=== PATIENT | male | born 1930 | race Caucasian/White ===

== ENCOUNTER 2016-06-18 17:29 | Inpatient (IN) | payer OTHER ==
[~2016-06-18] VITALS: Ht 167.6 cm; Wt 67.5 kg
[~2016-06-18 17:29] MED LIST: ASPEC81 PO; CLC100 PO; FOLI1TAB7 PO; GLC5 PO; METO50TA17 PO; NUTR-7 PO; OSEL75CA12 PO; VNTHFA/IN INH; ZRX5 PO
[2016-06-18 19:04] LABS: BASO % 0.2 %; BASO ABS # 0.01 K/uL (0-0.2); COMPLETE YES; EOS % 0.2 %; HEMATOCRIT 31.6 % (42-52); IG% 0.2 %; LYMPH % 15.4 %; LYMPH ABS # 0.66 K/uL (1.2-3.4); MEAN CORPUSCULAR HEMOGLOBIN 32.3 pg (25-34); MEAN CORPUSCULAR HGB CONC 32.3 g/dl (32-36); MEAN PLATELET VOLUME 10.9 fL (7.4-10.4); PLATELET COUNT 335 K/uL (130-400); RED BLOOD COUNT 3.16 M/uL (4.7-6.1); WHITE BLOOD COUNT 4.28 K/uL (4.8-10.8)
[2016-06-18 19:09] LABS: INR 1.1 (0.9-1.1); PARTIAL THROMBOPLASTIN RATIO 1.5; PROTHROMBIN TIME (PATIENT) 12.1 SECONDS (9.0-12.0)
--- NOTE | 2016-06-18 19:15 | DIAGNOSTIC IMAGING REPORT ---
CHEST ONE VIEW PORTABLE CLINICAL HISTORY: Sepsis COMPARISON STUDY: June 17, 2016 FINDINGS: The heart remains enlarged. There is a small left pleural effusion. There is interstitial thickening, likely secondary to pulmonary vascular congestion.[ There is no lobar consolidation IMPRESSION: 1. Cardiomegaly and persistent interstitial thickening/edema 2. Small left pleural effusion 3. No evidence of lobar consolidation Electronically signed by: Greg White M.D. 06/18/2016 7:13 PM
[2016-06-18 19:22] LABS: BUN/CREATININE RATIO 15.8 (10-20); CALCIUM 7.5 mg/dl (8.5-10.1); CREATININE 1.7 mg/dl (0.60-1.40); POTASSIUM 3.5 mmol/L (3.5-5.1)
[2016-06-18 19:25] LABS: ALB/GLOB RATIO 0.7 (0.9-2)
[2016-06-18] MEDS ORDERED: DEXTROSE 50% 50 ML SYR IV PRN (19:45)
[2016-06-18] MEDS ORDERED: GLUCAGON FOR INJ 1 MG VIAL SQ PRN (19:45)
[2016-06-18] MEDS ORDERED: ACETAMINOPHEN 325 MG TAB PO PRN (19:45)
[2016-06-18] MEDS ORDERED: GLUCOSE 10 TABS/TUBE PO PRN (19:45)
[2016-06-18] MEDS ORDERED: ONDANSETRON INJ 2 MG/ML 2 ML VIAL IV PRN (19:45)
[2016-06-18] MEDS ORDERED: ZOLPIDEM TARTRATE 5 MG TAB PO PRN (19:45)
[2016-06-18] MEDS ORDERED: GLUCOSE 40% GEL 15 GM TUBE PO PRN (19:45)
[2016-06-18] MEDS ORDERED: VANCOMYCIN CONSULT ACTIVE PRN (20:30)
[2016-06-18] MEDS ORDERED: VANCOMYCIN INJ 1,500 MG in SODIUM CHLORIDE 0.9% 500ML 500 ML IV SCH (20:30)
[2016-06-18] MEDS ORDERED: PIPERACILL/TAZOBAC IV 3.375 GM in DEXTROSE 5% 100ML 100 ML IV SCH (20:30)
[2016-06-18] MEDS ORDERED: PIPERACILL/TAZOBAC CONSULT ACTIVE PRN (20:30)
--- NOTE | 2016-06-18 20:43 | DIAGNOSTIC IMAGING REPORT ---
CT HEAD WITHOUT CONTRAST (CT) CLINICAL HISTORY: Acute change in mental status COMPARISON STUDY: 05/28/2016 TECHNIQUE: Axial CT of the brain is performed from the vertex to the skull base. IV contrast was not administered for this examination. CT DOSE: 712.55 mGy.cm FINDINGS: No intra or extra-axial mass lesions are visualized. There is no CT evidence of acute cortical infarction. There is no evidence of midline shift. There is no acute hemorrhage. No calvarial fractures are visualized. There are patchy white matter hypodensities likely on a small vessel basis. There is no evidence of pathologic ventricular dilatation. There is no evidence of acute sinusitis. There is mucosal thickening within the maxillary ethmoid and sphenoid sinuses. There are postsurgical changes of a prior aneurysm endovascular coil placement. IMPRESSION: No acute intracranial findings Electronically signed by: Greg White M.D. 06/18/2016 8:41 PM
[2016-06-18] MEDS ORDERED: LEVALBUTEROL/IPRATROPIUM NEB INH SCH (21:00)
[2016-06-18 21:15] VITALS: BP 135/65; PULSE 70; TEMP 37.1; O2SAT 95
[2016-06-18 21:30] VITALS: BP 135/65; PULSE 70; TEMP 37.1; O2SAT 95; BMI 24.0
[2016-06-18] MEDS: INSULIN ASPART 100 UNITS/ML 3 ML PEN SC SCH (22:00)
[2016-06-18] MEDS: SODIUM CHLORIDE 0.9% 1000ML 1,000 ML IV SCH (22:04)
[2016-06-18] MEDS: TAMSULOSIN HCL 0.4 MG CAP PO SCH (22:17)
[2016-06-18] MEDS: SIMVASTATIN 80 MG TAB PO SCH (22:18)
[2016-06-18] MEDS: OSELTAMIVIR PHOSPHATE 75 MG CAP PO SCH (22:18)
--- NOTE | 2016-06-18 23:21 | History and Physical ---
History & Physical Date & Time of Service: Jun 18, 2016 at 23:08 Chief Complaint: Influenza A, Staphylococcus Aureus Bacteremia Primary Care Physician: Bryno Delvalle M.D. History of Present Illness Source: patient The patient is an 85-year-old male who presents to the emergency department after being called back and by ED staff for blood cultures that were positive for gram-positive cocci and urine culture positive for staph aureus. Patient was seen in the emergency department the previous evening, was diagnosed with influenza A, started on Tamiflu, and was returned to his living quarters at [facility]. The patient at this time is resting comfortably, and continues with his main complaint of generalized weakness and fatigue. He was most recently admitted to the hospital from May 28 through June 11 for acute on chronic renal failure, which that time also as manifested by the main complaint of generalized weakness and fatigue. Past Medical/Surgical History Medical Problems: (1) Diabetes Status: Chronic (2) Heart disease Status: Chronic (3) Kidney disease Status: Chronic Surgical Problems: (1) S/P aneurysm repair Status: Resolved Family History Diabetes mellitus Social History Smoking Status: Former Smoker Smokeless Tobacco Use: No Alcohol Use: none Drug Use: none Marital Status: Housing status: lives with family Occupational Status: retired Immunizations History of Influenza Vaccine: Yes Influenza Vaccine Date: Mar 23, 2010 History of Tetanus Vaccine?: Unknown History of Pneumococcal: Yes Pneumococcal Date: Apr 23, 2008 History of Hepatitis B Vaccine: Unknown Multi-Drug Resistant Organisms History of MDRO: No Allergies Coded Allergies: Isoniazid (Verified Allergy, Intermediate, hepatitis, 06/18/16) Streptokinase (Verified Allergy, Mild, 06/18/16) THOMPSON Inhibitors (Verified Allergy, Unknown, 06/18/16) Home Medications Scheduled Albuterol Hfa (Ventolin Hfa), 1 PUFF INH Q4 Amlodipine (Norvasc), 10 MG PO DAILY Aspirin (Aspirin EC Low Dose), 81 MG PO QAM Clopidogrel (Plavix), 75 MG PO DAILY Docusate Sodium (Colace *), 100 MG PO BID Febuxostat (Uloric), 40 MG PO DAILY Folic Acid (Folvite), 0.4 MG PO DAILY Glipizide (Glucotrol *), 5 MG PO BID Isosorbide Mononitrate Ext Rel (Imdur Ext Rel), 60 MG PO QAM Metolazone (Metolazone), 5 MG PO QAM Metoprolol Tartrate (Metoprolol Tartrate), 50 MG PO TID Nutritional Supplements (Boost), 1 CAN PO DAILY Simvastatin (Zocor), 80 MG PO QPM Tamsulosin Hcl (Flomax), 0.4 MG PO HS Review of Systems The patient denies chest pain, palpitations, shortness of breath, lower extremity swelling, vision change, hearing change, sore throat, fevers, chills, sweats, weight change, nausea, vomiting, abdominal pain, pelvic pain, blood in urine or stool, dysuria, urinary frequency or urgency, headache, rash, abnormal bruising or bleeding, imbalance, focal weakness, numbness or tingling in arms or legs, back or neck pain, night sweats, or allergy symptoms. The review of systems is otherwise negative other than for that already noted above, and at least 10 systems have been reviewed. Physical Exam Vital Signs Date Time Temp Pulse Resp B/P Pulse Ox O2 Delivery O2 Flow Rate FiO2 06/18/16 21:30 37.1 70 20 135/65 95 Room Air 06/18/16 21:15 37.1 70 20 135/65 95 Room Air 06/18/16 20:31 77 16 176/75 94 06/18/16 19:15 76 18 184/70 94 Room Air 06/18/16 17:54 61 06/18/16 17:33 36.4 62 20 130/67 93 Room Air The patient is an elderly male appearing stated age, is awake, alert and oriented 3, normocephalic and atraumatic, lying in bed and in no acute distress. HEENT--PERRL, mucous membranes moist, and oropharynx normal. Neck--supple, no JVD or bruits, thyroid normal, trachea midline, no adenopathy. Heart--normal S1 and S2, no extra beats, no murmurs, rubs or gallops. Lungs--decreased breath sounds at right base, no respiratory distress, no accessory muscle use. Abdomen--normal bowel sounds and soft, nontender and nondistended, no hernias or masses, no organomegaly. Extremities--no cyanosis, clubbing or edema. There are good distal pulses b/l. Dermatologic--normal skin turgor, normal color, warm and dry, no abnormal lymph nodes, no rash. Neurologic--cranial nerves II through XII grossly intact. Psychiatric--normal affect. Diagnostics Laboratory Results Results Past 24 Hours Test 06/18/16 18:42 06/18/16 18:48 06/18/16 21:51 Range/Units White Blood Count 4.28 4.8-10.8 K/uL Red Blood Count 3.16 4.7-6.1 M/uL Hemoglobin 10.2 14.0-18.0 g/dL Hematocrit 31.6 42-52 % Mean Corpuscular Volume 100.0 80-100 fL Mean Corpuscular Hemoglobin 32.3 25-34 pg Mean Corpuscular Hemoglobin Concent 32.3 32-36 g/dl Platelet Count 335 130-400 K/uL Mean Platelet Volume 10.9 7.4-10.4 fL Neutrophils (%) (Auto) 63.0 % Lymphocytes (%) (Auto) 15.4 % Monocytes (%) (Auto) 21.0 % Eosinophils (%) (Auto) 0.2 % Basophils (%) (Auto) 0.2 % Neutrophils # (Auto) 2.69 1.4-6.5 K/uL Lymphocytes # (Auto) 0.66 1.2-3.4 K/uL Monocytes # (Auto) 0.90 0.11-0.59 K/uL Eosinophils # (Auto) 0.01 0-0.5 K/uL Basophils # (Auto) 0.01 0-0.2 K/uL RDW Standard Deviation 64.5 36.4-46.3 fL RDW Coefficient of Variation 17.7 11.5-14.5 % Immature Granulocyte % (Auto) 0.2 % Immature Granulocyte # (Auto) 0.01 0.00-0.02 K/uL Prothrombin Time 12.1 9.0-12.0 SECONDS Prothromb Time International Ratio 1.1 0.9-1.1 Activated Partial Thromboplast Time 38.6 21.0-31.0 SECONDS Partial Thromboplastin Ratio 1.5 Sodium Level 141 136-145 mmol/L Potassium Level 3.5 3.5-5.1 mmol/L Chloride Level 105 98-107 mmol/L Carbon Dioxide Level 27 21-32 mmol/L Anion Gap 9.0 3-11 mmol/L Blood Urea Nitrogen 27 7-18 mg/dl Creatinine 1.70 0.60-1.40 mg/dl Est Creatinine Clear Calc Drug Dose 27.1 ml/min Estimated GFR () 41.4 Estimated GFR (Non- 35.7 BUN/Creatinine Ratio 15.8 10-20 Random Glucose 111 70-99 mg/dl Calcium Level 7.5 8.5-10.1 mg/dl Total Bilirubin 0.6 0.2-1 mg/dl Aspartate Amino Transf (AST/SGOT) 20 15-37 U/L Alanine Aminotransferase (ALT/SGPT) 21 12-78 U/L Alkaline Phosphatase 63 45-117 U/L Total Protein 5.9 6.4-8.2 gm/dl Albumin 2.5 3.4-5.0 gm/dl Globulin 3.4 2.5-4.0 gm/dl Albumin/Globulin Ratio 0.7 0.9-2 Bedside Lactic Acid Venous 0.86 0.90-1.70 mmol/L Bedside Glucose 111 70-99 mg/dl Microbiology Results 06/18/16 Blood Culture, Received Pending 06/18/16 Blood Culture, Received Pending Diagnostic Radiology Patient Name: HERMILA DIOR Unit Number: [id number] Dictated: 06/18/162039 Transcribed: 06/18/162039 ARG Printed Date/Time: [~ rep prt dt]/[~ rep prt tm] [~ rep ct labl] - [~ rep ct ivnm] [facility] [place] [address] Dictated: 06/18/162039 Transcribed: 06/18/162039 ARG Printed Date/Time: [~ rep prt dt]/[~ rep prt tm] [~ rep ct labl] - [~ rep ct ivnm] [~ rep ct add3]] CT HEAD WITHOUT CONTRAST (CT) CLINICAL HISTORY: Acute change in mental status COMPARISON STUDY: 05/28/2016 TECHNIQUE: Axial CT of the brain is performed from the vertex to the skull base. IV contrast was not administered for this examination. CT DOSE: 712.55 mGy.cm FINDINGS: No intra or extra-axial mass lesions are visualized. There is no CT evidence of acute cortical infarction. There is no evidence of midline shift. There is no acute hemorrhage. No calvarial fractures are visualized. There are patchy white matter hypodensities likely on a small vessel basis. There is no evidence of pathologic ventricular dilatation. There is no evidence of acute sinusitis. There is mucosal thickening within the maxillary ethmoid and sphenoid sinuses. There are postsurgical changes of a prior aneurysm endovascular coil placement. IMPRESSION: No acute intracranial findings Electronically signed by: Greg White M.D. 06/18/2016 8:41 PM The status of this report is Signed. Draft = Not yet reviewed or approved by Radiologist. Signed = Reviewed and approved by Radiologist. <AttendingPhy></AttendingPhy> <FamilyPhy>Bryon Delvalle M.D.</FamilyPhy> < PrimaryPhy>Bryon Delvalle M.D.</PrimaryPhy> <UnitNumber>[id number]</UnitNumber > <VisitNumber>[id number]</VisitNumber> <PatientName>HERMILA DIOR</ PatientName> <DateOfBirth>1930</DateOfBirth> <Location>[facility]</Location> < ServiceDate>06/18/16</ServiceDate> <MNE>ESINDI</MNE> <OrderingPhy>Chandrakant Hensley MD</OrderingPhy> <OrderingPhyMNE>f rep ord dr logan</OrderingPhyMNE> < DictatingPhyMNE>f rep dict dr logan</DictatingPhyMNE> <CCListMNE>f rep ct [place]</ CCListMNE> <AdmittingPhyMNE>f pt admit dr logan</AdmittingPhyMNE> <AttendingPhyMNE >f pt attend dr logan</AttendingPhyMNE> <ConsultingPhyMNE>f pt consult dr logan</ConsultingPhyMNE> <FamilyPhyMNE>f pt fam dr logan</FamilyPhyMNE> <OtherPhyMNE>f pt other dr logan</OtherPhyMNE> < PrimaryPhyMNE>f pt prim care dr logan</PrimaryPhyMNE> <ReferringPhyMNE>f pt referring dr logan</ReferringPhyMNE> Patient Name: HERMILA DIOR Unit Number: [id number] Dictated: 06/18/161910 Transcribed: 06/18/161910 ARG Printed Date/Time: [~ rep prt dt]/[~ rep prt tm] [~ rep ct labl] - [~ rep ct ivnm] [facility] [place] [place] [address] Dictated: 06/18/161910 Transcribed: 06/18/161910 ARG Printed Date/Time: [~ rep prt dt]/[~ rep prt tm] [~ rep ct labl] - [~ rep ct ivnm] CLINICAL HISTORY: Sepsis COMPARISON STUDY: June 17, 2016 FINDINGS: The heart remains enlarged. There is a small left pleural effusion. There is interstitial thickening, likely secondary to pulmonary vascular congestion.[ There is no lobar consolidation IMPRESSION: 1. Cardiomegaly and persistent interstitial thickening/edema 2. Small left pleural effusion 3. No evidence of lobar consolidation Electronically signed by: Greg White M.D. 06/18/2016 7:13 PM The status of this report is Signed. Draft = Not yet reviewed or approved by Radiologist. Signed = Reviewed and approved by Radiologist. <AttendingPhy></AttendingPhy> <FamilyPhy>Bryon Delvalle M.D.</FamilyPhy> < PrimaryPhy>Bryon Delvalle M.D.</PrimaryPhy> <UnitNumber>[id number]</UnitNumber > <VisitNumber>[id number]</VisitNumber> <PatientName>HERMILA DIOR</ PatientName> <DateOfBirth>1930</DateOfBirth> <Location>[facility]</Location> < ServiceDate>06/18/16</ServiceDate> <MNE>ESINDI</MNE> <OrderingPhy>Chandrakant Hensley MD</OrderingPhy> <OrderingPhyMNE>f rep ord dr logan</OrderingPhyMNE> < DictatingPhyMNE>f rep dict dr logan</DictatingPhyMNE> <CCListMNE>f rep ct mne</ CCListMNE> <AdmittingPhyMNE>f pt admit dr logan</AdmittingPhyMNE> <AttendingPhyMNE >f pt attend dr logan</AttendingPhyMNE> <ConsultingPhyMNE>f pt consult dr logan</ConsultingPhyMNE> <FamilyPhyMNE>f pt fam dr logan</FamilyPhyMNE> <OtherPhyMNE>f pt other dr logan</OtherPhyMNE> < PrimaryPhyMNE>f pt prim care dr logan</PrimaryPhyMNE> <ReferringPhyMNE>f pt referring dr logan</ReferringPhyMNE> other (chest x-ray to my interpretation shows mild right lower lobe infiltrate) EKG EKG shows normal sinus rhythm at 72, with PACs, no acute ST-T changes. Impression Assessment and Plan Influenza A, with gram-positive cocci bacteremia, staph aureus UTI, and right lower lobe pneumonia--the patient will be admitted to the medical floor. We'll continue Tamiflu 75 mg by mouth twice a day with renal dosing, add vancomycin IV per renal dosing, Zosyn 3.375 mg IV every 12 hours, Xopenex with Atrovent nebulizer to use every 6 hours while awake and every 2 hours when necessary, guaifenesin 200 mg by mouth 4 times a day, and nasal cannula 2 L O2 titrated to keep pulse ox greater than or equal to 91%. Coronary artery disease/hypertension/CHF history--continue amlodipine 10 mg by mouth daily enteric-coated aspirin 81 mg by mouth every morning clopidogrel 75 mg by mouth daily isosorbide mononitrate extended release 60 mg by mouth every morning and metoprolol tartrate 50 mg by mouth 3 times a day. Will hold metolazone 5 mg by mouth every morning. Diabetes mellitus--hold glipizide 5 mg by mouth twice a day. Place on Accu- Cheks before meals and at bedtime with NovoLog coverage. Hypercholesterolemia continue simvastatin 80 mg by mouth every afternoon. BPH--continue tamsulosin 0.4 mg by mouth at bedtime. Gout--continue Uloric 40 mg by mouth daily. Level of Care Telemetry Advanced Directives Existing Advance Directive: Yes Existing Living Will: Yes Existing Power of Cut Off Saw Set Up Operator: Yes Resuscitation Status FULL RESUSCITATION VTE Prophylaxis VTE Risk Assessment Done? Y/N: Yes Risk Level: Moderate Given or contraindicated: SCD's Social Service Consult Lives in Personal Care
--- NOTE | 2016-06-18 23:35 | Pharmacy Progress Note ---
Pharmacy Antibiotic Consult Date of Service: Jun 18, 2016. Pharmacy Dosing Scope Pharmacy is consulted to initiate IV Vancomycin/Zosyn dosing therapy, order appropriate labs and adjust drug dose/frequency. Subjective The patient is a 85 year old male admitted on Jun 18, 2016 at 19:33. Objective Height (Feet): 5 Height (Inches): 6.00 Weight (Kilograms): 67.500 Lab Results (24hrs): Laboratory Tests Test 06/18/16 18:42 BUN/Creatinine Ratio 15.8 Blood Urea Nitrogen 27 mg/dl Creatinine 1.70 mg/dl White Blood Count 4.28 K/uL Red Blood Count 3.16 M/uL Hemoglobin 10.2 g/dL Hematocrit 31.6 % Mean Corpuscular Volume 100.0 fL Mean Corpuscular Hemoglobin 32.3 pg Mean Corpuscular Hemoglobin Concent 32.3 g/dl Platelet Count 335 K/uL Mean Platelet Volume 10.9 fL Neutrophils (%) (Auto) 63.0 % Lymphocytes (%) (Auto) 15.4 % Monocytes (%) (Auto) 21.0 % Eosinophils (%) (Auto) 0.2 % Basophils (%) (Auto) 0.2 % Neutrophils # (Auto) 2.69 K/uL Lymphocytes # (Auto) 0.66 K/uL Monocytes # (Auto) 0.90 K/uL Eosinophils # (Auto) 0.01 K/uL Basophils # (Auto) 0.01 K/uL Micro Results: Item Value Date Time Blood Culture Received 06/18/161841 Blood Pending Blood Culture Received 06/18/161841 Blood Pending Item Value Date Time Blood Culture Received 06/18/161841 Blood Pending RUN DATE: 06/18/16 [facility] LAB PAGE 1 RUN TIME: 1507 Specimen Inquiry PATIENT: HERMILA DIOR LOC: [facility] U # : [id number] AGE/SX: 85/M ROOM: REG : 06/17/[address]: Theron Gomez DO : 1930 BED: DIS : STATUS: DEP ER TLOC: SPEC #: [id number] ABBY: 06/17/16 STATUS: RES REQ #: [id number] RECD: 06/17/[address]: Theron Gomez DO SOURCE: BLOOD ENTR: 06/17/1615[address] [facility] DR: Bryon Delvalle M.D. [facility] B[facility]OD [facility] Procedure Result Verified Site BLD CULT Preliminary 06/18/16-1507 Organism 1 GRAM POSITIVE COCCI SENS SENSITIVITIES DEPENDENT ON FURTHER IDENTIFICATION Phoned Positive Blood Culture Gram Stain Report to ANNIE NAVARRO on 06/18/16 At 1507 By GET. Results were verbalized back to GET. Item Value Date Time Urine Culture - Preliminary Resulted 06/17/16 1628 Urine,Catheterized Staph Species RUN DATE: 06/18/16 [facility] LAB PAGE 1 RUN TIME: 1302 Specimen Inquiry PATIENT: HERMILA DIOR LOC: [facility] U # : [id number] AGE/SX: 85/M ROOM: REG : 06/17/[address]: Theron Gomez DO : 1930 BED: DIS : STATUS: DEP ER TLOC: SPEC #: [id number] ABBY: 06/17/16 STATUS: RES REQ #: [id number] RECD: 06/17/[address]: Theron Gomez DO SOURCE: URINE CATH ENTR: 06/17/[address]: Bryon Delvalle M.D. [facility]: CULTURE UR CATH COMMENTS: Has Specimen Been Obtained/Collected? Y Procedure Result Verified Site URINE CULTURE Preliminary 06/18/16-1302 Organism 1 STAPH SPECIES COLONY COUNT >100,000 CFU/ml SENS SENSITIVITY TO FOLLOW Recent Pertinent Medications Item Value Date Time Vancomycin HCl 530 ml @ 125 mls/hr 06/18/162029 1500 mg/Sodium TODAY@2030/IV 06/18/16 2204 Chloride Vancomycin HCl 270 ml @ 125 mls/hr 06/19/16 1800 1000 mg/Sodium Q24H/IV Chloride Item Value Date Time Piperacillin Sod/ 115 ml @ 230 mls/hr 06/18/16 2030 Tazobactam Sod TODAY@2030/IV 06/18/16 2204 3.375 gm/Dextrose Piperacillin Sod/ 115 ml @ 28.75 mls/hr 06/19/16 0600 Tazobactam Sod Q8H/IV 3.375 gm/Dextrose Assessment & Plan Vancomycin * 85 yo male admitted with Influenza A/Staph Aureus bacteremia/UTI/RLL pneumonia * Loading dose: Vancomycin 1500mg IV x 1 dose * Maintenance dose: Vancomycin 1gm IV q24h * P'kinetic estimates: k ~ 0.0269hr-1, t1/2 ~ 25.8h, Vd ~ 0.7L/kg * Goal trough level: 15-20mcg/mL * Trough level ordered for: 06/21/16 1800 Pharmacy will continue to follow and will adjust dose/frequency as necessary. Thank you
--- NOTE | 2016-06-18 23:51 | EMERGENCY ROOM VISIT NOTE ---
History Report prepared by Estiven: Juan Antonio Villeda Under the Supervision of: Dr. Chandrakant Hensley M.D. First contact with patient: 18:07 Chief Complaint: ABNORMAL LABS Stated Complaint: ABNORMAL LAB History of Present Illness The patient is a 85 year old male who presents to the Emergency Room after presenting to the ED yesterday and being diagnosed with Influenza A. One of the patient's blood culture labs was abnormal and had gram positive cocci in it. Per patient's daughter, the half-way said the patient was confused since he started having these symptoms. Today he was not eating and seemed more confused earlier today but seemed to improve later. The patient's daughter notes that the patient has been fatigued and weak. Per patient and patient's daughter, he has a productive cough and occasionally is short of breath. The HPI is limited due to change in mental status. Source of History: patient, family, half-way notes History Limited By: AMS (change in mental status) Onset: past 24 hours Position: other (global) Quality: other (flulike symptoms) Timing: other (persistent) Associated Symptoms: + SOB (occasionally), + cough (productive), + fatigue, + weakness Note: Associated symptoms: more confused than normal Review of Systems See HPI for pertinent positives & negatives. A total of 10 systems reviewed and were otherwise negative. Past Medical & Surgical Medical Problems: (1) Anemia (2) chf exac, Kimberly on ckd, tsh high (3) Diabetes (4) Heart disease (5) Hypertension (6) Influenza A (7) Kidney disease (8) Staphylococcus aureus bacteremia Surgical Problems: (1) S/P aneurysm repair Family History Diabetes mellitus Social History Smoking Status: Former Smoker Alcohol Use: none Marital Status: Housing Status: lives with significant other Occupation Status: retired Current/Historical Medications Scheduled Albuterol Hfa (Ventolin Hfa), 1 PUFF INH Q4 Amlodipine (Norvasc), 10 MG PO DAILY Aspirin (Aspirin EC Low Dose), 81 MG PO QAM Clopidogrel (Plavix), 75 MG PO DAILY Docusate Sodium (Colace *), 100 MG PO BID Febuxostat (Uloric), 40 MG PO DAILY Folic Acid (Folvite), 0.4 MG PO DAILY Glipizide (Glucotrol *), 5 MG PO BID Isosorbide Mononitrate Ext Rel (Imdur Ext Rel), 60 MG PO QAM Metolazone (Metolazone), 5 MG PO QAM Metoprolol Tartrate (Metoprolol Tartrate), 50 MG PO TID Nutritional Supplements (Boost), 1 CAN PO DAILY Simvastatin (Zocor), 80 MG PO QPM Tamsulosin Hcl (Flomax), 0.4 MG PO HS Allergies Coded Allergies: Isoniazid (Verified Allergy, Intermediate, hepatitis, 06/18/16) Streptokinase (Verified Allergy, Mild, 06/18/16) THOMPSON Inhibitors (Verified Allergy, Unknown, 06/18/16) Physical Exam Vital Signs Date Time Temp Pulse Resp B/P Pulse Ox O2 Delivery O2 Flow Rate FiO2 06/18/16 19:15 76 18 184/70 94 Room Air 06/18/16 17:54 61 06/18/16 17:33 36.4 62 20 130/67 93 Room Air Physical Exam Constitutional: Vital signs reviewed. Eyes: Pupils are equal round reactive to light. Conjunctiva are noninjected. ENT: Pharynx is clear without erythema or exudate. Mucous membranes are dry. Neck supple without meningeal signs. Respiratory: Clear to auscultation bilaterally. Breath sounds are equal bilaterally. Cardiovascular: Regular rate and rhythm. No rubs or gallops. GI: Soft, nondistended and nontender. Bowel sounds are present. Musculoskeletal: No peripheral edema. No lower extremity tenderness. Integumentary: No cyanosis. Neurological: The patient is drowsy but easily arousable and answers questions. Psychiatric: Unable to assess. Medical Decision & Procedures ER Provider Diagnostic Interpretation: Other radiology results as stated below per my review and the radiologist's interpretation: CHEST ONE VIEW PORTABLE CLINICAL HISTORY: Sepsis COMPARISON STUDY: June 17, 2016 FINDINGS: The heart remains enlarged. There is a small left pleural effusion. There is interstitial thickening, likely secondary to pulmonary vascular congestion.[ There is no lobar consolidation IMPRESSION: 1. Cardiomegaly and persistent interstitial thickening/edema 2. Small left pleural effusion 3. No evidence of lobar consolidation Electronically signed by: Greg White M.D. 06/18/2016 7:[address] HEAD WITHOUT CONTRAST (CT) CLINICAL HISTORY: Acute change in mental status COMPARISON STUDY: 05/28/2016 TECHNIQUE: Axial CT of the brain is performed from the vertex to the skull base. IV contrast was not administered for this examination. CT DOSE: 712.55 mGy.cm FINDINGS: No intra or extra-axial mass lesions are visualized. There is no CT evidence of acute cortical infarction. There is no evidence of midline shift. There is no acute hemorrhage. No calvarial fractures are visualized. There are patchy white matter hypodensities likely on a small vessel basis. There is no evidence of pathologic ventricular dilatation. There is no evidence of acute sinusitis. There is mucosal thickening within the maxillary ethmoid and sphenoid sinuses. There are postsurgical changes of a prior aneurysm endovascular coil placement. IMPRESSION: No acute intracranial findings Electronically signed by: Greg White M.D. 06/18/2016 8:41 PM Laboratory Results 06/18/16 18:42 Red Blood Count 3.16, Mean Corpuscular Volume 100.0, Mean Corpuscular Hemoglobin 32.3, Mean Corpuscular Hemoglobin Concent 32.3, Mean Platelet Volume 10.9, Neutrophils (%) (Auto) 63.0, Lymphocytes (%) (Auto) 15.4, Monocytes (%) ( Auto) 21.0, Eosinophils (%) (Auto) 0.2, Basophils (%) (Auto) 0.2, Neutrophils # (Auto) 2.69, Lymphocytes # (Auto) 0.66, Monocytes # (Auto) 0.90, Eosinophils # ( Auto) 0.01, Basophils # (Auto) 0.01 06/18/16 18:42 Test 06/18/16 18:42 06/18/16 18:48 White Blood Count 4.28 K/uL (4.8-10.8) Red Blood Count 3.16 M/uL (4.7-6.1) Hemoglobin 10.2 g/dL (14.0-18.0) Hematocrit 31.6 % (42-52) Mean Corpuscular Volume 100.0 fL (80-100) Mean Corpuscular Hemoglobin 32.3 pg (25-34) Mean Corpuscular Hemoglobin Concent 32.3 g/dl (32-36) Platelet Count 335 K/uL (130-400) Mean Platelet Volume 10.9 fL (7.4-10.4) Neutrophils (%) (Auto) 63.0 % Lymphocytes (%) (Auto) 15.4 % Monocytes (%) (Auto) 21.0 % Eosinophils (%) (Auto) 0.2 % Basophils (%) (Auto) 0.2 % Neutrophils # (Auto) 2.69 K/uL (1.4-6.5) Lymphocytes # (Auto) 0.66 K/uL (1.2-3.4) Monocytes # (Auto) 0.90 K/uL (0.11-0.59) Eosinophils # (Auto) 0.01 K/uL (0-0.5) Basophils # (Auto) 0.01 K/uL (0-0.2) RDW Standard Deviation 64.5 fL (36.4-46.3) RDW Coefficient of Variation 17.7 % (11.5-14.5) Immature Granulocyte % (Auto) 0.2 % Immature Granulocyte # (Auto) 0.01 K/uL (0.00-0.02) Prothrombin Time 12.1 SECONDS (9.0-12.0) Prothromb Time International Ratio 1.1 (0.9-1.1) Activated Partial Thromboplast Time 38.6 SECONDS (21.0-31.0) Partial Thromboplastin Ratio 1.5 Anion Gap 9.0 mmol/L (3-11) Est Creatinine Clear Calc Drug Dose 27.1 ml/min Estimated GFR () 41.4 Estimated GFR (Non- 35.7 BUN/Creatinine Ratio 15.8 (10-20) Calcium Level 7.5 mg/dl (8.5-10.1) Total Bilirubin 0.6 mg/dl (0.2-1) Aspartate Amino Transf (AST/SGOT) 20 U/L (15-37) Alanine Aminotransferase (ALT/SGPT) 21 U/L (12-78) Alkaline Phosphatase 63 U/L (45-117) Total Protein 5.9 gm/dl (6.4-8.2) Albumin 2.5 gm/dl (3.4-5.0) Globulin 3.4 gm/dl (2.5-4.0) Albumin/Globulin Ratio 0.7 (0.9-2) Bedside Lactic Acid Venous 0.86 mmol/L (0.90-1.70) Laboratory results as reviewed by me. ED Course 1807: The patient was evaluated in room C4. A complete history and physical exam was performed. 1821: At this time, I discussed the patient's case with Dr. Summers - [facility] and he agreed to accept the patient for further evaluation. Medical Decision This is an 85-year-old male who presents with flulike symptoms with a positive blood culture. Differential diagnosis includes bacteremia, sepsis, UTI, pneumonia, skin contaminant. I did perform a limited focused review of portions of the patient's old chart on the electronic medical record. The patient presented to the ED yesterday for flu-like symptoms and was diagnosed with Influenza A. He was put on Tamiflu at that time. This morning, one of the blood cultures grew gram positive cocci and the patient was experiencing increased confusion per the half-way. Dr. Morales - [facility] requested that the patient come back for evaluation. I did evaluate the patient as noted above. The patient was diagnosed with influenza yesterday. One of his blood cultures came back positive today. The patient has not been doing well according to the half-way. He was sent back here for evaluation. I was concerned about bacteremia given his positive blood culture. He also had a positive urine culture. IV access was established. The patient was placed on a continuous color television console monitor. I did order and personally review the patient's chest x-ray as described above. I did order and review the patient's blood work as noted in the electronic medical record. I did order a CT of the head. I did review the images myself as well as the radiology report as described above. There is no evidence of acute intracranial process. The patient will be hospitalized for IV antibiotics. I did discuss case with the hospitalist and medical case worker. Consults Time Called: 1814 Consulting Physician: [facility] - [facility] [place] Returned Call: 1820 At this time, I discussed the patient's case with Dr. Summers and he agreed to accept the patient for further evaluation. Impression Primary Impression: Bacteremia Additional Impression: Influenza A Scribe Attestation The scribe's documentation has been prepared under my direct and personally reviewed by me in its entirety. I confirm that the note above accurately reflects all work, treatment, procedures, and medical decision making performed by me. Departure Information Dispostion Being Evaluated By Hospitalist Referrals Bryon Delvalle M.D. (PCP)
[2016-06-18 23:53] VITALS: BP 156/56; PULSE 72; TEMP 36.8; O2SAT 92
[2016-06-19] VITALS (7 sets, daily range): BP systolic 117–166; BP diastolic 59–67; PULSE 62–78; TEMP 36.1–36.6; O2SAT 90–93
[2016-06-19] MEDS: IPRATROPIUM BROMIDE NEB SOLN 0.02% 2.5 ML VIAL INH SCH ×4 (01:45→19:13)
[2016-06-19] MEDS: LEVALBUTEROL 1.25MG/0.5ML NEB INH SCH ×4 (01:45→19:13)
[2016-06-19 04:38] LABS: URINE APPEARANCE CLEAR (CLEAR); URINE BILIRUBIN NEG (NEG); URINE COLOR YELLOW; URINE NITRITE POS (NEG); URINE PH 5.5 (4.5-7.5); URINE SPECIFIC GRAVITY 1.015 (1.000-1.030); UROBILINOGEN NEG (NEG); ZZUR CULT IF INDIC CLEAN CATCH NO
[2016-06-19 04:45] LABS: MANUAL MICROSCOPIC REQUIRED? NO; REVIEW REQ? NO
[2016-06-19] MEDS: PIPERACILL/TAZOBAC IV 3.375 GM in DEXTROSE 5% 100ML 100 ML IV SCH ×3 (05:55→20:49)
[2016-06-19 07:24] LABS: BASO % 0.2 %; BASO ABS # 0.01 K/uL (0-0.2); COMPLETE YES; EOS % 0.2 %; HEMATOCRIT 31.5 % (42-52); IG% 0.2 %; LYMPH % 8.8 %; LYMPH ABS # 0.44 K/uL (1.2-3.4); MEAN CELL VOLUME 98.4 fL (80-100); MEAN CORPUSCULAR HEMOGLOBIN 33.1 pg (25-34); MEAN CORPUSCULAR HGB CONC 33.7 g/dl (32-36); MEAN PLATELET VOLUME 10.7 fL (7.4-10.4); MONO % 18.4 %; NEUT % 72.2 %; PLATELET COUNT 338 K/uL (130-400); WHITE BLOOD COUNT 5.01 K/uL (4.8-10.8)
[2016-06-19 07:54] LABS: BUN/CREATININE RATIO 15.6 (10-20); CALCIUM 7.3 mg/dl (8.5-10.1); CREATININE 1.6 mg/dl (0.60-1.40); MAGNESIUM 1.4 mg/dl (1.8-2.4); POTASSIUM 3.3 mmol/L (3.5-5.1)
[2016-06-19] MEDS ORDERED: INFLUENZA VIRUS QUAD VACCINE 0.5 ML SYR IM. ONE (08:00)
[2016-06-19] MEDS ORDERED: INFLUENZA ADMINISTRATION CHARGE ONE (08:00)
[2016-06-19] MEDS ORDERED: PNEUMOCOCCAL ADMINISTRATION CHARGE ONE (08:00)
[2016-06-19] MEDS ORDERED: PNEUMOCOCCAL POLYSACCHARIDES 25 MCG/0.5 ML VIAL/SYR IM. ONE (08:00)
[2016-06-19] MEDS ORDERED: BOOST VANILLA PO SCH ×2 (08:00)
[2016-06-19] MEDS: ISOSORBIDE MONONITRATE 60 MG TABCR PO SCH (08:08)
[2016-06-19] MEDS: AMLODIPINE BESYLATE 5 MG TAB PO SCH (08:08)
[2016-06-19] MEDS: ASPIRIN 81 MG ECTAB PO SCH (08:09)
[2016-06-19] MEDS: DOCUSATE SODIUM 100 MG CAP PO SCH ×2 (08:09→20:50)
[2016-06-19] MEDS: METOPROLOL TARTRATE 50 MG TAB PO SCH ×3 (08:10→20:50)
[2016-06-19] MEDS: GUAIFENESIN SUGAR FREE 200 MG/10 ML UDC PO SCH ×4 (08:10→20:50)
[2016-06-19] MEDS: CLOPIDOGREL BISULFATE 75 MG TAB PO SCH (08:10)
[2016-06-19] MEDS: FEBUXOSTAT 40 MG TAB PO SCH (08:11)
[2016-06-19] MEDS: OSELTAMIVIR PHOSPHATE 75 MG CAP PO SCH ×2 (08:11→20:51)
[2016-06-19] MEDS ORDERED: POTASSIUM CHLORIDE 20 MEQ TABCR PO STA (08:41)
[2016-06-19] MEDS: INSULIN ASPART 100 UNITS/ML 3 ML PEN SC SCH ×4 (09:21→21:33)
--- NOTE | 2016-06-19 10:53 | NEPHROLOGY PROGRESS NOTE ---
DATE: 06/19/2016 PRIMARY CARE/NEPHROLOGY PROGRESS NOTE SUBJECTIVE: Mr. Luis is an 85-year-old gentleman that I have followed for many years for his problems of chronic renal insufficiency associated with a history of hypertension, hypercholesterolemia, smoking and non-insulin dependent diabetes mellitus. Manifestations of his vascular disease include a history of coronary artery disease with episodes of congestive heart failure/volume overload as well as left renal artery stenosis, for which he has undergone an angioplasty and stent placement. His serum creatinine is generally in the range of about 1.7-2.0 mg/dL. His diabetes has been well controlled. He had a recent prolonged hospitalization for problems of generalized weakness and dyspnea with exertion. He had changes at the time of admission consistent with congestive heart failure. He was vigorously diuresed and in fact, became volume depleted. He was subsequently given a slow IV fluid with significant improvement in his overall sense of wellbeing, his blood pressure and the level of his renal function. At the time of his discharge, however, he remains somewhat weak. His serum creatinine was less than 2 mg/dL. He was afebrile and his hemoglobin appeared to be on the rise after he had received Procrit. He was discharged to a personal long term, [facility]. However, while there, he did not necessarily do well. He was not eating well. He complained of some generalized weakness and occasional shortness of breath. He was referred to the Emergency Room on June 17. While there, he appeared to be reasonably well. His general physical exam was not appreciably different than it had been at the time of his previous admission. His blood pressure was normal to somewhat elevated, particularly his systolic blood pressure. His white count was normal at 6270 with 74.8% neutrophils. His clinical chemistries showed essentially normal electrolytes with his BUN was 26 and his creatinine 1.7. His troponin was 0.060. His ProBNP was elevated at 20,214. His albumin had improved from his previous admission to 2.9. His urinalysis showed a specific gravity of 1.017. He had 3+ protein and 2+ blood. His sediment showed 1-5 white cells and 0-4 red cells per high power field. He did have a number of epithelial cells and a few bacteria were noted. Of note is the fact that a Pichardo catheter was in place. Blood and urine cultures were done at the time of that visit. Additionally, he had swab done for influenza. He was positive for influenza A and started on Tamiflu. He was discharged back to [facility]. At [facility], it was apparent that the staff was uncomfortable taking care of someone who needed significant nursing supervision. We started the [employer] to have Mr. Luis transferred to a group home for his continued convalescence since his Emergency Room studies appeared reasonably good. However, during his stay in the Emergency Room, he did have 2 blood cultures and urine culture done. The urine culture was positive for gram positive coccus, which proved to be a staphylococcal species. A Pichardo catheter had been in place at the time of the culture. Additionally, he had 1 of 2 blood cultures positive for gram positive cocci. He was recalled to the Emergency Room and admitted and started on vancomycin. Mr. Luis tells me that he did not feel that bit yesterday, but feels a bit worse this morning. He has had a low-grade fever in the hospital with a maximum temperature of 37.1 degrees. He is afebrile this morning. OBJECTIVE: VITAL SIGNS: On limited physical exam at the current time, he was afebrile (36.4). His blood pressure 166/59, his pulse 67 and regular, respiratory rate 20, and his pulse ox 92% to 95% on room air. SKIN: Turgor is normal. He has scars from prior surgical procedures. He has no rash. NECK: Supple. He has bilateral carotid endarterectomy scars. He has soft bilateral carotid murmurs. There is no significant jugular venous distention. CHEST: Shows diminished breath sounds throughout. When he coughs, he does have some audible rhonchi, but no wheezes. CARDIAC: Shows a regular rhythm. There was no murmur or gallop. EXTREMITIES: Show 1+ to 2+ lower extremity edema. Peripheral pulses are diminished. LABORATORY DATA: His current white blood cell count is 5010 with an essentially normal differential. His prothrombin time is 12.1 with an INR of 1.1. His PTT is 38.6 with a PTTR of 1.5. His sodium is 142 mmol/L, potassium 3.3 mmol/L, chloride is 106 mmol/L, and CO2 content 24 mmol/L. His BUN 25 and his creatinine 1.6. Blood sugars vary from 111 to 164. His serum calcium is 7.3, his magnesium 1.4, his total protein 5.9, and his albumin 2.5. His chest x-ray shows cardiomegaly with some interstitial thickening. There is no evidence of consolidation. Blood cultures have been repeated and the results are pending. He has been started on vancomycin and has also received piperacillin/tazobactam. He continues on Tamiflu as well as his other regular medications. ASSESSMENT: Mr. Luis is a chronically-ill gentleman with generalized atherosclerotic cardiovascular disease, chronic renal insufficiency, history of congestive heart failure, hypertension and hypercholesterolemia. He also has chronic obstructive pulmonary disease. He had a recent prolonged hospitalization for generalized weakness and evidence of congestive heart failure. When discharged, he seemed to be doing reasonably well. However, it appeared that the staff at the [facility] was a little bit insecure in caring for a gentleman with so many health problems. He has now been found to have a positive urine culture for staph species as well as positive blood culture for gram positive cocci. However, the blood cultures were only 1 of 2. His white count is normal and his urinalysis shows no significant pyuria. Therefore, I would question whether or not he truly has an infection involving a gram positive organism. A blood culture and urine cultures are likely both contaminants. However, it is not inappropriate to given the fact that he is so chronically ill to treat him until repeat blood cultures are helpful. If vancomycin is to be used, I would recommend that it only be given in a circumstance where we are certain that his trough level is appropriate. Vancomycin nephrotoxicity certainly could be a major issue. I would not rely on estimated creatinine clearances to make a decision about the dosing of vancomycin. I would set the [employer] for arranging a group home care after this hospitalization. A formal consultation with me is not necessary. I will be away for the next 2 days. If support from nephrology is needed, Dr. Conor Guardado is available.
--- NOTE | 2016-06-19 12:20 | Progress Note ---
Subjective Subjective Date of Service: Jun 19, 2016. Pt evaluation today including: conversation w/ patient, conversation w/ family , physical exam, chart review, review of studies, review of inpatient medication list Problem List Medical Problems: (1) Acute on chronic renal failure Status: Acute (2) Bacteremia Status: Acute (3) CHF (congestive heart failure) Status: Acute (4) Confusion Status: Acute (5) Cough Status: Acute (6) Generalized weakness Status: Acute (7) Influenza Status: Acute Review of Systems Constitutional: No fever ENT: No hearing loss Respiratory: No cough Cardiac: No chest pain Abdomen: No pain Musculoskeletal: No joint pain Heme: No abnormal bleeding/bruising Endo: No fatigue Physical Exam Vital Signs Vital Signs Past 24 Hours: Date Time Temp Pulse Resp B/P Pulse Ox O2 Delivery O2 Flow Rate FiO2 06/19/16 08:00 Room Air 06/19/16 07:53 36.4 67 20 166/59 92 Room Air 06/19/16 07:00 67 16 92 Nasal Cannula 2.0 06/19/16 01:45 76 16 93 Nasal Cannula 2.0 06/19/16 00:00 Room Air 06/18/16 23:53 36.8 72 20 156/56 92 Room Air 06/18/16 21:30 37.1 70 20 135/65 95 Room Air 06/18/16 21:15 37.1 70 20 135/65 95 Room Air 06/18/16 20:31 77 16 176/75 94 06/18/16 19:15 76 18 184/70 94 Room Air 06/18/16 17:54 61 06/18/16 17:33 36.4 62 20 130/67 93 Room Air Physical Exam: General Appearance: WD/WN, no apparent distress Eyes: bilateral eyes normal inspection ENT: hearing grossly normal, pharynx normal Neck: supple, no JVD Respiratory/Chest: chest non-tender, normal breath sounds, no respiratory distress Cardiovascular: regular rate, rhythm, no gallop, no JVD Abdomen: soft, no organomegaly Extremities: non-tender, normal inspection, no pedal edema Neurologic/Psychiatric: alert, normal mood/affect Skin: normal color, warm/dry Medications Medications: Current Inpatient Medications Medications (Trade) Dose Ordered Sig/Joselito Route Start Time Stop Time Status Last Admin Dose Admin Acetaminophen (Tylenol Tab) 650 mg Q4H PRN PO 06/18/16 19:45 07/18/16 19:44 Zolpidem Tartrate (Ambien Tab) 5 mg HSZ PRN PO 06/18/16 19:45 07/18/16 19:44 Amlodipine Besylate (Norvasc Tab) 10 mg DAILY PO 06/19/16 08:00 07/19/16 08:59 06/19/16 08:08 10 MG Aspirin (Ecotrin Tab) 81 mg QAM PO 06/19/16 08:00 07/19/16 08:59 06/19/16 08:09 81 MG Clopidogrel Bisulfate (plAVix TAB) 75 mg DAILY PO 06/19/16 08:00 07/19/16 08:59 06/19/16 08:10 75 MG Docusate Sodium (coLACE CAP) 100 mg BID PO 06/19/16 08:00 07/19/16 07:59 06/19/16 08:09 100 MG Folic Acid (Folvite Tab) 0.4 mg DAILY PO 06/19/16 08:00 07/19/16 08:59 06/19/16 08:09 0.4 MG Isosorbide Mononitrate (Imdur Ext Rel Tab) 60 mg QAM PO 06/19/16 08:00 07/19/16 08:59 06/19/16 08:08 60 MG Metoprolol Tartrate (Lopressor Tab) 50 mg TID PO 06/19/16 08:00 07/19/16 07:59 06/19/16 08:10 50 MG Enteral Nutritional Formula (Boost) 1 can DAILY PO 06/19/16 08:00 07/19/16 08:59 Simvastatin (Zocor Tab) 80 mg QPM PO 06/18/16 22:00 07/18/16 21:59 06/18/16 22:18 80 MG Tamsulosin HCl (Flomax Cap) 0.4 mg HS PO 06/18/16 22:00 07/18/16 21:59 06/18/16 22:17 0.4 MG Febuxostat (Uloric) 40 mg DAILY PO 06/19/16 08:00 07/19/16 07:59 06/19/16 08:11 40 MG Oseltamivir Phosphate (Tamiflu Cap) 75 mg BID PO 06/18/16 22:00 06/23/16 21:59 06/19/16 08:11 75 MG Guaifenesin (Robitussin Sugar Free Syrup) 200 mg QID PO 06/19/16 08:00 07/19/16 07:59 06/19/16 08:10 200 MG Ondansetron HCl (Zofran Inj) 4 mg Q6H PRN IV 06/18/16 19:45 07/18/16 19:44 Insulin Aspart (novoLOG ASPART) SLIDING SCALE If C... ACHS SC 06/18/16 21:00 07/18/16 20:59 06/19/16 09:21 7 UNITS Glucose (Glucose 40% Gel) UD PRN PO 06/18/16 19:45 07/18/16 19:44 Glucose (Glucose Chew Tab) 1 tabs UD PRN PO 06/18/16 19:45 07/18/16 19:44 Dextrose (Dextrose 50% 50ML Syringe) 50 ml UD PRN IV 06/18/16 19:45 07/18/16 19:44 Glucagon 1 mg 1 mg UD PRN SQ 06/18/16 19:45 07/18/16 19:44 Piperacillin Sod/ Tazobactam Sod 3.375 gm/Dextrose 115 ml @ 28.75 mls/ hr Q8H IV 06/19/16 06:00 06/29/16 05:59 06/19/16 05:55 28.75 MLS/HR Sodium Chloride (Nss 1000ml) 1,000 ml @ 60 mls/hr [id number] IV 06/18/16 21:30 07/18/16 21:29 06/18/16 22:04 60 MLS/HR Vancomycin HCl (Consult) 1 ea UD PRN N/A 06/18/16 20:30 07/18/16 20:29 Piperacillin Sod/ Tazobactam Sod (Consult) 1 ea UD PRN N/A 06/18/16 20:30 07/18/16 20:29 Ipratropium [place] (Atrovent 0.02% 0.5MG/2.5ML Neb) 0.5 mg Q6R INH 06/19/16 03:00 07/19/16 02:59 06/19/16 07:00 0.5 MG Levalbuterol 1.25 mg 1.25 mg Q6R INH 06/19/16 03:00 07/19/16 02:59 06/19/16 07:00 1.25 MG Vancomycin HCl/ Sodium Chloride (Vancomycin Inj/ Nss 250ml) 270 ml @ 125 mls/hr Q24H IV 06/19/16 18:00 06/29/16 17:59 Future Hold Laboratory Data Labs: Last 24 Hours Test 06/18/16 18:42 06/18/16 18:48 06/18/16 21:51 06/19/16 04:20 White Blood Count 4.28 K/uL Red Blood Count 3.16 M/uL Hemoglobin 10.2 g/dL Hematocrit 31.6 % Mean Corpuscular Volume 100.0 fL Mean Corpuscular Hemoglobin 32.3 pg Mean Corpuscular Hemoglobin Concent 32.3 g/dl Platelet Count 335 K/uL Mean Platelet Volume 10.9 fL Neutrophils (%) (Auto) 63.0 % Lymphocytes (%) (Auto) 15.4 % Monocytes (%) (Auto) 21.0 % Eosinophils (%) (Auto) 0.2 % Basophils (%) (Auto) 0.2 % Neutrophils # (Auto) 2.69 K/uL Lymphocytes # (Auto) 0.66 K/uL Monocytes # (Auto) 0.90 K/uL Eosinophils # (Auto) 0.01 K/uL Basophils # (Auto) 0.01 K/uL RDW Standard Deviation 64.5 fL RDW Coefficient of Variation 17.7 % Immature Granulocyte % (Auto) 0.2 % Immature Granulocyte # (Auto) 0.01 K/uL Prothrombin Time 12.1 SECONDS Prothromb Time International Ratio 1.1 Activated Partial Thromboplast Time 38.6 SECONDS Partial Thromboplastin Ratio 1.5 Sodium Level 141 mmol/L Potassium Level 3.5 mmol/L Chloride Level 105 mmol/L Carbon Dioxide Level 27 mmol/L Anion Gap 9.0 mmol/L Blood Urea Nitrogen 27 mg/dl Creatinine 1.70 mg/dl Est Creatinine Clear Calc Drug Dose 27.1 ml/min Estimated GFR () 41.4 Estimated GFR (Non- 35.7 BUN/Creatinine Ratio 15.8 Random Glucose 111 mg/dl Calcium Level 7.5 mg/dl Total Bilirubin 0.6 mg/dl Aspartate Amino Transf (AST/SGOT) 20 U/L Alanine Aminotransferase (ALT/SGPT) 21 U/L Alkaline Phosphatase 63 U/L Total Protein 5.9 gm/dl Albumin 2.5 gm/dl Globulin 3.4 gm/dl Albumin/Globulin Ratio 0.7 Bedside Lactic Acid Venous 0.86 mmol/L Bedside Glucose 111 mg/dl Urine Color YELLOW Urine Appearance CLEAR Urine pH 5.5 Urine Specific [place] 1.015 Urine Protein 2+ Urine Glucose (UA) NEG Urine Ketones NEG Urine Occult Blood 1+ Urine Nitrite POS Urine Bilirubin NEG Urine Urobilinogen NEG Urine Leukocyte Esterase TRACE Urine WBC (Auto) 5-10 /hpf Urine RBC (Auto) 0-4 /hpf Urine Hyaline Casts (Auto) 1-5 /lpf Urine Epithelial Cells (Auto) 10-20 /lpf Urine Bacteria (Auto) NEG Test 06/19/16 07:15 06/19/16 07:44 06/19/16 11:13 White Blood Count 5.01 K/uL Red Blood Count 3.20 M/uL Hemoglobin 10.6 g/dL Hematocrit 31.5 % Mean Corpuscular Volume 98.4 fL Mean Corpuscular Hemoglobin 33.1 pg Mean Corpuscular Hemoglobin Concent 33.7 g/dl Platelet Count 338 K/uL Mean Platelet Volume 10.7 fL Neutrophils (%) (Auto) 72.2 % Lymphocytes (%) (Auto) 8.8 % Monocytes (%) (Auto) 18.4 % Eosinophils (%) (Auto) 0.2 % Basophils (%) (Auto) 0.2 % Neutrophils # (Auto) 3.62 K/uL Lymphocytes # (Auto) 0.44 K/uL Monocytes # (Auto) 0.92 K/uL Eosinophils # (Auto) 0.01 K/uL Basophils # (Auto) 0.01 K/uL RDW Standard Deviation 62.4 fL RDW Coefficient of Variation 17.2 % Immature Granulocyte % (Auto) 0.2 % Immature Granulocyte # (Auto) 0.01 K/uL Sodium Level 142 mmol/L Potassium Level 3.3 mmol/L Chloride Level 106 mmol/L Carbon Dioxide Level 24 mmol/L Anion Gap 12.0 mmol/L Blood Urea Nitrogen 25 mg/dl Creatinine 1.60 mg/dl Est Creatinine Clear Calc Drug Dose 29.9 ml/min Estimated GFR () 44.6 Estimated GFR (Non- 38.4 BUN/Creatinine Ratio 15.6 Random Glucose 159 mg/dl Calcium Level 7.3 mg/dl Magnesium Level 1.4 mg/dl Bedside Glucose 164 mg/dl 120 mg/dl Assessment and Plan A 85 yo male comes with: Influenza A, with gram-positive cocci bacteremia 1/2 blood cultures, likely a contaminant, staph aureus UTI, and right lower lobe pneumonia--the patient will be admitted to the medical floor. We'll continue Tamiflu 75 mg by mouth twice a day with renal dosing, vancomycin IV per renal dosing, Zosyn 3.375 mg IV every 12 hours, check vanco through Xopenex with Atrovent nebulizer to use every 6 hours while awake and every 2 hours when necessary, guaifenesin 200 mg by mouth 4 times a day, nasal cannula 2 L O2 titrated to keep pulse ox greater than or equal to 91%. Coronary artery disease/hypertension/CHF history--continue amlodipine 10 mg by mouth daily enteric-coated aspirin 81 mg by mouth every morning clopidogrel 75 mg by mouth daily isosorbide mononitrate extended release 60 mg by mouth every morning and metoprolol tartrate 50 mg by mouth 3 times a day. hold metolazone 5 mg by mouth every morning. Diabetes mellitus type 2--hold glipizide 5 mg by mouth twice a day. Place on Accu-Cheks before meals and at bedtime with NovoLog coverage. check a1c Hypercholesterolemia continue simvastatin 80 mg by mouth every afternoon. BPH--continue tamsulosin 0.4 mg by mouth at bedtime. Gout--continue Uloric 40 mg by mouth daily. FULL Code
[2016-06-19] MEDS: MAGNESIUM SULFATE 1GM / D5W 1 GM in PREMIXED IN D5W 100 ML IV SCH ×2 (13:40→14:47)
[2016-06-19] MEDS: SODIUM CHLORIDE 0.9% 1000ML 1,000 ML IV SCH (13:41)
[2016-06-19 14:14] LABS: ESTIMATED AVERAGE GLUCOSE 134 mg/dl; HA1C FLAG Normal (Normal)
[2016-06-19] MEDS ORDERED: VANCOMYCIN INJ 1,000 MG in SODIUM CHLORIDE 0.9% 250ML 250 ML IV SCH (18:00)
[2016-06-19] MEDS: SIMVASTATIN 80 MG TAB PO SCH (20:51)
[2016-06-19] MEDS: TAMSULOSIN HCL 0.4 MG CAP PO SCH (20:51)
[2016-06-20] MEDS: LEVALBUTEROL 1.25MG/0.5ML NEB INH SCH ×4 (01:23→19:19)
[2016-06-20] MEDS: IPRATROPIUM BROMIDE NEB SOLN 0.02% 2.5 ML VIAL INH SCH ×4 (01:23→19:18)
[2016-06-20] MEDS: PIPERACILL/TAZOBAC IV 3.375 GM in DEXTROSE 5% 100ML 100 ML IV SCH ×2 (05:36→13:13)
[2016-06-20 06:53] VITALS: PULSE 72; O2SAT 92
[2016-06-20 06:55] VITALS: BP 153/57; PULSE 86; TEMP 36.6; O2SAT 94
[2016-06-20] MEDS: BOOST GLUCOSE CONTROL PO SCH (07:39)
[2016-06-20] MEDS: SODIUM CHLORIDE 0.9% 1000ML 1,000 ML IV SCH ×2 (07:39→23:30)
[2016-06-20] MEDS: DOCUSATE SODIUM 100 MG CAP PO SCH ×2 (07:39→20:12)
[2016-06-20] MEDS: ISOSORBIDE MONONITRATE 60 MG TABCR PO SCH (07:40)
[2016-06-20] MEDS: CLOPIDOGREL BISULFATE 75 MG TAB PO SCH (07:40)
[2016-06-20] MEDS: ASPIRIN 81 MG ECTAB PO SCH (07:40)
[2016-06-20] MEDS: AMLODIPINE BESYLATE 5 MG TAB PO SCH (07:40)
[2016-06-20] MEDS: METOPROLOL TARTRATE 50 MG TAB PO SCH ×3 (07:41→20:13)
[2016-06-20] MEDS: FEBUXOSTAT 40 MG TAB PO SCH (07:41)
[2016-06-20] MEDS: OSELTAMIVIR PHOSPHATE 75 MG CAP PO SCH ×2 (07:42→20:13)
[2016-06-20] MEDS: GUAIFENESIN SUGAR FREE 200 MG/10 ML UDC PO SCH ×4 (07:42→20:14)
[2016-06-20 08:15] LABS: BASO % 0.2 %; BASO ABS # 0.01 K/uL (0-0.2); COMPLETE YES; IG% 0.3 %; LYMPH % 7.8 %; MEAN CELL VOLUME 97.6 fL (80-100); MEAN CORPUSCULAR HEMOGLOBIN 32.4 pg (25-34); MEAN CORPUSCULAR HGB CONC 33.2 g/dl (32-36); MEAN PLATELET VOLUME 10.5 fL (7.4-10.4); MONO % 14.9 %; NEUT % 76.8 %; PLATELET COUNT 408 K/uL (130-400); RED BLOOD COUNT 2.87 M/uL (4.7-6.1); WHITE BLOOD COUNT 6.45 K/uL (4.8-10.8)
[2016-06-20 08:37] LABS: BUN/CREATININE RATIO 15.2 (10-20); CALCIUM 6.8 mg/dl (8.5-10.1); CREATININE 1.8 mg/dl (0.60-1.40); MAGNESIUM 2.1 mg/dl (1.8-2.4); POTASSIUM 3.1 mmol/L (3.5-5.1)
[2016-06-20] MEDS: INSULIN ASPART 100 UNITS/ML 3 ML PEN SC SCH ×4 (09:16→20:12)
[2016-06-20] MEDS ORDERED: VANCOMYCIN INJ 1,000 MG in SODIUM CHLORIDE 0.9% 250ML 250 ML IV SCH (10:00)
--- NOTE | 2016-06-20 10:46 | DIAGNOSTIC IMAGING REPORT ---
CHEST ONE VIEW PORTABLE CLINICAL HISTORY: Pneumonia COMPARISON STUDY: 06/18/2016 FINDINGS: The heart remains enlarged. There is slight improvement in the interstitial edema pattern. There is a small left pleural effusion.[ There is no lobar consolidation. IMPRESSION: Improving interstitial edema pattern. Electronically signed by: Greg White M.D. 06/20/2016 10:44 AM
[2016-06-20] MEDS ORDERED: POTASSIUM CHLR 10 MEQ / WTR 40 MEQ in PREMIXED WATER 100 ML IV SCH (13:00)
[2016-06-20] MEDS: POTASSIUM CHLR 10 MEQ / WTR 10 MEQ in PREMIXED WATER 100 ML IV SCH ×4 (13:12→16:46)
--- NOTE | 2016-06-20 14:41 | Progress Note ---
Subjective Subjective Date of Service: Jun 20, 2016. Pt evaluation today including: conversation w/ patient, conversation w/ family (son and daughter), physical exam, chart review, review of studies, review of inpatient medication list Notes: confused is worse, was found on the floor last night, no trauma, ros is limited due to confusion Problem List Medical Problems: (1) Acute on chronic renal failure Status: Acute (2) Bacteremia Status: Acute (3) CHF (congestive heart failure) Status: Acute (4) Confusion Status: Acute (5) Cough Status: Acute (6) Generalized weakness Status: Acute (7) Influenza Status: Acute Review of Systems ENT: No hearing loss Respiratory: No cough Cardiac: No chest pain Abdomen: No pain Physical Exam Vital Signs Vital Signs Past 24 Hours: Date Time Temp Pulse Resp B/P Pulse Ox O2 Delivery O2 Flow Rate FiO2 06/20/16 08:00 Room Air 06/20/16 06:55 36.6 86 20 153/57 94 Room Air 06/20/16 06:53 72 16 92 Room Air 06/20/16 01:40 Room Air 06/19/16 23:27 36.6 78 20 149/63 93 Room Air 06/19/16 22:05 Room Air 06/19/16 19:13 68 16 90 Room Air 06/19/16 15:29 36.1 75 18 117/67 92 Room Air 06/19/16 15:15 Room Air Physical Exam: General Appearance: WD/WN, no apparent distress Eyes: bilateral eyes normal inspection ENT: hearing grossly normal, pharynx normal Neck: supple, no JVD Respiratory/Chest: chest non-tender, normal breath sounds Cardiovascular: no edema, no gallop Abdomen: non tender, soft Extremities: normal range of motion, non-tender Neurologic/Psychiatric: no motor/sensory deficits Skin: no rash Medications Medications: Current Inpatient Medications Medications (Trade) Dose Ordered Sig/Joselito Route Start Time Stop Time Status Last Admin Dose Admin Acetaminophen (Tylenol Tab) 650 mg Q4H PRN PO 06/18/16 19:45 07/18/16 19:44 Zolpidem Tartrate (Ambien Tab) 5 mg HSZ PRN PO 06/18/16 19:45 07/18/16 19:44 06/20/16 00:40 5 MG Amlodipine Besylate (Norvasc Tab) 10 mg DAILY PO 06/19/16 08:00 07/19/16 08:59 06/20/16 07:40 10 MG Aspirin (Ecotrin Tab) 81 mg QAM PO 06/19/16 08:00 07/19/16 08:59 06/20/16 07:40 81 MG Clopidogrel Bisulfate (plAVix TAB) 75 mg DAILY PO 06/19/16 08:00 07/19/16 08:59 06/20/16 07:40 75 MG Docusate Sodium (coLACE CAP) 100 mg BID PO 06/19/16 08:00 07/19/16 07:59 06/20/16 07:39 100 MG Folic Acid (Folvite Tab) 0.4 mg DAILY PO 06/19/16 08:00 07/19/16 08:59 06/20/16 07:39 0.4 MG Isosorbide Mononitrate (Imdur Ext Rel Tab) 60 mg QAM PO 06/19/16 08:00 07/19/16 08:59 06/20/16 07:40 60 MG Metoprolol Tartrate (Lopressor Tab) 50 mg TID PO 06/19/16 08:00 07/19/16 07:59 06/20/16 13:18 50 MG Simvastatin (Zocor Tab) 80 mg QPM PO 06/18/16 22:00 07/18/16 21:59 06/19/16 20:51 80 MG Tamsulosin HCl (Flomax Cap) 0.4 mg HS PO 06/18/16 22:00 07/18/16 21:59 06/19/16 20:51 0.4 MG Febuxostat (Uloric) 40 mg DAILY PO 06/19/16 08:00 07/19/16 07:59 06/20/16 07:41 40 MG Oseltamivir Phosphate (Tamiflu Cap) 75 mg BID PO 06/18/16 22:00 06/23/16 21:59 06/20/16 07:42 75 MG Guaifenesin (Robitussin Sugar Free Syrup) 200 mg QID PO 06/19/16 08:00 07/19/16 07:59 06/20/16 12:13 200 MG Ondansetron HCl (Zofran Inj) 4 mg Q6H PRN IV 06/18/16 19:45 07/18/16 19:44 Insulin Aspart (novoLOG ASPART) SLIDING SCALE If C... ACHS SC 06/18/16 21:00 07/18/16 20:59 06/20/16 09:16 2 UNITS Glucose (Glucose 40% Gel) UD PRN PO 06/18/16 19:45 07/18/16 19:44 Glucose (Glucose Chew Tab) 1 tabs UD PRN PO 06/18/16 19:45 07/18/16 19:44 Dextrose (Dextrose 50% 50ML Syringe) 50 ml UD PRN IV 06/18/16 19:45 07/18/16 19:44 Glucagon 1 mg 1 mg UD PRN SQ 06/18/16 19:45 07/18/16 19:44 Piperacillin Sod/ Tazobactam Sod 3.375 gm/Dextrose 115 ml @ 28.75 mls/ hr Q8H IV 06/19/16 06:00 06/29/16 05:59 06/20/16 13:13 28.75 MLS/HR Sodium Chloride (Nss 1000ml) 1,000 ml @ 60 mls/hr [id number] IV 06/18/16 21:30 07/18/16 21:29 06/20/16 07:39 60 MLS/HR Vancomycin HCl (Consult) 1 ea UD PRN N/A 06/18/16 20:30 07/18/16 20:29 Piperacillin Sod/ Tazobactam Sod (Consult) 1 ea UD PRN N/A 06/18/16 20:30 07/18/16 20:29 Ipratropium [place] (Atrovent 0.02% 0.5MG/2.5ML Neb) 0.5 mg Q6R INH 06/19/16 03:00 07/19/16 02:59 06/20/16 06:52 0.5 MG Levalbuterol (Xopenex 1.25MG/ 0.5ML Neb) 1.25 mg Q6R INH 06/19/16 03:00 07/19/16 02:59 06/20/16 06:52 1.25 MG Enteral Nutritional Formula 1 can 1 can DAILY PO 06/20/16 08:00 07/20/16 07:59 06/20/16 07:39 1 CAN Vancomycin HCl 1000 mg/Sodium Chloride 270 ml @ 125 mls/hr Q24H IV 06/20/16 10:00 06/29/16 23:59 06/20/16 09:44 125 MLS/HR Potassium Chloride/Prmx (Kcl 10 Meq / Wtr/Premixed Water) 100 ml @ 100 mls/hr TODAY@1300,1400,1500,1600 IV 06/20/16 13:00 06/20/16 16:59 06/20/16 14:20 100 MLS/HR Laboratory Data Labs: Last 24 Hours Test 06/19/16 16:41 06/19/16 20:11 06/20/16 07:04 06/20/16 07:51 Bedside Glucose 92 mg/dl 187 mg/dl 181 mg/dl White Blood Count 6.45 K/uL Red Blood Count 2.87 M/uL Hemoglobin 9.3 g/dL Hematocrit 28.0 % Mean Corpuscular Volume 97.6 fL Mean Corpuscular Hemoglobin 32.4 pg Mean Corpuscular Hemoglobin Concent 33.2 g/dl Platelet Count 408 K/uL Mean Platelet Volume 10.5 fL Neutrophils (%) (Auto) 76.8 % Lymphocytes (%) (Auto) 7.8 % Monocytes (%) (Auto) 14.9 % Eosinophils (%) (Auto) 0.0 % Basophils (%) (Auto) 0.2 % Neutrophils # (Auto) 4.96 K/uL Lymphocytes # (Auto) 0.50 K/uL Monocytes # (Auto) 0.96 K/uL Eosinophils # (Auto) 0.00 K/uL Basophils # (Auto) 0.01 K/uL RDW Standard Deviation 60.4 fL RDW Coefficient of Variation 17.0 % Immature Granulocyte % (Auto) 0.3 % Immature Granulocyte # (Auto) 0.02 K/uL Sodium Level 143 mmol/L Potassium Level 3.1 mmol/L Chloride Level 107 mmol/L Carbon Dioxide Level 22 mmol/L Anion Gap 14.0 mmol/L Blood Urea Nitrogen 27 mg/dl Creatinine 1.80 mg/dl Est Creatinine Clear Calc Drug Dose 26.6 ml/min Estimated GFR () 38.6 Estimated GFR (Non- 33.3 BUN/Creatinine Ratio 15.2 Random Glucose 163 mg/dl Calcium Level 6.8 mg/dl Magnesium Level 2.1 mg/dl Test 06/20/16 11:12 Bedside Glucose 140 mg/dl Assessment and Plan A 85 yo male comes with: Influenza A, with gram-positive cocci bacteremia 1/2 blood cultures, likely a contaminant, staph aureus UTI, cont medical floor. continue Tamiflu 75 mg by mouth twice a day with renal dosing, Xopenex with Atrovent nebulizer to use every 6 hours while awake and every 2 hours when necessary, guaifenesin 200 mg by mouth 4 times a day, nasal cannula 2 L O2 titrated to keep pulse ox greater than or equal to 91%. right lower lobe pneumonia stop IV vancomycin per renal dosing, Zosyn 3.375 mg IV every 12 hours, start IV rocephin for few days CKD stage 3, creatinine slightly worse at 1.8 today, will continue monitor kidney function while on iv vancomycin delirium sec to renal dysfunction and infection in the setting of metabolic changes, treat underlying disease Coronary artery disease/hypertension/CHF history--continue amlodipine 10 mg by mouth daily enteric-coated aspirin 81 mg by mouth every morning clopidogrel 75 mg by mouth daily isosorbide mononitrate extended release 60 mg by mouth every morning and metoprolol tartrate 50 mg by mouth 3 times a day. hold metolazone 5 mg by mouth every morning. Diabetes mellitus type 2--hold glipizide 5 mg by mouth twice a day. Place on Accu-Cheks before meals and at bedtime with NovoLog coverage. a1c 6.3 Hypercholesterolemia continue simvastatin 80 mg by mouth every afternoon. BPH--continue tamsulosin 0.4 mg by mouth at bedtime. Gout--continue Uloric 40 mg by mouth daily. FULL Code discussed with family plan of care
[2016-06-20 15:01] VITALS: PULSE 68; O2SAT 91
[2016-06-20 15:12] VITALS: BP 155/52; PULSE 66; TEMP 36.8; O2SAT 95
[2016-06-20] MEDS: CEFTRIAXONE SOD INJ 1000 MG in DEXTROSE 5% 50ML IV SCH (15:32)
[2016-06-20 19:19] VITALS: PULSE 68; O2SAT 92
[2016-06-20] MEDS: SIMVASTATIN 80 MG TAB PO SCH (20:13)
[2016-06-20] MEDS: TAMSULOSIN HCL 0.4 MG CAP PO SCH (20:13)
[2016-06-20 22:56] VITALS: BP 160/70; PULSE 70; TEMP 36.8; O2SAT 92
[2016-06-21] VITALS (8 sets, daily range): BP systolic 142–167; BP diastolic 50–72; PULSE 67–80; TEMP 36.3–37.1; O2SAT 90–96
[2016-06-21] MEDS: IPRATROPIUM BROMIDE NEB SOLN 0.02% 2.5 ML VIAL INH SCH ×4 (01:21→19:20)
[2016-06-21] MEDS: LEVALBUTEROL 1.25MG/0.5ML NEB INH SCH ×4 (01:21→19:20)
[2016-06-21 07:42] LABS: BASO % 0.2 %; BASO ABS # 0.02 K/uL (0-0.2); COMPLETE YES; HEMATOCRIT 30.5 % (42-52); IG% 0.5 %; LYMPH % 6.2 %; LYMPH ABS # 0.55 K/uL (1.2-3.4); MEAN CELL VOLUME 98.4 fL (80-100); MEAN CORPUSCULAR HEMOGLOBIN 32.6 pg (25-34); MEAN CORPUSCULAR HGB CONC 33.1 g/dl (32-36); MEAN PLATELET VOLUME 10.8 fL (7.4-10.4); MONO % 10.9 %; NEUT % 82.2 %; PLATELET COUNT 540 K/uL (130-400); WHITE BLOOD COUNT 8.82 K/uL (4.8-10.8)
[2016-06-21 08:16] LABS: BUN/CREATININE RATIO 14.2 (10-20); CALCIUM 7.6 mg/dl (8.5-10.1); CREATININE 1.9 mg/dl (0.60-1.40); MAGNESIUM 2.1 mg/dl (1.8-2.4); POTASSIUM 3.5 mmol/L (3.5-5.1)
[2016-06-21] MEDS: ISOSORBIDE MONONITRATE 60 MG TABCR PO SCH (08:18)
[2016-06-21] MEDS: METOPROLOL TARTRATE 50 MG TAB PO SCH ×3 (08:18→19:49)
[2016-06-21] MEDS: CLOPIDOGREL BISULFATE 75 MG TAB PO SCH (08:19)
[2016-06-21] MEDS: FEBUXOSTAT 40 MG TAB PO SCH (08:19)
[2016-06-21] MEDS: AMLODIPINE BESYLATE 5 MG TAB PO SCH (08:19)
[2016-06-21] MEDS: DOCUSATE SODIUM 100 MG CAP PO SCH ×2 (08:19→19:46)
[2016-06-21] MEDS: ASPIRIN 81 MG ECTAB PO SCH (08:19)
[2016-06-21] MEDS: GUAIFENESIN SUGAR FREE 200 MG/10 ML UDC PO SCH ×4 (08:20→19:46)
[2016-06-21] MEDS: OSELTAMIVIR PHOSPHATE 75 MG CAP PO SCH ×2 (08:20→19:46)
[2016-06-21] MEDS: BOOST GLUCOSE CONTROL PO SCH (08:20)
[2016-06-21] MEDS: INSULIN ASPART 100 UNITS/ML 3 ML PEN SC SCH ×4 (09:02→22:00)
--- NOTE | 2016-06-21 09:24 | DIAGNOSTIC IMAGING REPORT ---
SINGLE VIEW CHEST CLINICAL HISTORY: CHF. FINDINGS: An AP, portable, upright chest radiograph is compared to study dated 06/20/2016. The examination is degraded by portable technique, apical lordotic positioning, and patient rotation. The heart is enlarged and there is atherosclerotic calcification of the thoracic aorta. There is evidence of congestive failure and interstitial edema. There are small layering pleural effusions and bibasilar consolidation. No pneumothorax is seen. The skeletal structures are osteopenic. The bony thorax is grossly intact. Vascular calcifications are noted in the left axilla. IMPRESSION: 1. Cardiomegaly with evidence of congestive failure and mild interstitial edema. This is unchanged to slightly worsened from yesterday. 2. There are small pleural effusions and bibasilar consolidation. Electronically signed by: Juan Manuel Begum M.D. 06/21/2016 9:22 AM
[2016-06-21] MEDS ORDERED: VANCOMYCIN TROUGH SCH ×2 (09:30→17:30)
[2016-06-21] MEDS ORDERED: FUROSEMIDE INJ 60 MG in SYRINGE 0 ML IV ONE (09:30)
[2016-06-21] MEDS: POTASSIUM CHLR 10 MEQ / WTR 10 MEQ in PREMIXED WATER 100 ML IV SCH ×4 (09:36→16:12)
[2016-06-21 09:41] LABS: ALLEN TEST POS (POS); ARTERIAL BLOOD GAS BASE EXCESS -5.8 mEq/L (-9-1.8); ARTERIAL BLOOD GAS HCO3 19 mmol/L (19-24); ARTERIAL BLOOD GAS PO2 62 mm/Hg (80-95); ARTERIAL BLOOD GAS pH 7.36 (7.35-7.45); O2 ADMINISTRATION ROOM AIR
--- NOTE | 2016-06-21 11:52 | Progress Note ---
Subjective Subjective Date of Service: Jun 21, 2016. Pt evaluation today including: conversation w/ patient, conversation w/ family , physical exam, chart review, lab review, review of studies, review of inpatient medication list Notes: RN reported that patient is having trouble breathing this am Problem List Medical Problems: (1) Acute on chronic renal failure Status: Acute (2) Bacteremia Status: Acute (3) CHF (congestive heart failure) Status: Acute (4) Confusion Status: Acute (5) Cough Status: Acute (6) Generalized weakness Status: Acute (7) Influenza Status: Acute Review of Systems Constitutional: No fever ENT: No hearing loss Respiratory: + dyspnea on exertion, + shortness of breath, No cough Cardiac: No chest pain Abdomen: No pain Male : No dysuria Physical Exam Vital Signs Vital Signs Past 24 Hours: Date Time Temp Pulse Resp B/P Pulse Ox O2 Delivery O2 Flow Rate FiO2 06/21/16 11:04 36.3 68 24 167/62 92 Room Air 2.0 06/21/16 08:00 Room Air 06/21/16 07:28 36.5 70 20 162/50 90 Room Air 06/21/16 07:11 80 16 90 Room Air 06/21/16 01:00 Room Air 06/20/16 22:56 36.8 70 18 160/70 92 Room Air 06/20/16 21:00 Room Air 06/20/16 19:19 68 16 92 Room Air 06/20/16 15:50 Room Air 06/20/16 15:12 36.8 66 18 155/52 95 Room Air 06/20/16 15:01 68 16 91 Room Air Physical Exam: General Appearance: WD/WN, no apparent distress Eyes: bilateral eyes normal inspection ENT: hearing grossly normal, pharynx normal Neck: supple, no JVD Respiratory/Chest: chest non-tender, + accessory muscle use, + rales Cardiovascular: regular rate, rhythm, no gallop Abdomen: non tender, no organomegaly Extremities: normal range of motion, normal inspection Neurologic/Psychiatric: alert, normal mood/affect Skin: normal color, warm/dry Medications Medications: Current Inpatient Medications Medications (Trade) Dose Ordered Sig/Joselito Route Start Time Stop Time Status Last Admin Dose Admin Acetaminophen (Tylenol Tab) 650 mg Q4H PRN PO 06/18/16 19:45 07/18/16 19:44 Zolpidem Tartrate (Ambien Tab) 5 mg HSZ PRN PO 06/18/16 19:45 07/18/16 19:44 06/20/16 00:40 5 MG Amlodipine Besylate (Norvasc Tab) 10 mg DAILY PO 06/19/16 08:00 07/19/16 08:59 06/21/16 08:19 10 MG Aspirin (Ecotrin Tab) 81 mg QAM PO 06/19/16 08:00 07/19/16 08:59 06/21/16 08:19 81 MG Clopidogrel Bisulfate (plAVix TAB) 75 mg DAILY PO 06/19/16 08:00 07/19/16 08:59 06/21/16 08:19 75 MG Docusate Sodium (coLACE CAP) 100 mg BID PO 06/19/16 08:00 07/19/16 07:59 06/21/16 08:19 100 MG Folic Acid (Folvite Tab) 0.4 mg DAILY PO 06/19/16 08:00 07/19/16 08:59 06/21/16 08:19 0.4 MG Isosorbide Mononitrate (Imdur Ext Rel Tab) 60 mg QAM PO 06/19/16 08:00 07/19/16 08:59 06/21/16 08:18 60 MG Metoprolol Tartrate (Lopressor Tab) 50 mg TID PO 06/19/16 08:00 07/19/16 07:59 06/21/16 08:18 50 MG Simvastatin (Zocor Tab) 80 mg QPM PO 06/18/16 22:00 07/18/16 21:59 06/20/16 20:13 80 MG Tamsulosin HCl (Flomax Cap) 0.4 mg HS PO 06/18/16 22:00 07/18/16 21:59 06/20/16 20:13 0.4 MG Febuxostat (Uloric) 40 mg DAILY PO 06/19/16 08:00 07/19/16 07:59 06/21/16 08:19 40 MG Oseltamivir Phosphate (Tamiflu Cap) 75 mg BID PO 06/18/16 22:00 06/23/16 21:59 06/21/16 08:20 75 MG Guaifenesin (Robitussin Sugar Free Syrup) 200 mg QID PO 06/19/16 08:00 07/19/16 07:59 06/21/16 08:20 200 MG Ondansetron HCl (Zofran Inj) 4 mg Q6H PRN IV 06/18/16 19:45 07/18/16 19:44 Insulin Aspart (novoLOG ASPART) SLIDING SCALE If C... ACHS SC 06/18/16 21:00 07/18/16 20:59 06/21/16 09:02 1 UNITS Glucose (Glucose 40% Gel) UD PRN PO 06/18/16 19:45 07/18/16 19:44 Glucose (Glucose Chew Tab) 1 tabs UD PRN PO 06/18/16 19:45 07/18/16 19:44 Dextrose (Dextrose 50% 50ML Syringe) 50 ml UD PRN IV 06/18/16 19:45 07/18/16 19:44 Glucagon (Glucagon Inj) 1 mg UD PRN SQ 06/18/16 19:45 07/18/16 19:44 Ipratropium [place] (Atrovent 0.02% 0.5MG/2.5ML Neb) 0.5 mg Q6R INH 06/19/16 03:00 07/19/16 02:59 06/21/16 07:10 0.5 MG Levalbuterol (Xopenex 1.25MG/ 0.5ML Neb) 1.25 mg Q6R INH 06/19/16 03:00 07/19/16 02:59 06/21/16 07:10 1.25 MG Enteral Nutritional Formula 1 can 1 can DAILY PO 06/20/16 08:00 07/20/16 07:59 06/21/16 08:20 1 CAN Ceftriaxone Sodium 1 gm/ Dextrose 50 ml @ 100 mls/hr Q24H IV 06/20/16 16:00 06/30/16 15:59 06/20/16 15:32 100 MLS/HR Potassium Chloride/Prmx (Kcl 10 Meq / Wtr/Premixed Water) 100 ml @ 100 mls/hr Q1H IV 06/21/16 09:30 06/21/16 13:29 06/21/16 11:29 100 MLS/HR Laboratory Data Labs: Last 24 Hours Test 06/20/16 16:32 06/20/16 20:11 06/21/16 07:22 06/21/16 08:12 Bedside Glucose 166 mg/dl 112 mg/dl 175 mg/dl White Blood Count 8.82 K/uL Red Blood Count 3.10 M/uL Hemoglobin 10.1 g/dL Hematocrit 30.5 % Mean Corpuscular Volume 98.4 fL Mean Corpuscular Hemoglobin 32.6 pg Mean Corpuscular Hemoglobin Concent 33.1 g/dl Platelet Count 540 K/uL Mean Platelet Volume 10.8 fL Neutrophils (%) (Auto) 82.2 % Lymphocytes (%) (Auto) 6.2 % Monocytes (%) (Auto) 10.9 % Eosinophils (%) (Auto) 0.0 % Basophils (%) (Auto) 0.2 % Neutrophils # (Auto) 7.25 K/uL Lymphocytes # (Auto) 0.55 K/uL Monocytes # (Auto) 0.96 K/uL Eosinophils # (Auto) 0.00 K/uL Basophils # (Auto) 0.02 K/uL RDW Standard Deviation 60.1 fL RDW Coefficient of Variation 17.0 % Immature Granulocyte % (Auto) 0.5 % Immature Granulocyte # (Auto) 0.04 K/uL Sodium Level 144 mmol/L Potassium Level 3.5 mmol/L Chloride Level 109 mmol/L Carbon Dioxide Level 21 mmol/L Anion Gap 14.0 mmol/L Blood Urea Nitrogen 27 mg/dl Creatinine 1.90 mg/dl Est Creatinine Clear Calc Drug Dose 25.2 ml/min Estimated GFR () 36.2 Estimated GFR (Non- 31.2 BUN/Creatinine Ratio 14.2 Random Glucose 168 mg/dl Calcium Level 7.6 mg/dl Magnesium Level 2.1 mg/dl Test 06/21/16 09:19 Arterial Blood pH 7.36 Arterial Blood Partial Pressure CO2 34 mmHg Arterial Blood Partial Pressure O2 62 mm/Hg Arterial Blood HCO3 19 mmol/L Arterial Blood Oxygen Saturation 89.0 % Arterial Blood Base Excess -5.8 mEq/L Arterial Blood Gas Delivery ROOM AIR Marc Test POS Assessment and Plan A 85 yo male comes with: Influenza A, with gram-positive cocci bacteremia 1/2 blood cultures, likely a contaminant, staph aureus UTI, cont medical floor. continue Tamiflu 75 mg by mouth twice a day with renal dosing, SOB, volume overload, given IV lasix, given a dose metolazone po, will watch creatinine continue Xopenex with Atrovent nebulizer to use every 6 hours while awake and every 2 hours when necessary, guaifenesin 200 mg by mouth 4 times a day, nasal cannula 2 L O2 titrated to keep pulse ox greater than or equal to 91%. right lower lobe pneumonia stop IV vancomycin per renal dosing, Zosyn 3.375 mg IV every 12 hours, cont IV rocephin for few days CKD stage 3, creatinine slightly worse at 1.9 today, will continue monitor kidney function while on lasix and metolazone, will follow nephrology recs delirium sec to renal dysfunction and infection in the setting of metabolic changes, treat underlying disease Coronary artery disease/hypertension/CHF history--continue amlodipine 10 mg by mouth daily enteric-coated aspirin 81 mg by mouth every morning clopidogrel 75 mg by mouth daily isosorbide mononitrate extended release 60 mg by mouth every morning and metoprolol tartrate 50 mg by mouth 3 times a day. hold metolazone 5 mg by mouth every morning due to renal dysfunction and while watching for response to lasix. Diabetes mellitus type 2--hold glipizide 5 mg by mouth twice a day. Place on Accu-Cheks before meals and at bedtime with NovoLog coverage. a1c 6.3 Hypercholesterolemia continue simvastatin 80 mg by mouth every afternoon. BPH--continue tamsulosin 0.4 mg by mouth at bedtime. Gout--continue Uloric 40 mg by mouth daily. FULL Code discussed with family plan of care
[2016-06-21] MEDS ORDERED: METOLAZONE 5 MG TAB PO ONE (12:00)
[2016-06-21] MEDS ORDERED: METHYLPREDNISOLONE IV 60 MG in SYRINGE 0 ML IV ONE (12:15)
[2016-06-21] MEDS: CEFTRIAXONE SOD INJ 1000 MG in DEXTROSE 5% 50ML IV SCH (16:47)
[2016-06-21 18:50] LABS: BUN/CREATININE RATIO 13.7 (10-20); CALCIUM 7.4 mg/dl (8.5-10.1); CREATININE 2.1 mg/dl (0.60-1.40); POTASSIUM 3.9 mmol/L (3.5-5.1)
[2016-06-21] MEDS: SIMVASTATIN 80 MG TAB PO SCH (19:46)
[2016-06-21] MEDS: TAMSULOSIN HCL 0.4 MG CAP PO SCH (22:23)
[2016-06-22] MEDS: IPRATROPIUM BROMIDE NEB SOLN 0.02% 2.5 ML VIAL INH SCH ×4 (01:49→19:17)
[2016-06-22] MEDS: LEVALBUTEROL 1.25MG/0.5ML NEB INH SCH ×4 (01:49→19:18)
[2016-06-22 07:06] VITALS: BP 142/53; PULSE 65; TEMP 36.8; O2SAT 97
[2016-06-22 07:32] VITALS: PULSE 70; O2SAT 95
[2016-06-22] MEDS: BOOST GLUCOSE CONTROL PO SCH (08:00)
[2016-06-22] MEDS: GUAIFENESIN SUGAR FREE 200 MG/10 ML UDC PO SCH ×4 (08:07→20:06)
[2016-06-22 08:08] LABS: COMPLETE YES; HEMATOCRIT 29.2 % (42-52); IG% 0.3 %; LYMPH % 7.4 %; LYMPH ABS # 0.95 K/uL (1.2-3.4); MEAN CELL VOLUME 97.7 fL (80-100); MEAN CORPUSCULAR HEMOGLOBIN 32.8 pg (25-34); MEAN CORPUSCULAR HGB CONC 33.6 g/dl (32-36); MEAN PLATELET VOLUME 10.8 fL (7.4-10.4); MONO % 5.2 %; NEUT % 87.1 %; PLATELET COUNT 555 K/uL (130-400); RED BLOOD COUNT 2.99 M/uL (4.7-6.1); WHITE BLOOD COUNT 12.85 K/uL (4.8-10.8)
[2016-06-22] MEDS: FEBUXOSTAT 40 MG TAB PO SCH (08:08)
[2016-06-22] MEDS: METOLAZONE 5 MG TAB PO SCH (08:11)
[2016-06-22] MEDS: CLOPIDOGREL BISULFATE 75 MG TAB PO SCH (08:12)
[2016-06-22] MEDS: OSELTAMIVIR PHOSPHATE 75 MG CAP PO SCH ×2 (08:12→20:08)
[2016-06-22] MEDS: ISOSORBIDE MONONITRATE 60 MG TABCR PO SCH (08:13)
[2016-06-22] MEDS: ASPIRIN 81 MG ECTAB PO SCH (08:13)
[2016-06-22] MEDS: DOCUSATE SODIUM 100 MG CAP PO SCH ×2 (08:13→20:08)
[2016-06-22] MEDS: METOPROLOL TARTRATE 50 MG TAB PO SCH ×3 (08:13→20:06)
[2016-06-22] MEDS: AMLODIPINE BESYLATE 5 MG TAB PO SCH (08:13)
--- NOTE | 2016-06-22 08:28 | DIAGNOSTIC IMAGING REPORT ---
CHEST ONE VIEW PORTABLE HISTORY: Congestive heart failure. Short of breath. COMPARISON: Chest 06/21/2016. FINDINGS: The heart remains enlarged. Small bilateral pleural effusions and diffuse interstitial and vascular thickening persists. 14 mm left upper lobe nodule. Hazy appearance the right lung base likely represents a component of the pulmonary edema. IMPRESSION: 1. No significant change in the mild interstitial pulmonary edema and small bilateral pleural effusions. 2. A 1.4 cm left upper lobe pulmonary nodule. Chest CT follow up is recommended once the patient's pulmonary edema has resolved. Electronically signed by: Hussein Woods M.D. 06/22/2016 8:26 AM
[2016-06-22 08:37] LABS: BUN/CREATININE RATIO 16.7 (10-20); CALCIUM 7.5 mg/dl (8.5-10.1); CREATININE 2.2 mg/dl (0.60-1.40); POTASSIUM 3.6 mmol/L (3.5-5.1)
[2016-06-22] MEDS: INSULIN ASPART 100 UNITS/ML 3 ML PEN SC SCH ×4 (09:11→22:00)
[2016-06-22] MEDS ORDERED: FUROSEMIDE 40 MG/4 ML VIAL IV STA ×2 (12:23→14:32)
[2016-06-22] MEDS ORDERED: FUROSEMIDE INJ 40 MG in SYRINGE 0 ML IV ONE ×2 (12:45→14:45)
[2016-06-22] MEDS ORDERED: METHYLPREDNISOLONE IV 60 MG in SYRINGE 0 ML IV ONE (12:45)
[2016-06-22] MEDS: POTASSIUM CHLR 10 MEQ / WTR 10 MEQ in PREMIXED WATER 100 ML IV SCH ×2 (12:50→13:50)
--- NOTE | 2016-06-22 13:38 | Progress Note ---
Subjective Subjective Date of Service: Jun 22, 2016. Pt evaluation today including: conversation w/ patient, physical exam, chart review, review of studies, review of inpatient medication list Problem List Medical Problems: (1) Acute on chronic renal failure Status: Acute (2) Bacteremia Status: Acute (3) CHF (congestive heart failure) Status: Acute (4) Confusion Status: Acute (5) Cough Status: Acute (6) Generalized weakness Status: Acute (7) Influenza Status: Acute Review of Systems Constitutional: No fever, No weight loss ENT: No hearing loss, No sore throat Respiratory: + dyspnea on exertion, + shortness of breath Cardiac: No chest pain Abdomen: No pain Male : No dysuria Neurologic: No memory loss Psychiatric: No depression symptoms Heme: No abnormal bleeding/bruising Endo: No fatigue Physical Exam Vital Signs Vital Signs Past 24 Hours: Date Time Temp Pulse Resp B/P Pulse Ox O2 Delivery O2 Flow Rate FiO2 06/22/16 07:32 70 16 95 Nasal Cannula 2.0 06/22/16 07:25 Nasal Cannula 2.0 06/22/16 07:06 36.8 65 19 142/53 97 Nasal Cannula 2.0 06/22/16 00:00 Nasal Cannula 2.0 06/21/16 23:14 36.9 80 18 151/72 92 06/21/16 20:00 Nasal Cannula 2.0 06/21/16 19:48 68 142/52 06/21/16 19:20 68 16 95 Nasal Cannula 2.0 06/21/16 16:00 Nasal Cannula 2.0 93 06/21/16 15:54 37.1 68 18 147/70 96 Nasal Cannula 2.0 06/21/16 14:15 67 16 94 Nasal Cannula 2.0 Physical Exam: General Appearance: WD/WN, no apparent distress Eyes: bilateral eyes normal inspection ENT: hearing grossly normal, pharynx normal Neck: supple, no JVD Respiratory/Chest: chest non-tender, + crackles, + wheezing Cardiovascular: regular rate, rhythm, no gallop Abdomen: normal bowel sounds, soft Extremities: non-tender, no pedal edema Neurologic/Psychiatric: normal mood/affect, oriented x 3 Skin: normal color, no rash Medications Medications: Current Inpatient Medications Medications (Trade) Dose Ordered Sig/Joselito Route Start Time Stop Time Status Last Admin Dose Admin Acetaminophen (Tylenol Tab) 650 mg Q4H PRN PO 06/18/16 19:45 07/18/16 19:44 Zolpidem Tartrate (Ambien Tab) 5 mg HSZ PRN PO 06/18/16 19:45 07/18/16 19:44 06/20/16 00:40 5 MG Amlodipine Besylate (Norvasc Tab) 10 mg DAILY PO 06/19/16 08:00 07/19/16 08:59 06/22/16 08:13 10 MG Aspirin (Ecotrin Tab) 81 mg QAM PO 06/19/16 08:00 07/19/16 08:59 06/22/16 08:13 81 MG Clopidogrel Bisulfate (plAVix TAB) 75 mg DAILY PO 06/19/16 08:00 07/19/16 08:59 06/22/16 08:12 75 MG Docusate Sodium (coLACE CAP) 100 mg BID PO 06/19/16 08:00 07/19/16 07:59 06/22/16 08:13 100 MG Folic Acid (Folvite Tab) 0.4 mg DAILY PO 06/19/16 08:00 07/19/16 08:59 06/22/16 08:11 0.4 MG Isosorbide Mononitrate (Imdur Ext Rel Tab) 60 mg QAM PO 06/19/16 08:00 07/19/16 08:59 06/22/16 08:13 60 MG Metoprolol Tartrate (Lopressor Tab) 50 mg TID PO 06/19/16 08:00 07/19/16 07:59 06/22/16 08:13 50 MG Simvastatin (Zocor Tab) 80 mg QPM PO 06/18/16 22:00 07/18/16 21:59 06/21/16 19:46 80 MG Tamsulosin HCl (Flomax Cap) 0.4 mg HS PO 06/18/16 22:00 07/18/16 21:59 06/21/16 22:23 0.4 MG Febuxostat (Uloric) 40 mg DAILY PO 06/19/16 08:00 07/19/16 07:59 06/22/16 08:08 40 MG Oseltamivir Phosphate (Tamiflu Cap) 75 mg BID PO 06/18/16 22:00 06/23/16 21:59 06/22/16 08:12 75 MG Guaifenesin (Robitussin Sugar Free Syrup) 200 mg QID PO 06/19/16 08:00 07/19/16 07:59 06/22/16 11:39 200 MG Ondansetron HCl (Zofran Inj) 4 mg Q6H PRN IV 06/18/16 19:45 07/18/16 19:44 Insulin Aspart (novoLOG ASPART) SLIDING SCALE If C... ACHS SC 06/18/16 21:00 07/18/16 20:59 06/22/16 13:18 3 UNITS Glucose (Glucose 40% Gel) UD PRN PO 06/18/16 19:45 07/18/16 19:44 Glucose (Glucose Chew Tab) 1 tabs UD PRN PO 06/18/16 19:45 07/18/16 19:44 Dextrose (Dextrose 50% 50ML Syringe) 50 ml UD PRN IV 06/18/16 19:45 07/18/16 19:44 Glucagon (Glucagon Inj) 1 mg UD PRN SQ 06/18/16 19:45 07/18/16 19:44 Ipratropium [place] (Atrovent 0.02% 0.5MG/2.5ML Neb) 0.5 mg Q6R INH 06/19/16 03:00 07/19/16 02:59 06/22/16 07:32 0.5 MG Levalbuterol (Xopenex 1.25MG/ 0.5ML Neb) 1.25 mg Q6R INH 06/19/16 03:00 07/19/16 02:59 06/22/16 07:32 1.25 MG Enteral Nutritional Formula 1 can 1 can DAILY PO 06/20/16 08:00 07/20/16 07:59 06/21/16 08:20 1 CAN Ceftriaxone Sodium/Dextrose (Rocephin Inj/ Dextrose Add-[place] 50ML) 50 ml @ 100 mls/hr Q24H IV 06/20/16 16:00 06/30/16 15:59 06/21/16 16:47 100 MLS/HR Metolazone 5 mg 5 mg QAM PO 06/22/16 08:00 07/22/16 07:59 Future Hold 06/22/16 08:11 5 MG Potassium Chloride/Prmx (Kcl 10 Meq / Wtr/Premixed Water) 100 ml @ 50 mls/hr Q1H IV 06/22/16 12:45 06/22/16 14:44 06/22/16 12:50 50 MLS/HR Laboratory Data Labs: Last 24 Hours Test 06/21/16 16:38 06/21/16 18:20 06/21/16 20:10 06/22/16 07:23 Bedside Glucose 157 mg/dl 250 mg/dl 219 mg/dl Sodium Level 143 mmol/L Potassium Level 3.9 mmol/L Chloride Level 109 mmol/L Carbon Dioxide Level 20 mmol/L Anion Gap 14.0 mmol/L Blood Urea Nitrogen 29 mg/dl Creatinine 2.10 mg/dl Est Creatinine Clear Calc Drug Dose 22.8 ml/min Estimated GFR () 32.1 Estimated GFR (Non- 27.7 BUN/Creatinine Ratio 13.7 Random Glucose 175 mg/dl Calcium Level 7.4 mg/dl Test 06/22/16 07:55 06/22/16 11:16 White Blood Count 12.85 K/uL Red Blood Count 2.99 M/uL Hemoglobin 9.8 g/dL Hematocrit 29.2 % Mean Corpuscular Volume 97.7 fL Mean Corpuscular Hemoglobin 32.8 pg Mean Corpuscular Hemoglobin Concent 33.6 g/dl Platelet Count 555 K/uL Mean Platelet Volume 10.8 fL Neutrophils (%) (Auto) 87.1 % Lymphocytes (%) (Auto) 7.4 % Monocytes (%) (Auto) 5.2 % Eosinophils (%) (Auto) 0.0 % Basophils (%) (Auto) 0.0 % Neutrophils # (Auto) 11.19 K/uL Lymphocytes # (Auto) 0.95 K/uL Monocytes # (Auto) 0.67 K/uL Eosinophils # (Auto) 0.00 K/uL Basophils # (Auto) 0.00 K/uL RDW Standard Deviation 60.4 fL RDW Coefficient of Variation 17.2 % Immature Granulocyte % (Auto) 0.3 % Immature Granulocyte # (Auto) 0.04 K/uL Sodium Level 144 mmol/L Potassium Level 3.6 mmol/L Chloride Level 110 mmol/L Carbon Dioxide Level 21 mmol/L Anion Gap 13.0 mmol/L Blood Urea Nitrogen 37 mg/dl Creatinine 2.20 mg/dl Est Creatinine Clear Calc Drug Dose 21.8 ml/min Estimated GFR () 30.3 Estimated GFR (Non- 26.2 BUN/Creatinine Ratio 16.7 Random Glucose 205 mg/dl Calcium Level 7.5 mg/dl Bedside Glucose 187 mg/dl Assessment and Plan A 85 yo male comes with: Influenza A, with gram-positive cocci bacteremia 1/2 blood cultures, likely a contaminant, staph aureus UTI, cont medical floor. continue Tamiflu 75 mg by mouth twice a day with renal dosing, SOB, volume overload, given IV lasix again, will watch creatinine, CXR did not improve much continue Xopenex with Atrovent nebulizer to use every 6 hours while awake and every 2 hours when necessary, guaifenesin 200 mg by mouth 4 times a day, nasal cannula 2 L O2 titrated to keep pulse ox greater than or equal to 91%. IV steroids one dose given right lower lobe pneumonia, cont IV rocephin daily CKD stage 3, creatinine slightly worse at 2.2 today, will continue monitor kidney function while on lasix, will follow nephrology recs delirium sec to renal dysfunction and infection in the setting of metabolic changes, treat underlying disease Coronary artery disease/hypertension/CHF history--continue amlodipine 10 mg by mouth daily enteric-coated aspirin 81 mg by mouth every morning clopidogrel 75 mg by mouth daily isosorbide mononitrate extended release 60 mg by mouth every morning and metoprolol tartrate 50 mg by mouth 3 times a day. hold metolazone 5 mg by mouth every morning due to renal dysfunction and while watching for response to lasix. Diabetes mellitus type 2--hold glipizide 5 mg by mouth twice a day. continue Accu-Cheks before meals and at bedtime with NovoLog coverage. a1c 6.3 Hypercholesterolemia continue simvastatin 80 mg by mouth every afternoon. BPH--continue tamsulosin 0.4 mg by mouth at bedtime. Gout--continue Uloric 40 mg by mouth daily. FULL Code discussed with family plan of care
[2016-06-22 13:45] VITALS: BP 126/62; PULSE 88
[2016-06-22 14:14] VITALS: PULSE 60; O2SAT 96
[2016-06-22] MEDS ORDERED: ALBUMIN 25% 50 ML with FUROSEMIDE INJ 40 MG IV ONE ×2 (15:00)
[2016-06-22] MEDS ORDERED: METOLAZONE 5 MG TAB PO ONE (15:00)
[2016-06-22 15:36] VITALS: BP 156/68; PULSE 64; TEMP 36.6; O2SAT 95
[2016-06-22] MEDS: CEFTRIAXONE SOD INJ 1000 MG in DEXTROSE 5% 50ML IV SCH (17:47)
[2016-06-22 19:18] VITALS: PULSE 65; O2SAT 94
[2016-06-22] MEDS: SIMVASTATIN 80 MG TAB PO SCH (20:06)
[2016-06-22] MEDS: TAMSULOSIN HCL 0.4 MG CAP PO SCH (21:53)
[2016-06-23] VITALS (10 sets, daily range): BP systolic 127–163; BP diastolic 56–73; PULSE 59–97; TEMP 36.7–36.9; O2SAT 90–99; Ht 167.6 cm; Wt 67.5 kg
[2016-06-23] MEDS: IPRATROPIUM BROMIDE NEB SOLN 0.02% 2.5 ML VIAL INH SCH ×4 (01:37→19:30)
[2016-06-23] MEDS: LEVALBUTEROL 1.25MG/0.5ML NEB INH SCH ×4 (01:37→19:30)
[2016-06-23] MEDS: BOOST GLUCOSE CONTROL PO SCH (08:00)
[2016-06-23 08:14] LABS: BASO % 0.1 %; BASO ABS # 0.01 K/uL (0-0.2); COMPLETE YES; HEMATOCRIT 28.8 % (42-52); IG% 0.7 %; LYMPH % 9.9 %; LYMPH ABS # 1.25 K/uL (1.2-3.4); MEAN CORPUSCULAR HGB CONC 33.7 g/dl (32-36); MONO % 5.2 %; NEUT % 84.1 %; PLATELET COUNT 541 K/uL (130-400); RED BLOOD COUNT 2.94 M/uL (4.7-6.1); WHITE BLOOD COUNT 12.61 K/uL (4.8-10.8)
[2016-06-23 08:44] LABS: BUN/CREATININE RATIO 19.1 (10-20); CALCIUM 7.8 mg/dl (8.5-10.1); CREATININE 2.3 mg/dl (0.60-1.40); POTASSIUM 3.1 mmol/L (3.5-5.1)
[2016-06-23] MEDS: ISOSORBIDE MONONITRATE 60 MG TABCR PO SCH (09:18)
[2016-06-23] MEDS: FEBUXOSTAT 40 MG TAB PO SCH (09:19)
[2016-06-23] MEDS: CLOPIDOGREL BISULFATE 75 MG TAB PO SCH (09:21)
[2016-06-23] MEDS: DOCUSATE SODIUM 100 MG CAP PO SCH ×2 (09:21→20:57)
[2016-06-23] MEDS: ASPIRIN 81 MG ECTAB PO SCH (09:21)
[2016-06-23] MEDS: AMLODIPINE BESYLATE 5 MG TAB PO SCH (09:21)
[2016-06-23] MEDS: GUAIFENESIN SUGAR FREE 200 MG/10 ML UDC PO SCH ×4 (09:22→20:57)
[2016-06-23] MEDS: METOPROLOL TARTRATE 50 MG TAB PO SCH ×3 (09:23→20:57)
[2016-06-23] MEDS: INSULIN ASPART 100 UNITS/ML 3 ML PEN SC SCH ×4 (09:34→20:54)
[2016-06-23] MEDS ORDERED: OSELTAMIVIR PHOSPHATE SUSP 30 MG/5 ML UDP PO SCH (10:00)
--- NOTE | 2016-06-23 10:51 | PROGRESS NOTE ---
DATE: 06/23/2016 INTERNAL MEDICINE AND NEPHROLOGY NOTE DATE: 06/23/2016. SUBJECTIVE: Stopped by to visit with Mr. Luis. He says that he is fairly comfortable but has not been out of bed today. He denies having any chest pain or shortness of breath. He has no symptoms of uremia or volume overload. His appetite has not been particularly good. OBJECTIVE: VITAL SIGNS: On a limited physical examination, he was afebrile. His blood pressure 151/65, his pulse 80 and slightly irregular, respiratory rate 18, his pulse ox 90-94% on room air. His skin shows normal skin turgor. His mouth shows his oral mucous membranes to be dry. NECK: Supple. He has no jugular venous distention lying at about 20 degrees. He has soft carotid murmurs bilaterally and scars from prior carotid endarterectomies. CHEST: Shows some scattered inspiratory wheezes and a few rhonchi. I hear no rales. CARDIAC EXAMINATION: Shows an irregular rhythm with a controlled rate. ABDOMEN: Nontender. EXTREMITIES: Show no edema. His chest x-ray done yesterday remains consistent with mild interstitial pulmonary edema and small bilateral pleural effusions. An approximate 1.4 cm left upper lobe questionable pulmonary nodule is noted. CURRENT PERTINENT LABORATORY WORK: Shows a sodium of 145 mmol/L, potassium of 3.1 mmol/L, chloride of 108 mmol/L, and CO2 content of 25 mmol/L. His BUN is up to 44, his creatinine is up to 2.3. His intake exceeds his output since admission by about 1.1 liters. ASSESSMENT: At the current time, Mr. Luis appears to be a bit dry or at least intravascularly volume depleted despite the changes on his chest x-ray. His blood pressure is lower than usual. Perhaps the reason for this disparity is his low serum albumin of about 2.5 g/dL. His BUN and creatinine are rising with his diuresis. This is similar to what happened during his last hospitalization. Given his abnormal chest x-ray, however, which is not inconsistent with mild interstitial pulmonary edema at least in focal areas perhaps a continuation of his diuretics today is in order. To further understand his serum potassium, arterial blood gases would be helpful. RECOMMENDATIONS: 1. Arterial blood gases to continue with his intravenous diuretics. 2. If his BUN and creatinine continue to rise with a BUN being disproportionate starting tomorrow I would discontinue diuretic therapy. I would expect that he might develop a small amount of edema but would tolerate that as long as he is oxygenating well. Certainly his long history of smoking and associated COPD can account for some degree of his hypoxemia.
[2016-06-23] MEDS ORDERED: POTASSIUM CHLORIDE 20 MEQ TABCR PO ONE (11:32)
--- NOTE | 2016-06-23 14:50 | DIAGNOSTIC IMAGING REPORT ---
CHEST ONE VIEW PORTABLE CLINICAL HISTORY: [facility] dyspnea COMPARISON STUDY: 06/22/2016 FINDINGS: Persistent findings of mild congestive failure. Left lower lobe atelectatic change. Small left effusion. IMPRESSION: Unchanging components of congestive heart failure. Development of and/or slight progression of left lower lobe atelectatic change combined with a small left effusion Electronically signed by: Justin Wood M.D. 06/23/2016 2:48 PM
--- NOTE | 2016-06-23 16:38 | Progress Note ---
Subjective Subjective Date of Service: Jun 23, 2016. Pt evaluation today including: conversation w/ patient, conversation w/ family (daughter), physical exam, chart review, review of studies, review of inpatient medication list Problem List Medical Problems: (1) Acute on chronic renal failure Status: Acute (2) Bacteremia Status: Acute (3) CHF (congestive heart failure) Status: Acute (4) Confusion Status: Acute (5) Cough Status: Acute (6) Generalized weakness Status: Acute (7) Influenza Status: Acute Review of Systems Constitutional: No fever, No weight loss Respiratory: No cough Abdomen: No pain Male : No dysuria Neurologic: No memory loss Psychiatric: No depression symptoms Endo: No fatigue Physical Exam Vital Signs Vital Signs Past 24 Hours: Date Time Temp Pulse Resp B/P Pulse Ox O2 Delivery O2 Flow Rate FiO2 06/23/16 15:56 36.9 78 19 127/56 93 Room Air 06/23/16 14:13 64 18 93 Room Air 06/23/16 08:47 36.7 80 18 151/65 90 Room Air 06/23/16 08:00 94 Room Air 06/23/16 07:04 67 18 94 Room Air 06/23/16 01:37 59 18 93 Room Air 06/23/16 00:10 Room Air 06/23/16 00:00 36.8 63 20 163/61 99 2.0 06/22/16 19:18 65 16 94 Nasal Cannula 2.0 Physical Exam: General Appearance: WD/WN, no apparent distress Eyes: bilateral eyes normal inspection ENT: hearing grossly normal, pharynx normal Neck: supple, no JVD Respiratory/Chest: chest non-tender, + rales (improved) Cardiovascular: regular rate, rhythm, no gallop Abdomen: normal bowel sounds, soft Medications Medications: Current Inpatient Medications Medications (Trade) Dose Ordered Sig/Joselito Route Start Time Stop Time Status Last Admin Dose Admin Acetaminophen (Tylenol Tab) 650 mg Q4H PRN PO 06/18/16 19:45 07/18/16 19:44 Zolpidem Tartrate (Ambien Tab) 5 mg HSZ PRN PO 06/18/16 19:45 07/18/16 19:44 06/20/16 00:40 5 MG Amlodipine Besylate (Norvasc Tab) 10 mg DAILY PO 06/19/16 08:00 07/19/16 08:59 06/23/16 09:21 10 MG Aspirin (Ecotrin Tab) 81 mg QAM PO 06/19/16 08:00 07/19/16 08:59 06/23/16 09:21 81 MG Clopidogrel Bisulfate (plAVix TAB) 75 mg DAILY PO 06/19/16 08:00 07/19/16 08:59 06/23/16 09:21 75 MG Docusate Sodium (coLACE CAP) 100 mg BID PO 06/19/16 08:00 07/19/16 07:59 06/23/16 09:21 100 MG Folic Acid (Folvite Tab) 0.4 mg DAILY PO 06/19/16 08:00 07/19/16 08:59 06/23/16 09:18 0.4 MG Isosorbide Mononitrate (Imdur Ext Rel Tab) 60 mg QAM PO 06/19/16 08:00 07/19/16 08:59 06/23/16 09:18 60 MG Metoprolol Tartrate (Lopressor Tab) 50 mg TID PO 06/19/16 08:00 07/19/16 07:59 06/23/16 13:38 50 MG Simvastatin (Zocor Tab) 80 mg QPM PO 06/18/16 22:00 07/18/16 21:59 06/22/16 20:06 80 MG Tamsulosin HCl (Flomax Cap) 0.4 mg HS PO 06/18/16 22:00 07/18/16 21:59 06/22/16 21:53 0.4 MG Febuxostat (Uloric) 40 mg DAILY PO 06/19/16 08:00 07/19/16 07:59 06/23/16 09:19 40 MG Guaifenesin (Robitussin Sugar Free Syrup) 200 mg QID PO 06/19/16 08:00 07/19/16 07:59 06/23/16 09:22 200 MG Ondansetron HCl (Zofran Inj) 4 mg Q6H PRN IV 06/18/16 19:45 07/18/16 19:44 Insulin Aspart (novoLOG ASPART) SLIDING SCALE If C... ACHS SC 06/18/16 21:00 07/18/16 20:59 06/23/16 13:36 4 UNITS Glucose (Glucose 40% Gel) UD PRN PO 06/18/16 19:45 07/18/16 19:44 Glucose (Glucose Chew Tab) 1 tabs UD PRN PO 06/18/16 19:45 07/18/16 19:44 Dextrose (Dextrose 50% 50ML Syringe) 50 ml UD PRN IV 06/18/16 19:45 07/18/16 19:44 Glucagon (Glucagon Inj) 1 mg UD PRN SQ 06/18/16 19:45 07/18/16 19:44 Ipratropium [place] (Atrovent 0.02% 0.5MG/2.5ML Neb) 0.5 mg Q6R INH 06/19/16 03:00 07/19/16 02:59 06/23/16 14:12 0.5 MG Levalbuterol (Xopenex 1.25MG/ 0.5ML Neb) 1.25 mg Q6R INH 06/19/16 03:00 07/19/16 02:59 06/23/16 14:11 1.25 MG Enteral Nutritional Formula 1 can 1 can DAILY PO 06/20/16 08:00 07/20/16 07:59 06/21/16 08:20 1 CAN Ceftriaxone Sodium/Dextrose (Rocephin Inj/ Dextrose Add-[place] 50ML) 50 ml @ 100 mls/hr Q24H IV 06/20/16 16:00 06/30/16 15:59 06/22/16 17:47 100 MLS/HR Metolazone (Zaroxolyn Tab) 5 mg QAM PO 06/22/16 08:00 07/22/16 07:59 Future Hold 06/22/16 08:11 5 MG Laboratory Data Labs: Last 24 Hours Test 06/22/16 16:43 06/22/16 20:53 06/22/16 21:54 06/23/16 07:50 Bedside Glucose 160 mg/dl 391 mg/dl 340 mg/dl White Blood Count 12.61 K/uL Red Blood Count 2.94 M/uL Hemoglobin 9.7 g/dL Hematocrit 28.8 % Mean Corpuscular Volume 98.0 fL Mean Corpuscular Hemoglobin 33.0 pg Mean Corpuscular Hemoglobin Concent 33.7 g/dl Platelet Count 541 K/uL Mean Platelet Volume 11.0 fL Neutrophils (%) (Auto) 84.1 % Lymphocytes (%) (Auto) 9.9 % Monocytes (%) (Auto) 5.2 % Eosinophils (%) (Auto) 0.0 % Basophils (%) (Auto) 0.1 % Neutrophils # (Auto) 10.61 K/uL Lymphocytes # (Auto) 1.25 K/uL Monocytes # (Auto) 0.65 K/uL Eosinophils # (Auto) 0.00 K/uL Basophils # (Auto) 0.01 K/uL RDW Standard Deviation 61.0 fL RDW Coefficient of Variation 17.1 % Immature Granulocyte % (Auto) 0.7 % Immature Granulocyte # (Auto) 0.09 K/uL Sodium Level 145 mmol/L Potassium Level 3.1 mmol/L Chloride Level 108 mmol/L Carbon Dioxide Level 25 mmol/L Anion Gap 12.0 mmol/L Blood Urea Nitrogen 44 mg/dl Creatinine 2.30 mg/dl Est Creatinine Clear Calc Drug Dose 20.8 ml/min Estimated GFR () 28.7 Estimated GFR (Non- 24.8 BUN/Creatinine Ratio 19.1 Random Glucose 217 mg/dl Calcium Level 7.8 mg/dl Albumin 2.5 gm/dl Test 06/23/16 08:14 06/23/16 11:56 Bedside Glucose 233 mg/dl 164 mg/dl Assessment and Plan A 85 yo male comes with: Influenza A, with gram-positive cocci bacteremia 1/2 blood cultures, likely a contaminant, staph aureus UTI, cont medical floor. continue Tamiflu 75 mg by mouth twice a day with renal dosing, SOB, volume overload in the setting of hypoalbuminemia, will hold IV lasix today due to patient becoming dry and creatinine rising, CXR did not improve much continue Xopenex with Atrovent nebulizer to use every 6 hours while awake and every 2 hours when necessary, guaifenesin 200 mg by mouth 4 times a day, nasal cannula 2 L O2 titrated to keep pulse ox greater than or equal to 91%. right lower lobe pneumonia, cont IV rocephin daily CKD stage 3, creatinine slightly worse at 2.3 today, will continue monitor kidney function, check BMP tonight, will follow nephrology recs.check ABG Hypokalemia, check BMP tonight delirium sec to renal dysfunction and infection in the setting of metabolic changes, treat underlying disease Coronary artery disease/hypertension/CHF history--continue amlodipine 10 mg by mouth daily enteric-coated aspirin 81 mg by mouth every morning clopidogrel 75 mg by mouth daily isosorbide mononitrate extended release 60 mg by mouth every morning and metoprolol tartrate 50 mg by mouth 3 times a day. hold metolazone 5 mg by mouth every morning due to renal dysfunction and while watching for response to lasix. Diabetes mellitus type 2--hold glipizide 5 mg by mouth twice a day. continue Accu-Cheks before meals and at bedtime with NovoLog coverage. a1c 6.3 Hypercholesterolemia continue simvastatin 80 mg by mouth every afternoon. BPH--continue tamsulosin 0.4 mg by mouth at bedtime. Gout--continue Uloric 40 mg by mouth daily. FULL Code discussed with family plan of care
[2016-06-23] MEDS: CEFTRIAXONE SOD INJ 1000 MG in DEXTROSE 5% 50ML IV SCH (17:24)
[2016-06-23 18:52] LABS: ARTERIAL BLD GAS O2 SATURATION 92.9 % (90-95); ARTERIAL BLOOD GAS BASE EXCESS 0.7 mEq/L (-9-1.8); ARTERIAL BLOOD GAS HCO3 23 mmol/L (19-24); ARTERIAL BLOOD GAS PO2 69 mm/Hg (80-95); O2 ADMINISTRATION ROOM AIR
[2016-06-23 18:53] LABS: ALLEN TEST POS (POS)
[2016-06-23 18:54] LABS: ARTERIAL BLOOD GAS pH 7.52 (7.35-7.45)
[2016-06-23 19:16] LABS: BUN/CREATININE RATIO 18.7 (10-20); CALCIUM 7.6 mg/dl (8.5-10.1); CREATININE 2.3 mg/dl (0.60-1.40); POTASSIUM 3.6 mmol/L (3.5-5.1)
[2016-06-23] MEDS: TAMSULOSIN HCL 0.4 MG CAP PO SCH (20:57)
[2016-06-23] MEDS: SIMVASTATIN 80 MG TAB PO SCH (23:29)
[2016-06-24 01:56] VITALS: PULSE 70; O2SAT 94
[2016-06-24] MEDS: LEVALBUTEROL 1.25MG/0.5ML NEB INH SCH ×3 (01:56→19:18)
[2016-06-24] MEDS: IPRATROPIUM BROMIDE NEB SOLN 0.02% 2.5 ML VIAL INH SCH ×3 (01:56→19:18)
[2016-06-24 08:00] VITALS: BP 177/60; PULSE 76; TEMP 37.1; O2SAT 97
[2016-06-24] MEDS: BOOST GLUCOSE CONTROL PO SCH (08:00)
[2016-06-24 08:42] LABS: BASO % 0.1 %; BASO ABS # 0.01 K/uL (0-0.2); COMPLETE YES; EOS % 0.1 %; HEMATOCRIT 30.5 % (42-52); IG% 1.2 %; LYMPH % 10.1 %; LYMPH ABS # 0.85 K/uL (1.2-3.4); MEAN CELL VOLUME 98.7 fL (80-100); MEAN CORPUSCULAR HGB CONC 33.4 g/dl (32-36); MEAN PLATELET VOLUME 10.8 fL (7.4-10.4); MONO % 16.7 %; NEUT % 71.8 %; PLATELET COUNT 524 K/uL (130-400); RED BLOOD COUNT 3.09 M/uL (4.7-6.1); WHITE BLOOD COUNT 8.38 K/uL (4.8-10.8)
[2016-06-24 09:11] LABS: BUN/CREATININE RATIO 19.5 (10-20); CALCIUM 7.9 mg/dl (8.5-10.1); POTASSIUM 3.4 mmol/L (3.5-5.1)
[2016-06-24] MEDS: ISOSORBIDE MONONITRATE 60 MG TABCR PO SCH (09:22)
[2016-06-24] MEDS: DOCUSATE SODIUM 100 MG CAP PO SCH ×2 (09:23→21:09)
[2016-06-24] MEDS: CLOPIDOGREL BISULFATE 75 MG TAB PO SCH (09:23)
[2016-06-24] MEDS: METOPROLOL TARTRATE 50 MG TAB PO SCH ×3 (09:23→21:08)
[2016-06-24] MEDS: AMLODIPINE BESYLATE 5 MG TAB PO SCH (09:23)
[2016-06-24] MEDS: FEBUXOSTAT 40 MG TAB PO SCH (09:24)
[2016-06-24] MEDS: ASPIRIN 81 MG ECTAB PO SCH (09:24)
[2016-06-24] MEDS: GUAIFENESIN SUGAR FREE 200 MG/10 ML UDC PO SCH ×4 (09:25→21:07)
[2016-06-24] MEDS: INSULIN ASPART 100 UNITS/ML 3 ML PEN SC SCH ×4 (09:35→21:14)
--- NOTE | 2016-06-24 10:04 | NEPHROLOGY PROGRESS NOTE ---
DATE: 06/24/2016 SUBJECTIVE: Mr. Luis says that he is feeling a bit better today. He says that he does not feel short of breath. He says that he has a bit of a loose cough, but it has been nonproductive. He denies having any chest pain. He has no symptoms of uremia or volume overload. He is not eating well. OBJECTIVE: GENERAL: On exam at the current time, he appears as a chronically ill elderly gentleman of about his stated age of 85. VITAL SIGNS: His temperature is 37.1 degrees. His blood pressure 177/60 in the right arm seated with a pulse of 76 and regular, respiratory rate 20, and pulse ox of 93-97% on room air. SKIN: Shows normal skin turgor. He has scars from prior surgical procedures. LYMPHATICS: Show no palpable adenopathy. HEAD, EYES, EARS, NOSE, AND THROAT: All unremarkable. His oral mucous membranes are slightly dry. NECK: Supple. I note no jugular venous distention with him at 60 degrees. He has soft bilateral carotid murmurs. There is no thyromegaly. CHEST: Clear to auscultation. I hear no wheezes, rales or rhonchi. CARDIAC: Shows a regular rhythm. S1 and S2 are normal, and he has a systolic ejection murmur at the left sternal border and base. ABDOMEN: Nontender. He has no peripheral edema. Yesterday his output exceeded his intake by about 1070 mL. During his entire stay here he remains in positive fluid balance by about 660 mL. Clinical chemistries from today show an improvement in his BUN down to 39, as well as an improvement in his creatinine down to 2.0. His sodium is 146 mmol/L, potassium 3.4 mmol/L, chloride is 109 mmol/L, and CO2 content 26 mmol/L. His serum calcium is 7.9, his blood sugars vary from 152-278. ASSESSMENT: Seems to be doing better from the standpoint of his volume status. He still is in a mild fluid balance, his creatinine is up slightly from admission. RECOMMENDATIONS: Would continue Lasix for another day and once again make a decision on the continuation of Lasix based on the changes in his BUN and creatinine. Once his creatinine begins to rise, I would cut back on the use of Lasix and simply rely on metolazone as his maintenance diuretic for help in the management of his blood pressure and fluid status.
[2016-06-24 14:17] VITALS: PULSE 60; O2SAT 94
[2016-06-24 15:35] VITALS: BP 130/51; PULSE 68; TEMP 36.8; O2SAT 96
[2016-06-24] MEDS: CEFTRIAXONE SOD INJ 1000 MG in DEXTROSE 5% 50ML IV SCH (17:04)
[2016-06-24] MEDS ORDERED: POTASSIUM CHLORIDE 20 MEQ TABCR PO ONE (18:13)
[2016-06-24] MEDS ORDERED: METOLAZONE 5 MG TAB PO ONE (18:15)
--- NOTE | 2016-06-24 18:25 | Progress Note ---
Subjective Subjective Date of Service: Jun 24, 2016. Pt evaluation today including: conversation w/ patient, physical exam, chart review, review of studies, review of inpatient medication list Problem List Medical Problems: (1) Acute on chronic renal failure Status: Acute (2) Bacteremia Status: Acute (3) CHF (congestive heart failure) Status: Acute (4) Confusion Status: Acute (5) Cough Status: Acute (6) Generalized weakness Status: Acute (7) Influenza Status: Acute Review of Systems Constitutional: No fever Respiratory: No cough Abdomen: No pain Psychiatric: No depression symptoms Physical Exam Vital Signs Vital Signs Past 24 Hours: Date Time Temp Pulse Resp B/P Pulse Ox O2 Delivery O2 Flow Rate FiO2 06/24/16 15:35 36.8 68 19 130/51 96 Room Air 06/24/16 14:17 60 16 94 Room Air 06/24/16 08:00 37.1 76 20 177/60 97 Room Air 06/24/16 08:00 97 Room Air 06/24/16 01:56 70 16 94 Room Air 06/24/16 00:01 Room Air 06/23/16 23:45 36.9 77 18 155/73 97 Room Air 06/23/16 21:00 97 131/64 06/23/16 19:30 68 20 93 Room Air Physical Exam: General Appearance: WD/WN, no apparent distress Eyes: bilateral eyes normal inspection ENT: hearing grossly normal Neck: supple Respiratory/Chest: chest non-tender, + crackles (left side) Cardiovascular: regular rate, rhythm, no gallop Abdomen: normal bowel sounds, soft Extremities: normal range of motion, normal inspection Neurologic/Psychiatric: alert, normal mood/affect Skin: normal color, warm/dry Medications Medications: Current Inpatient Medications Medications (Trade) Dose Ordered Sig/Joselito Route Start Time Stop Time Status Last Admin Dose Admin Acetaminophen (Tylenol Tab) 650 mg Q4H PRN PO 06/18/16 19:45 07/18/16 19:44 Zolpidem Tartrate (Ambien Tab) 5 mg HSZ PRN PO 06/18/16 19:45 07/18/16 19:44 06/20/16 00:40 5 MG Amlodipine Besylate (Norvasc Tab) 10 mg DAILY PO 06/19/16 08:00 07/19/16 08:59 06/24/16 09:23 10 MG Aspirin (Ecotrin Tab) 81 mg QAM PO 06/19/16 08:00 07/19/16 08:59 06/24/16 09:24 81 MG Clopidogrel Bisulfate (plAVix TAB) 75 mg DAILY PO 06/19/16 08:00 07/19/16 08:59 06/24/16 09:23 75 MG Docusate Sodium (coLACE CAP) 100 mg BID PO 06/19/16 08:00 07/19/16 07:59 06/24/16 09:23 100 MG Folic Acid (Folvite Tab) 0.4 mg DAILY PO 06/19/16 08:00 07/19/16 08:59 06/24/16 09:24 0.4 MG Isosorbide Mononitrate (Imdur Ext Rel Tab) 60 mg QAM PO 06/19/16 08:00 07/19/16 08:59 06/24/16 09:22 60 MG Metoprolol Tartrate (Lopressor Tab) 50 mg TID PO 06/19/16 08:00 07/19/16 07:59 06/24/16 09:23 50 MG Simvastatin (Zocor Tab) 80 mg QPM PO 06/18/16 22:00 07/18/16 21:59 06/23/16 23:29 80 MG Tamsulosin HCl (Flomax Cap) 0.4 mg HS PO 06/18/16 22:00 07/18/16 21:59 06/23/16 20:57 0.4 MG Febuxostat (Uloric) 40 mg DAILY PO 06/19/16 08:00 07/19/16 07:59 06/24/16 09:24 40 MG Guaifenesin (Robitussin Sugar Free Syrup) 200 mg QID PO 06/19/16 08:00 07/19/16 07:59 06/24/16 09:25 200 MG Ondansetron HCl (Zofran Inj) 4 mg Q6H PRN IV 06/18/16 19:45 07/18/16 19:44 Insulin Aspart (novoLOG ASPART) SLIDING SCALE If C... ACHS SC 06/18/16 21:00 07/18/16 20:59 06/24/16 09:35 2 UNITS Glucose (Glucose 40% Gel) UD PRN PO 06/18/16 19:45 07/18/16 19:44 Glucose (Glucose Chew Tab) 1 tabs UD PRN PO 06/18/16 19:45 07/18/16 19:44 Dextrose (Dextrose 50% 50ML Syringe) 50 ml UD PRN IV 06/18/16 19:45 07/18/16 19:44 Glucagon (Glucagon Inj) 1 mg UD PRN SQ 06/18/16 19:45 07/18/16 19:44 Ipratropium [place] (Atrovent 0.02% 0.5MG/2.5ML Neb) 0.5 mg Q6R INH 06/19/16 03:00 07/19/16 02:59 06/24/16 14:17 0.5 MG Levalbuterol (Xopenex 1.25MG/ 0.5ML Neb) 1.25 mg Q6R INH 06/19/16 03:00 07/19/16 02:59 06/24/16 14:17 1.25 MG Enteral Nutritional Formula 1 can 1 can DAILY PO 06/20/16 08:00 07/20/16 07:59 06/21/16 08:20 1 CAN Ceftriaxone Sodium/Dextrose (Rocephin Inj/ Dextrose Add-[place] 50ML) 50 ml @ 100 mls/hr Q24H IV 06/20/16 16:00 06/30/16 15:59 06/23/16 17:24 100 MLS/HR Metolazone (Zaroxolyn Tab) 5 mg QAM PO 06/22/16 08:00 07/22/16 07:59 Future Hold 06/22/16 08:11 5 MG Laboratory Data Labs: Last 24 Hours Test 06/23/16 18:35 06/23/16 20:31 06/24/16 08:10 06/24/16 08:22 Arterial Blood pH 7.52 Arterial Blood Partial Pressure CO2 29 mmHg Arterial Blood Partial Pressure O2 69 mm/Hg Arterial Blood HCO3 23 mmol/L Arterial Blood Oxygen Saturation 92.9 % Arterial Blood Base Excess 0.7 mEq/L Arterial Blood Gas Delivery ROOM AIR Marc Test POS Sodium Level 146 mmol/L 146 mmol/L Potassium Level 3.6 mmol/L 3.4 mmol/L Chloride Level 108 mmol/L 109 mmol/L Carbon Dioxide Level 26 mmol/L 26 mmol/L Anion Gap 12.0 mmol/L 11.0 mmol/L Blood Urea Nitrogen 43 mg/dl 39 mg/dl Creatinine 2.30 mg/dl 2.00 mg/dl Est Creatinine Clear Calc Drug Dose 20.8 ml/min 23.9 ml/min Estimated GFR () 28.7 34.0 Estimated GFR (Non- 24.8 29.3 BUN/Creatinine Ratio 18.7 19.5 Random Glucose 268 mg/dl 156 mg/dl Calcium Level 7.6 mg/dl 7.9 mg/dl Bedside Glucose 278 mg/dl 152 mg/dl White Blood Count 8.38 K/uL Red Blood Count 3.09 M/uL Hemoglobin 10.2 g/dL Hematocrit 30.5 % Mean Corpuscular Volume 98.7 fL Mean Corpuscular Hemoglobin 33.0 pg Mean Corpuscular Hemoglobin Concent 33.4 g/dl Platelet Count 524 K/uL Mean Platelet Volume 10.8 fL Neutrophils (%) (Auto) 71.8 % Lymphocytes (%) (Auto) 10.1 % Monocytes (%) (Auto) 16.7 % Eosinophils (%) (Auto) 0.1 % Basophils (%) (Auto) 0.1 % Neutrophils # (Auto) 6.01 K/uL Lymphocytes # (Auto) 0.85 K/uL Monocytes # (Auto) 1.40 K/uL Eosinophils # (Auto) 0.01 K/uL Basophils # (Auto) 0.01 K/uL RDW Standard Deviation 61.3 fL RDW Coefficient of Variation 17.3 % Immature Granulocyte % (Auto) 1.2 % Immature Granulocyte # (Auto) 0.10 K/uL Test 06/24/16 11:34 06/24/16 16:30 Bedside Glucose 155 mg/dl 212 mg/dl Assessment and Plan A 85 yo male comes with: Influenza A, with gram-positive cocci bacteremia 1/2 blood cultures, likely a contaminant, staph aureus UTI, cont medical floor. continue Tamiflu 75 mg by mouth twice a day with renal dosing, cont IV ceftiaxone SOB, volume overload in the setting of hypoalbuminemia, IV lasix today, watch creatinine, CXR did not improve much, start po lasix 40 mg daily in am continue Xopenex with Atrovent nebulizer to use every 6 hours while awake and every 2 hours when necessary, guaifenesin 200 mg by mouth 4 times a day, nasal cannula 2 L O2 titrated to keep pulse ox greater than or equal to 91%. right lower lobe pneumonia, cont IV rocephin daily CKD stage 3, creatinine at 2.0 today, will continue monitor kidney function, check BMP tonight, will follow nephrology recs. ABG: resp acidosis due to tachypnea Hypokalemia, check BMP tonight delirium sec to renal dysfunction and infection in the setting of metabolic changes, treat underlying disease Coronary artery disease/hypertension/CHF history--continue amlodipine 10 mg by mouth daily enteric-coated aspirin 81 mg by mouth every morning clopidogrel 75 mg by mouth daily isosorbide mononitrate extended release 60 mg by mouth every morning and metoprolol tartrate 50 mg by mouth 3 times a day. hold metolazone 5 mg by mouth every morning due to renal dysfunction and while watching for response to lasix. Diabetes mellitus type 2--hold glipizide 5 mg by mouth twice a day. continue Accu-Cheks before meals and at bedtime with NovoLog coverage. a1c 6.3 Hypercholesterolemia continue simvastatin 80 mg by mouth every afternoon. BPH--continue tamsulosin 0.4 mg by mouth at bedtime. Gout--continue Uloric 40 mg by mouth daily. FULL Code discussed with family plan of care
[2016-06-24] MEDS ORDERED: ALBUMIN 25% 50 ML with FUROSEMIDE INJ 40 MG IV ONE ×2 (18:40)
[2016-06-24 19:18] VITALS: PULSE 83; O2SAT 96
[2016-06-24] MEDS: TAMSULOSIN HCL 0.4 MG CAP PO SCH (21:08)
[2016-06-24] MEDS: SIMVASTATIN 80 MG TAB PO SCH (21:09)
[2016-06-25] VITALS (8 sets, daily range): BP systolic 112–178; BP diastolic 50–68; PULSE 66–75; TEMP 36.4–36.7; O2SAT 92–97
[2016-06-25] MEDS: IPRATROPIUM BROMIDE NEB SOLN 0.02% 2.5 ML VIAL INH SCH ×4 (01:28→20:11)
[2016-06-25] MEDS: LEVALBUTEROL 1.25MG/0.5ML NEB INH SCH ×4 (01:28→20:11)
[2016-06-25] MEDS ORDERED: FUROSEMIDE 40 MG TAB PO SCH (08:00)
[2016-06-25] MEDS: BOOST GLUCOSE CONTROL PO SCH (08:00)
[2016-06-25] MEDS: CLOPIDOGREL BISULFATE 75 MG TAB PO SCH (08:47)
[2016-06-25] MEDS: AMLODIPINE BESYLATE 5 MG TAB PO SCH (08:47)
[2016-06-25] MEDS: ASPIRIN 81 MG ECTAB PO SCH (08:47)
[2016-06-25] MEDS: FEBUXOSTAT 40 MG TAB PO SCH (08:48)
[2016-06-25] MEDS: DOCUSATE SODIUM 100 MG CAP PO SCH ×2 (08:48→20:24)
[2016-06-25] MEDS: ISOSORBIDE MONONITRATE 60 MG TABCR PO SCH (08:48)
[2016-06-25] MEDS: METOPROLOL TARTRATE 50 MG TAB PO SCH ×3 (08:49→20:23)
[2016-06-25 08:57] LABS: BASO % 0.2 %; BASO ABS # 0.02 K/uL (0-0.2); COMPLETE YES; EOS % 0.4 %; HEMATOCRIT 36.8 % (42-52); IG% 1.3 %; LYMPH ABS # 0.86 K/uL (1.2-3.4); MEAN CELL VOLUME 99.2 fL (80-100); MEAN CORPUSCULAR HEMOGLOBIN 32.6 pg (25-34); MEAN CORPUSCULAR HGB CONC 32.9 g/dl (32-36); MEAN PLATELET VOLUME 11.1 fL (7.4-10.4); MONO % 13.8 %; NEUT % 76.3 %; PLATELET COUNT 600 K/uL (130-400); RED BLOOD COUNT 3.71 M/uL (4.7-6.1); WHITE BLOOD COUNT 10.69 K/uL (4.8-10.8)
[2016-06-25] MEDS: INSULIN ASPART 100 UNITS/ML 3 ML PEN SC SCH ×4 (09:01→20:58)
[2016-06-25] MEDS: GUAIFENESIN SUGAR FREE 200 MG/10 ML UDC PO SCH ×4 (09:02→20:23)
[2016-06-25 09:40] LABS: BUN/CREATININE RATIO 17.1 (10-20); CALCIUM 8.5 mg/dl (8.5-10.1); CREATININE 2.1 mg/dl (0.60-1.40)
--- NOTE | 2016-06-25 10:24 | NEPHROLOGY PROGRESS NOTE ---
DATE: 06/25/2016 PRIMARY [facility]ARE INTERNAL MEDICINE/NEPHROLOGY PROGRESS NOTE SUBJECTIVE: Mr. Luis says that he is feeling relatively well. He denies having chest pain. He denies having any shortness of breath at rest. He has a minimal cough, which is nonproductive. He says that his appetite is fair and does point out that he has eaten. He says that he has been up walking to the bathroom with assistance. OBJECTIVE: GENERAL: On physical exam when seen by me, Mr. Luis was lying comfortably in a semi-Hernandez position. VITAL SIGNS: He is afebrile (36.7), his blood pressure 178/68, his pulse is 66 and regular, respiratory rate 18, and his pulse ox is 92%-96% on room air. SKIN: Shows normal skin turgor. He has scars from prior surgical procedures. There is no rash or infiltrative skin disease. LYMPHATICS: Show no palpable lymphadenopathy. His mouth shows oral mucous membranes to be moist. NECK: Supple. There is no jugular venous distention with him lying at about 10 degrees. He has soft bilateral carotid murmurs. He has no thyromegaly. CHEST: Shows a few scattered rhonchi, but no rales. CARDIAC: Shows a regular rhythm. S1 and S2 are normal. He has a soft systolic murmur at the left sternal border and base. ABDOMEN: Nontender. EXTREMITIES: Show no peripheral edema. NEUROLOGIC: Shows him to be slightly confused, but he has no lateralizing changes. His output cumulatively during the hospital ____ his intake by about 1.5 liters. Clinical chemistries done today shows a sodium of 144 mmol/L, potassium 4.0 mmol/L, chlorides 105 mmol/L, and CO2 content 29 mmol/L. BUN is 36 and creatinine 2.10. Blood sugars vary from 155 to 269. His serum calcium is 8.5. His CBC shows a hemoglobin of 12.1 with a hematocrit of 36.8. His white count is 10,690 with 76.3% neutrophils, 8.0% lymphocytes, 13% monocytes, 0.4% eosinophils and 0.2% basophils. His platelet count is 600,000. ASSESSMENT: Mr. Luis appears to be reasonably stable and probably euvolemic at this point. His serum creatinine appears to be up minimally. His BUN is stable. He may have benefited at this point as much as we can expect from diuretic therapy. I would be concerned that continuation of Lasix therapy at this point may lead to an increase in a prerenal component of his azotemia. RECOMMENDATIONS: At this point would go off of treatment with Lasix and treat him only with metolazone 5-10 mg daily as his single diuretic. No other immediate intervention recommended by me other than continuation of his routine medications. Hopefully plans for placement are underway, but I do think he will need to be in a penit[facility]iary facility to be able to receive appropriate physical therapy for ambulation, transfers, etc.
[2016-06-25] MEDS: CEFTRIAXONE SOD INJ 1000 MG in DEXTROSE 5% 50ML IV SCH (15:53)
[2016-06-25] MEDS: SIMVASTATIN 80 MG TAB PO SCH (20:22)
[2016-06-25] MEDS ORDERED: POTASSIUM CHLORIDE 20 MEQ TABCR PO SCH (20:30)
[2016-06-25] MEDS ORDERED: POTASSIUM CHLORIDE 20 MEQ TABCR PO ONE (20:30)
--- NOTE | 2016-06-25 20:34 | Progress Note ---
Subjective Subjective Date of Service: Jun 25, 2016. Pt evaluation today including: conversation w/ patient, physical exam, chart review, review of studies, review of inpatient medication list Problem List Medical Problems: (1) Acute on chronic renal failure Status: Acute (2) Bacteremia Status: Acute (3) CHF (congestive heart failure) Status: Acute (4) Confusion Status: Acute (5) Cough Status: Acute (6) Generalized weakness Status: Acute (7) Influenza Status: Acute Review of Systems Constitutional: No fever ENT: No hearing loss Respiratory: No cough Cardiac: No chest pain Abdomen: No pain Male : No dysuria Neurologic: No memory loss Endo: No fatigue Physical Exam Vital Signs Vital Signs Past 24 Hours: Date Time Temp Pulse Resp B/P Pulse Ox O2 Delivery O2 Flow Rate FiO2 06/25/16 20:11 71 16 95 Room Air 06/25/16 15:58 36.7 75 16 112/53 97 Room Air 06/25/16 14:20 67 16 92 Room Air 06/25/16 08:00 97 Room Air 06/25/16 07:34 36.7 66 18 178/68 92 Room Air 06/25/16 07:31 67 16 93 Room Air 06/25/16 00:43 36.4 71 18 155/64 96 Room Air 06/25/16 00:00 Room Air Physical Exam: General Appearance: WD/WN, no apparent distress Eyes: bilateral eyes normal inspection ENT: hearing grossly normal, pharynx normal Neck: supple, no JVD Respiratory/Chest: chest non-tender, no accessory muscle use, + rales Cardiovascular: regular rate, rhythm, no gallop Abdomen: normal bowel sounds, soft Extremities: normal range of motion, normal inspection Neurologic/Psychiatric: alert Skin: normal color Medications Medications: Current Inpatient Medications Medications (Trade) Dose Ordered Sig/Joselito Route Start Time Stop Time Status Last Admin Dose Admin Acetaminophen (Tylenol Tab) 650 mg Q4H PRN PO 06/18/16 19:45 07/18/16 19:44 Zolpidem Tartrate (Ambien Tab) 5 mg HSZ PRN PO 06/18/16 19:45 07/18/16 19:44 06/20/16 00:40 5 MG Amlodipine Besylate (Norvasc Tab) 10 mg DAILY PO 06/19/16 08:00 07/19/16 08:59 06/25/16 08:47 10 MG Aspirin (Ecotrin Tab) 81 mg QAM PO 06/19/16 08:00 07/19/16 08:59 06/25/16 08:47 81 MG Clopidogrel Bisulfate (plAVix TAB) 75 mg DAILY PO 06/19/16 08:00 07/19/16 08:59 06/25/16 08:47 75 MG Docusate Sodium (coLACE CAP) 100 mg BID PO 06/19/16 08:00 07/19/16 07:59 06/25/16 08:48 100 MG Folic Acid (Folvite Tab) 0.4 mg DAILY PO 06/19/16 08:00 07/19/16 08:59 06/25/16 08:49 0.4 MG Isosorbide Mononitrate (Imdur Ext Rel Tab) 60 mg QAM PO 06/19/16 08:00 07/19/16 08:59 06/25/16 08:48 60 MG Metoprolol Tartrate (Lopressor Tab) 50 mg TID PO 06/19/16 08:00 07/19/16 07:59 06/25/16 14:57 50 MG Simvastatin (Zocor Tab) 80 mg QPM PO 06/18/16 22:00 07/18/16 21:59 06/24/16 21:09 80 MG Tamsulosin HCl (Flomax Cap) 0.4 mg HS PO 06/18/16 22:00 07/18/16 21:59 06/24/16 21:08 0.4 MG Febuxostat (Uloric) 40 mg DAILY PO 06/19/16 08:00 07/19/16 07:59 06/25/16 08:48 40 MG Guaifenesin (Robitussin Sugar Free Syrup) 200 mg QID PO 06/19/16 08:00 07/19/16 07:59 06/25/16 18:31 200 MG Ondansetron HCl (Zofran Inj) 4 mg Q6H PRN IV 06/18/16 19:45 07/18/16 19:44 Insulin Aspart (novoLOG ASPART) SLIDING SCALE If C... ACHS SC 06/18/16 21:00 07/18/16 20:59 06/25/16 18:35 5 UNITS Glucose (Glucose 40% Gel) UD PRN PO 06/18/16 19:45 07/18/16 19:44 Glucose (Glucose Chew Tab) 1 tabs UD PRN PO 06/18/16 19:45 07/18/16 19:44 Dextrose (Dextrose 50% 50ML Syringe) 50 ml UD PRN IV 06/18/16 19:45 07/18/16 19:44 Glucagon (Glucagon Inj) 1 mg UD PRN SQ 06/18/16 19:45 07/18/16 19:44 Ipratropium [place] (Atrovent 0.02% 0.5MG/2.5ML Neb) 0.5 mg Q6R INH 06/19/16 03:00 07/19/16 02:59 06/25/16 20:11 0.5 MG Levalbuterol (Xopenex 1.25MG/ 0.5ML [facility]) 1.25 mg Q6R INH 06/19/16 03:00 07/19/16 02:59 06/25/16 20:11 1.25 MG Enteral Nutritional Formula 1 can 1 can DAILY PO 06/20/16 08:00 07/20/16 07:59 06/21/16 08:20 1 CAN Ceftriaxone Sodium/Dextrose (Rocephin Inj/ Dextrose Add-[place] 50ML) 50 ml @ 100 mls/hr Q24H IV 06/20/16 16:00 06/30/16 15:59 06/25/16 15:53 100 MLS/HR Metolazone (Zaroxolyn Tab) 5 mg QAM PO 06/22/16 08:00 07/22/16 07:59 Future Hold 06/22/16 08:11 5 MG Furosemide (Lasix tab) 40 mg QAM PO 06/25/16 08:00 07/25/16 07:59 06/25/16 08:48 40 MG Laboratory Data Labs: Last 24 Hours Test 06/25/16 07:55 06/25/16 08:35 06/25/16 11:23 06/25/16 16:31 Bedside Glucose 156 mg/dl 163 mg/dl 174 mg/dl White Blood Count 10.69 K/uL Red Blood Count 3.71 M/uL Hemoglobin 12.1 g/dL Hematocrit 36.8 % Mean Corpuscular Volume 99.2 fL Mean Corpuscular Hemoglobin 32.6 pg Mean Corpuscular Hemoglobin Concent 32.9 g/dl Platelet Count 600 K/uL Mean Platelet Volume 11.1 fL Neutrophils (%) (Auto) 76.3 % Lymphocytes (%) (Auto) 8.0 % Monocytes (%) (Auto) 13.8 % Eosinophils (%) (Auto) 0.4 % Basophils (%) (Auto) 0.2 % Neutrophils # (Auto) 8.16 K/uL Lymphocytes # (Auto) 0.86 K/uL Monocytes # (Auto) 1.47 K/uL Eosinophils # (Auto) 0.04 K/uL Basophils # (Auto) 0.02 K/uL RDW Standard Deviation 61.3 fL RDW Coefficient of Variation 17.0 % Immature Granulocyte % (Auto) 1.3 % Immature Granulocyte # (Auto) 0.14 K/uL Sodium Level 144 mmol/L Potassium Level 4.0 mmol/L Chloride Level 105 mmol/L Carbon Dioxide Level 29 mmol/L Anion Gap 10.0 mmol/L Blood Urea Nitrogen 36 mg/dl Creatinine 2.10 mg/dl Est Creatinine Clear Calc Drug Dose 22.8 ml/min Estimated GFR () 32.1 Estimated GFR (Non- 27.7 BUN/Creatinine Ratio 17.1 Random Glucose 175 mg/dl Calcium Level 8.5 mg/dl Assessment and Plan A 85 yo male comes with: Influenza A, with gram-positive cocci bacteremia 1/2 blood cultures, likely a contaminant, staph aureus UTI, cont medical floor. continue Tamiflu 75 mg by mouth twice a day with renal dosing, cont IV ceftiaxone SOB, volume overload in the setting of hypoalbuminemia, start metolazone 5 mg daily as per nephrology recs continue Xopenex with Atrovent nebulizer to use every 6 hours while awake and every 2 hours when necessary, guaifenesin 200 mg by mouth 4 times a day, nasal cannula 2 L O2 titrated to keep pulse ox greater than or equal to 91%. right lower lobe pneumonia, cont IV rocephin daily CKD stage 3, creatinine at 2.0 today, at baseline, will continue monitor kidney function, check BMP tonight, will follow nephrology recs. ABG: resp acidosis due to tachypnea Hypokalemia, check BMP in am delirium sec to renal dysfunction and infection in the setting of metabolic changes, treat underlying disease Coronary artery disease/hypertension/CHF history--continue amlodipine 10 mg by mouth daily enteric-coated aspirin 81 mg by mouth every morning clopidogrel 75 mg by mouth daily isosorbide mononitrate extended release 60 mg by mouth every morning and metoprolol tartrate 50 mg by mouth 3 times a day. restart metolazone 5 mg by mouth every morning and monitor renal dysfunction Diabetes mellitus type 2--hold glipizide 5 mg by mouth twice a day. continue Accu-Cheks before meals and at bedtime with NovoLog coverage. a1c 6.3 Hypercholesterolemia continue simvastatin 80 mg by mouth every afternoon. BPH--continue tamsulosin 0.4 mg by mouth at bedtime. Gout--continue Uloric 40 mg by mouth daily. FULL Code discussed with family plan of care dispo: will need SNF placement
[2016-06-25] MEDS: TAMSULOSIN HCL 0.4 MG CAP PO SCH (20:52)
[2016-06-26 00:29] VITALS: BP 126/64; PULSE 62; TEMP 36.7; O2SAT 90
[2016-06-26] MEDS: IPRATROPIUM BROMIDE NEB SOLN 0.02% 2.5 ML VIAL INH SCH ×2 (01:21→07:44)
[2016-06-26] MEDS: LEVALBUTEROL 1.25MG/0.5ML NEB INH SCH ×2 (01:22→07:44)
[2016-06-26 07:44] VITALS: PULSE 71; O2SAT 95
[2016-06-26 08:12] VITALS: BP 151/60; PULSE 63; TEMP 36.9; O2SAT 95
[2016-06-26 08:22] LABS: BASO % 0.1 %; BASO ABS # 0.01 K/uL (0-0.2); COMPLETE YES; EOS % 0.8 %; HEMATOCRIT 32.5 % (42-52); IG% 1.4 %; LYMPH % 8.1 %; LYMPH ABS # 0.86 K/uL (1.2-3.4); MEAN CELL VOLUME 99.1 fL (80-100); MEAN CORPUSCULAR HEMOGLOBIN 32.9 pg (25-34); MEAN CORPUSCULAR HGB CONC 33.2 g/dl (32-36); MEAN PLATELET VOLUME 10.9 fL (7.4-10.4); MONO % 13.8 %; NEUT % 75.8 %; PLATELET COUNT 459 K/uL (130-400); RED BLOOD COUNT 3.28 M/uL (4.7-6.1); WHITE BLOOD COUNT 10.68 K/uL (4.8-10.8)
[2016-06-26 08:42] LABS: BUN/CREATININE RATIO 21.5 (10-20); CALCIUM 7.6 mg/dl (8.5-10.1); CREATININE 2.1 mg/dl (0.60-1.40); POTASSIUM 4.1 mmol/L (3.5-5.1)
[2016-06-26] MEDS: INSULIN ASPART 100 UNITS/ML 3 ML PEN SC SCH ×2 (09:20→12:32)
[2016-06-26] MEDS: BOOST GLUCOSE CONTROL PO SCH (09:20)
[2016-06-26] MEDS: METOLAZONE 5 MG TAB PO SCH (09:21)
[2016-06-26] MEDS: ISOSORBIDE MONONITRATE 60 MG TABCR PO SCH (09:21)
[2016-06-26] MEDS: GUAIFENESIN SUGAR FREE 200 MG/10 ML UDC PO SCH ×2 (09:22→12:29)
[2016-06-26] MEDS: DOCUSATE SODIUM 100 MG CAP PO SCH (09:22)
[2016-06-26] MEDS: METOPROLOL TARTRATE 50 MG TAB PO SCH ×2 (09:22→13:41)
[2016-06-26] MEDS: FEBUXOSTAT 40 MG TAB PO SCH (09:22)
[2016-06-26] MEDS: AMLODIPINE BESYLATE 5 MG TAB PO SCH (09:23)
[2016-06-26] MEDS: ASPIRIN 81 MG ECTAB PO SCH (09:23)
[2016-06-26] MEDS: CLOPIDOGREL BISULFATE 75 MG TAB PO SCH (09:23)
--- NOTE | 2016-06-26 10:18 | PROGRESS NOTE ---
DATE: 06/26/2016 SUBJECTIVE: Mr. Luis says that he is feeling relatively well. He says that he is eating. He says that his appetite is "okay." He denies having any nausea or vomiting. Currently, he denies having any shortness of breath or cough. He denies chest pain. Apparently, plans are underway for his transfer back to the [facility], a personal shelter. Apparently, this is the wish of the patient and his and family. In the past, there were concerns as to whether or not they were able to provide adequate care. OBJECTIVE: GENERAL: On physical exam at the time seeing, the patient appears as a somewhat lethargic gentleman. He appears to be his stated age of 85 and he appears to be chronically ill. VITAL SIGNS: He is afebrile (36.9), his blood pressure 151/60, his pulse 93 and regular, respiratory rate 18, and his pulse ox 90%-95% on room air. SKIN: Shows normal skin turgor. MOUTH: Shows oral mucous membranes to be moist. NECK: Shows no jugular venous distention. He has soft bilateral carotid murmurs. There is no thyromegaly. CHEST: Currently clear to auscultation. I hear no wheezes, rales or rhonchi. CARDIAC: Shows a regular rhythm. There is a very soft systolic murmur at the upper left sternal border. ABDOMEN: Nontender. There is no obvious organomegaly or mass. EXTREMITIES: Show no peripheral edema. Peripheral pulses are diminished. He has bilateral femoral bruits. NEUROLOGIC: Shows him to be somewhat lethargic, but easily aroused and oriented. PERTINENT LABORATORY WORK: Shows a white count of 10,680 with 75.8% neutrophils, 8.1%, lymphocytes, 13.8% monocytes, 0.8% eosinophils and 0.1% basophils. His hemoglobin is 10.8, his hematocrit 32.5, and platelet count is 459,000. His clinical chemistries show a sodium of 143 mmol/L, potassium 4.1 mmol/L, chlorides 105 mmol/L, and CO2 content 28 mmol/L. His BUN has jumped somewhat to 45 and his creatinine to 2.10. Blood sugars vary from 148 to 194. His serum calcium is 7.6. His last serum albumin was stable at 2.5. ASSESSMENT: Seems stable. PLAN: No recommended changes. Would continue the use only metolazone as his diuretic at the current time. Other medications as he currently has. I will see him as long as he remains in the hospital. If he is here over the weekend and an acute situation develops, Dr. Chi is conveyor weigher operator from nephrology.
[2016-06-26] MEDS ORDERED: CEPH-571 PO (13:28)
--- NOTE | 2016-06-26 13:32 | Discharge Instructions ---
Discharge Instructions Admission Reason for Admission: Influenza A, Staphylococcus Aureus Bacteremia Discharge Discharge Diagnosis / Problem: Flu, Staph bacteremia Discharge Goals Goal(s): Decrease discomfort, Improve function, Increase independence Activity Recommendations Activity Level: Up Ad Anusha Therapies: Physical Therapy, Occupational Therapy . Additional Information Patient informed of condition: Yes Advance Directives: No DNR: No Level of Care: Other ([facility]) Communicable Disease: Yes Prognosis: Improving Instructions / Follow-Up Instructions / Follow-Up Dr. Delvalle next week Call 911 and go to the Emergency Room if: * You have tightness or pain in your chest that does not go away with rest or Nitroglycerin * You are very short of breath even with rest Call your doctor if any of the following symptoms or problems start or get worse: * Shortness of breath or difficulty breathing * Wake up at night short of breath * Chest pain * Cough * Swelling of your hands, fee, or legs * More fatigued or tired with your normal activity * Palpitations - sudden fast heart beats WEIGHT * Weigh yourself every morning after using the bathroom. * Use the same scale. * Wear the same amount of clothing. * Write your weight down on your chart. * Call your doctor if you gain more than 2-3 pounds in 1-2 days. MEDICATIONS * Use this discharge instruction sheet for instructions. * Take your medications at the time your doctor ordered. * Do not skip a dose of your medicines. * If you miss a dose of medicine, take as soon as possible, but DO NOT DOUBLE A DOSE. * Read your medicine information when you get home. * Know all of the side effects of your medicine. * Call your doctor's office if you have any side effects. * Be sure all of your doctors know what medicine and herbs you take (including cold, flu, and herbal medicine). * Pain Medicine: If you do not get relief from your pain, please call your doctor for help. Take the following with you to your follow-up doctor appointments: * Weight Chart * Medication List * List of questions Do not drink excessive alcohol, beer or wine. Current Hospital Diet Patient's current hospital diet: Diabetes Type 2 Diet Discharge Diet Recommended Diet: Renal Diet Pending Studies Studies pending at discharge: no Laboratory Results Hemoglobin A1c Test 06/19/16 07:15 Range/Units Estimated Average Glucose 134 mg/dl Hemoglobin A1c 6.3 H 4.5-5.6 % Lipid Panel Test 05/29/16 06:05 Range/Units Triglycerides Level 41 0-150 mg/dl Cholesterol Level 71 0-200 mg/dl HDL Cholesterol 50 mg/dl Cholesterol/HDL Ratio 1.4 LDL Cholesterol, Calculated 13 mg/dl Medical Emergencies . Who to Call and When: Medical Emergencies: If at any time you feel your situation is an emergency, please call 911 immediately. . Non-Emergent Contact Non-Emergency issues call your: Automobile Service Station Manager . . "Provider Documentation" section prepared by Earnestine Hung. Core Measure Problem Core Measures: None
--- NOTE | 2016-06-26 13:39 | Discharge Summary ---
Discharge Summary Admission Date: Jun 18, 2016 at 19:33 Discharge Date: Jun 26, 2016 Discharge Disposition: Personal care Principal Diagnosis: Flu, sepsis Immunizations: Have You Had Influenza Vaccine: Yes Influenza Vaccine Date: Mar 23, 2010 History of Tetanus Vaccine?: Unknown History of Pneumococcal: Yes Pneumococcal Date: Apr 23, 2008 History of Hepatitis B Vaccine: Unknown Medication Reconciliation New Medications: Cephalexin (Keflex) 500 Mg Cap 1 CAP PO TID for 3 Days, #21 CAP Continued Medications: Albuterol Hfa (Ventolin Hfa) 200 Puffs/89280 Mcg Aers 1 PUFF INH Q4, #1 INHALER Amlodipine (Norvasc) 10 Mg Tab 10 MG PO DAILY, 0 Refills Aspirin (Aspirin EC Low Dose) 81 Mg Ectab 81 MG PO QAM for 30 Days Clopidogrel (Plavix) 75 Mg Tab 75 MG PO DAILY, TAB Docusate Sodium (Colace *) 100 Mg Cap 100 MG PO BID, 0 Refills Febuxostat (Uloric) 40 Mg Tab 40 MG PO DAILY for 90 Days, #90 TAB 3 Refills Folic Acid (Folvite) 1 Mg Tab 0.4 MG PO DAILY, TAB Glipizide (Glucotrol *) 5 Mg Tab 5 MG PO BID, 0 Refills Isosorbide Mononitrate Ext Rel (Imdur Ext Rel) 60 Mg Ertab 60 MG PO QAM, TAB Metolazone (Metolazone) 5 Mg Tab 5 MG PO QAM for 30 Days, #30 TAB Metoprolol Tartrate (Metoprolol Tartrate) 50 Mg Tab 50 MG PO TID for 30 Days, #90 TAB Nutritional Supplements (Boost) 1 Liq Liq 1 CAN PO DAILY for 30 Days Simvastatin (Zocor) 80 Mg Tab 80 MG PO QPM, TAB Tamsulosin Hcl (Flomax) 0.4 Mg Cap 0.4 MG PO HS, CAP Discharge Exam Pt states he is tired, but otherwise no new concerns. States he ate without issue. Pt denies fever, SOB, chest pain, abd pain, n/v/c/d, LE pain or swelling. ROS as noted above, otherwise neg. Pt wishes to return to [facility] and family is also requesting this. Physical Exam: General Appearance: WD/WN, no apparent distress Respiratory/Chest: normal breath sounds, no respiratory distress Cardiovascular: regular rate, rhythm, no edema Abdomen / GI: non tender, soft Extremities: no calf tenderness, no pedal edema Neurologic/Psychiatric: alert, oriented x 3 Skin: normal color, warm/dry Hospital Course A 85 yo male comes with: Influenza A, with gram-positive cocci bacteremia 1/2 blood cultures, likely a contaminant, staph aureus UTI, Finished course of Tamiflu 75 mg during admission Was on IV ceftiaxone during admission, will change to keflex to complete a course of 10 days SOB, volume overload in the setting of hypoalbuminemia, start metolazone 5 mg daily as per nephrology recs continue Xopenex with Atrovent nebulizer to use every 6 hours while awake and every 2 hours when necessary, guaifenesin 200 mg by mouth 4 times a day, right lower lobe pneumonia, abx as above CKD stage 3, creatinine at 2.0 today, at baseline Hypokalemia: stable s/p replacement delirium sec to renal dysfunction and infection in the setting of metabolic changes, treat underlying disease Coronary artery disease/hypertension/CHF history--continue amlodipine 10 mg by mouth daily enteric-coated aspirin 81 mg by mouth every morning clopidogrel 75 mg by mouth daily isosorbide mononitrate extended release 60 mg by mouth every morning and metoprolol tartrate 50 mg by mouth 3 times a day. metolazone 5 mg as single agent for CHF per pt's food services coordinator Diabetes mellitus type 2--glipizide 5 mg by mouth twice a day A1c 6.3 Hypercholesterolemia continue simvastatin 80 mg by mouth every afternoon. BPH--continue tamsulosin 0.4 mg by mouth at bedtime. Gout--continue Uloric 40 mg by mouth daily. FULL Code Based on PT/OT reports, pt would likely benefit from SNF placement, however pt and family wish to return to [facility] on d/c. [facility] states that they are willing to accept him at this time. It is the general opinion of providers in this pt's care that he would be better served at a higher level of care, however pt and family feel otherwise. Pt is a high risk for readmission from a [facility] setting. Total Time Spent: Greater than 30 minutes This includes examination of the patient, discharge planning, medication reconciliation, and communication with other providers. Discharge Instructions Please refer to the electronic Patient Visit Report (Discharge Instructions) for additional information. Follow-Up Dr. Delvalle next week
[2016-06-26 13:50] VITALS: BP 151/60; PULSE 63; TEMP 36.9; O2SAT 95
[2016-06-30] MEDS ORDERED: FEBU40TA PO (14:12)
[2016-06-30] MEDS ORDERED: CLOP1TAB15 PO (14:12)
[2016-06-30] MEDS ORDERED: SIMV80TA2 PO (14:14)
[2016-06-30] MEDS ORDERED: TAMS0.4C38 PO (14:14)
[2016-06-30] MEDS ORDERED: ISOS60TA25 PO (14:15)
[2016-06-30] MEDS ORDERED: AMLO-114 PO (20:40)
== END 2016-06-26 16:12 | disposition home health service (06) | DRG 871 ==
LOC: ENRESERVTM → ENRESERVDT → C.EDB 17:31 → C.MS4W 19:33
PROVIDERS: ADMIT Hospitalist; ATTEND Family Medicine
DX: A41.9 Sepsis, unspecified organism (principal); J18.9 Pneumonia, unspecified organism; E87.2 Acidosis; N39.0 Urinary tract infection, site not specified; R41.0 Disorientation, unspecified; Z83.3 Family history of diabetes mellitus; Z87.891 Personal history of nicotine dependence; I25.10 Atherosclerotic heart disease of native coronary artery without angina pectoris; Z88.8 Allergy status to other drugs, medicaments and biological substances; Z79.82 Long term (current) use of aspirin; Z79.899 Other long term (current) drug therapy; Z79.02 Long term (current) use of antithrombotics/antiplatelets; J11.1 Influenza due to unidentified influenza virus with other respiratory manifestations; E11.22 Type 2 diabetes mellitus with diabetic chronic kidney disease; I50.9 Heart failure, unspecified; E78.00 Pure hypercholesterolemia, unspecified; M10.9 Gout, unspecified; N40.0 Benign prostatic hyperplasia without lower urinary tract symptoms; I12.9 Hypertensive chronic kidney disease with stage 1 through stage 4 chronic kidney disease, or unspecified chronic kidney disease; J44.9 Chronic obstructive pulmonary disease, unspecified; N18.3 Chronic kidney disease, stage 3 (moderate); E87.6 Hypokalemia; E86.1 Hypovolemia; Z98.890 Other specified postprocedural states

== ENCOUNTER 2016-06-30 20:54 | Emergency (ER) | payer OTHER ==
[~2016-06-30] VITALS: Ht 165.1 cm; Wt 57.8 kg
[~2016-06-30 20:54] MED LIST changes: +AMLO-114 PO; +CEPH-571 PO; +CLOP1TAB15 PO; +FEBU40TA PO; +ISOS60TA25 PO; -OSEL75CA12 PO; +SIMV80TA2 PO; +TAMS0.4C38 PO
[2016-06-30 21:07] VITALS: TEMP 36.7; Ht 165.1 cm; Wt 57.8 kg
[2016-06-30] MEDS ORDERED: SODIUM CHLORIDE 0.9% 500ML 500 ML IV STA (21:41)
[2016-06-30] MEDS ORDERED: CEPH500T PO (22:11)
[2016-06-30] MEDS ORDERED: VNTHFA/IN INH (22:11)
[2016-06-30] MEDS ORDERED: GLIP5TAB3 PO (22:11)
[2016-06-30] MEDS ORDERED: METO5TAB5 PO (22:11)
[2016-06-30] MEDS ORDERED: METO50TA16 PO (22:11)
[2016-06-30] MEDS ORDERED: FLV400 PO (22:11)
[2016-06-30] MEDS ORDERED: DOCU-94 PO (22:11)
[2016-06-30] MEDS ORDERED: NUTR-7 PO (22:11)
[2016-06-30] MEDS ORDERED: ASPI81TA28 PO (22:11)
[2016-06-30 22:51] LABS: HEMATOCRIT 33.1 % (42-52); MEAN CELL VOLUME 101.8 fL (80-100); MEAN CORPUSCULAR HEMOGLOBIN 32.9 pg (25-34); MEAN CORPUSCULAR HGB CONC 32.3 g/dl (32-36); MEAN PLATELET VOLUME 11.9 fL (7.4-10.4); PLATELET COUNT 304 K/uL (130-400); RED BLOOD COUNT 3.25 M/uL (4.7-6.1); WHITE BLOOD COUNT 10.23 K/uL (4.8-10.8)
[2016-06-30 23:08] LABS: BUN/CREATININE RATIO 22.4 (10-20); CALCIUM 7.8 mg/dl (8.5-10.1); POTASSIUM 4.2 mmol/L (3.5-5.1)
--- NOTE | 2016-06-30 23:12 | EMERGENCY ROOM VISIT NOTE ---
History Report prepared by Estiven: Ivory Watt Under the Supervision of: Dr. Conor Gaston D.O. First contact with patient: 21:26 Chief Complaint: HYPERGLYCEMIA Stated Complaint: HIGH BLOOD SUGAR Nursing Triage Summary: Pt from [facility]. Son reports pateint was just admitted here for 1 week with flu like symptoms and his sugar was in the 200s while here. Pt was on SQ insulin and Glipizide while inpatient. Pt was discharged to [facility] and the staff reports BSG of 500 for 2 days. Pt is only taking Glipizide at [facility]. BSG 320 at this time. History of Present Illness The patient is a 85 year old male who presents to the Emergency Room with complaints of intermittent hyperglycemia that was noticed two days ago. He is in minimal discomfort. The patient's son brought him into the ED from [facility]. When the intermediate staff called the patient's son, the patient's blood sugar was 550. Upon arrival to the ED, his blood sugar was 320. Per nursing staff, the patient was in the hospital last week for flu-like symptoms and UTIs. The patient's blood sugar was in the 200s while he was here but he was receiving Glipizide and insulin. He was started on a seven day course of Keflex and discharged 4 days ago. The patient has a catheter in place. The patient's son states that the patient's blood sugars have been elevated the last couple days. He states that the patient is only on Glipizide at the intermediate and he has not taken that yet tonight. Source of History: patient, family (son), nursing staff Onset: two days ago Position: other (generalized) Symptom Intensity: minimal Quality: other (hyperglycemia) Timing: intermittent Review of Systems See HPI for pertinent positives & negatives. A total of 10 systems reviewed and were otherwise negative. Past Medical & Surgical Medical Problems: (1) Anemia (2) chf exac, Kimberly on ckd, tsh high (3) Diabetes (4) Heart disease (5) Hypertension (6) Influenza A (7) Kidney disease (8) Staphylococcus aureus bacteremia Surgical Problems: (1) S/P aneurysm repair Family History Diabetes mellitus Social History Smoking Status: Former Smoker Alcohol Use: none Drug Use: none Marital Status: Housing Status: lives with significant other Occupation Status: retired Current/Historical Medications Scheduled Albuterol Hfa (Ventolin Hfa), 1 PUFF INH Q4 Amlodipine (Norvasc), 10 MG PO DAILY Aspirin (Aspirin Ec), 81 MG PO DAILY Cephalexin (Cephalexin), 1 TAB PO TID Clopidogrel (Plavix), 75 MG PO DAILY Docusate Sodium (Colace), 1 CAP PO BID Febuxostat (Uloric), 40 MG PO DAILY Folic Acid (Folic Acid), 400 MCG PO DAILY Glipizide (Glucotrol), 5 MG PO BID Isosorbide Mononitrate Ext Rel (Imdur Ext Rel), 60 MG PO QAM Metolazone (Zaroxolyn), 5 MG PO DAILY Metoprolol Tartrate (Lopressor) (Lopressor), 50 MG PO TID Nutritional Supplements (Boost), 1 CAN PO DAILY Nutritional Supplements (Boost), 1 CAN PO DAILY Simvastatin (Zocor), 80 MG PO QPM Tamsulosin Hcl (Flomax), 0.4 MG PO HS Allergies Coded Allergies: Isoniazid (Verified Allergy, Intermediate, hepatitis, 06/18/16) Streptokinase (Verified Allergy, Mild, 06/18/16) THOMPSON Inhibitors (Verified Allergy, Unknown, 06/18/16) Physical Exam Vital Signs Date Time Temp Pulse Resp B/P Pulse Ox O2 Delivery O2 Flow Rate FiO2 06/30/16 22:29 59 18 148/55 99 Room Air 06/30/16 21:07 36.7 104 20 102/46 95 Room Air Physical Exam CONSTITUTIONAL/VITAL SIGNS: Reviewed / noted above. GENERAL: Non-toxic in appearance. INTEGUMENTARY: Warm, dry, and [place]. HEAD: Normocephalic. EYES: without scleral icterus or trauma. ENT/OROPHARYNX: clear and moist. LYMPHADENOPATHY/NECK: Is supple without lymphadenopathy or meningismus. RESPIRATORY: Lungs clear and equal. CARDIOVASCULAR: Regular rate and rhythm. GI/ABDOMEN: Soft and nontender. No organomegaly or pulsatile mass. No rebound or guarding. Normal bowel sounds. EXTREMITIES: Warm and well perfused. BACK: No CVA tenderness. NEUROLOGICAL: Intact without focal deficits. PSYCHIATRIC: normal affect. MUSCULOSKELETAL: Normally developed with good muscle tone. Medical Decision & Procedures Laboratory Results 06/30/16 22:00 06/30/16 22:00 Test 06/30/16 21:24 06/30/16 22:00 Bedside Glucose 320 mg/dl (70-99) Red Blood Count 3.25 M/uL (4.7-6.1) Mean Corpuscular Volume 101.8 fL (80-100) Mean Corpuscular Hemoglobin 32.9 pg (25-34) Mean Corpuscular Hemoglobin Concent 32.3 g/dl (32-36) RDW Standard Deviation 60.8 fL (36.4-46.3) RDW Coefficient of Variation 16.3 % (11.5-14.5) Mean Platelet Volume 11.9 fL (7.4-10.4) Anion Gap 10.0 mmol/L (3-11) Est Creatinine Clear Calc Drug Dose 21.7 ml/min Estimated GFR () 34.0 Estimated GFR (Non- 29.3 BUN/Creatinine Ratio 22.4 (10-20) Calcium Level 7.8 mg/dl (8.5-10.1) Laboratory results as stated above per my review. Medications Administered Medications (Trade) Dose Ordered Sig/Joselito Route Start Time Stop Time Status Last Admin Dose Admin Glipizide 5 mg 5 mg NOW ONCE PO 06/30/16 21:45 06/30/16 21:46 DC 06/30/16 22:27 5 MG Sodium Chloride (Nss 500ml) 500 ml @ 999 mls/hr Q31M STAT IV 06/30/16 21:41 06/30/16 22:11 DC 06/30/16 22:16 999 MLS/HR ED Course 2133: Previous medical records were reviewed. The patient was evaluated in room B6. A complete history and physical examination was performed. 2141: Ordered Sodium Chloride 500 ml @ 999 mls/hr IV 2145: Ordered Glipizide 5 mg PO 2313: On reevaluation, the patient is doing well. I discussed the results and findings with the patient and his son. They verbalized agreement of the treatment plan. The patient was discharged home. Medical Decision Differential includes acute coronary syndrome, myocardial infarction, CVA, TIA, anemia, infection, pneumonia, UTI, pyelonephritis, poor nutrition, dehydration, electrolyte disturbance,hypoglycemia. This is an 85-year-old male who presents to the ED with a chief complaint of elevated blood sugars. The patient was sent from a local personal intermediate. They reported that his blood sugar was around 500 at the home before they sent the patient. His initial blood sugar here was 320. He is on glipizide twice a day. He was recently in the hospital less than 2 weeks ago. His HbA1c at that time was 6.3. He did receive some insulin coverage during his hospitalization as he was ill being treated for the fluid a UTI. The patient has no complaints. His physical exam was unremarkable. CBC was was unremarkable. Chemistry panel did not show any significant abnormalities. Baseline kidney function. He was treated with IV fluids. He was given his evening dose of glipizide. He is felt to be stable for discharge and outpatient follow-up. Impression Primary Impression: Hyperglycemia Scribe Attestation The scribe's documentation has been prepared under my direction and personally reviewed by me in its entirety. I confirm that the note above accurately reflects all work, treatment, procedures, and medical decision making performed by me. Departure Information Dispostion Home / Self-Care Referrals Bryon Delvalle M.D. (PCP) Forms HOME CARE DOCUMENTATION FORM, IMPORTANT VISIT INFORMATION, WORK / SCHOOL INSTRUCTIONS Patient Instructions A Signature Page, My [facility] Additional Instructions Talk to your doctor about your blood sugars. Drink plenty of water if your blood sugars are running a little high. Return for any concerns or worsening.
[2016-06-30 23:18] LABS: BETA-HYDROXYBUTYRATE 0.91 mg/dL (0.2-2.81)
[2016-06-30 23:20] VITALS: BP 122/53; PULSE 64; O2SAT 97
== END 2016-06-30 23:20 | disposition home or self-care (01) ==
LOC: C.EDB 20:56
DX: E11.65 Type 2 diabetes mellitus with hyperglycemia (principal); I12.9 Hypertensive chronic kidney disease with stage 1 through stage 4 chronic kidney disease, or unspecified chronic kidney disease; N18.9 Chronic kidney disease, unspecified; I50.9 Heart failure, unspecified; Z86.19 Personal history of other infectious and parasitic diseases; Z87.891 Personal history of nicotine dependence; Z79.82 Long term (current) use of aspirin; Z79.899 Other long term (current) drug therapy; Z98.890 Other specified postprocedural states; Z88.8 Allergy status to other drugs, medicaments and biological substances; Z83.3 Family history of diabetes mellitus

== ENCOUNTER → 2016-07-03 | Outpatient (CLI) | payer OTHER ==
[~2016-07-03] MED LIST changes: -ASPEC81 PO; +ASPI81TA28 PO; -CEPH-571 PO; +CEPH500T PO; -CLC100 PO; +DOCU-94 PO; +FLV400 PO; -FOLI1TAB7 PO; -GLC5 PO; +GLIP5TAB3 PO; +METO50TA16 PO; -METO50TA17 PO; +METO5TAB5 PO; -ZRX5 PO
[2016-07-03 16:23] LABS: URINE APPEARANCE CLEAR (CLEAR); URINE BILIRUBIN NEG (NEG); URINE COLOR YELLOW; URINE EPITHELIAL CELL AUTO >30 /lpf (0-5); URINE NITRITE NEG (NEG); URINE SPECIFIC GRAVITY 1.018 (1.000-1.030); UROBILINOGEN NEG (NEG)
[2016-07-03 16:30] LABS: MANUAL MICROSCOPIC REQUIRED? NO; REVIEW REQ? YES
[2016-07-03 16:48] LABS: URINE PATH CASTS 0-3 GRANULAR CASTS /lpf (0)
== END | disposition home or self-care (01) ==
LOC: C.LABSPEC 14:17
PROVIDERS: ATTEND Internal Medicine
DX: Z00.00 Encounter for general adult medical examination without abnormal findings (principal)

== ENCOUNTER → 2016-07-10 | Outpatient (CLI) | payer OTHER ==
[2016-07-10 12:23] LABS: HEMATOCRIT 29.7 % (42-52)
[2016-07-10 12:32] LABS: ESTIMATED AVERAGE GLUCOSE 154 mg/dl; HA1C FLAG Normal (Normal)
[2016-07-10 12:43] LABS: BLOOD UREA NITROGEN 30 mg/dl (7-18); BUN/CREATININE RATIO 17.4 (10-20); CALCIUM 8.2 mg/dl (8.5-10.1); CARBON DIOXIDE 26 mmol/L (21-32); CHLORIDE 107 mmol/L (98-107); GLUCOSE 167 mg/dl (70-99); POTASSIUM 4.8 mmol/L (3.5-5.1); SODIUM 140 mmol/L (136-145)
[2016-07-10 12:44] LABS: PHOSPHORUS 2.9 mg/dl (2.5-4.9)
--- NOTE | 2016-07-16 13:54 | CODING QUERY MEDICAL NECESSITY ---
SUPPORTING DIAGNOSIS NEEDED Young PA, A supporting diagnosis is required for the test/procedure performed on this patient in order for us to be reimbursed by the patient's insurance. Please provide a supporting diagnosis for the following test/procedure listed below next to the test name along with your signature. *If there is no additional diagnosis for this patient that would support the following test/procedure please document that below next to the test/procedure. Test(s)/Procedure(s) that require a supporting diagnosis: * [id number] GLYCATED HEMOGLOBIN DIAGNOSIS: DATE OF SERVICE: 07/10/16 Provider Signature: Date: Thank you Primitivo Dent [facility] Information Management Once completed, please kindly fax back to [phone] For questions please call [phone]
== END | disposition home or self-care (01) ==
LOC: C.LABWYN 11:22
PROVIDERS: ATTEND Internal Medicine
DX: D64.9 Anemia, unspecified (principal); N18.9 Chronic kidney disease, unspecified; E11.22 Type 2 diabetes mellitus with diabetic chronic kidney disease

== ENCOUNTER → 2016-08-11 | Outpatient (CLI) | payer OTHER ==
[~2016-08-11] MED LIST changes: +APR10 PO; +CRDCD180 PO; +DLCSR120 PO; +DLN100 PO; +GLIP-199 PO; +MRLP17 PO; +NVLGIPEN SC; +SENN1TAB80 PO
--- NOTE | 2016-10-01 05:51 | CODING QUERY NO DIAGNOSIS ---
Valid Physician Order Needed A valid physician order must be submitted in order to properly bill for the service(s) provided, including date of service(s), valid diagnosis, and physician signature. If these tests are done on a recurring basis the original physican order must be submitted in order to code and bill for the service(s) provided. Please fax us the original, signed physician order so that we may expedite billing to [phone] DOS 08/11/16 * HEMOGLOBIN & HEMATOCRIT ORDERED BY DR. ELLIS Thank you Nelda [facility] Information Management
== END | disposition home or self-care (01) ==
LOC: C.LABWYN 08:44
PROVIDERS: ATTEND Internal Medicine
DX: N18.9 Chronic kidney disease, unspecified (principal); D63.8 Anemia in other chronic diseases classified elsewhere

== ENCOUNTER → 2016-08-21 | Outpatient (CLI) | payer OTHER ==
[~2016-08-21] MED LIST changes: -APR10 PO; -CRDCD180 PO; -DLCSR120 PO; -DLN100 PO; -GLIP-199 PO; -MRLP17 PO; -NVLGIPEN SC; -SENN1TAB80 PO
[2016-08-21 14:48] LABS: HEMATOCRIT 39.4 % (42-52)
[2016-08-21 15:54] LABS: BLOOD UREA NITROGEN 52 mg/dl (7-18); BUN/CREATININE RATIO 27.4 (10-20); CALCIUM 8.1 mg/dl (8.5-10.1); CARBON DIOXIDE 28 mmol/L (21-32); CHLORIDE 106 mmol/L (98-107); GLUCOSE 279 mg/dl (70-99); POTASSIUM 4.5 mmol/L (3.5-5.1); SODIUM 141 mmol/L (136-145)
== END | disposition home or self-care (01) ==
LOC: C.LAB1850 14:22
PROVIDERS: ATTEND Internal Medicine
DX: N18.9 Chronic kidney disease, unspecified (principal); D63.8 Anemia in other chronic diseases classified elsewhere

== ENCOUNTER → 2016-08-25 | Outpatient (CLI) | payer OTHER ==
[2016-08-25 12:27] LABS: HEMATOCRIT 37.6 % (42-52)
== END | disposition home or self-care (01) ==
LOC: C.LABWYN 09:56
PROVIDERS: ATTEND Internal Medicine
DX: R53.1 Weakness (principal)

== ENCOUNTER → 2016-09-24 | Outpatient (CLI) | payer OTHER ==
[~2016-09-24] MED LIST changes: +APR10 PO; +CRDCD180 PO; +DLCSR120 PO; +DLN100 PO; +GLIP-199 PO; +MRLP17 PO; +NVLGIPEN SC; +SENN1TAB80 PO
[2016-09-24 12:41] LABS: HEMATOCRIT 35.6 % (42-52)
== END | disposition home or self-care (01) ==
LOC: C.LABWYN 11:40
PROVIDERS: ATTEND Internal Medicine
DX: N18.9 Chronic kidney disease, unspecified (principal); D63.8 Anemia in other chronic diseases classified elsewhere

== ENCOUNTER → 2016-10-01 | Outpatient (CLI) | payer OTHER ==
[2016-10-01 12:15] LABS: HEMATOCRIT 32.3 % (42-52)
== END ==
LOC: C.LABWYN 12:22
PROVIDERS: ATTEND Internal Medicine
DX: D63.8 Anemia in other chronic diseases classified elsewhere (principal); N18.9 Chronic kidney disease, unspecified

== ENCOUNTER → 2016-10-15 | Outpatient (CLI) | payer OTHER ==
[2016-10-15 12:04] LABS: HEMATOCRIT 35.3 % (42-52)
== END | disposition home or self-care (01) ==
LOC: C.LABWYN 07:31
PROVIDERS: ATTEND Internal Medicine
DX: N18.9 Chronic kidney disease, unspecified (principal); D63.8 Anemia in other chronic diseases classified elsewhere

== ENCOUNTER → 2016-10-30 | Outpatient (CLI) | payer OTHER ==
[2016-10-30 12:50] LABS: HEMATOCRIT 35.2 % (42-52)
== END | disposition home or self-care (01) ==
LOC: C.LABWYN 14:49
PROVIDERS: ATTEND Internal Medicine
DX: D63.8 Anemia in other chronic diseases classified elsewhere (principal); N18.9 Chronic kidney disease, unspecified

== ENCOUNTER → 2016-11-12 | Outpatient (CLI) | payer OTHER ==
[2016-11-12 12:07] LABS: HEMATOCRIT 33.8 % (42-52)
== END | disposition home or self-care (01) ==
LOC: C.LABWYN 15:49
PROVIDERS: ATTEND Internal Medicine
DX: D63.8 Anemia in other chronic diseases classified elsewhere (principal); N18.9 Chronic kidney disease, unspecified

== ENCOUNTER → 2016-11-26 | Outpatient (CLI) | payer OTHER ==
[2016-11-26 12:18] LABS: HEMATOCRIT 30.1 % (42-52)
[2016-11-26 13:20] LABS: BLOOD UREA NITROGEN 50 mg/dl (7-18); BUN/CREATININE RATIO 25.1 (10-20); CALCIUM 7.6 mg/dl (8.5-10.1); CARBON DIOXIDE 25 mmol/L (21-32); CHLORIDE 113 mmol/L (98-107); GLUCOSE 76 mg/dl (70-99); POTASSIUM 4.1 mmol/L (3.5-5.1); SODIUM 147 mmol/L (136-145)
== END | disposition home or self-care (01) ==
LOC: C.LABWYN 13:41
PROVIDERS: ATTEND Internal Medicine
DX: I50.32 Chronic diastolic (congestive) heart failure (principal); N18.9 Chronic kidney disease, unspecified; D63.8 Anemia in other chronic diseases classified elsewhere

== ENCOUNTER → 2016-12-15 | Outpatient (CLI) | payer OTHER ==
[2016-12-15 12:54] LABS: HEMATOCRIT 32.7 % (42-52)
== END | disposition home or self-care (01) ==
LOC: C.LABWYN 13:20
PROVIDERS: ATTEND Internal Medicine
DX: D64.9 Anemia, unspecified (principal)

== ENCOUNTER → 2016-12-21 | Outpatient (CLI) | payer OTHER ==
[~2016-12-21] MED LIST changes: -APR10 PO; -CRDCD180 PO; -DLCSR120 PO; -DLN100 PO; -MRLP17 PO; -NVLGIPEN SC; -SENN1TAB80 PO
--- NOTE | 2016-12-21 13:07 | DIAGNOSTIC IMAGING REPORT ---
CHEST 2 VIEWS ROUTINE CLINICAL HISTORY: R05 [id number] dyspnea COMPARISON STUDY: 06/23/2016 FINDINGS: Mild chronic emphysematous change. Chronic pulmonary vascular prominence. Potential minimal parenchymal infiltrate medial right base. Atelectasis left base. IMPRESSION: 1. Small parenchymal infiltrate right base. 2. Mild atelectasis left base. 3. Mild chronic parenchymal fibrosis. Electronically signed by: Justin Wood M.D. 12/21/2016 1:06 PM Dictated Date/Time: 12/21/2016 1:04 PM
== END | disposition home or self-care (01) ==
LOC: C.RAD1850 12:53
PROVIDERS: ATTEND Physician Assistant
DX: R05 Cough (principal)

== ENCOUNTER → 2016-12-31 | Outpatient (CLI) | payer OTHER ==
[~2016-12-31] MED LIST changes: -GLIP-199 PO
[2016-12-31 14:11] LABS: BLOOD UREA NITROGEN 40 mg/dl (7-18); BUN/CREATININE RATIO 21.1 (10-20); CALCIUM 8.4 mg/dl (8.5-10.1); CARBON DIOXIDE 27 mmol/L (21-32); CHLORIDE 105 mmol/L (98-107); GLUCOSE 253 mg/dl (70-99); POTASSIUM 4.7 mmol/L (3.5-5.1); SODIUM 139 mmol/L (136-145)
[2016-12-31 14:27] LABS: ESTIMATED AVERAGE GLUCOSE 171 mg/dl; HA1C FLAG Normal (Normal)
== END | disposition home or self-care (01) ==
LOC: C.LAB1850 13:10
PROVIDERS: ATTEND Physician Assistant
DX: E11.9 Type 2 diabetes mellitus without complications (principal); N18.9 Chronic kidney disease, unspecified

== ENCOUNTER → 2017-01-19 | Outpatient (CLI) | payer OTHER ==
[~2017-01-19] MED LIST changes: +GLIP-199 PO
== END | disposition home or self-care (01) ==
LOC: C.LABWYN 10:21
PROVIDERS: ATTEND Internal Medicine
DX: N18.9 Chronic kidney disease, unspecified (principal); D63.8 Anemia in other chronic diseases classified elsewhere

== ENCOUNTER → 2017-02-02 | Outpatient (CLI) | payer OTHER ==
[2017-02-02 13:07] LABS: HEMATOCRIT 37.4 % (42-52)
== END | disposition home or self-care (01) ==
LOC: C.LABWYN 15:29
PROVIDERS: ATTEND Internal Medicine
DX: N18.3 Chronic kidney disease, stage 3 (moderate) (principal); D63.8 Anemia in other chronic diseases classified elsewhere

== ENCOUNTER → 2017-02-16 | Outpatient (CLI) | payer OTHER ==
[2017-02-16 12:26] LABS: HEMATOCRIT 40.7 % (42-52)
== END | disposition home or self-care (01) ==
LOC: C.LABWYN 15:35
PROVIDERS: ATTEND Internal Medicine
DX: N18.9 Chronic kidney disease, unspecified (principal); D63.8 Anemia in other chronic diseases classified elsewhere

== ENCOUNTER → 2017-02-23 | Outpatient (CLI) | payer OTHER ==
[2017-02-23 13:37] LABS: BLOOD UREA NITROGEN 46 mg/dl (7-18); CALCIUM 8.2 mg/dl (8.5-10.1); CARBON DIOXIDE 26 mmol/L (21-32); CHLORIDE 112 mmol/L (98-107); GLUCOSE 72 mg/dl (70-99); POTASSIUM 4.3 mmol/L (3.5-5.1); SODIUM 144 mmol/L (136-145)
== END | disposition home or self-care (01) ==
LOC: C.LABWYN 06:15
PROVIDERS: ATTEND Internal Medicine
DX: N18.9 Chronic kidney disease, unspecified (principal)

== ENCOUNTER → 2017-03-02 | Outpatient (CLI) | payer OTHER ==
[2017-03-02 12:52] LABS: HEMATOCRIT 36.6 % (42-52)
== END | disposition home or self-care (01) ==
LOC: C.LABWYN 13:09
PROVIDERS: ATTEND Internal Medicine
DX: N18.9 Chronic kidney disease, unspecified (principal); D63.8 Anemia in other chronic diseases classified elsewhere

== ENCOUNTER → 2017-03-16 | Outpatient (CLI) | payer OTHER | END | disposition home or self-care (01) | LOC: C.LABWYN 10:04 | PROVIDERS: ATTEND Physician Assistant | DX: N18.9 Chronic kidney disease, unspecified (principal); D63.1 Anemia in chronic kidney disease ==

== ENCOUNTER → 2017-03-30 | Outpatient (CLI) | payer OTHER ==
[2017-03-30 12:51] LABS: HEMATOCRIT 37.2 % (42-52)
== END | disposition home or self-care (01) ==
LOC: C.LABWYN 13:07
PROVIDERS: ATTEND Internal Medicine
DX: D63.8 Anemia in other chronic diseases classified elsewhere (principal); N18.9 Chronic kidney disease, unspecified

== ENCOUNTER 2017-05-08 05:34 | Inpatient (IN) | payer OTHER ==
[2017-05-08] VITALS (9 sets, daily range): BP systolic 148–238; BP diastolic 68–111; PULSE 79–115; TEMP 36.3–36.6; O2SAT 91–96; Ht 165.1 cm; Wt 58.9 kg
[~2017-05-08] VITALS: Ht 165.1 cm; Wt 58.9 kg
[~2017-05-08 05:34] MED LIST changes: -AMLO-114 PO; -CEPH500T PO; +DLCSR120 PO; -GLIP5TAB3 PO; -METO50TA16 PO; -METO5TAB5 PO
[2017-05-08] MEDS ORDERED: LORAZEPAM 2 MG/ML 1 ML VIAL ONE (05:42)
--- NOTE | 2017-05-08 05:50 | EMERGENCY ROOM VISIT NOTE ---
History Report prepared by Pratimaibe: Aline Brennan Under the Supervision of: Dr. Adenike Richardson D.O. First contact with patient: 05:38 Chief Complaint: ALTERED MENTAL STATUS Stated Complaint: ALTERED MENTAL STATUS History of Present Illness The patient is an 86 year old male who presents to the Emergency Room with complaints of a persistent altered mental status that started prior to arrival. He was brought to the ED via EMS from [facility] where he resides. His states he went to bed around 2100 last night and appeared normal at bedtime. EMS reports he has been nonverbal since they got to him. He appears post-ictal on exam. The patients family arrived during my exam and reports he was seen here in the ED a few weeks ago for AMS and hypertension. 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 ROS is limited secondary to the patients current condition. Past Medical & Surgical Medical Problems: (1) Anemia (2) chf exac, Kimberly on ckd, tsh high (3) Diabetes (4) Heart disease (5) Hypertension (6) Influenza A (7) Kidney disease (8) Staphylococcus aureus bacteremia Surgical Problems: (1) S/P aneurysm repair Family History Diabetes mellitus Social History Smoking Status: Former Smoker Alcohol Use: none Drug Use: none Marital Status: Housing Status: lives with significant other Occupation Status: retired Current/Historical Medications Scheduled Albuterol Hfa (Ventolin Hfa), 1 PUFF INH Q4 Aspirin (Aspirin Ec), 81 MG PO DAILY Clopidogrel (Plavix), 75 MG PO DAILY Diltiazem HCl (Diltiazem HCl ER), 120 MG PO DAILY Docusate Sodium (Colace), 1 CAP PO BID Febuxostat (Uloric), 40 MG PO DAILY Folic Acid (Folic Acid), 400 MCG PO DAILY Glipizide (Glipizide Er), 10 MG PO BID Isosorbide Mononitrate Ext Rel (Imdur Ext Rel), 60 MG PO QAM Nutritional Supplements (Boost), 1 CAN PO DAILY Simvastatin (Zocor), 80 MG PO QPM Tamsulosin Hcl (Flomax), 0.4 MG PO HS Allergies Coded Allergies: Isoniazid (Verified Allergy, Intermediate, hepatitis, 05/08/17) Streptokinase (Verified Allergy, Mild, 05/08/17) THOMPSON Inhibitors (Verified Allergy, Unknown, 05/08/17) Physical Exam Vital Signs Date Time Temp Pulse Resp B/P (MAP) Pulse Ox O2 Delivery O2 Flow Rate FiO2 05/08/17 06:58 Room Air 05/08/17 06:19 36.3 05/08/17 05:58 120 05/08/17 05:42 121 18 103/49 96 Room Air Physical Exam HEENT: Head - normocephalic and atraumatic. Pupils are pinpoint and reactive to light. Extraocular eye muscles are intact and sclera are anicteric. Nose - dry nasal mucosa without evidence of trauma or discharge. Mouth - extremely dry buccal mucosa with no trauma to the teeth or signs of malocclusion. Neck: The neck is supple and there is no pain to palpation over the posterior cervical spine and no obvious step-offs or deformities. There is no JVD or tracheal deviation. Chest: There are no signs of deformities, contusions or abrasions to the chest wall. There is no obvious crepitus or paradoxical chest rise. Heart: Tachycardic heart rate, regular rhythm. There is a normal S1 and S2 with no murmurs, clicks, or gallops appreciated. Lungs: Clear to auscultation bilaterally with no wheezes, rales, or rhonchi. Abdomen: Soft, completely nontender, nondistended, with good bowel sounds. There is no sign of trauma such as contusions, abrasions or penetrations. There are no palpable pulsatile masses or hepatosplenomegaly. There is no guarding, rigidity, or rebound noted. Extremities: No obvious trauma, deformities, contusions, or edema. There are easily palpable peripheral pulses. Neuro: The patient occasionally opens his eyes to verbal or painful stimuli. Skin: Dry, poor turgor. Neuro: The patient will only open his eyes to very loud verbal stimuli or painful stimuli. He will not follow commands. Medical Decision & Procedures ER Provider Diagnostic Interpretation: Radiology results as stated below per my review and the radiologist's interpretation: HEAD CT NONCONTRAST CT DOSE: 691.05 mGy.cm HISTORY: new onset seizure TECHNIQUE: Multiaxial CT images of the head were performed without the use of intravenous contrast. Automated exposure control was utilized for this study. A dose lowering technique was utilized adhering to the principles of ALARA. Comparison: Head CT 04/04/2017. Findings: The paranasal sinuses and mastoid air cells are clear. The calvarium and skull base are intact. There is no mass, hematoma, midline shift, acute infarct. White matter hypodensity is nonspecific but suggestive of microvascular ischemic change. The ventricles and sulci demonstrate mild age-related involutional changes. Postoperative changes of prior aneurysm endovascular coil placement is again noted. Impression: No significant change compared to the prior study. No acute intracranial abnormality. Electronically signed by: Hussein Woods M.D. 05/08/2017 6:32 AM Laboratory Results Test 05/08/17 05:15 05/08/17 06:30 Magnesium Level 2.5 mg/dl (1.8-2.4) Total Bilirubin 0.5 mg/dl (0.2-1) Direct Bilirubin 0.1 mg/dl (0-0.2) Aspartate Amino Transf (AST/SGOT) 14 U/L (15-37) Alanine Aminotransferase (ALT/SGPT) 13 U/L (12-78) Alkaline Phosphatase 159 U/L (45-117) Total Protein 8.0 gm/dl (6.4-8.2) Albumin 3.5 gm/dl (3.4-5.0) Beta-Hydroxybutyric Acid 8.29 mg/dL (0.2-2.81) Procalcitonin 0.06 ng/ml (0-0.5) Urine Color YELLOW Urine Appearance CLOUDY (CLEAR) Urine pH 5.0 (4.5-7.5) Urine Specific [place] 1.031 (1.000-1.030) Urine Protein 2+ (NEG) Urine Glucose (UA) 3+ (NEG) Urine Ketones TRACE (NEG) Urine Occult Blood 2+ (NEG) Urine Nitrite NEG (NEG) Urine Bilirubin NEG (NEG) Urine Urobilinogen NEG (NEG) Urine Leukocyte Esterase NEG (NEG) Urine WBC (Auto) 1-5 /hpf (0-5) Urine RBC (Auto) 0-4 /hpf (0-4) Urine Hyaline Casts (Auto) 1-5 /lpf (0-5) Urine Epithelial Cells (Auto) 10-20 /lpf (0-5) Urine Bacteria (Auto) NEG (NEG) Urine Renal Epithelial Cells /lpf (0-5) Urine Crystals AMORPHOUS SEDIMENT (NONE Urine Pathogenic Casts /lpf (0) Laboratory results per my review. Medications Administered Medications (Trade) Dose Ordered Sig/Joselito Route Start Time Stop Time Status Last Admin Dose Admin Lorazepam (Ativan Inj) 2 mg STK-MED ONCE .ROUTE 05/08/17 05:42 05/08/17 05:43 DC 05/08/17 05:42 1 MG Sodium Chloride 1,000 ml @ 250 mls/hr Q4H STAT IV 05/08/17 06:18 05/08/17 09:34 DC 05/08/17 06:18 250 MLS/HR Metoprolol Tartrate (Lopressor Iv) 2.5 mg 0726 ONCE IV 05/08/17 07:26 05/08/17 07:33 DC 05/08/17 07:51 2.5 MG Procedure Ativan IV, NSS IV. ECG Indication: altered mental status Rate (beats per minute): 118 Rhythm: atrial fibrillation (with RVR) Findings: T-wave inversion (in AVL), other (hyperacute T-waves laterally) ED Course 0535: Past medical records reviewed. The patient was evaluated in room B1. A complete history and physical exam was performed. 0538: During my exam, the patient suffered a tonic clonic seizure. 0542: Ativan 2 mg IV. A twelve-lead EKG was obtained. The patient went for CT scan of the brain as described above. 0618: NSS 1000 ml @ 250 mls/hr IV. 0721: I discussed the patients case with Dr. Roman, [facility] Hospitalist. The patient will be further evaluated. Medical Decision The patient is an 86 year old male who presents to the ED with altered mental status. Differential diagnosis includes acute CVA, seizure, intracranial hemorrhage, hepatic encephalopathy. Lab results show WBC is 20.7. Stable H&H. BUN is 33. Creatinine is 2.3. Glucose is 347. LFT's are normal. BHA is 8.29. Troponin is 0.055. According to EMS, the patient was found with an altered mental status by his . EMS transported the patient here to the emergency department. During my initial exam, the patient suffered a tonic-clonic seizure. He was given 1 mg of IV Ativan IV. The seizure stopped and the patient was postictal. I did discuss the case with the patient's children who were at the bedside. He has no history of seizures. The patient was found to be significantly hyperglycemic and acidotic. I discussed the case with the [facility] hospitalist and they will evaluate for further management. I considered the possibility of sepsis as the patient has significant leukocytosis and elevated lactic acid. The patient's temp was low at 36.3. He did have an elevated troponin. Specific source was not yet known. Medication Reconcilliation Current Medication List: was personally reviewed by me Blood Pressure Screening Patient's blood pressure: Low blood pressure Consults Time Called: 711 Consulting Physician: Dr. Roman, [facility] Hospitalist Returned Call: 07 I discussed the patients case with Dr. Roman [facility] Hospitalist. The patient will be further evaluated. Impression Primary Impression: Seizure Additional Impression: DKA (diabetic ketoacidoses) Critical Care I have personally spent greater than 45 minutes of critical care time in the direct management of this patient. This includes bedside care, interpretation of diagnostic studies, and testing, discussion with consultants, patient, and family members, and other required patient management activities. This 45 minutes is in excess of all separately billable procedures. Scribe Attestation The scribe's documentation has been prepared under my direction and personally reviewed by me in its entirety. I confirm that the note above accurately reflects all work, treatment, procedures, and medical decision making performed by me. Departure Information Dispostion Being Evaluated By Hospitalist Referrals CAMMIE BRENNER (PCP) Patient Instructions My [facility] Health Problem Qualifiers Additional Impression: DKA (diabetic ketoacidoses) Diabetes mellitus type: type 1 Diabetes mellitus complication detail: without coma Qualified Codes: E10.10 - Type 1 diabetes mellitus with ketoacidosis without coma
[2017-05-08 06:04] LABS: HEMATOCRIT 41.5 % (42-52); HEMOGLOBIN 13.6 g/dL (14.0-18.0); MEAN CELL VOLUME 99.5 fL (80-100); MEAN CORPUSCULAR HEMOGLOBIN 32.6 pg (25-34); MEAN CORPUSCULAR HGB CONC 32.8 g/dl (32-36); MEAN PLATELET VOLUME 10.2 fL (7.4-10.4); PLATELET COUNT 368 K/uL (130-400); RED CELL DISTRIBUTION WIDTH CV 15.9 % (11.5-14.5); RED CELL DISTRIBUTION WIDTH SD 56.4 fL (36.4-46.3); WHITE BLOOD COUNT 20.72 K/uL (4.8-10.8)
[2017-05-08] MEDS ORDERED: SODIUM CHLORIDE 0.9% 1000ML 1,000 ML IV STA (06:18)
[2017-05-08 06:24] LABS: BLOOD UREA NITROGEN 33 mg/dl (7-18); GLUCOSE 347 mg/dl (70-99)
[2017-05-08 06:25] LABS: ALBUMIN 3.5 gm/dl (3.4-5.0); ALT/SGPT 13 U/L (12-78); AST/SGOT 14 U/L (15-37); CALCIUM 8.8 mg/dl (8.5-10.1); CARBON DIOXIDE 19 mmol/L (21-32); POTASSIUM 4.3 mmol/L (3.5-5.1); SODIUM 140 mmol/L (136-145)
--- NOTE | 2017-05-08 06:33 | DIAGNOSTIC IMAGING REPORT ---
HEAD CT NONCONTRAST CT DOSE: 691.05 mGy.cm HISTORY: new onset seizure TECHNIQUE: Multiaxial CT images of the head were performed without the use of intravenous contrast. Automated exposure control was utilized for this study. A dose lowering technique was utilized adhering to the principles of ALARA. Comparison: Head CT 04/04/2017. Findings: The paranasal sinuses and mastoid air cells are clear. The calvarium and skull base are intact. There is no mass, hematoma, midline shift, acute infarct. White matter hypodensity is nonspecific but suggestive of microvascular ischemic change. The ventricles and sulci demonstrate mild age-related involutional changes. Postoperative changes of prior aneurysm endovascular coil placement is again noted. Impression: No significant change compared to the prior study. No acute intracranial abnormality. Electronically signed by: Hussein Woods M.D. 05/08/2017 6:32 AM Dictated Date/Time: 05/08/2017 6:30 AM
[2017-05-08 06:42] LABS: BASO % 0.1 %; BASO ABS # 0.02 K/uL (0-0.2); IG# 0.12 K/uL (0.00-0.02); LYMPH % 4.2 %; LYMPH ABS # 0.86 K/uL (1.2-3.4); MONO ABS # 1.25 K/uL (0.11-0.59); NEUT % 89.1 %; NEUT ABS # 18.47 K/uL (1.4-6.5)
[2017-05-08 06:52] LABS: ALKALINE PHOSPHATASE 159 U/L (45-117)
[2017-05-08] MEDS ORDERED: METOPROLOL TARTRATE 1 MG/ML VIAL IV ONE (07:26)
[2017-05-08] MEDS ORDERED: ONDANSETRON INJ 2 MG/ML 2 ML VIAL IV PRN (07:30)
[2017-05-08] MEDS ORDERED: NITROGLYCERIN 0.4 MG SL PER TAB CHARGE SL PRN (07:30)
[2017-05-08] MEDS ORDERED: LORAZEPAM 2 MG/ML 1 ML VIAL IV PRN (07:30)
[2017-05-08] MEDS: ALBUTEROL HFA 8 GM INHALER INH SCH ×5 (08:00→22:25)
--- NOTE | 2017-05-08 08:07 | DIAGNOSTIC IMAGING REPORT ---
CHEST ONE VIEW PORTABLE HISTORY: Sepsis COMPARISON: Chest 04/03/2017. FINDINGS: There is a 1.5 cm peripheral nodule within the left upper lobe. No pneumothorax. No pleural effusions. The heart remains mildly enlarged. Bibasilar interstitial thickening is likely chronic. No evidence for pulmonary edema. No new focal lung consolidations to suggest pneumonia. IMPRESSION: 1. A 1.5 cm nodule within the left upper lobe. Recommend dedicated nonemergent chest CT to exclude a pulmonary lesion. 2. Otherwise, no acute process within the chest. Electronically signed by: Hussein Woods M.D. 05/08/2017 8:05 AM Dictated Date/Time: 05/08/2017 8:01 AM
[2017-05-08 08:15] LABS: PTT PATIENT 27.8 SECONDS (21.0-31.0)
--- NOTE | 2017-05-08 08:23 | History and Physical ---
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 The patient presents from [facility], he lives there with his . Last evening was the last time known well. He was found this morning laying on his side and unable to get out of bed by staff. He was not talking much at that point which was around 0500. Pt's son, Jose and his are present at bedside. They report the patient has never had a history of seizures, but a 45 second tonic clonic seizure was witnessed in the ER by Dr. Richardson, who then ordered IV ativan. Pt did experience loss of bladder function during the episode. Since this time the patient appears to be in a postictal state where he is nonverbal and nonresponsive to verbal stimuli. He is holding his arms up in the air during the exam and moving slightly in bed. Other possibility was that the patient was in afib with RVR while in the ER. During my examination he is in NSR with tachycardia. WBC is elevated at 20 K but family denies any recent illnesses, flu, or sick contacts. They do report a hx of UTI last winter. Pt is receiving procrit injections from his PCP, Dr. Delvalle and last had one on Friday 05/04. Troponin elevated at 0.055, will trend. CT of the head was obtained and negative for acute findings. 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, Anemia of chronic disease T2DM- HbbA1c 7.6% CAD s/p carotidendarterectomy KEERTHI former smoker h/o SAH and cerebral aneurysm coil placement chronic diastolic CHF h/o a.fib w/ episodes of bradycardia BPH Gout Family History Diabetes mellitus Social History Smoking Status: Former Smoker Smokeless Tobacco Use: No Alcohol Use: Former occassional use Drug Use: none Marital Status: Housing status: lives with family, jail Occupational Status: retired Immunizations History of Influenza Vaccine: Yes Influenza Vaccine Date: Mar 23, 2010 History of Tetanus Vaccine?: Unknown History of Pneumococcal: Yes Pneumococcal Date: Apr 23, 2008 History of Hepatitis B Vaccine: Unknown Multi-Drug Resistant Organisms History of MDRO: No Allergies Coded Allergies: Isoniazid (Verified Allergy, Intermediate, hepatitis, 05/08/17) Streptokinase (Verified Allergy, Mild, 05/08/17) THOMPSON Inhibitors (Verified Allergy, Unknown, 05/08/17) Home Medications Scheduled Albuterol Hfa (Ventolin Hfa), 1 PUFF INH Q4 Aspirin (Aspirin Ec), 81 MG PO DAILY Clopidogrel (Plavix), 75 MG PO DAILY Diltiazem HCl (Diltiazem HCl ER), 120 MG PO DAILY Docusate Sodium (Colace), 1 CAP PO BID Febuxostat (Uloric), 40 MG PO DAILY Folic Acid (Folic Acid), 400 MCG PO DAILY Glipizide (Glipizide Er), 10 MG PO BID Isosorbide Mononitrate Ext Rel (Imdur Ext Rel), 60 MG PO QAM Nutritional Supplements (Boost), 1 CAN PO DAILY Simvastatin (Zocor), 80 MG PO QPM Tamsulosin Hcl (Flomax), 0.4 MG PO HS Review of Systems ROS was unobtainable due to mental status. Physical Exam Vital Signs Date Time Temp Pulse Resp B/P (MAP) Pulse Ox O2 Delivery O2 Flow Rate FiO2 05/08/17 08:02 107 18 94 Room Air 05/08/17 07:52 16 95 Room Air 05/08/17 07:51 123 188/94 05/08/17 06:58 Room Air 05/08/17 06:19 36.3 05/08/17 05:58 120 05/08/17 05:42 121 18 103/49 96 Room Air General Appearance: WD/WN, no apparent distress, + pertinent finding (nonverbal , does not respond to verbal stimuli, moving in bed with slow movements) Head: normocephalic, atraumatic Eyes: + pertinent finding (Pupils are pinpoint, 2 mm, reactive to light) ENT: + pertinent finding (MM very dry, upper dentures in place, no signs of tongue injury) Neck: supple, no JVD Respiratory/Chest: chest non-tender, lungs clear, no respiratory distress, no accessory muscle use, + pertinent finding (on room air) Cardiovascular: no murmur, normal peripheral pulses, + tachycardia, + pertinent finding (NSR) Abdomen/GI: normal bowel sounds, non tender, soft Extremities/Musculoskelatal: normal inspection, no pedal edema, + pertinent finding (no signs of ecchymosis or trauma s/p seizure) Neurologic/Psych: + pertinent finding (Nonverbal, does not open eyes, does not follow commands) Skin: normal color, warm/dry Diagnostics Laboratory Results Results Past 24 Hours Test 05/08/17 05:15 05/08/17 06:30 05/08/17 07:33 Range/Units White Blood Count 20.72 4.8-10.8 K/uL Red Blood Count 4.17 4.7-6.1 M/uL Hemoglobin 13.6 14.0-18.0 g/dL Hematocrit 41.5 42-52 % Mean Corpuscular Volume 99.5 80-100 fL Mean Corpuscular Hemoglobin 32.6 25-34 pg Mean Corpuscular Hemoglobin Concent 32.8 32-36 g/dl Platelet Count 368 130-400 K/uL Mean Platelet Volume 10.2 7.4-10.4 fL Neutrophils (%) (Auto) 89.1 % Lymphocytes (%) (Auto) 4.2 % Monocytes (%) (Auto) 6.0 % Eosinophils (%) (Auto) 0.0 % Basophils (%) (Auto) 0.1 % Neutrophils # (Auto) 18.47 1.4-6.5 K/uL Lymphocytes # (Auto) 0.86 1.2-3.4 K/uL Monocytes # (Auto) 1.25 0.11-0.59 K/uL Eosinophils # (Auto) 0.00 0-0.5 K/uL Basophils # (Auto) 0.02 0-0.2 K/uL RDW Standard Deviation 56.4 36.4-46.3 fL RDW Coefficient of Variation 15.9 11.5-14.5 % Immature Granulocyte % (Auto) 0.6 % Immature Granulocyte # (Auto) 0.12 0.00-0.02 K/uL Prothrombin Time 10.8 9.0-12.0 SECONDS Prothromb Time International Ratio 1.0 0.9-1.1 Activated Partial Thromboplast Time 27.8 21.0-31.0 SECONDS Partial Thromboplastin Ratio 1.1 Sodium Level 140 136-145 mmol/L Potassium Level 4.3 3.5-5.1 mmol/L Chloride Level 107 98-107 mmol/L Carbon Dioxide Level 19 21-32 mmol/L Anion Gap 14.0 3-11 mmol/L Blood Urea Nitrogen 33 7-18 mg/dl Creatinine 2.30 0.60-1.40 mg/dl Estimated GFR () 28.5 Estimated GFR (Non- 24.6 BUN/Creatinine Ratio 14.4 10-20 Random Glucose 347 70-99 mg/dl Calcium Level 8.8 8.5-10.1 mg/dl Magnesium Level 2.5 1.8-2.4 mg/dl Total Bilirubin 0.5 0.2-1 mg/dl Direct Bilirubin 0.1 0-0.2 mg/dl Aspartate Amino Transf (AST/SGOT) 14 15-37 U/L Alanine Aminotransferase (ALT/SGPT) 13 12-78 U/L Alkaline Phosphatase 159 45-117 U/L Troponin I 0.055 0-0.045 ng/ml Total Protein 8.0 6.4-8.2 gm/dl Albumin 3.5 3.4-5.0 gm/dl Beta-Hydroxybutyric Acid 8.29 0.2-2.81 mg/dL Urine Color YELLOW Urine Appearance CLOUDY CLEAR Urine pH 5.0 4.5-7.5 Urine Specific [place] 1.031 1.000-1.030 Urine Protein 2+ NEG Urine Glucose (UA) 3+ NEG Urine Ketones TRACE NEG Urine Occult Blood 2+ NEG Urine Nitrite NEG NEG Urine Bilirubin NEG NEG Urine Urobilinogen NEG NEG Urine Leukocyte Esterase NEG NEG Bedside Lactic Acid Venous 4.82 0.90-1.70 mmol/L Microbiology Results 05/08/17 Blood Culture, Received Pending 05/08/17 Blood Culture, Received Pending Diagnostic Radiology HEAD CT NONCONTRAST CT DOSE: 691.05 mGy.cm HISTORY: new onset seizure TECHNIQUE: Multiaxial CT images of the head were performed without the use of intravenous contrast. Automated exposure control was utilized for this study. A dose lowering technique was utilized adhering to the principles of ALARA. Comparison: Head CT 04/04/2017. Findings: The paranasal sinuses and mastoid air cells are clear. The calvarium and skull base are intact. There is no mass, hematoma, midline shift, acute infarct. White matter hypodensity is nonspecific but suggestive of microvascular ischemic change. The ventricles and sulci demonstrate mild age-related involutional changes. Postoperative changes of prior aneurysm endovascular coil placement is again noted. Impression: No significant change compared to the prior study. No acute intracranial abnormality. Electronically signed by: Hussein Woods M.D. 05/08/2017 6:32 AM Dictated Date/Time: 05/08/2017 6:30 AM The status of this report is Signed. CHEST ONE VIEW PORTABLE HISTORY: Sepsis COMPARISON: Chest 04/03/2017. FINDINGS: There is a 1.5 cm peripheral nodule within the left upper lobe. No pneumothorax. No pleural effusions. The heart remains mildly enlarged. Bibasilar interstitial thickening is likely chronic. No evidence for pulmonary edema. No new focal lung consolidations to suggest pneumonia. IMPRESSION: 1. A 1.5 cm nodule within the left upper lobe. Recommend dedicated nonemergent chest CT to exclude a pulmonary lesion. 2. Otherwise, no acute process within the chest. Electronically signed by: Hussein Woods M.D. 05/08/2017 8:05 AM Dictated Date/Time: 05/08/2017 8:01 AM The status of this report is Signed. EKG Sinus tachycardia Premature atrial complexes Anterior infarct (cited on or before 01-JUN-2016) Nonspecific ST abnormality Abnormal ECG When compared with ECG of 04-APR-2017 15:39, Vent. rate has increased BY [address] now depressed in Lateral leads Nonspecific T wave abnormality no longer evident in Inferior leads Vent. 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 Altered Mental Status Seizure activity - Admit to tele - Infectious etiology can be entertained with elevated WBC of 20K, will follow blood cultures, urine cultures - although family reports pt was in normal state of health yesterday without sick contacts, recent illnesses, or flu. - CT reviewed without acute changes as above - Will ask neurology to see the patient - Dr. Fall followed him during last admission in middle of March. At that time an MRI of the brain was done as well as and EEG showing mild to moderate encephalopathy. Per Dr. Couch: Planning to start keppra Will order MRI of the brain with high risk for stroke with possible afib not on anticoagulation Discontinue plavix and initiation of anticoagulation with heparin gtt - Seizure precautions, 1:1 bedside sitter ordered for safety - Will order maintenance fluids since appears to be hypovolemic - NSS at 80ml/hr - PT/OT will need to be ordered once out of postictal state - Continue ativan for seizure prophylaxis Elevated troponins - Initial trop = 0.055, will trend x 2 more sets - Echo ordered - EKG reviewed as above- Possibly from demand ischemia with tachycardia, pt is currently in NSR HTN Tachycardia with questionable Afib with RVR - Other possibility was that the patient was in afib with RVR while in the ER. During my examination he is in NSR with tachycardia. He is not currently on anticoagulation which would make him higher risk for stroke - Pt is on plavix for CAD s/p stenting - will hold per Dr. Couch's recs. - Diltiazem held for NPO status Chronic Diastolic CHF - Continue on metoprolol 2.5 mg IV Q4H prn for tachycardia, given another 2.5 mg IV at bedside. CAD coronary artery stenosis s/p carotid endarterectomy S/p aneurysm repair - Stable at this time - Continue on plavix when awakens and is able to take orally. 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 - Follows with Dr. Delvalle as an outpatient - Pt is receiving procrit injections from his PCP, Dr. Delvalle and last had one on Friday 05/04. - Hgb is stable at 13.8 BPH - continue flomax once able to take food by mouth Gout - Hold uloric DVT ppx: heparin subq q12 CODE STATUS: DNR, code status was discussed with JESSICA Garcia. Disposition: From [facility], lives with , admit to tele i personally examined pt and verified all diop points w Jonathan Ervin PAC no HPI or ROS obtainable from pt updated son after MRI no further seizures vitals noted laying in bed, nad breathing through mouth mucous membranes dry no focal neuro deficits, no r/r/w good effort no accessory muscles seizures - no stroke, suspect relates to prior structural brain disease and dehdyration/electrolyte disturbances. agree w neuro that infection appears unlikley - continue to follow but no clear role for LP or empiric abx at this time dehydration - ?due to poor intake, ?hyperglycemia, ?meds --> no hx obtainable from pt -- IVF, glucose control hyperglycmia - current sugar control definitely disproportionately high to his baseline given A1c ~7.5 recently - so either is part cause (ie hyperglycemic dehydration) or effect of the metabolic stress -- fluids, insulins tachycardia - on detailed review, actually appears sinus tach, EKG gives illusion of afib because pwaves are somewhat tough to see, but the one area of irregularity actaully appears to be sinus tachy w ectopy. clearly appears sinus tachy on monitor - likley secondary to above. therefore will hold on anticoagulation, just DVT proph DVT proph - heparin SQ Level of Care Telemetry Advanced Directives Existing Advance Directive: Yes Existing Living Will: Yes Existing Power of Superintendent Pipelines: Yes Existing Health Care Proxy: Yes Resuscitation Status DO NOT RESUSCITATE VTE Prophylaxis VTE Risk Assessment Done? Y/N: Yes Risk Level: Low Given or contraindicated: Other Anticoagulation, T.E.D. Stockings
[2017-05-08] MEDS: SODIUM CHLORIDE 0.9% 1000ML 1,000 ML IV SCH ×2 (09:41→17:23)
[2017-05-08] MEDS: LEVETIRACETAM IV 500 MG in DEXTROSE 5% 100ML 100 ML IV SCH ×2 (09:45→21:19)
--- NOTE | 2017-05-08 09:51 | Neurology Consultation ---
Neurology Consultation Date of Consultation: May 08, 2017. Attending Physician: Ronal Roman D.O. Primary Care Physician: Joseph Kruger Reason for Consultation: Seizure activity History of Present Illness Source: patient, family, hospital records This is a 86-year-old male who presents with an acute change in mental status. Family reports that he was found this morning unresponsive and nonverbal. They report that he had a similar episode mid March which she was hospitalized for. He appeared to return back to normal on his own. Report that he does occasionally have these arm movements during his episodes in which she seems to reach for things or get really stiff in the arms and a flexion-type posture. Family denies seeing any other events concerning for seizures. According to the ER notes this morning, ER physician witnessed what they described as a tonic- clonic seizure. Patient was given Ativan and family feels like he seems to be coming out of it. He still having some flexion posture of his arms, but seems to have more purposeful movement of his arms since getting to the floor. At previous hospitalization they felt that maybe his encephalopathy was secondary to accelerated hypertension. This morning the patient was again noted to have elevated blood pressure 231/101-188/94. CT of the head report and images reviewed by myself and noted to have scattered small vessel skin disease. X-ray of the chest noted a 1.5 nodule in the left upper lobe Labs were reviewed and noted elevated WBCs, creatinine of 2.3, and mildly elevated troponin of 0.05 EKG this morning noted A. fib March ultrasound of the carotids noted moderate to severe calcified plaque throughout. No critical stenosis. 50% stenosis of the left carotid. Patient does take aspirin and Plavix on a regular basis. At baseline the patient is reportedly able to feed himself, dress himself, do his activities of daily living. Son reports that cognitively he is a little slow but fairly functional. Reportedly the other week he took the bus to go to his own primary care visit. Walks with the assistance of a walker. Family does report that between his March admission and today's admission he did return back to his normal baseline. Past Medical/Surgical History Medical Problems: (1) Acute on chronic renal failure Status: Acute (2) Altered mental status Status: Acute (3) Bacteremia Status: Acute (4) CHF (congestive heart failure) Status: Acute (5) Confusion Status: Acute (6) Cough Status: Acute (7) DKA (diabetic ketoacidoses) Status: Acute (8) Generalized weakness Status: Acute (9) Hyperglycemia Status: Acute (10) Influenza Status: Acute (11) Seizure Status: Acute Diabetes Hypertension with episodes of hypotension Chronic kidney disease Anemia CAD with diastolic CHF Reports of a history of possible A. 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 Remote history of tobacco use. Normally is independent in his activities of daily living. Walks with the assistance of a walker. Patient is but family reports that his son is POA Drug Use: none Marital Status: Housing Status: lives with significant other Occupation Status: retired Allergies Coded Allergies: Isoniazid (Verified Allergy, Intermediate, hepatitis, 05/08/17) Streptokinase (Verified Allergy, Mild, 05/08/17) THOMPSON Inhibitors (Verified Allergy, Unknown, 05/08/17) Current Inpatient Medications Current Inpatient Medications Medications (Trade) Dose Ordered Sig/Joselito Route Start Time Stop Time Status Last Admin Dose Admin Sodium Chloride 1,000 ml @ 250 mls/hr Q4H STAT IV 05/08/17 06:18 05/08/17 10:17 05/08/17 06:18 250 MLS/HR Ondansetron HCl (Zofran Inj) 4 mg Q6H PRN IV 05/08/17 07:30 06/07/17 07:29 Nitroglycerin (Nitrostat Tab) 0.4 mg UD PRN SL 05/08/17 07:30 06/07/17 07:29 Metoprolol Tartrate (Lopressor Iv) 2.5 mg Q4H IV. 05/08/17 12:00 06/07/17 11:59 05/08/17 09:14 2.5 MG Lorazepam (Ativan Inj) 1 mg ONE PRN IV 05/08/17 07:30 06/07/17 07:29 Albuterol (Ventolin Hfa Inhaler) 2 puffs Q4 INH 05/08/17 08:00 06/07/17 07:59 Review of Systems Review of systems was unobtainable due to mental status. Family denies any recent sick symptoms or fevers. Physical Exam Vital Signs (Past 24 Hrs): Date Time Temp Pulse Resp B/P (MAP) Pulse Ox O2 Delivery O2 Flow Rate FiO2 05/08/17 09:14 115 230/79 05/08/17 08:54 36.4 115 18 231/101 (144) 91 230/79 (129) 05/08/17 08:02 107 18 94 Room Air 05/08/17 07:52 16 95 Room Air 05/08/17 07:51 123 188/94 05/08/17 06:58 Room Air 05/08/17 06:19 36.3 05/08/17 05:58 120 05/08/17 05:42 121 18 103/49 96 Room Air Gen.: Patient is lying in bed, fairly unresponsive, make spontaneous movements. HEENT: Normocephalic /atraumatic, no scleral icterus Heart: Regular rate and rhythm Extremities: No gross deformities or rashes noted Neurological examination: Mental status: Patient is fairly unresponsive. He make spontaneous movements but does not follow commands. No speech is produced Cranial nerve: Funduscopic examination was unremarkable. No papilledema. Pupils equally round and reactive to light. Extraocular examination was limited secondary to mental status. No facial asymmetry noted at rest. Facial sensation was difficult to assess due to mental status. The rest of cranial nerves were unable to be adequately assessed due to mental status Strength: Difficult to assess due to mental status. Patient appeared to be spontaneously moving all of his extremities. Upper extremities appear to have increased tone. Sensation: Difficult to assess due to mental status Deep tendon reflexes: +1 in bilateral biceps, brachioradialis and patellar. Toes were upgoing to plantar stimulation bilaterally Coordination: Could not assess due to mental status Gait not tested due to mental status Laboratory Results Past 24 Hours: 05/08/17 05:15 Red Blood Count 4.17, Mean Corpuscular Volume 99.5, Mean Corpuscular Hemoglobin 32.6, Mean Corpuscular Hemoglobin Concent 32.8, Mean Platelet Volume 10.2, Neutrophils (%) (Auto) 89.1, Lymphocytes (%) (Auto) 4.2, Monocytes (%) (Auto) 6.0, Eosinophils (%) (Auto) 0.0, Basophils (%) (Auto) 0.1, Neutrophils # (Auto) 18.47, Lymphocytes # (Auto) 0.86, Monocytes # (Auto) 1.25, Eosinophils # (Auto) 0.00, Basophils # (Auto) 0.02 05/08/17 05:15 Test 05/08/17 05:15 05/08/17 06:30 05/08/17 07:33 White Blood Count 20.72 K/uL (4.8-10.8) Red Blood Count 4.17 M/uL (4.7-6.1) Hemoglobin 13.6 g/dL (14.0-18.0) Hematocrit 41.5 % (42-52) Mean Corpuscular Volume 99.5 fL (80-100) Mean Corpuscular Hemoglobin 32.6 pg (25-34) Mean Corpuscular Hemoglobin Concent 32.8 g/dl (32-36) Platelet Count 368 K/uL (130-400) Mean Platelet Volume 10.2 fL (7.4-10.4) Neutrophils (%) (Auto) 89.1 % Lymphocytes (%) (Auto) 4.2 % Monocytes (%) (Auto) 6.0 % Eosinophils (%) (Auto) 0.0 % Basophils (%) (Auto) 0.1 % Neutrophils # (Auto) 18.47 K/uL (1.4-6.5) Lymphocytes # (Auto) 0.86 K/uL (1.2-3.4) Monocytes # (Auto) 1.25 K/uL (0.11-0.59) Eosinophils # (Auto) 0.00 K/uL (0-0.5) Basophils # (Auto) 0.02 K/uL (0-0.2) RDW Standard Deviation 56.4 fL (36.4-46.3) RDW Coefficient of Variation 15.9 % (11.5-14.5) Immature Granulocyte % (Auto) 0.6 % Immature Granulocyte # (Auto) 0.12 K/uL (0.00-0.02) Prothrombin Time 10.8 SECONDS (9.0-12.0) Prothromb Time International Ratio 1.0 (0.9-1.1) Activated Partial Thromboplast Time 27.8 SECONDS (21.0-31.0) Partial Thromboplastin Ratio 1.1 Anion Gap 14.0 mmol/L (3-11) Estimated GFR () 28.5 Estimated GFR (Non- 24.6 BUN/Creatinine Ratio 14.4 (10-20) Calcium Level 8.8 mg/dl (8.5-10.1) Magnesium Level 2.5 mg/dl (1.8-2.4) Total Bilirubin 0.5 mg/dl (0.2-1) Direct Bilirubin 0.1 mg/dl (0-0.2) Aspartate Amino Transf (AST/SGOT) 14 U/L (15-37) Alanine Aminotransferase (ALT/SGPT) 13 U/L (12-78) Alkaline Phosphatase 159 U/L (45-117) Troponin I 0.055 ng/ml (0-0.045) Total Protein 8.0 gm/dl (6.4-8.2) Albumin 3.5 gm/dl (3.4-5.0) Beta-Hydroxybutyric Acid 8.29 mg/dL (0.2-2.81) Urine Color YELLOW Urine Appearance CLOUDY (CLEAR) Urine pH 5.0 (4.5-7.5) Urine Specific [place] 1.031 (1.000-1.030) Urine Protein 2+ (NEG) Urine Glucose (UA) 3+ (NEG) Urine Ketones TRACE (NEG) Urine Occult Blood 2+ (NEG) Urine Nitrite NEG (NEG) Urine Bilirubin NEG (NEG) Urine Urobilinogen NEG (NEG) Urine Leukocyte Esterase NEG (NEG) Urine WBC (Auto) 1-5 /hpf (0-5) Urine RBC (Auto) 0-4 /hpf (0-4) Urine Hyaline Casts (Auto) 1-5 /lpf (0-5) Urine Epithelial Cells (Auto) 10-20 /lpf (0-5) Urine Bacteria (Auto) NEG (NEG) Urine Renal Epithelial Cells /lpf (0-5) Urine Crystals AMORPHOUS SEDIMENT (NONE Urine Pathogenic Casts /lpf (0) Bedside Lactic Acid Venous 4.82 mmol/L (0.90-1.70) Imaging As noted above in history of present illness Impression This is a 86-year-old male who presents after the second time in a few weeks with repeat acute change in mental status. Witness episode in the emergency room this morning concerning for possible tonic-clonic seizure. In addition patient was found to have hypertensive emergency and A. fib with mildly elevated cardiac enzymes. I am concerned that the patient's tonic-clonic activity could be secondary to other etiologies such as acute stroke versus cardiac event. Certainly having A. fib not on anticoagulation places the patient at high risk for cardioembolic stroke. Other differential to keep in mind for secondary causes of tonic-clonic activity is infectious causes (rigors versus septic emboli versus encephalitis) although I think encephalitis or meningitis is less likely at this time. If there is any concern for fevers or unexplained infection in the future, could reconsider meningitis evaluation with a lumbar puncture. Plan I have ordered Keppra 500 mg IV every 12 hours to cover the patient for seizures. When he is able to take oral medications this can be converted to PO. It is unclear whether the patient will need to be on long-term anti-epileptics at this time and will depend on further workup and if other secondary etiologies are found. Watch out for side effects of increased confusion, lethargy, agitation, or irritability. Recommend MRI of the brain for further evaluation of seizure etiology and concern for possible stroke. Per review of his radiology history appears that the patient had his aneurysm coil in 2007 and has had MRIs in 2015. Recommend discontinuation of Plavix and initiation of anticoagulation in the setting of A. fib for stroke prevention. Further cardiac workup per hospitalist team in terms of mildly elevated troponin. Agree with obtaining an echocardiogram. PT/OT and speech therapies for discharge planning. Blood pressure recommendations while in hospital 175/95-150/80 Avoid hypotension and dehydration Stroke risk factor modifications and recommendations: Blood pressure recommendations for the first month post hospital discharge 150/ 90-130/80, and after that blood pressure recommendations 130/80-110/70 Total cholesterol goal 100- 200 and LDL goal less than 100 Hemoglobin A1c goal less than 7 Encourage exercise at least 3 times a week for 30 minutes. Follow-up in neurology clinic in 1 month for post stroke hospital follow-up. If there is any questions or concerns, feel free to call/page me.
[2017-05-08] MEDS ORDERED: GLUCOSE 10 TABS/TUBE PO PRN (10:00)
[2017-05-08] MEDS ORDERED: GLUCOSE 40% GEL 15 GM TUBE PO PRN (10:00)
[2017-05-08] MEDS ORDERED: DEXTROSE 50% 50 ML SYR IV PRN (10:00)
[2017-05-08] MEDS ORDERED: GLUCAGON FOR INJ 1 MG VIAL SQ PRN (10:00)
[2017-05-08] MEDS ORDERED: HEPARIN SOD 5000 UNIT/0.5 ML CARP SQ SCH (10:30)
[2017-05-08] MEDS ORDERED: INSULIN ASPART 100 UNITS/ML 3 ML PEN SC SCH (11:00)
--- NOTE | 2017-05-08 11:49 | DIAGNOSTIC IMAGING REPORT ---
ADDENDUM Comparison is made to 11/30/2014 brain MRA. There has been no significant change. Electronically signed by: Hussein Woods M.D. 05/08/2017 11:54 AM Dictated Date/Time: 05/08/2017 11:53 AM ORIGINAL REPORT Brain MRA HISTORY: Seizure. R/o stroke TECHNIQUE: 3-D [id number] MRA of the brain was performed without contrast. COMPARISON STUDY: None. FINDINGS: Visualized intracranial internal carotid arteries, distal vertebral arteries, and basilar artery are widely patent. There is no significant stenosis, occlusion, or aneurysm seen within the bilateral ACAs, MCAs, or right ARTS THERAPIST. There is abrupt cut off/occlusion within the proximal left ARTS THERAPIST at the level of the endovascular coil. Therefore, this is likely chronic. Tiny focal outpouching at the supraclinoid segment of the left ICA best seen in image 110 is likely due to the origin of the left posterior communicating artery rather than a tiny aneurysm. 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 This is also likely a result of the endovascular coiling. IMPRESSION: 1. There is abrupt cut off/occlusion within the proximal left ARTS THERAPIST at the level of the endovascular coil. Therefore, this is likely chronic. 2. Tiny focal outpouching at the supraclinoid segment of the left ICA is due to the origin of the left posterior communicating artery. The majority of this artery is severely stenosed/occluded. This is also likely a result of the endovascular coiling. 3. No additional sites of significant stenosis or occlusion within the native of Pro. Electronically signed by: Hussein Woods M.D. 05/08/2017 11:48 AM Dictated Date/Time: 05/08/2017 11:38 AM
--- NOTE | 2017-05-08 11:54 | DIAGNOSTIC IMAGING REPORT ---
Brain MRI WITHOUT CONTRAST HISTORY: Seizure. R/o stroke TECHNIQUE: Multiplanar multisequence MRI of the brain was performed without the use of contrast. COMPARISON STUDY: Head CT 05/08/2017. Brain MRI 11/30/2014. FINDINGS: There is no mass, hematoma, midline shift, or acute infarct. The paranasal sinuses are clear. The mastoid air cells are clear. The ventricles and sulci demonstrate mild age-related involutional changes. Scattered foci of T2 hyperintensity seen within the periventricular and subcortical white matter are nonspecific but suggestive of moderate microvascular ischemic changes. The major vascular flow voids at the skull base are well-maintained. There are few old punctate lacunar infarcts seen within the cerebellar hemispheres and a small infarct within the right frontal lobe. This remains unchanged. Punctate old lacunar infarction within the right thalamus. Endovascular coil adjacent to the proximal left [employer]IV[employer] is again noted. IMPRESSION: No significant change compared to the prior study. No acute intracranial abnormality. A few scattered old small infarcts as described above. Electronically signed by: Hussein Woods M.D. 05/08/2017 11:53 AM Dictated Date/Time: 05/08/2017 11:48 AM
[2017-05-08] MEDS ORDERED: METOPROLOL TARTRATE 1 MG/ML VIAL IV. SCH (12:00)
[2017-05-08] MEDS ORDERED: HEPARIN IV LOW DOSE NO BOLUS STA (14:34)
[2017-05-08 14:35] LABS: BASO ABS # 0.01 K/uL (0-0.2); HEMOGLOBIN 13.6 g/dL (14.0-18.0); IG# 0.06 K/uL (0.00-0.02); LYMPH % 2.6 %; LYMPH ABS # 0.54 K/uL (1.2-3.4); MEAN CELL VOLUME 98.1 fL (80-100); MEAN CORPUSCULAR HEMOGLOBIN 32.5 pg (25-34); MEAN CORPUSCULAR HGB CONC 33.2 g/dl (32-36); MEAN PLATELET VOLUME 10.1 fL (7.4-10.4); MONO % 6.6 %; MONO ABS # 1.39 K/uL (0.11-0.59); NEUT % 90.5 %; NEUT ABS # 18.95 K/uL (1.4-6.5); NUCLEATED RED BLOOD CELL ABS 0.04 K/uL (0-0); PLATELET COUNT 344 K/uL (130-400); RED CELL DISTRIBUTION WIDTH CV 15.8 % (11.5-14.5); RED CELL DISTRIBUTION WIDTH SD 55.2 fL (36.4-46.3); WHITE BLOOD COUNT 20.95 K/uL (4.8-10.8)
[2017-05-08] MEDS ORDERED: SODIUM CHLORIDE 0.9% 500ML 500 ML IV SCH (14:45)
[2017-05-08] MEDS ORDERED: HydrALAZINE HCL 20 MG/ML VIAL IV. PRN (14:45)
[2017-05-08] MEDS ORDERED: HEPARIN 25,000 UNIT/500ML D5W 500 ML IV PRN (15:00)
[2017-05-08 15:22] LABS: INR 1.1 (0.9-1.1); PTT PATIENT 37.1 SECONDS (21.0-31.0)
[2017-05-08] MEDS: METOPROLOL TARTRATE 1 MG/ML VIAL IV. SCH ×2 (15:39→20:08)
[2017-05-08] MEDS ORDERED: NURSING VERBAL MED ORDER ONE ×2 (16:00→18:00)
--- NOTE | 2017-05-08 16:25 | ECHOCARDIOGRAM REPORT ---
*NOTICE TO RECEIVING LIBERTARIAN AGENCY This information is strictly Confidential and protected under [place] law. [place] law prohibits you from making any further disclosure of this information unless further disclosure is expressly permitted by the written consent of the person to whom it pertains or is authorized by law. A general authorization for the release of medical or other information is not sufficient for this purpose. Hospital accepts no responsibility if the information is made available to any other person, INCLUDING THE PATIENT. Interpretation Summary * Name: HERMILA DIOR Study Date: 05/08/2017 01:53 PM BP: 238/111 mmHg * Patient Location: [facility] HR: 101 * : 1930 (M/d/yyyy) Gender: Male Height: 66 in * Age: 86 yrs Ethnicity: CA Weight: 129 lb * Ordering Physician: Ronal Roman * Referring Physician: CAMMIE BRENNER * Performed By: Teri Escobar RDCS * * Reason For Study: Atrial Fibrillation * BSA: 1.7 m2 * -- Conclusions -- * 1. Normal left ventricular size and systolic function. EF 60-65%. No regional wall motion abnormalities. Mild to moderate concentric left ventricular hypertrophy.Type 1 diastolic dysfunction. * 2. The left atrium is mildly dilated. * 3. Aortic valve sclerosis mild, without significant aortic valvular stenosis. * 4. There is moderate mitral annular calcification. * 5. Normal estimated right ventricular systolic pressure; RVSP 33 mmHg. * 6. Compared to prior study on 06/01/2016, pleural effusion is no longer seen. Procedure Details * A complete two-dimensional transthoracic echocardiogram was performed (2D, M-mode, Doppler and color flow Doppler). Left Ventricle * Normal left ventricular size and systolic function. EF 60-65%. No regional wall motion abnormalities. Mild to moderate concentric left ventricular hypertrophy. Right Ventricle * The right ventricle is normal in size and function. * The right ventricular systolic function is normal as assessed by tricuspid annular plane systolic excursion (TAPSE) (normal >1.5 cm). Atria * The left atrium is mildly dilated. * Right atrial size is normal. * There is no evidence of atrial septal defect, but resolution does not allow assessment for a patent foramen ovale. Mitral Valve * There is moderate mitral annular calcification. * There is no mitral valve stenosis. * Significant mitral regurgitation is absent. Tricuspid Valve * The tricuspid valve is not well visualized, but is grossly normal. * There is no tricuspid stenosis. * There is mild tricuspid regurgitation. Aortic Valve * The aortic valve is trileaflet. * Aortic valve sclerosis mild, without significant aortic valvular stenosis. * No hemodynamically significant valvular aortic stenosis. * No aortic regurgitation is present. Pulmonic Valve * The pulmonary valve is inadequately visualized, but the Doppler data is adequate for interpretation. * There is no pulmonic valvular stenosis. * Mild pulmonic valvular regurgitation. Great Vessels * The aortic root is normal size. Pericardium/Pleural * No hemodynamically significant pericardial effusion. Great Vessels * Normal inferior vena cava size and collapsability with sniff indicates a normal right atrial pressure of 3 mmHg MMode 2D Measurements and Calculations IVSd 1.2 cm IVSs 1.5 cm LVIDd 3.8 cm LVIDs 2.7 cm LVPWd 1.4 cm LVPWs 1.8 cm IVS/LVPW 0.86 FS 29.7 % EDV(Teich) 62.5 ml ESV(Teich) 26.5 ml EF(Teich) 57.6 % EDV(cubed) 55.5 ml ESV(cubed) 19.3 ml EF(cubed) 65.3 % % IVS thick 25.1 % % LVPW thick 29.2 % LV mass(C)d 167.2 grams LV mass(C)dI 100.7 grams/m\S\2 LV mass(C)s 155.8 grams LV mass(C)sI 93.9 grams/m\S\2 SV(Teich) 36.0 ml SI(Teich) 21.7 ml/m\S\2 SV(cubed) 36.3 ml SI(cubed) 21.8 ml/m\S\2 Ao root diam 3.1 cm Ao root area 7.3 cm\S\2 ACS 1.6 cm LA dimension 2.5 cm LA/Ao 0.82 LVAd ap4 24.9 cm\S\2 LVLd ap4 7.5 cm EDV(MOD-sp4) 70.9 ml EDV(sp4-el) 70.6 ml LVAs ap4 14.8 cm\S\2 LVLs ap4 6.6 cm ESV(MOD-sp4) 31.7 ml ESV(sp4-el) 28.1 ml EF(MOD-sp4) 55.3 % EF(sp4-el) 60.2 % LVAd ap2 17.2 cm\S\2 LVLd ap2 7.2 cm EDV(MOD-sp2) 35.8 ml EDV(sp2-el) 34.5 ml LVAs ap2 9.8 cm\S\2 LVLs ap2 6.0 cm ESV(MOD-sp2) 17.1 ml ESV(sp2-el) 13.5 ml EF(MOD-sp2) 52.3 % EF(sp2-el) 61.0 % LVLd %diff -2.86 % EDV(MOD-bp) 50.7 ml LVLs %diff -9.58 % ESV(MOD-bp) 23.3 ml EF(MOD-bp) 54.0 % SV(MOD-sp4) 39.2 ml SI(MOD-sp4) 23.6 ml/m\S\2 SV(MOD-sp2) 18.7 ml SI(MOD-sp2) 11.3 ml/m\S\2 SV(MOD-bp) 27.4 ml SI(MOD-bp) 16.5 ml/m\S\2 SV(sp4-el) 42.5 ml SI(sp4-el) 25.6 ml/m\S\2 SV(sp2-el) 21.0 ml SI(sp2-el) 12.7 ml/m\S\2 Doppler Measurements and Calculations MV E max zion 95.4 cm/sec MV A max zion 133.7 cm/sec MV E/A 0.71 MV V2 max 172.3 cm/sec MV max PG 11.9 mmHg MV V2 mean 103.9 cm/sec MV mean PG 5.0 mmHg MV V2 VTI 26.0 cm MV P1/2t max zion 172.3 cm/sec MV P1/2t 49.4 msec MVA(P1/2t) 4.5 cm\S\2 MV dec slope 1020.8 cm/sec\S\2 Ao V2 max 144.5 cm/sec Ao max PG 8.3 mmHg Ao max PG (full) 4.6 mmHg LV V1 max PG 3.7 mmHg LV V1 max 96.5 cm/sec PA V2 max 107.9 cm/sec PA max PG 4.7 mmHg TR max zion 272.2 cm/sec RVSP(TR) 32.6 mmHg RAP systole 3.0 mmHg
[2017-05-08] MEDS: INSULIN ASPART 100 UNITS/ML 3 ML PEN SC SCH (18:00)
[2017-05-08] MEDS: HEPARIN SOD 5000 UNIT/0.5 ML CARP SQ SCH (21:21)
[2017-05-09] VITALS (12 sets, daily range): BP systolic 155–205; BP diastolic 52–92; PULSE 68–109; TEMP 36.3–36.9; O2SAT 93–98
[2017-05-09] MEDS: METOPROLOL TARTRATE 1 MG/ML VIAL IV. SCH ×6 (00:17→19:48)
[2017-05-09] MEDS: ALBUTEROL HFA 8 GM INHALER INH SCH ×5 (03:40→20:00)
[2017-05-09] MEDS: INSULIN ASPART 100 UNITS/ML 3 ML PEN SC SCH ×4 (06:00→18:00)
[2017-05-09] MEDS: SODIUM CHLORIDE 0.9% 1000ML 1,000 ML IV SCH (06:13)
[2017-05-09 07:11] LABS: BASO % 0.1 %; BASO ABS # 0.02 K/uL (0-0.2); EOS % 0.1 %; EOS ABS # 0.01 K/uL (0-0.5); HEMATOCRIT 39.3 % (42-52); HEMOGLOBIN 12.9 g/dL (14.0-18.0); IG# 0.05 K/uL (0.00-0.02); LYMPH % 6.3 %; LYMPH ABS # 1.14 K/uL (1.2-3.4); MEAN CELL VOLUME 98.3 fL (80-100); MEAN CORPUSCULAR HEMOGLOBIN 32.3 pg (25-34); MEAN CORPUSCULAR HGB CONC 32.8 g/dl (32-36); MONO % 6.5 %; MONO ABS # 1.18 K/uL (0.11-0.59); NEUT % 86.7 %; NEUT ABS # 15.71 K/uL (1.4-6.5); PLATELET COUNT 342 K/uL (130-400); RED CELL DISTRIBUTION WIDTH CV 16.2 % (11.5-14.5); RED CELL DISTRIBUTION WIDTH SD 56.6 fL (36.4-46.3); WHITE BLOOD COUNT 18.11 K/uL (4.8-10.8)
[2017-05-09 07:42] LABS: PTT PATIENT 34.1 SECONDS (21.0-31.0)
[2017-05-09] MEDS: HEPARIN SOD 5000 UNIT/0.5 ML CARP SQ SCH ×2 (07:49→21:40)
[2017-05-09 07:50] LABS: CALCIUM 8.4 mg/dl (8.5-10.1); CREATININE 1.59 mg/dl (0.60-1.40); POTASSIUM 3.5 mmol/L (3.5-5.1)
[2017-05-09] MEDS: LEVETIRACETAM IV 500 MG in DEXTROSE 5% 100ML 100 ML IV SCH ×2 (08:06→21:38)
--- NOTE | 2017-05-09 08:34 | Hospitalist Progress Note ---
Hospitalist Progress Note Date of Service May 09, 2017. (Ivette Ervin PA-C) Subjective Pt evaluation today including: conversation w/ patient, conversation w/ family , physical exam, chart review, lab review, review of studies Pain: none PO Intake: nothing by mouth Voiding: no voiding problems The patient was seen and examined this morning. Patient reports feeling "with his hands". He is awake and responds to verbal stimuli today. His family including son Jose and hjgwvnis-uj-alc Tali, are present at bedside. Patient seems to be slurring many of his words but appears to be answering appropriately. He is in a joyful and joking mood. He does follow commands as far as lifting his legs and wiggling his toes when asked, so will ask PT/OT to see him today. Discussion was held with family regarding lab results and imaging findings. All their questions and concerns were answered. Additional Comments: Constitutional: No fever, sweats or chills Eyes: No diplopia, no worsening or blurred vision ENT: normal hearing, still NPO, + dry mouth Respiratory: No cough, sputum, dyspnea at rest or on exertion Cardiovascular: No chest pain, tightness or palpitations Abdomen: No pain, nausea, vomiting, diarrhea or constipation Musculoskeletal: No joint pain, calf pain, swelling Neurologic: No weakness, numbness/tingling, or balance problems Psychiatric: No anxiety or depression Skin: No rash or itch (Ivette Ervin PA-C) Objective Vital Signs Date Time Temp Pulse Resp B/P (MAP) Pulse Ox O2 Delivery O2 Flow Rate FiO2 05/09/17 08:00 Room Air 05/09/17 07:45 109 173/52 05/09/17 07:42 36.3 109 18 173/52 (92) 96 05/09/17 04:25 81 205/83 (123) 05/09/17 04:10 36.5 94 20 192/83 (119) 93 Room Air 05/09/17 04:00 95 Room Air 05/09/17 03:53 94 192/83 05/09/17 00:17 79 148/76 05/09/17 00:00 95 Room Air 05/08/17 23:28 36.3 79 20 148/76 (100) 92 05/08/17 20:08 90 153/68 05/08/17 20:00 95 Room Air 05/08/17 18:55 36.6 18 153/68 (96) 95 05/08/17 17:24 90 170/72 (104) 05/08/17 16:00 Room Air 05/08/17 15:39 106 199/85 05/08/17 15:20 36.6 106 18 199/85 (123) 96 05/08/17 14:15 199/85 (123) 05/08/17 12:00 Room Air 05/08/17 10:20 112 238/111 (153) 05/08/17 09:48 36.4 115 18 230/79 Room Air 05/08/17 09:14 115 230/79 05/08/17 08:54 36.4 115 18 231/101 (144) 91 230/79 (129) (Ivette Ervin PA-C) Physical Exam Notes: General Appearance: WD/WN, no apparent distress, + pertinent finding (awake, speaking although speech is somewhat slurred, answers questions appropriately and follows commands, is able to move extremities on command) Head: normocephalic, atraumatic Eyes: EOMI, PERRLA ENT: + pertinent finding (MM very dry, upper dentures in place, no signs of tongue injury) Neck: supple, no JVD Respiratory/Chest: chest non-tender, lungs clear, no respiratory distress, no accessory muscle use, + pertinent finding (on room air) Cardiovascular: no murmur, normal peripheral pulses, NSR with few extra beats Abdomen/GI: normal bowel sounds, non tender, soft Extremities/Musculoskeletal: normal inspection, no pedal edema, + pertinent finding (no signs of ecchymosis or trauma s/p seizure) Neurological: Patient appears to be able to move his right lower extremity better than the left, movements are slow and require prompting Skin: normal color, warm/dry (Ivette Ervin PA-C) Laboratory Results Last 24 Hours Test 05/08/17 11:31 05/08/17 14:07 05/08/17 14:59 05/08/17 17:55 Bedside Glucose 289 mg/dl 118 mg/dl White Blood Count 20.95 K/uL Red Blood Count 4.18 M/uL Hemoglobin 13.6 g/dL Hematocrit 41.0 % Mean Corpuscular Volume 98.1 fL Mean Corpuscular Hemoglobin 32.5 pg Mean Corpuscular Hemoglobin Concent 33.2 g/dl Platelet Count 344 K/uL Mean Platelet Volume 10.1 fL Neutrophils (%) (Auto) 90.5 % Lymphocytes (%) (Auto) 2.6 % Monocytes (%) (Auto) 6.6 % Eosinophils (%) (Auto) 0.0 % Basophils (%) (Auto) 0.0 % Neutrophils # (Auto) 18.95 K/uL Lymphocytes # (Auto) 0.54 K/uL Monocytes # (Auto) 1.39 K/uL Eosinophils # (Auto) 0.00 K/uL Basophils # (Auto) 0.01 K/uL RDW Standard Deviation 55.2 fL RDW Coefficient of Variation 15.8 % Immature Granulocyte % (Auto) 0.3 % Immature Granulocyte # (Auto) 0.06 K/uL Nucleated RBC Absolute Count (auto) 0.04 K/uL Nucleated Red Blood Cells % 0.2 % Troponin I 0.220 ng/ml C-Reactive Protein 2.23 mg/dl Prothrombin Time 11.3 SECONDS Prothromb Time International Ratio 1.1 Activated Partial Thromboplast Time 37.1 SECONDS Partial Thromboplastin Ratio 1.4 Test 05/08/17 21:24 05/09/17 00:12 05/09/17 06:09 05/09/17 06:39 Troponin I 0.427 ng/ml Bedside Glucose 121 mg/dl 109 mg/dl White Blood Count 18.11 K/uL Red Blood Count 4.00 M/uL Hemoglobin 12.9 g/dL Hematocrit 39.3 % Mean Corpuscular Volume 98.3 fL Mean Corpuscular Hemoglobin 32.3 pg Mean Corpuscular Hemoglobin Concent 32.8 g/dl Platelet Count 342 K/uL Mean Platelet Volume 10.0 fL Neutrophils (%) (Auto) 86.7 % Lymphocytes (%) (Auto) 6.3 % Monocytes (%) (Auto) 6.5 % Eosinophils (%) (Auto) 0.1 % Basophils (%) (Auto) 0.1 % Neutrophils # (Auto) 15.71 K/uL Lymphocytes # (Auto) 1.14 K/uL Monocytes # (Auto) 1.18 K/uL Eosinophils # (Auto) 0.01 K/uL Basophils # (Auto) 0.02 K/uL RDW Standard Deviation 56.6 fL RDW Coefficient of Variation 16.2 % Immature Granulocyte % (Auto) 0.3 % Immature Granulocyte # (Auto) 0.05 K/uL Activated Partial Thromboplast Time 34.1 SECONDS Partial Thromboplastin Ratio 1.3 Sodium Level 139 mmol/L Potassium Level 3.5 mmol/L Chloride Level 115 mmol/L Carbon Dioxide Level 19 mmol/L Anion Gap 6.0 mmol/L Blood Urea Nitrogen 25 mg/dl Creatinine 1.59 mg/dl Est Creatinine Clear Calc Drug Dose 27.1 ml/min Estimated GFR () 44.6 Estimated GFR (Non- 38.5 BUN/Creatinine Ratio 15.7 Random Glucose 118 mg/dl Calcium Level 8.4 mg/dl Thyroid Stimulating Hormone (TSH) 2.120 uIu/ml Test 05/09/17 08:10 (Ivette Ervin, KEITH) Assessment and Plan This is an 86 yo M with a PMHx of DM II, HTN, with episodes of hypotension, 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 Altered Mental Status Seizure activity - Infectious etiology can be entertained with elevated WBC of 20K-which is now improving, follow blood cultures, urine cultures which are all in process - CT reviewed without acute changes as above - Will ask neurology to see the patient - Dr. Fall followed him during last admission in middle of March. At that time an MRI of the brain was done as well as and EEG showing mild to moderate encephalopathy. Appreciate neurology recommendations - Keppra IV per neuro - MRI/MRA reviewed: both are without significant changes compared to previous MRI/MRA. - Discontinue plavix heparin drip was discontinued yesterday - will discuss resuming Plavix today - No longer needs one-to-one bedside sitter for safety - Continue NSS at 80ml/hr that she still appears quite dry - PT/OT ordered as well as speech therapy - Continue ativan for seizure prophylaxis Elevated troponins - Initial trop = 0.055, elevated to 0.490 overnight - will trend again to make sure decreasing - EKG reviewed as above- Possibly from demand ischemia with tachycardia, pt is currently in NSR - Echo 05/08 * -- Conclusions -- * 1. Normal left ventricular size and systolic function. EF 60-65%. No regional wall motion abnormalities. Mild to moderate concentric left ventricular hypertrophy.Type 1 diastolic dysfunction. * 2. The left atrium is mildly dilated. * 3. Aortic valve sclerosis mild, without significant aortic valvular stenosis. * 4. There is moderate mitral annular calcification. * 5. Normal estimated right ventricular systolic pressure; RVSP 33 mmHg. * 6. Compared to prior study on 06/01/2016, pleural effusion is no longer seen. HTN Tachycardia with questionable Afib with RVR - Other possibility was that the patient was in afib with RVR while in the ER. During my examination he is in NSR with tachycardia at time of admission, and today remains in NSR with few ectopic beats. - BPs are still running higher in the 170s/50s - Pt is on plavix for CAD s/p stenting - will hold per Dr. Couch's recs. - Diltiazem held for NPO status Chronic Diastolic CHF - Continue on metoprolol 2.5 mg IV Q4H prn for tachycardia, given another 2.5 mg IV at bedside. 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 Delvalle as an outpatient - Pt is receiving procrit injections from his PCP, Dr. Delvalle and last had one on Friday 05/04. Scheduled for another injection this coming Wednesday. - Hgb is stable at 13.8 BPH - continue flomax once able to take food by mouth Gout - Hold uloric DVT ppx: heparin subq q12 CODE STATUS: DNR, code status was discussed with JESSICA Garcia. Disposition: From [facility], lives with , admit to tele Discussion was held with family members at bedside and all her questions and concerns were addressed. 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
--- NOTE | 2017-05-09 10:49 | Neurology Progress Notes ---
Neurology Progress Note Date of Service May 09, 2017. Subjective No additional events concerning for seizures. Per family patient appears to be more responsive but not back to baseline yet. They report that he seems to be recovering the similar manner as he did when he was admitted in March. MRI of the brain reported images reviewed by myself. Patient does have signs of cerebral small vessel ischemic disease. No acute strokes. Echocardiogram is unremarkable. Troponins are elevated and being trended. No reported side effects to [facility] at this time. Objective Date Time Temp Pulse Resp B/P (MAP) Pulse Ox O2 Delivery O2 Flow Rate FiO2 05/09/17 08:00 Room Air 05/09/17 07:45 109 173/52 05/09/17 07:42 36.3 109 18 173/52 (92) 96 05/09/17 04:25 81 205/83 (123) 05/09/17 04:10 36.5 94 20 192/83 (119) 93 Room Air 05/09/17 04:00 95 Room Air 05/09/17 03:53 94 192/83 05/09/17 00:17 79 148/76 05/09/17 00:00 95 Room Air 05/08/17 23:28 36.3 79 20 148/76 (100) 92 05/08/17 20:08 90 153/68 05/08/17 20:00 95 Room Air 05/08/17 18:55 36.6 18 153/68 (96) 95 05/08/17 17:24 90 170/72 (104) 05/08/17 16:00 Room Air 05/08/17 15:39 106 199/85 05/08/17 15:20 36.6 106 18 199/85 (123) 96 05/08/17 14:15 199/85 (123) 05/08/17 12:00 Room Air Last 24 Hours Test 05/08/17 11:31 05/08/17 14:07 05/08/17 14:59 05/08/17 17:55 Bedside Glucose 289 mg/dl 118 mg/dl White Blood Count 20.95 K/uL Red Blood Count 4.18 M/uL Hemoglobin 13.6 g/dL Hematocrit 41.0 % Mean Corpuscular Volume 98.1 fL Mean Corpuscular Hemoglobin 32.5 pg Mean Corpuscular Hemoglobin Concent 33.2 g/dl Platelet Count 344 K/uL Mean Platelet Volume 10.1 fL Neutrophils (%) (Auto) 90.5 % Lymphocytes (%) (Auto) 2.6 % Monocytes (%) (Auto) 6.6 % Eosinophils (%) (Auto) 0.0 % Basophils (%) (Auto) 0.0 % Neutrophils # (Auto) 18.95 K/uL Lymphocytes # (Auto) 0.54 K/uL Monocytes # (Auto) 1.39 K/uL Eosinophils # (Auto) 0.00 K/uL Basophils # (Auto) 0.01 K/uL RDW Standard Deviation 55.2 fL RDW Coefficient of Variation 15.8 % Immature Granulocyte % (Auto) 0.3 % Immature Granulocyte # (Auto) 0.06 K/uL Nucleated RBC Absolute Count (auto) 0.04 K/uL Nucleated Red Blood Cells % 0.2 % Troponin I 0.220 ng/ml C-Reactive Protein 2.23 mg/dl Prothrombin Time 11.3 SECONDS Prothromb Time International Ratio 1.1 Activated Partial Thromboplast Time 37.1 SECONDS Partial Thromboplastin Ratio 1.4 Test 05/08/17 21:24 05/09/17 00:12 05/09/17 06:09 05/09/17 06:39 Troponin I 0.427 ng/ml 0.490 ng/ml Bedside Glucose 121 mg/dl 109 mg/dl White Blood Count 18.11 K/uL Red Blood Count 4.00 M/uL Hemoglobin 12.9 g/dL Hematocrit 39.3 % Mean Corpuscular Volume 98.3 fL Mean Corpuscular Hemoglobin 32.3 pg Mean Corpuscular Hemoglobin Concent 32.8 g/dl Platelet Count 342 K/uL Mean Platelet Volume 10.0 fL Neutrophils (%) (Auto) 86.7 % Lymphocytes (%) (Auto) 6.3 % Monocytes (%) (Auto) 6.5 % Eosinophils (%) (Auto) 0.1 % Basophils (%) (Auto) 0.1 % Neutrophils # (Auto) 15.71 K/uL Lymphocytes # (Auto) 1.14 K/uL Monocytes # (Auto) 1.18 K/uL Eosinophils # (Auto) 0.01 K/uL Basophils # (Auto) 0.02 K/uL RDW Standard Deviation 56.6 fL RDW Coefficient of Variation 16.2 % Immature Granulocyte % (Auto) 0.3 % Immature Granulocyte # (Auto) 0.05 K/uL Activated Partial Thromboplast Time 34.1 SECONDS Partial Thromboplastin Ratio 1.3 Sodium Level 139 mmol/L Potassium Level 3.5 mmol/L Chloride Level 115 mmol/L Carbon Dioxide Level 19 mmol/L Anion Gap 6.0 mmol/L Blood Urea Nitrogen 25 mg/dl Creatinine 1.59 mg/dl Est Creatinine Clear Calc Drug Dose 27.1 ml/min Estimated GFR () 44.6 Estimated GFR (Non- 38.5 BUN/Creatinine Ratio 15.7 Random Glucose 118 mg/dl Calcium Level 8.4 mg/dl Thyroid Stimulating Hormone (TSH) 2.120 uIu/ml Exam: Patient is awake but lethargic. Follows a few commands correctly. He is not able to say where he is but is able to recognize family members. Says a few words at a time which are garbled but understandable. Has more purposeful movement of his extremities. He is moving all his extremities equally. Toes are still upgoing to plantar stimulation bilaterally. Current Inpatient Medications Medications (Trade) Dose Ordered Sig/Joselito Route Start Time Stop Time Status Last Admin Dose Admin Ondansetron HCl (Zofran Inj) 4 mg Q6H PRN IV 05/08/17 07:30 06/07/17 07:29 Nitroglycerin (Nitrostat Tab) 0.4 mg UD PRN SL 05/08/17 07:30 06/07/17 07:29 Lorazepam (Ativan Inj) 1 mg ONE PRN IV 05/08/17 07:30 06/07/17 07:29 Albuterol (Ventolin Hfa Inhaler) 2 puffs Q4 INH 05/08/17 08:00 06/07/17 07:59 Levetiracetam 500 mg/Dextrose 105 ml @ 420 mls/hr Q12 IV 05/08/17 09:45 06/07/17 09:44 05/09/17 08:06 420 MLS/HR Sodium Chloride 1,000 ml @ 80 mls/hr [id number] IV 05/08/17 09:28 06/07/17 09:27 05/09/17 06:13 80 MLS/HR Glucose (Glucose 40% Gel) 15-30 GRAMS 15 GRAMS... UD PRN PO 05/08/17 10:00 06/07/17 09:59 Glucose (Glucose Chew Tab) 4-8 Tablets 4 Tabl... UD PRN PO 05/08/17 10:00 06/07/17 09:59 Dextrose (Dextrose 50% 50ML Syringe) 25-50ML OF 50% DW IV FOR... UD PRN IV 05/08/17 10:00 06/07/17 09:59 Glucagon (Glucagon Inj) 1 mg UD PRN SQ 05/08/17 10:00 06/07/17 09:59 Metoprolol Tartrate (Lopressor Iv) 5 mg Q4H IV. 05/08/17 16:00 06/07/17 11:59 05/09/17 07:45 5 MG Hydralazine HCl (HydrALAZINE INJ) 5 mg Q6 PRN IV. 05/08/17 14:45 06/07/17 14:44 05/09/17 04:43 5 MG Heparin Sodium (Porcine) (Heparin Sq 5000 Unit/0.5ml) 5,000 unit Q12 SQ 05/08/17 21:00 06/07/17 20:59 05/09/17 07:49 5,000 UNIT Insulin Aspart (novoLOG ASPART) SLIDING SCALE If C... Q6 SC 05/08/17 18:00 06/07/17 17:59 Impression This is a 86-year-old male who presents with acute encephalopathy. Presumed seizure with witnessed seizure-like activity in the emergency room. Patient does have signs of cerebral spondylosis ischemic disease and small lacunar strokes in the past which could predispose him towards seizures. No acute strokes on MRI. Other medical metabolic factors could also been contributing including tachycardia and dehydration. Plan Continue Keppra 500 mg IV every 12 hours to cover the patient for seizures. When he is able to take oral medications this can be converted to PO. Watch out for side effects of increased confusion, lethargy, agitation, or irritability. If there is any concerns for possible side effects, let me know. At this time it appears the patient is recovering similar to last time and anticipate in the next couple of days he should return to baseline. Cardiac evaluation and management per hospitalist team. Recommend normotensive blood pressures since the patient has not had an acute stroke. PT/OT and speech therapies for discharge planning. Avoid hypotension and dehydration Follow-up in neurology clinic in 1 month for post stroke hospital follow-up. No additional neurological recommendations at this time. Thank you for allowing me to participate in this patient's care. If there is any questions or concerns , feel free to call/page me.
[2017-05-10] VITALS (11 sets, daily range): BP systolic 129–217; BP diastolic 61–111; PULSE 63–84; TEMP 36.7–37; O2SAT 92–98
[2017-05-10] MEDS: METOPROLOL TARTRATE 1 MG/ML VIAL IV. SCH ×6 (00:32→19:58)
[2017-05-10] MEDS: SODIUM CHLORIDE 0.9% 1000ML 1,000 ML IV SCH (00:33)
[2017-05-10] MEDS: ALBUTEROL HFA 8 GM INHALER INH SCH ×8 (03:53→23:25)
[2017-05-10] MEDS: INSULIN ASPART 100 UNITS/ML 3 ML PEN SC SCH ×5 (06:00→20:49)
[2017-05-10] MEDS: D5W AND 1/2NSS + 20MEQ KCL 1,000 ML IV SCH ×2 (07:36→19:51)
[2017-05-10] MEDS: LEVETIRACETAM IV 500 MG in DEXTROSE 5% 100ML 100 ML IV SCH ×2 (08:16→20:40)
[2017-05-10] MEDS: HEPARIN SOD 5000 UNIT/0.5 ML CARP SQ SCH ×2 (08:18→20:43)
[2017-05-10] MEDS: NITROGLYCERIN OINT 2% 1GM PACKET EXT SCH ×3 (09:46→21:01)
[2017-05-10 09:59] LABS: BASO % 0.1 %; BASO ABS # 0.02 K/uL (0-0.2); HEMATOCRIT 43.9 % (42-52); HEMOGLOBIN 14.4 g/dL (14.0-18.0); IG# 0.07 K/uL (0.00-0.02); LYMPH % 4.9 %; LYMPH ABS # 0.79 K/uL (1.2-3.4); MEAN CORPUSCULAR HEMOGLOBIN 32.1 pg (25-34); MEAN CORPUSCULAR HGB CONC 32.8 g/dl (32-36); MEAN PLATELET VOLUME 10.4 fL (7.4-10.4); MONO % 8.3 %; MONO ABS # 1.33 K/uL (0.11-0.59); NEUT % 86.3 %; NEUT ABS # 13.89 K/uL (1.4-6.5); PLATELET COUNT 335 K/uL (130-400); RED CELL DISTRIBUTION WIDTH SD 56.4 fL (36.4-46.3)
[2017-05-10 10:32] LABS: CALCIUM 8.2 mg/dl (8.5-10.1); CREATININE 1.55 mg/dl (0.60-1.40); POTASSIUM 3.7 mmol/L (3.5-5.1)
[2017-05-10 18:28] LABS: CREATININE 1.66 mg/dl (0.60-1.40); POTASSIUM 3.8 mmol/L (3.5-5.1)
[2017-05-10 18:31] LABS: PHOSPHORUS 2.8 mg/dl (2.5-4.9)
--- NOTE | 2017-05-10 20:17 | Progress Note ---
Subjective Date of Service: May 10, 2017. Subjective Pt evaluation today including: conversation w/ family (son at bedside), physical exam, chart review, lab review, review of studies (MRI brain, etc), conversation w/ business continuity consultant (neuro), review of inpatient medication list Pain: nothing perceived PO Intake: minimal/scant -only with speech therapy today Voiding: incontinence son reports his father has had a poor day today slept most of it was apparently much more awake/alert yesterday son stated "he was like this" when he had had an apparent seizure months ago Problem List Medical Problems: (1) Acute on chronic renal failure Status: Acute (2) Altered mental status Status: Acute (3) Bacteremia Status: Acute (4) CHF (congestive heart failure) Status: Acute (5) Confusion Status: Acute (6) Cough Status: Acute (7) DKA (diabetic ketoacidoses) Status: Acute (8) Generalized weakness Status: Acute (9) Hyperglycemia Status: Acute (10) Influenza Status: Acute (11) Seizure Status: Acute Review of Systems unable to obtain ROS due to altered mental status Objective Vital Signs Date Time Temp Pulse Resp B/P (MAP) Pulse Ox O2 Delivery O2 Flow Rate FiO2 05/10/17 19:58 76 05/10/17 16:00 Room Air 05/10/17 15:39 72 182/77 05/10/17 15:34 37.0 74 18 182/77 (112) 98 Room Air 05/10/17 12:26 65 129/72 (91) 05/10/17 12:00 Room Air 05/10/17 11:50 36.7 84 20 217/111 (146) 94 Room Air 05/10/17 11:37 84 217/111 05/10/17 09:45 63 198/75 (116) 05/10/17 08:00 Room Air 05/10/17 07:39 81 183/104 05/10/17 07:36 36.7 81 20 183/104 (130) 92 Room Air 05/10/17 04:52 36.8 68 16 197/73 (114) 97 Room Air 05/10/17 04:00 95 Room Air 05/10/17 03:53 68 197/73 05/10/17 00:32 88 191/72 05/10/17 00:00 95 Room Air 05/10/17 00:00 95 Room Air 05/09/17 23:39 36.6 88 20 191/72 (111) 93 Room Air Physical Exam General Appearance: no apparent distress, + pertinent finding (snoring at times ; mouth-breathing; involuntary movements seen of both legs, a little worse on left; no obvious seizure activity) ENT: + pertinent finding (Mm dry) Neck: no JVD Respiratory/Chest: lungs clear, no respiratory distress, no accessory muscle use Cardiovascular: regular rate, rhythm, no gallop, no murmur Abdomen: normal bowel sounds, non tender, soft, no organomegaly Extremities: no pedal edema Neurologic/Psychiatric: + pertinent finding (lethargic; opened eyes only once to name being called; pupils 2mm but reactive b/l; no nystagmus; +babinski's bilaterally) Laboratory Results Last 24 Hours Test 05/10/17 00:56 05/10/17 05:31 05/10/17 05:53 05/10/17 09:45 Bedside Glucose 110 mg/dl 94 mg/dl Activated Partial Thromboplast Time 35.0 SECONDS Partial Thromboplastin Ratio 1.3 White Blood Count 16.10 K/uL Red Blood Count 4.48 M/uL Hemoglobin 14.4 g/dL Hematocrit 43.9 % Mean Corpuscular Volume 98.0 fL Mean Corpuscular Hemoglobin 32.1 pg Mean Corpuscular Hemoglobin Concent 32.8 g/dl Platelet Count 335 K/uL Mean Platelet Volume 10.4 fL Neutrophils (%) (Auto) 86.3 % Lymphocytes (%) (Auto) 4.9 % Monocytes (%) (Auto) 8.3 % Eosinophils (%) (Auto) 0.0 % Basophils (%) (Auto) 0.1 % Neutrophils # (Auto) 13.89 K/uL Lymphocytes # (Auto) 0.79 K/uL Monocytes # (Auto) 1.33 K/uL Eosinophils # (Auto) 0.00 K/uL Basophils # (Auto) 0.02 K/uL RDW Standard Deviation 56.4 fL RDW Coefficient of Variation 16.0 % Immature Granulocyte % (Auto) 0.4 % Immature Granulocyte # (Auto) 0.07 K/uL Sodium Level 143 mmol/L Potassium Level 3.7 mmol/L Chloride Level 112 mmol/L Carbon Dioxide Level 16 mmol/L Anion Gap 15.0 mmol/L Blood Urea Nitrogen 31 mg/dl Creatinine 1.55 mg/dl Est Creatinine Clear Calc Drug Dose 27.1 ml/min Estimated GFR () 46.0 Estimated GFR (Non- 39.7 BUN/Creatinine Ratio 20.0 Random Glucose 160 mg/dl Calcium Level 8.2 mg/dl Test 05/10/17 11:08 05/10/17 15:59 05/10/17 17:01 05/10/17 17:31 Bedside Glucose 197 mg/dl 180 mg/dl Sodium Level 143 mmol/L Potassium Level 3.8 mmol/L Chloride Level 113 mmol/L Carbon Dioxide Level 17 mmol/L Anion Gap 13.0 mmol/L Blood Urea Nitrogen 34 mg/dl Creatinine 1.66 mg/dl Est Creatinine Clear Calc Drug Dose 25.3 ml/min Estimated GFR () 42.3 Estimated GFR (Non- 36.5 BUN/Creatinine Ratio 20.6 Random Glucose 215 mg/dl Calcium Level 8.0 mg/dl Phosphorus Level 2.8 mg/dl Ammonia 20.4 umol/L Total Creatine Kinase 147 U/L Lactic Acid Level 1.3 mmol/L Assessment and Plan 86yo male - 1. seizure - continuing on IV keppra 500mg BID. He continues to be encephalopathic. I am uncertain if this could be an unusually prolonged post-ictal state. could he be having subclinical seizure activity ongoing?? will check EEG in AM to rule that possibility out. appreciate neuro consult. 2. encephalopathy - presumably metabolic from #1 above. Ammonia normal. TSH normal. recent B12 level was normal. no evidence of obvious infectious causes. check VBG to ensure no hypercarbia. MRI brain without acute stroke or ICH. 3. acidosis - repeat BMP this afternoon showed improving acid/base status. lactate was normal. will check a VBG. uncertain as to the cause of this. 4. HTN - uncontrolled - add nitropaste q6h since he is not reliably taking PO. cont IV lopressor. may need scheduled hydralazine q8h. 5. acute renal failure in setting of CKD stage 4 - creatinine improved, now at baseline. 6. FEN - continue IVF since not awake enough to take oral nutrition. BMP in am. 7. dysphagia - appreciate speech consultation. Modified diet ordered (nectar thick liquids with pureed). 8. DVT proph - heparin BID. 9. PAF - no systemic anticoagulation at this time given h/o SAH, falls, etc. 10. T2DM - controlled. 11. CAD - the troponin at admission was likely due to myocardial demand ischemia in setting of acute renal failure. Follow. 12. h/o SAH - noted. 13. h/o intra-cerebral aneurysm s/p coil - noted. 14. chronic diastolic CHF - compensated. 15. leukocytosis - improving WITHOUT antibiotic therapy. Blood/urine cx's neg cxr neg for pneumonia due to seizure activity at presentation? repeat CBC am son updated I am concerned by his lack of progress and ongoing encephalopathy Continued [facility] stay due to: inadequate po fluid intake, voiding difficulties, ambulation difficulties, multiple IV medications needed Discharge planning: uncertain
[2017-05-10] MEDS: HydrALAZINE HCL 20 MG/ML VIAL IV. SCH (21:06)
[2017-05-11] VITALS (10 sets, daily range): BP systolic 119–202; BP diastolic 53–79; PULSE 62–97; TEMP 36.2–36.8; O2SAT 95–98
[2017-05-11] MEDS: METOPROLOL TARTRATE 1 MG/ML VIAL IV. SCH ×5 (00:35→16:01)
[2017-05-11] MEDS: NITROGLYCERIN OINT 2% 1GM PACKET EXT SCH ×3 (03:41→15:40)
[2017-05-11] MEDS: HydrALAZINE HCL 20 MG/ML VIAL IV. SCH ×2 (06:17→14:17)
[2017-05-11] MEDS ORDERED: NURSING VERBAL MED ORDER ONE (06:45)
[2017-05-11 06:55] LABS: BASO % 0.3 %; BASO ABS # 0.03 K/uL (0-0.2); EOS % 0.3 %; EOS ABS # 0.03 K/uL (0-0.5); HEMATOCRIT 43.1 % (42-52); HEMOGLOBIN 14.3 g/dL (14.0-18.0); IG# 0.02 K/uL (0.00-0.02); LYMPH % 8.9 %; LYMPH ABS # 0.93 K/uL (1.2-3.4); MEAN CELL VOLUME 97.7 fL (80-100); MEAN CORPUSCULAR HEMOGLOBIN 32.4 pg (25-34); MEAN CORPUSCULAR HGB CONC 33.2 g/dl (32-36); MEAN PLATELET VOLUME 10.3 fL (7.4-10.4); MONO % 12.6 %; MONO ABS # 1.32 K/uL (0.11-0.59); NEUT % 77.7 %; NEUT ABS # 8.16 K/uL (1.4-6.5); PLATELET COUNT 312 K/uL (130-400); RED CELL DISTRIBUTION WIDTH CV 15.9 % (11.5-14.5); RED CELL DISTRIBUTION WIDTH SD 56.5 fL (36.4-46.3); WHITE BLOOD COUNT 10.49 K/uL (4.8-10.8)
[2017-05-11 07:30] LABS: CALCIUM 8.3 mg/dl (8.5-10.1); CREATININE 1.76 mg/dl (0.60-1.40); POTASSIUM 3.7 mmol/L (3.5-5.1)
[2017-05-11] MEDS: ALBUTEROL HFA 8 GM INHALER INH SCH ×4 (08:40→20:34)
[2017-05-11] MEDS: LEVETIRACETAM IV 500 MG in DEXTROSE 5% 100ML 100 ML IV SCH ×2 (08:42→20:34)
[2017-05-11] MEDS: INSULIN ASPART 100 UNITS/ML 3 ML PEN SC SCH ×4 (08:46→20:39)
[2017-05-11] MEDS: HEPARIN SOD 5000 UNIT/0.5 ML CARP SQ SCH ×2 (08:47→20:39)
--- NOTE | 2017-05-11 09:41 | Clinical Documentation Query ---
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 Clinical Indicators: Elevated troponins trending down from 0.490 peak, EKG = ST depression, episode of A-fib w/RVR, hypertensive emergency Treatment: Hydralazine IV, Lopressor IV, Heparin SQ, Nitro SL PRN, serial troponins Risk Factors: Age, A-fib, HTN, CKD, CHF, DM2, CAD, heavy tobacco abuse Please clarify and document your clinical opinion in the progress notes and discharge summary. Terms such as "probable", "suspected", "likely", "questionable", "possible", or "still to be ruled out" are acceptable. IF IN AGREEMENT, YOU MUST DOCUMENT ABOVE DIAGNOSTIC STATEMENT IN DAILY PROGRESS NOTES AND DISCHARGE SUMMARY. This document is not part of the patient's record. Thank You, Faith Bustamante RN [phone]
--- NOTE | 2017-05-11 10:50 | EEG Procedure Note ---
EEG Procedure Note Date of Service May 11, 2017. Start / End Times Start Time: 9:13 AM End Time: 9:33 AM Referring Physician Bryon Melton History This is a 86-year-old male who initially presented with seizure-like activity and current prolonged encephalopathy. EEG for further evaluation of possible seizure etiology and further evaluation of ongoing encephalopathy Home Medication List Scheduled Albuterol Hfa (Ventolin Hfa), 1 PUFF INH Q4 Aspirin (Aspirin Ec), 81 MG PO DAILY Clopidogrel (Plavix), 75 MG PO DAILY Diltiazem HCl (Diltiazem HCl ER), 120 MG PO DAILY Docusate Sodium (Colace), 1 CAP PO BID Febuxostat (Uloric), 40 MG PO DAILY Folic Acid (Folic Acid), 400 MCG PO DAILY Glipizide (Glipizide Er), 10 MG PO BID Isosorbide Mononitrate Ext Rel (Imdur Ext Rel), 60 MG PO QAM Nutritional Supplements (Boost), 1 CAN PO DAILY Simvastatin (Zocor), 80 MG PO QPM Tamsulosin Hcl (Flomax), 0.4 MG PO HS Inpatient Medication List Current Inpatient Medications Medications (Trade) Dose Ordered Sig/Joselito Route Start Time Stop Time Status Last Admin Dose Admin Ondansetron HCl (Zofran Inj) 4 mg Q6H PRN IV 05/08/17 07:30 06/07/17 07:29 Nitroglycerin (Nitrostat Tab) 0.4 mg UD PRN SL 05/08/17 07:30 06/07/17 07:29 Lorazepam (Ativan Inj) 1 mg ONE PRN IV 05/08/17 07:30 06/07/17 07:29 Albuterol (Ventolin Hfa Inhaler) 2 puffs Q4 INH 05/08/17 08:00 06/07/17 07:59 05/11/17 08:40 2 PUFFS Levetiracetam 500 mg/Dextrose 105 ml @ 420 mls/hr Q12 IV 05/08/17 09:45 06/07/17 09:44 05/11/17 08:42 420 MLS/HR Glucose (Glucose 40% Gel) 15-30 GRAMS 15 GRAMS... UD PRN PO 05/08/17 10:00 06/07/17 09:59 Glucose (Glucose Chew Tab) 4-8 Tablets 4 Tabl... UD PRN PO 05/08/17 10:00 06/07/17 09:59 Dextrose (Dextrose 50% 50ML Syringe) 25-50ML OF 50% DW IV FOR... UD PRN IV 05/08/17 10:00 06/07/17 09:59 Glucagon (Glucagon Inj) 1 mg UD PRN SQ 05/08/17 10:00 06/07/17 09:59 Metoprolol Tartrate (Lopressor Iv) 5 mg Q4H IV. 05/08/17 16:00 06/07/17 11:59 05/11/17 08:41 5 MG Heparin Sodium (Porcine) (Heparin Sq 5000 Unit/0.5ml) 5,000 unit Q12 SQ 05/08/17 21:00 06/07/17 20:59 05/11/17 08:47 5,000 UNIT Nitroglycerin (Nitroglycerin 2% Oint) 1 inch Q6H EXT 05/10/17 09:15 06/09/17 09:14 05/11/17 08:42 1 INCH Hydralazine HCl (HydrALAZINE INJ) 10 mg Q8 IV. 05/10/17 20:30 06/09/17 20:29 05/11/17 06:17 10 MG Insulin Aspart (novoLOG ASPART) SLIDING SCALE If C... ACHS SC 05/11/17 06:30 06/10/17 06:29 05/11/17 08:46 1 UNITS Description This is a 21 electrode EEG with a single channel dedicated to limited EKG. The electrodes were placed in accordance with the International 10-20 system. EEG recorded on [employer] equipment At the start of this recording the patient was in reported altered mental status. Background was poorly organized with no well-formed anterior to posterior gradient. Background was composed of symmetric moderate amplitude predominantly 4-5 Hz delta/theta frequencies with intermixed faster theta and rarely theta frequencies. Hyperventilation and photic stimulation were not done. There was no state changes or sleep transients. Interpretation This is an abnormal routine EEG secondary to moderate background disorganization and slowing. There was no electrographic seizures or epileptiform discharges. Clinical Correlation This EEG indicates moderate encephalopathy of nonspecific etiology.
[2017-05-11] MEDS ORDERED: SODIUM CHLOR 0.45% + 20MEQ KCL 1,000 ML IV SCH (11:45)
--- NOTE | 2017-05-11 11:46 | Neurology Progress Notes ---
Neurology Progress Note Date of Service May 11, 2017. Subjective Stop by to see patient this morning. Family not present. Patient setting up for EEG recording. Patient is still fairly unresponsive and encephalopathic, similar to mentation couple of days ago. Objective Date Time Temp Pulse Resp B/P (MAP) Pulse Ox O2 Delivery O2 Flow Rate FiO2 05/11/17 11:29 36.2 72 18 202/79 (120) 98 Room Air 179/73 (108) 05/11/17 08:41 75 165/75 05/11/17 08:20 Room Air 05/11/17 07:48 36.5 75 18 165/75 (105) 97 Room Air 05/11/17 05:03 77 18 174/68 (103) 96 Room Air 05/11/17 04:00 95 Room Air 05/11/17 03:41 77 174/68 05/11/17 00:36 36.8 76 17 138/71 (93) 98 Room Air 05/11/17 00:35 76 138/65 05/11/17 00:00 95 Room Air 05/10/17 21:36 78 22 153/68 (96) 96 Room Air 05/10/17 20:55 71 20 161/78 (105) 05/10/17 20:12 36.7 70 18 162/61 (94) 97 Room Air 05/10/17 20:00 Room Air 05/10/17 19:58 76 05/10/17 16:00 Room Air 05/10/17 15:39 72 182/77 05/10/17 15:34 37.0 74 18 182/77 (112) 98 Room Air 05/10/17 12:26 65 129/72 (91) 05/10/17 12:00 Room Air 05/10/17 11:50 36.7 84 20 217/111 (146) 94 Room Air Last 24 Hours Test 05/10/17 15:59 05/10/17 17:01 05/10/17 17:31 05/10/17 20:16 Bedside Glucose 180 mg/dl 260 mg/dl Sodium Level 143 mmol/L Potassium Level 3.8 mmol/L Chloride Level 113 mmol/L Carbon Dioxide Level 17 mmol/L Anion Gap 13.0 mmol/L Blood Urea Nitrogen 34 mg/dl Creatinine 1.66 mg/dl Est Creatinine Clear Calc Drug Dose 25.3 ml/min Estimated GFR () 42.3 Estimated GFR (Non- 36.5 BUN/Creatinine Ratio 20.6 Random Glucose 215 mg/dl Calcium Level 8.0 mg/dl Phosphorus Level 2.8 mg/dl Ammonia 20.4 umol/L Total Creatine Kinase 147 U/L Lactic Acid Level 1.3 mmol/L Test 05/11/17 06:39 05/11/17 07:34 White Blood Count 10.49 K/uL Red Blood Count 4.41 M/uL Hemoglobin 14.3 g/dL Hematocrit 43.1 % Mean Corpuscular Volume 97.7 fL Mean Corpuscular Hemoglobin 32.4 pg Mean Corpuscular Hemoglobin Concent 33.2 g/dl Platelet Count 312 K/uL Mean Platelet Volume 10.3 fL Neutrophils (%) (Auto) 77.7 % Lymphocytes (%) (Auto) 8.9 % Monocytes (%) (Auto) 12.6 % Eosinophils (%) (Auto) 0.3 % Basophils (%) (Auto) 0.3 % Neutrophils # (Auto) 8.16 K/uL Lymphocytes # (Auto) 0.93 K/uL Monocytes # (Auto) 1.32 K/uL Eosinophils # (Auto) 0.03 K/uL Basophils # (Auto) 0.03 K/uL RDW Standard Deviation 56.5 fL RDW Coefficient of Variation 15.9 % Immature Granulocyte % (Auto) 0.2 % Immature Granulocyte # (Auto) 0.02 K/uL Venous Blood pH 7.41 Venous Blood Partial Pressure CO2 37 mmHg Venous Blood Partial Pressure O2 40 mmHg Venous Blood HCO3 23 mmol/L Venous Blood Oxygen Saturation 73.5 % Venous Blood Base Excess -1.7 mEq/L Sodium Level 146 mmol/L Potassium Level 3.7 mmol/L Chloride Level 115 mmol/L Carbon Dioxide Level 21 mmol/L Anion Gap 10.0 mmol/L Blood Urea Nitrogen 36 mg/dl Creatinine 1.76 mg/dl Est Creatinine Clear Calc Drug Dose 25.2 ml/min Estimated GFR () 39.4 Estimated GFR (Non- 34.0 BUN/Creatinine Ratio 20.3 Random Glucose 144 mg/dl Calcium Level 8.3 mg/dl Bedside Glucose 132 mg/dl Exam: Patient is lethargic. Does not tend to follow commands. He is not able to say where he is No speech produced at this time He is moving all his extremities equally. Current Inpatient Medications Medications (Trade) Dose Ordered Sig/Joselito Route Start Time Stop Time Status Last Admin Dose Admin Ondansetron HCl (Zofran Inj) 4 mg Q6H PRN IV 05/08/17 07:30 06/07/17 07:29 Nitroglycerin (Nitrostat Tab) 0.4 mg UD PRN SL 05/08/17 07:30 06/07/17 07:29 Lorazepam (Ativan Inj) 1 mg ONE PRN IV 05/08/17 07:30 06/07/17 07:29 Albuterol (Ventolin Hfa Inhaler) 2 puffs Q4 INH 05/08/17 08:00 06/07/17 07:59 05/11/17 08:40 2 PUFFS Levetiracetam 500 mg/Dextrose 105 ml @ 420 mls/hr Q12 IV 05/08/17 09:45 06/07/17 09:44 05/11/17 08:42 420 MLS/HR Glucose (Glucose 40% Gel) 15-30 GRAMS 15 GRAMS... UD PRN PO 05/08/17 10:00 06/07/17 09:59 Glucose (Glucose Chew Tab) 4-8 Tablets 4 Tabl... UD PRN PO 05/08/17 10:00 06/07/17 09:59 Dextrose (Dextrose 50% 50ML Syringe) 25-50ML OF 50% DW IV FOR... UD PRN IV 05/08/17 10:00 06/07/17 09:59 Glucagon (Glucagon Inj) 1 mg UD PRN SQ 05/08/17 10:00 06/07/17 09:59 Metoprolol Tartrate (Lopressor Iv) 5 mg Q4H IV. 05/08/17 16:00 06/07/17 11:59 05/11/17 08:41 5 MG Heparin Sodium (Porcine) (Heparin Sq 5000 Unit/0.5ml) 5,000 unit Q12 SQ 05/08/17 21:00 06/07/17 20:59 05/11/17 08:47 5,000 UNIT Nitroglycerin (Nitroglycerin 2% Oint) 1 inch Q6H EXT 05/10/17 09:15 06/09/17 09:14 05/11/17 08:42 1 INCH Hydralazine HCl (HydrALAZINE INJ) 10 mg Q8 IV. 05/10/17 20:30 06/09/17 20:29 05/11/17 06:17 10 MG Insulin Aspart (novoLOG ASPART) SLIDING SCALE If C... ACHS SC 05/11/17 06:30 06/10/17 06:29 05/11/17 08:46 1 UNITS Potassium Chloride/Sodium Chloride 1,000 ml @ 75 mls/hr [id number] IV 05/11/17 11:45 05/12/17 01:04 Tamsulosin HCl (Flomax Cap) 0.4 mg NOW ONCE PO 05/11/17 12:15 05/11/17 12:16 Tamsulosin HCl (Flomax Cap) 0.4 mg QAM PO 05/12/17 09:00 06/11/17 08:59 Diltiazem HCl (Cardizem Cd Cap) 120 mg QAM PO 05/11/17 12:15 06/10/17 12:14 Impression This is a 86-year-old male who presents with acute encephalopathy. Presumed seizure with witnessed seizure-like activity in the emergency room. Patient does have signs of cerebral small vessel ischemic disease and small lacunar strokes in the past which could predispose him towards seizures. No acute strokes on MRI. Likely having prolonged postictal encephalopathy due to age, cerebrovascular disease, consistent with his previous hospital stay recovery. Plan Continue Keppra 500 mg IV every 12 hours to cover the patient for seizures. When he is able to take oral medications this can be converted to PO. Watch out for side effects of increased confusion, lethargy, agitation, or irritability. If there is any concerns for possible side effects, let me know. At this time it appears the patient is recovering similar to last time and anticipate that he should recover similar manner as his previous admission. EEG done this morning noted moderate encephalopathy, but no signs of seizure or epileptiform discharges. PT/OT and speech therapies for discharge planning. Avoid hypotension and dehydration Follow-up in neurology clinic in 1 month for post stroke hospital follow-up. Thank you for allowing me to participate in this patient's care. If there is any questions or concerns, feel free to call/page me.
[2017-05-11] MEDS ORDERED: TAMSULOSIN HCL 0.4 MG CAP PO ONE (12:15)
[2017-05-11] MEDS: DILTIAZEM HCL 120 MG CAPCR PO SCH (12:37)
[2017-05-11] MEDS ORDERED: ISOSORBIDE MONONITRATE 60 MG TABCR PO ONE (17:30)
[2017-05-11] MEDS: METOPROLOL TARTRATE 50 MG TAB PO SCH (20:36)
--- NOTE | 2017-05-11 20:44 | Progress Note ---
Subjective Date of Service: May 11, 2017. Subjective Pt evaluation today including: conversation w/ patient, conversation w/ family (son, by phone), physical exam, chart review, lab review, review of studies (EEG ), conversation w/ operational risk consultant (nephrology (PCP), neurology, speech therapy), review of inpatient medication list Pain: nothing voiced by patient PO Intake: improved today but still w/ significant dysphagia Voiding: incontinence tele with NSR / PACs overnight during my visit he was awake, alert, and oriented a bedside swallow eval was being performed by speech and he, unfortunately, did poorly with coughing and throat clearing after ice chips denied any pain in any location denied dyspnea "just weak" no seizure activity per staff Problem List Medical Problems: (1) Acute on chronic renal failure Status: Acute (2) Altered mental status Status: Acute (3) Bacteremia Status: Acute (4) CHF (congestive heart failure) Status: Acute (5) Confusion Status: Acute (6) Cough Status: Acute (7) DKA (diabetic ketoacidoses) Status: Acute (8) Generalized weakness Status: Acute (9) Hyperglycemia Status: Acute (10) Influenza Status: Acute (11) Seizure Status: Acute Review of Systems Constitutional: No fever, No chills Respiratory: No shortness of breath Cardiac: No chest pain Abdomen: + constipation, No pain Objective Vital Signs Date Time Temp Pulse Resp B/P (MAP) Pulse Ox O2 Delivery O2 Flow Rate FiO2 05/11/17 20:00 Room Air 05/11/17 19:58 36.4 97 18 131/60 (83) 97 Room Air 05/11/17 16:01 78 188/80 05/11/17 16:00 Room Air 05/11/17 15:39 36.6 76 18 157/71 (99) 98 Room Air 05/11/17 13:51 62 179/61 (100) 05/11/17 12:21 72 179/73 05/11/17 12:15 Room Air 05/11/17 11:29 36.2 72 18 202/79 (120) 98 Room Air 179/73 (108) 05/11/17 08:41 75 165/75 05/11/17 08:20 Room Air 05/11/17 07:48 36.5 75 18 165/75 (105) 97 Room Air 05/11/17 05:03 77 18 174/68 (103) 96 Room Air 05/11/17 04:00 95 Room Air 05/11/17 03:41 77 174/68 05/11/17 00:36 36.8 76 17 138/71 (93) 98 Room Air 05/11/17 00:35 76 138/65 05/11/17 00:00 95 Room Air 05/10/17 21:36 78 22 153/68 (96) 96 Room Air 05/10/17 20:55 71 20 161/78 (105) Physical Exam General Appearance: no apparent distress, + thin, + pertinent finding (looks better today) ENT: + pertinent finding (MM dry) Neck: no JVD Respiratory/Chest: lungs clear, no respiratory distress, no accessory muscle use Cardiovascular: regular rate, rhythm, no gallop, + extra beats Abdomen: normal bowel sounds, non tender, soft, no organomegaly Extremities: no pedal edema Neurologic/Psychiatric: alert, oriented x 3 Laboratory Results Last 24 Hours Test 05/11/17 06:39 05/11/17 07:34 05/11/17 11:50 05/11/17 16:24 White Blood Count 10.49 K/uL Red Blood Count 4.41 M/uL Hemoglobin 14.3 g/dL Hematocrit 43.1 % Mean Corpuscular Volume 97.7 fL Mean Corpuscular Hemoglobin 32.4 pg Mean Corpuscular Hemoglobin Concent 33.2 g/dl Platelet Count 312 K/uL Mean Platelet Volume 10.3 fL Neutrophils (%) (Auto) 77.7 % Lymphocytes (%) (Auto) 8.9 % Monocytes (%) (Auto) 12.6 % Eosinophils (%) (Auto) 0.3 % Basophils (%) (Auto) 0.3 % Neutrophils # (Auto) 8.16 K/uL Lymphocytes # (Auto) 0.93 K/uL Monocytes # (Auto) 1.32 K/uL Eosinophils # (Auto) 0.03 K/uL Basophils # (Auto) 0.03 K/uL RDW Standard Deviation 56.5 fL RDW Coefficient of Variation 15.9 % Immature Granulocyte % (Auto) 0.2 % Immature Granulocyte # (Auto) 0.02 K/uL Venous Blood pH 7.41 Venous Blood Partial Pressure CO2 37 mmHg Venous Blood Partial Pressure O2 40 mmHg Venous Blood HCO3 23 mmol/L Venous Blood Oxygen Saturation 73.5 % Venous Blood Base Excess -1.7 mEq/L Sodium Level 146 mmol/L Potassium Level 3.7 mmol/L Chloride Level 115 mmol/L Carbon Dioxide Level 21 mmol/L Anion Gap 10.0 mmol/L Blood Urea Nitrogen 36 mg/dl Creatinine 1.76 mg/dl Est Creatinine Clear Calc Drug Dose 25.2 ml/min Estimated GFR () 39.4 Estimated GFR (Non- 34.0 BUN/Creatinine Ratio 20.3 Random Glucose 144 mg/dl Calcium Level 8.3 mg/dl Bedside Glucose 132 mg/dl 177 mg/dl 161 mg/dl Test 05/11/17 20:28 Bedside Glucose 179 mg/dl Assessment and Plan 86yo male - 1. seizure - continuing on IV keppra 500mg BID. Change to PO keppra soon. EEG done this AM to exclude ongoing subclinical seizures; EEG with encephalopathy only. Appreciate neuro consultation & recs. 2. encephalopathy - presumably metabolic from #1 above. Ammonia, TSH, B12, VBG, MRI -- all normal/negative. Likely that he had a prolonged post-ictal state with encephalopathy. 3. acidosis - resolved. Uncertain cause. 4. HTN - uncontrolled - restart imdur, flomax, cardizem. Add oral metoprolol. stop the nitropaste, IV hydralazine, IV metoprolol. adjust PO meds as needed. 5. acute renal failure in setting of CKD stage 4 - creatinine improved and now at baseline. 6. FEN - with mild hypernatremia - 1/2 NS x 1 liter then saline lock. BMP am. modified diet - see below. 7. dysphagia - appreciate speech consultation. Modified diet ordered (nectar thick liquids with pureed). 8. DVT proph - heparin BID. 9. PAF - no systemic anticoagulation at this time given h/o SAH, falls, etc. 10. T2DM - controlled. 11. CAD - the troponin at admission was likely due to myocardial demand ischemia in setting of acute renal failure. Follow. 12. h/o SAH - noted. 13. h/o intra-cerebral aneurysm s/p coil - noted. 14. chronic diastolic CHF - compensated. 15. leukocytosis - resolved WITHOUT antibiotic therapy. Blood/urine cx's neg cxr neg for pneumonia suspect due to seizure activity at presentation son updated by phone may need rehab at SNF according to PT/OT Continued [facility] stay due to: inadequate po fluid intake, ambulation difficulties , multiple IV medications needed Discharge planning: uncertain
[2017-05-11] MEDS: POLYETHYLENE (MIRALAX) 17 GM PACK PO SCH (21:21)
[2017-05-12] VITALS (14 sets, daily range): BP systolic 118–200; BP diastolic 43–77; PULSE 52–71; TEMP 36.6–37.4; O2SAT 94–98
[2017-05-12] MEDS: ALBUTEROL HFA 8 GM INHALER INH SCH ×7 (03:56→23:52)
[2017-05-12] MEDS: ISOSORBIDE MONONITRATE 60 MG TABCR PO SCH (05:12)
[2017-05-12] MEDS: METOPROLOL TARTRATE 50 MG TAB PO SCH ×5 (05:12→22:36)
[2017-05-12] MEDS: DILTIAZEM HCL 120 MG CAPCR PO SCH (05:13)
[2017-05-12 07:22] LABS: CREATININE 1.59 mg/dl (0.60-1.40); POTASSIUM 3.9 mmol/L (3.5-5.1)
[2017-05-12] MEDS: TAMSULOSIN HCL 0.4 MG CAP PO SCH (08:18)
[2017-05-12] MEDS: POLYETHYLENE (MIRALAX) 17 GM PACK PO SCH ×2 (08:18→21:24)
[2017-05-12] MEDS: LEVETIRACETAM IV 500 MG in DEXTROSE 5% 100ML 100 ML IV SCH (08:19)
[2017-05-12] MEDS: HEPARIN SOD 5000 UNIT/0.5 ML CARP SQ SCH ×2 (08:20→21:29)
[2017-05-12] MEDS: INSULIN ASPART 100 UNITS/ML 3 ML PEN SC SCH ×4 (08:53→21:29)
[2017-05-12] MEDS ORDERED: BISACODYL 10 MG SUPP PR ONE (09:00)
--- NOTE | 2017-05-12 09:09 | Neurology Progress Notes ---
Neurology Progress Note Date of Service May 12, 2017. Subjective No seizure-like activity per staff. Patient reports back pain that is not new. Objective Date Time Temp Pulse Resp B/P (MAP) Pulse Ox O2 Delivery O2 Flow Rate FiO2 05/12/17 07:15 36.8 65 16 135/55 (81) 98 Room Air 05/12/17 04:45 200/60 (106) 05/12/17 04:16 36.6 71 18 179/77 (111) 96 Room Air 05/12/17 04:00 Room Air 05/12/17 00:00 Room Air 05/11/17 23:26 36.7 79 16 119/53 (75) 97 Room Air 05/11/17 20:00 Room Air 05/11/17 19:58 36.4 97 18 131/60 (83) 97 Room Air 05/11/17 16:01 78 188/80 05/11/17 16:00 Room Air 05/11/17 15:39 36.6 76 18 157/71 (99) 98 Room Air 05/11/17 13:51 62 179/61 (100) 05/11/17 12:21 72 179/73 05/11/17 12:15 Room Air 05/11/17 11:29 36.2 72 18 202/79 (120) 98 Room Air 179/73 (108) Last 24 Hours Test 05/11/17 11:50 05/11/17 16:24 05/11/17 20:28 05/12/17 06:08 Bedside Glucose 177 mg/dl 161 mg/dl 179 mg/dl Sodium Level 144 mmol/L Potassium Level 3.9 mmol/L Chloride Level 115 mmol/L Carbon Dioxide Level 19 mmol/L Anion Gap 10.0 mmol/L Blood Urea Nitrogen 31 mg/dl Creatinine 1.59 mg/dl Est Creatinine Clear Calc Drug Dose 27.4 ml/min Estimated GFR () 44.6 Estimated GFR (Non- 38.5 BUN/Creatinine Ratio 19.3 Random Glucose 196 mg/dl Calcium Level 8.0 mg/dl Test 05/12/17 07:25 Bedside Glucose 177 mg/dl Exam: Patient seems more alert and interactive today than he has a previous days. Laying in bed in no acute distress. Mental status: Patient is alert and oriented to person only. He was able to correctly say that the upcoming holiday was Thanksgiving. Speech is low volume and still sometimes hard to understand it appears to be more fluent. Moving all extremities equally. Current Inpatient Medications Medications (Trade) Dose Ordered Sig/Joselito Route Start Time Stop Time Status Last Admin Dose Admin Ondansetron HCl (Zofran Inj) 4 mg Q6H PRN IV 05/08/17 07:30 06/07/17 07:29 Nitroglycerin (Nitrostat Tab) 0.4 mg UD PRN SL 05/08/17 07:30 06/07/17 07:29 Lorazepam (Ativan Inj) 1 mg ONE PRN IV 05/08/17 07:30 06/07/17 07:29 Albuterol (Ventolin Hfa Inhaler) 2 puffs Q4 INH 05/08/17 08:00 06/07/17 07:59 05/12/17 08:19 2 PUFFS Levetiracetam 500 mg/Dextrose 105 ml @ 420 mls/hr Q12 IV 05/08/17 09:45 06/07/17 09:44 05/12/17 08:19 420 MLS/HR Glucose (Glucose 40% Gel) 15-30 GRAMS 15 GRAMS... UD PRN PO 05/08/17 10:00 06/07/17 09:59 Glucose (Glucose Chew Tab) 4-8 Tablets 4 Tabl... UD PRN PO 05/08/17 10:00 06/07/17 09:59 Dextrose (Dextrose 50% 50ML Syringe) 25-50ML OF 50% DW IV FOR... UD PRN IV 05/08/17 10:00 06/07/17 09:59 Glucagon (Glucagon Inj) 1 mg UD PRN SQ 05/08/17 10:00 06/07/17 09:59 Heparin Sodium (Porcine) (Heparin Sq 5000 Unit/0.5ml) 5,000 unit Q12 SQ 05/08/17 21:00 06/07/17 20:59 05/12/17 08:20 5,000 UNIT Insulin Aspart (novoLOG ASPART) SLIDING SCALE If C... ACHS SC 05/11/17 06:30 06/10/17 06:29 05/12/17 08:53 2 UNITS Tamsulosin HCl (Flomax Cap) 0.4 mg QAM PO 05/12/17 09:00 06/11/17 08:59 05/12/17 08:18 0.4 MG Diltiazem HCl (Cardizem Cd Cap) 120 mg QAM PO 05/11/17 12:15 06/10/17 12:14 05/12/17 05:13 120 MG Isosorbide Mononitrate (Imdur Ext Rel Tab) 60 mg QAM PO 05/12/17 09:00 06/11/17 08:59 05/12/17 05:12 60 MG Metoprolol Tartrate (Lopressor Tab) 50 mg TID PO 05/11/17 21:00 06/10/17 20:59 05/12/17 05:12 50 MG Polyethylene (Miralax Powder Packet) 17 gm BID PO 05/11/17 21:00 06/10/17 20:59 05/12/17 08:18 17 GM Impression This is a 86-year-old male who presents with acute encephalopathy. Presumed seizure with witnessed seizure-like activity in the emergency room. Patient does have signs of cerebral small vessel ischemic disease and small lacunar strokes in the past which could predispose him towards seizures. No acute strokes on MRI. Likely having prolonged postictal encephalopathy due to age, cerebrovascular disease, consistent with his previous hospital stay recovery. In addition has had a few episodes of uncontrolled hypertension which could contribute to encephalopathy. Plan Continue Keppra 500 mg IV every 12 hours for seizure prophylaxis. When he is able to take oral medications this can be converted to PO. Watch out for side effects of increased confusion, lethargy, agitation, or irritability. If there is any concerns for possible side effects, let me know. At this time it appears the patient is recovering similar to last time and anticipate that he should recover similar manner as his previous admission. PT/OT and speech therapies for discharge planning. Avoid hypotension, extreme hypertension, and dehydration Follow-up in neurology clinic in 1 month for hospital follow-up. Thank you for allowing me to participate in this patient's care. If there is any questions or concerns, feel free to call/page me.
--- NOTE | 2017-05-12 13:21 | DIAGNOSTIC IMAGING REPORT ---
CT HEAD WITHOUT CONTRAST (CT) CLINICAL HISTORY: Acute change in mental status. History of subarachnoid hemorrhage. COMPARISON STUDY: 05/08/2017 TECHNIQUE: Axial CT of the brain is performed from the vertex to the skull base. IV contrast was not administered for this examination. A dose lowering technique was utilized adhering to the principles of ALARA. CT DOSE: 1459.56 mGycm FINDINGS: No intra or extra-axial mass lesions are visualized. There is no CT evidence of acute cortical infarction. There is no evidence of midline shift. There is no acute hemorrhage. No calvarial fractures are visualized. There are patchy white matter hypodensities likely on a small vessel basis. There is no evidence of pathologic ventricular dilatation. There are post procedural changes of prior aneurysm endovascular coil placement. There is no evidence of acute sinusitis IMPRESSION: No acute intracranial findings Electronically signed by: Greg White M.D. 05/12/2017 1:20 PM Dictated Date/Time: 05/12/2017 1:18 PM
--- NOTE | 2017-05-12 13:43 | DIAGNOSTIC IMAGING REPORT ---
CHEST ONE VIEW PORTABLE CLINICAL HISTORY: Sepsis. Aspiration. COMPARISON STUDY: 05/08/2017 FINDINGS: The cardiac and mediastinal contours remain stable. Vascular calcifications are again evident.r there is a stable 14 mm left upper lung zone nodule. There is no lobar consolidation. There is no overt failure. There is a trace left pleural effusion.[ IMPRESSION: 1. 14 mm left upper lobe pulmonary nodule 2. Trace left pleural effusion 3. No evidence of acute parenchymal consolidation Electronically signed by: Greg White M.D. 05/12/2017 1:42 PM Dictated Date/Time: 05/12/2017 1:41 PM
[2017-05-12] MEDS ORDERED: NURSING VERBAL MED ORDER STA (16:48)
[2017-05-12] MEDS ORDERED: MoRPHine SULFATE 2 MG/ML CARP IV ONE (17:00)
[2017-05-12] MEDS ORDERED: LEVETIRACETAM SOLN 500 MG/5 ML UDP PO SCH (21:00)
--- NOTE | 2017-05-12 21:11 | Progress Note ---
Subjective Date of Service: May 12, 2017. Subjective Pt evaluation today including: conversation w/ family (son, by phone), physical exam, chart review, lab review, review of studies (CT head, cxr), conversation w/ fitness sales consultant (neurology), review of inpatient medication list Pain: patient too encephalopathic to voice concerns PO Intake: poor per staff Voiding: incontinence patient overnight was confused and restless this am he has slurred speech, difficulty following commands, and could not tell me where he was today during my visit he would fall asleep easily and then wake up randomly multiple times he had deviation of his eyes upwards and to the left sometimes the eye deviation was simply up the episodes would last 5-10 seconds then resolve following the episodes he would then look at me but would not speak no tonic-clonic seizures noted by staff Problem List Medical Problems: (1) Acute on chronic renal failure Status: Acute (2) Altered mental status Status: Acute (3) Bacteremia Status: Acute (4) CHF (congestive heart failure) Status: Acute (5) Confusion Status: Acute (6) Cough Status: Acute (7) DKA (diabetic ketoacidoses) Status: Acute (8) Generalized weakness Status: Acute (9) Hyperglycemia Status: Acute (10) Influenza Status: Acute (11) Seizure Status: Acute Review of Systems unable to obtain ROS due to altered mental status Objective Vital Signs Date Time Temp Pulse Resp B/P (MAP) Pulse Ox O2 Delivery O2 Flow Rate FiO2 05/12/17 20:00 96 Room Air 05/12/17 19:17 37.4 67 18 96 Room Air 05/12/17 17:57 65 16 158/65 (96) 05/12/17 16:18 37.0 69 20 176/64 (101) 96 Room Air 05/12/17 16:00 96 Room Air 05/12/17 13:41 36.7 52 18 127/62 (83) 97 Room Air 05/12/17 12:00 97 Room Air 05/12/17 11:20 36.7 61 18 161/63 (95) 94 Room Air 05/12/17 08:00 94 Room Air 05/12/17 07:15 36.8 65 16 135/55 (81) 98 Room Air 05/12/17 04:45 200/60 (106) 05/12/17 04:16 36.6 71 18 179/77 (111) 96 Room Air 05/12/17 04:00 Room Air 05/12/17 00:00 Room Air 05/11/17 23:26 36.7 79 16 119/53 (75) 97 Room Air Physical Exam General Appearance: + mild distress (tachypneic intermittently, falls alseep easily, episodes of eye staring) Eyes: PERRL (2mm b/l ) ENT: + pertinent finding (MM mildly dry) Neck: no JVD Respiratory/Chest: no respiratory distress, no accessory muscle use, + pertinent finding (course BS b/l but no wheeze or rales) Cardiovascular: + pertinent finding (irregular, extra beats, regular rate) Abdomen: normal bowel sounds, non tender, soft, no organomegaly Extremities: no pedal edema Neurologic/Psychiatric: + pertinent finding (+babinski's b/l; moves all 4 limbs spontaneously; no obvious facial droop ) Laboratory Results Last 24 Hours Test 05/12/17 06:08 05/12/17 07:25 05/12/17 11:27 05/12/17 16:22 Sodium Level 144 mmol/L Potassium Level 3.9 mmol/L Chloride Level 115 mmol/L Carbon Dioxide Level 19 mmol/L Anion Gap 10.0 mmol/L Blood Urea Nitrogen 31 mg/dl Creatinine 1.59 mg/dl Est Creatinine Clear Calc Drug Dose 27.4 ml/min Estimated GFR () 44.6 Estimated GFR (Non- 38.5 BUN/Creatinine Ratio 19.3 Random Glucose 196 mg/dl Calcium Level 8.0 mg/dl Bedside Glucose 177 mg/dl 179 mg/dl 162 mg/dl Test 05/12/17 20:22 Bedside Glucose 193 mg/dl Assessment and Plan 86yo male - 1. seizure at admission with concern for ongoing seizures - placed on IV keppra following admission. Had prolonged post-ictal state/encephalopathy in the setting of the recent seizure. Yesterday had decent day with his mentation but today he is clearly altered once again. During our visit he had multiple episodes of eye deviation/staring. Spoke with Dr. Babb - these are concerning for brief seizures. Increase keppra to 750mg BID. EEG yesterday was w/o seizure focus. 2. encephalopathy - presumably metabolic from #[address] today without ICH or stroke. Ammonia, TSH, B12, VBG, MRI -- all normal/negative. Will check cxr to r/o pneumonia and check u/a / urine cx to exclude UTI as potential causes contributing to altered MS. 3. acidosis - resolved. Uncertain cause. 4. HTN - control improved with resumption of imdur, flomax, cardizem along with addition of metoprolol. 5. acute renal failure in setting of CKD stage 4 - creatinine improved and now at baseline. 6. FEN - since still eating poorly continue 1/2 NS with KCL at 75cc/hr. BMP am. 7. dysphagia - appreciate speech consultation. Modified diet ordered (nectar thick liquids with pureed). 8. DVT proph - heparin BID. 9. PAF - no systemic anticoagulation at this time given h/o SAH, falls, etc. 10. T2DM - controlled. 11. CAD - the troponin at admission was likely due to myocardial demand ischemia in setting of acute renal failure. Follow. 12. h/o SAH - noted. CT head today w/o ICH. 13. h/o intra-cerebral aneurysm s/p coil - noted. 14. chronic diastolic CHF - compensated by way of exam and radiographically. 15. leukocytosis - resolved WITHOUT antibiotic therapy. Blood/urine cx's neg; cxr neg for pneumonia suspect due to seizure activity at presentation due to ongoing altered MS will recheck cxr and urine cx/urinalysis son updated by phone 05/11 and 05/12 suspect he will need SNF placement (was living in assisted living prior) Continued [facility] stay due to: inadequate po fluid intake, ambulation difficulties , multiple IV medications needed, home environment unsafe for pt Discharge planning: uncertain (suspect SNF placement)
[2017-05-12] MEDS: SODIUM CHLOR 0.45% + 20MEQ KCL 1,000 ML IV SCH (21:22)
[2017-05-12] MEDS: LEVETIRACETAM ORAL SOLN 100MG/ML PO SCH (21:27)
[2017-05-13] VITALS (10 sets, daily range): BP systolic 128–220; BP diastolic 55–85; PULSE 50–75; TEMP 36.4–37; O2SAT 93–98
[2017-05-13] MEDS: ALBUTEROL HFA 8 GM INHALER INH SCH ×6 (04:00→23:50)
[2017-05-13 05:40] LABS: HEMATOCRIT 36.9 % (42-52); HEMOGLOBIN 11.8 g/dL (14.0-18.0); MEAN CELL VOLUME 98.9 fL (80-100); MEAN CORPUSCULAR HEMOGLOBIN 31.6 pg (25-34); MEAN PLATELET VOLUME 10.5 fL (7.4-10.4); PLATELET COUNT 274 K/uL (130-400); RED CELL DISTRIBUTION WIDTH CV 15.7 % (11.5-14.5); RED CELL DISTRIBUTION WIDTH SD 56.5 fL (36.4-46.3); WHITE BLOOD COUNT 7.45 K/uL (4.8-10.8)
[2017-05-13 06:03] LABS: CALCIUM 7.7 mg/dl (8.5-10.1); CREATININE 1.61 mg/dl (0.60-1.40); POTASSIUM 4.4 mmol/L (3.5-5.1)
[2017-05-13] MEDS: ISOSORBIDE MONONITRATE 60 MG TABCR PO SCH (08:45)
[2017-05-13] MEDS: DILTIAZEM HCL 120 MG CAPCR PO SCH (08:45)
[2017-05-13] MEDS: TAMSULOSIN HCL 0.4 MG CAP PO SCH (08:46)
[2017-05-13] MEDS: LEVETIRACETAM ORAL SOLN 100MG/ML PO SCH ×2 (08:46→20:08)
[2017-05-13] MEDS: POLYETHYLENE (MIRALAX) 17 GM PACK PO SCH ×2 (08:47→20:08)
[2017-05-13] MEDS: INSULIN ASPART 100 UNITS/ML 3 ML PEN SC SCH ×4 (08:49→20:14)
[2017-05-13] MEDS: METOPROLOL TARTRATE 50 MG TAB PO SCH ×3 (08:52→20:08)
[2017-05-13] MEDS: HEPARIN SOD 5000 UNIT/0.5 ML CARP SQ SCH ×2 (08:53→20:15)
--- NOTE | 2017-05-13 09:46 | Neurology Progress Notes ---
Neurology Progress Note Date of Service May 13, 2017. Subjective Clinic by hospitalist yesterday with witnessed events of what was described as forced eye deviation up into the left for several seconds with unresponsiveness. Episodes sounded concerning for possible focal seizures. Recommended increasing Keppra to 750 mg twice a day over the phone. Today the patient appears more lethargic and tired. [id number] reports that he is responding occasionally but does seem more tired. No new neurological symptoms and no additional events concerning for seizures. Objective Date Time Temp Pulse Resp B/P (MAP) Pulse Ox O2 Delivery O2 Flow Rate FiO2 05/13/17 07:30 36.9 65 16 149/55 (86) 98 Room Air 05/13/17 04:13 37.0 67 18 137/79 (98) 94 Room Air 05/13/17 04:00 Room Air 05/13/17 00:01 36.8 75 16 128/55 (79) 93 Room Air 05/13/17 00:00 Room Air 05/12/17 22:31 66 118/43 (68) 05/12/17 22:11 37.3 05/12/17 20:00 96 Room Air 05/12/17 19:17 37.4 67 18 96 Room Air 05/12/17 17:57 65 16 158/65 (96) 05/12/17 16:18 37.0 69 20 176/64 (101) 96 Room Air 05/12/17 16:00 96 Room Air 05/12/17 13:41 36.7 52 18 127/62 (83) 97 Room Air 05/12/17 12:00 97 Room Air 05/12/17 11:20 36.7 61 18 161/63 (95) 94 Room Air Last 24 Hours Test 05/12/17 11:27 05/12/17 16:22 05/12/17 20:22 05/12/17 21:50 Bedside Glucose 179 mg/dl 162 mg/dl 193 mg/dl Urine Color YELLOW Urine Appearance CLEAR Urine pH 5.0 Urine Specific [place] 1.023 Urine Protein 2+ Urine Glucose (UA) TRACE Urine Ketones TRACE Urine Occult Blood NEG Urine Nitrite NEG Urine Bilirubin NEG Urine Urobilinogen NEG Urine Leukocyte Esterase NEG Urine WBC (Auto) 1-5 /hpf Urine RBC (Auto) 0-4 /hpf Urine Hyaline Casts (Auto) 1-5 /lpf Urine Epithelial Cells (Auto) >30 /lpf Urine Bacteria (Auto) NEG Test 05/13/17 05:13 05/13/17 07:42 White Blood Count 7.45 K/uL Red Blood Count 3.73 M/uL Hemoglobin 11.8 g/dL Hematocrit 36.9 % Mean Corpuscular Volume 98.9 fL Mean Corpuscular Hemoglobin 31.6 pg Mean Corpuscular Hemoglobin Concent 32.0 g/dl RDW Standard Deviation 56.5 fL RDW Coefficient of Variation 15.7 % Platelet Count 274 K/uL Mean Platelet Volume 10.5 fL Sodium Level 143 mmol/L Potassium Level 4.4 mmol/L Chloride Level 114 mmol/L Carbon Dioxide Level 22 mmol/L Anion Gap 7.0 mmol/L Blood Urea Nitrogen 32 mg/dl Creatinine 1.61 mg/dl Est Creatinine Clear Calc Drug Dose 27.1 ml/min Estimated GFR () 43.9 Estimated GFR (Non- 37.9 BUN/Creatinine Ratio 19.8 Random Glucose 141 mg/dl Calcium Level 7.7 mg/dl Bedside Glucose 142 mg/dl Exam: Patient appears to be slow to respond. Lethargic. Does respond with a few low volume mumbled words. Is being fed ice cream with no evidence of dysphasia. Able to look left and right. Moving all extremities equally Current Inpatient Medications Medications (Trade) Dose Ordered Sig/Joselito Route Start Time Stop Time Status Last Admin Dose Admin Ondansetron HCl (Zofran Inj) 4 mg Q6H PRN IV 05/08/17 07:30 06/07/17 07:29 Nitroglycerin (Nitrostat Tab) 0.4 mg UD PRN SL 05/08/17 07:30 06/07/17 07:29 Lorazepam (Ativan Inj) 1 mg ONE PRN IV 05/08/17 07:30 06/07/17 07:29 Albuterol (Ventolin Hfa Inhaler) 2 puffs Q4 INH 05/08/17 08:00 06/07/17 07:59 05/13/17 08:46 2 PUFFS Glucose (Glucose 40% Gel) 15-30 GRAMS 15 GRAMS... UD PRN PO 05/08/17 10:00 06/07/17 09:59 Glucose (Glucose Chew Tab) 4-8 Tablets 4 Tabl... UD PRN PO 05/08/17 10:00 06/07/17 09:59 Dextrose (Dextrose 50% 50ML Syringe) 25-50ML OF 50% DW IV FOR... UD PRN IV 05/08/17 10:00 06/07/17 09:59 Glucagon (Glucagon Inj) 1 mg UD PRN SQ 05/08/17 10:00 06/07/17 09:59 Heparin Sodium (Porcine) (Heparin Sq 5000 Unit/0.5ml) 5,000 unit Q12 SQ 05/08/17 21:00 06/07/17 20:59 05/13/17 08:53 5,000 UNIT Insulin Aspart (novoLOG ASPART) SLIDING SCALE If C... ACHS SC 05/11/17 06:30 06/10/17 06:29 05/12/17 21:29 5 UNITS Tamsulosin HCl (Flomax Cap) 0.4 mg QAM PO 05/12/17 09:00 06/11/17 08:59 05/13/17 08:46 0.4 MG Diltiazem HCl (Cardizem Cd Cap) 120 mg QAM PO 05/11/17 12:15 06/10/17 12:14 05/13/17 08:45 120 MG Isosorbide Mononitrate (Imdur Ext Rel Tab) 60 mg QAM PO 05/12/17 09:00 06/11/17 08:59 05/13/17 08:45 60 MG Metoprolol Tartrate (Lopressor Tab) 50 mg TID PO 05/11/17 21:00 06/10/17 20:59 05/13/17 08:52 50 MG Polyethylene (Miralax Powder Packet) 17 gm BID PO 05/11/17 21:00 06/10/17 20:59 05/13/17 08:47 17 GM Levetiracetam (Keppra Soln) 750 mg Q12 PO 05/12/17 21:00 06/11/17 20:59 05/13/17 08:46 750 MG Potassium Chloride/Sodium Chloride 1,000 ml @ 75 mls/hr [id number] IV 05/12/17 20:30 06/11/17 20:29 05/12/17 21:22 75 MLS/HR Impression This is a 86-year-old male who presents with acute encephalopathy secondary to seizures. Presumed seizure with witnessed seizure-like activity in the emergency room with additional episodes on the concerning for possible focal seizures described as a forced up and to the left eye deviation. Patient does have signs of cerebral small vessel ischemic disease and small lacunar strokes in the past which could predispose him towards seizures. No acute strokes on MRI. Based off of previous history does seem to have prolonged postictal encephalopathy due to age, cerebrovascular disease, and appears consistent with his previous hospital stay recovery. In addition has had a few episodes of uncontrolled hypertension which could contribute to encephalopathy. Plan As discussed yesterday with the hospitalist over the phone, increase Keppra to 750 mg twice a day for seizure prophylaxis. Watch out for side effects of increased confusion, lethargy, agitation, or irritability. If there is any concerns for possible side effects, let me know. Based off of previous history the patient does appear to have a very prolonged postictal recovery. PT/OT and speech therapies for discharge planning. Avoid hypotension, extreme hypertension, and dehydration Follow-up in neurology clinic in 1 month for hospital follow-up. Thank you for allowing me to participate in this patient's care. If there is any questions or concerns, feel free to call/page me.
[2017-05-13] MEDS: SODIUM CHLOR 0.45% + 20MEQ KCL 1,000 ML IV SCH ×2 (10:45→23:45)
--- NOTE | 2017-05-13 17:38 | Progress Note ---
Subjective Date of Service: May 13, 2017. Subjective Pt evaluation today including: conversation w/ patient, conversation w/ family , physical exam, chart review, lab review, review of inpatient medication list talking more denies complaints, DIL present at bedside and notes she sees him doing better but notes that with his age and comorbidities she does not expect fast progress. notes a few more staring spells that seem loosely seizure like, but short lived and he's immediately responsive afterwards. anticipating SNF after discharge Problem List Medical Problems: (1) Acute on chronic renal failure Status: Acute (2) Altered mental status Status: Acute (3) Bacteremia Status: Acute (4) CHF (congestive heart failure) Status: Acute (5) Confusion Status: Acute (6) Cough Status: Acute (7) DKA (diabetic ketoacidoses) Status: Acute (8) Generalized weakness Status: Acute (9) Hyperglycemia Status: Acute (10) Influenza Status: Acute (11) Seizure Status: Acute Review of Systems all other ROS otherwise negative except for as above Objective Vital Signs Date Time Temp Pulse Resp B/P (MAP) Pulse Ox O2 Delivery O2 Flow Rate FiO2 05/13/17 16:12 36.6 59 18 180/69 (106) 95 05/13/17 16:00 Room Air 05/13/17 14:00 50 132/60 (84) 05/13/17 12:00 Room Air 05/13/17 11:39 36.4 59 22 156/66 (96) 93 Room Air 05/13/17 08:00 98 Room Air 05/13/17 07:30 36.9 65 16 149/55 (86) 98 Room Air 05/13/17 04:13 37.0 67 18 137/79 (98) 94 Room Air 05/13/17 04:00 Room Air 05/13/17 00:01 36.8 75 16 128/55 (79) 93 Room Air 05/13/17 00:00 Room Air 05/12/17 22:31 66 118/43 (68) 05/12/17 22:11 37.3 05/12/17 20:00 96 Room Air 05/12/17 19:17 37.4 67 18 96 Room Air 05/12/17 17:57 65 16 158/65 (96) Physical Exam General Appearance: no apparent distress Eyes: EOMI ENT: hearing grossly normal Neck: trachea midline Respiratory/Chest: no respiratory distress, no accessory muscle use Neurologic/Psychiatric: 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 and 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 II-XII nml as tested, alert Skin: normal color, warm/dry Laboratory Results Last 24 Hours Test 05/12/17 20:22 05/12/17 21:50 05/13/17 05:13 05/13/17 07:42 Bedside Glucose 193 mg/dl 142 mg/dl Urine Color YELLOW Urine Appearance CLEAR Urine pH 5.0 Urine Specific [place] 1.023 Urine Protein 2+ Urine Glucose (UA) TRACE Urine Ketones TRACE Urine Occult Blood NEG Urine Nitrite NEG Urine Bilirubin NEG Urine Urobilinogen NEG Urine Leukocyte Esterase NEG Urine WBC (Auto) 1-5 /hpf Urine RBC (Auto) 0-4 /hpf Urine Hyaline Casts (Auto) 1-5 /lpf Urine Epithelial Cells (Auto) >30 /lpf Urine Bacteria (Auto) NEG White Blood Count 7.45 K/uL Red Blood Count 3.73 M/uL Hemoglobin 11.8 g/dL Hematocrit 36.9 % Mean Corpuscular Volume 98.9 fL Mean Corpuscular Hemoglobin 31.6 pg Mean Corpuscular Hemoglobin Concent 32.0 g/dl RDW Standard Deviation 56.5 fL RDW Coefficient of Variation 15.7 % Platelet Count 274 K/uL Mean Platelet Volume 10.5 fL Sodium Level 143 mmol/L Potassium Level 4.4 mmol/L Chloride Level 114 mmol/L Carbon Dioxide Level 22 mmol/L Anion Gap 7.0 mmol/L Blood Urea Nitrogen 32 mg/dl Creatinine 1.61 mg/dl Est Creatinine Clear Calc Drug Dose 27.1 ml/min Estimated GFR () 43.9 Estimated GFR (Non- 37.9 BUN/Creatinine Ratio 19.8 Random Glucose 141 mg/dl Calcium Level 7.7 mg/dl Test 05/13/17 11:32 05/13/17 16:23 Bedside Glucose 176 mg/dl 137 mg/dl Assessment and Plan 1. seizure at admission with concern for ongoing seizures - -no further tonic clonic seizures. a few staring spells concerning for seizure activity yesterday - keppra increased to 750mg bid - d/w DIL - while these episodes are still occuring, they're not frequent, are very short lived, and we both agree that for now possible sedation from increase in keppra further outweighs reducign the frequency of these short lived episodes 2. encephalopathy - presumably metabolic from #1 above, hospital environment likely contributing too 3. acidosis - resolved. 4. HTN - continue current meds and follow 5. acute renal failure in setting of CKD stage 4 - creatinine improved and now at baseline. 6. FEN - since still eating poorly continue 1/2 NS with KCL at 75cc/hr. stop once eating better 7. dysphagia - appreciate speech consultation. Modified diet ordered (nectar thick liquids with pureed). 8. DVT proph - heparin BID. 9. PAF - no systemic anticoagulation at this time given h/o SAH, falls, etc. reconsider risks/benefits periodically as outpt 10. T2DM - controlled. 11. CAD - the troponin at admission was likely due to myocardial demand ischemia in setting of acute renal failure. Follow. 12. h/o SAH - noted. CT head today w/o ICH. 13. h/o intra-cerebral aneurysm s/p coil - noted. 14. chronic diastolic CHF - compensated by way of exam and radiographically. 15. leukocytosis - resolved WITHOUT antibiotic therapy. Blood/urine cx's neg; cxr neg for pneumonia suspect due to seizure activity at presentation suspect he will need SNF placement (was living in assisted living prior) - likely stable for SNF tomorrow if they're able to accept
[2017-05-13] MEDS: NYSTATIN SUSP 500,000 U/5 ML UDC PO SCH (20:18)
[2017-05-13] MEDS ORDERED: HydrALAZINE HCL 20 MG/ML VIAL IV. STA (23:25)
[2017-05-14 01:33] VITALS: BP 159/62; PULSE 62
[2017-05-14] MEDS: ALBUTEROL HFA 8 GM INHALER INH SCH ×6 (04:00→23:26)
[2017-05-14 04:29] VITALS: BP 156/79; PULSE 86; TEMP 36.6; O2SAT 93
[2017-05-14 06:58] VITALS: BP_SYST 199; BP_SYST 201; BP_DIAS 64; BP_DIAS 68; PULSE 58; PULSE 63; TEMP 36.7; O2SAT 98
[2017-05-14] MEDS: ISOSORBIDE MONONITRATE 60 MG TABCR PO SCH (07:26)
[2017-05-14] MEDS: DILTIAZEM HCL 120 MG CAPCR PO SCH (07:31)
[2017-05-14] MEDS: METOPROLOL TARTRATE 50 MG TAB PO SCH ×3 (07:32→21:00)
[2017-05-14] MEDS: POLYETHYLENE (MIRALAX) 17 GM PACK PO SCH ×2 (08:57→21:00)
[2017-05-14] MEDS: TAMSULOSIN HCL 0.4 MG CAP PO SCH (08:57)
[2017-05-14] MEDS: NYSTATIN SUSP 500,000 U/5 ML UDC PO SCH ×4 (08:57→21:00)
[2017-05-14] MEDS: LEVETIRACETAM ORAL SOLN 100MG/ML PO SCH ×2 (08:57→21:00)
[2017-05-14 09:00] VITALS: BP 154/57; PULSE 57
[2017-05-14] MEDS: INSULIN ASPART 100 UNITS/ML 3 ML PEN SC SCH ×4 (09:00→21:08)
[2017-05-14] MEDS: HEPARIN SOD 5000 UNIT/0.5 ML CARP SQ SCH ×2 (09:01→21:08)
[2017-05-14 11:28] VITALS: BP 144/65; PULSE 64; TEMP 36.5; O2SAT 97
[2017-05-14] MEDS: SODIUM CHLOR 0.45% + 20MEQ KCL 1,000 ML IV SCH (12:48)
--- NOTE | 2017-05-14 17:30 | Progress Note ---
Subjective Date of Service: May 14, 2017. Subjective Pt evaluation today including: conversation w/ patient, physical exam, chart review, lab review, review of inpatient medication list no meaningful HPI or ROS obtainable, but will open eyes and try to communicate some. no new problems noted by nursing. unable to transfer to SNF today Problem List Medical Problems: (1) Acute on chronic renal failure Status: Acute (2) Altered mental status Status: Acute (3) Bacteremia Status: Acute (4) CHF (congestive heart failure) Status: Acute (5) Confusion Status: Acute (6) Cough Status: Acute (7) DKA (diabetic ketoacidoses) Status: Acute (8) Generalized weakness Status: Acute (9) Hyperglycemia Status: Acute (10) Influenza Status: Acute (11) Seizure Status: Acute Review of Systems ROS otherwise unobtainable except for as above Objective Vital Signs Date Time Temp Pulse Resp B/P (MAP) Pulse Ox O2 Delivery O2 Flow Rate FiO2 05/14/17 16:00 Room Air 05/14/17 12:00 Room Air 05/14/17 11:28 36.5 64 18 144/65 (91) 97 05/14/17 09:00 57 154/57 (89) 05/14/17 08:00 Room Air 05/14/17 06:58 36.7 63 16 199/68 (111) 98 Room Air 201/64 (109) 05/14/17 04:29 36.6 86 20 156/79 (104) 93 Room Air 05/14/17 04:00 Room Air 05/14/17 01:33 62 159/62 (94) 05/14/17 00:00 Room Air 05/13/17 22:54 70 200/85 (123) 05/13/17 20:33 36.4 70 18 220/73 (122) 97 70 05/13/17 20:08 70 05/13/17 20:00 Room Air Physical Exam General Appearance: no apparent distress Eyes: EOMI ENT: hearing grossly normal Neck: trachea midline Respiratory/Chest: no respiratory distress, no accessory muscle use 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 seizure at admission with concern for ongoing seizures - -no further tonic clonic seizures. a few staring spells concerning for seizure activity yesterday - keppra increased to 750mg bid 05/12 - 05/13 d/w DIL - while these episodes are still occuring, they're not frequent, are very short lived, and we both agree that for now possible sedation from increase in keppra further outweighs reducign the frequency of these short lived episodes, appearing stable 2. encephalopathy - presumably metabolic from #1 above, hospital environment likely contributing too 3. acidosis - resolved. 4. HTN - continue current meds and follow 5. acute renal failure in setting of CKD stage 4 - creatinine improved and now at baseline. 6. FEN - since still eating poorly continue 1/2 NS with KCL at 75cc/hr. stop once eating better 7. dysphagia - appreciate speech consultation. Modified diet ordered (nectar thick liquids with pureed). 8. DVT proph - heparin BID. 9. PAF - currently no systemic anticoagulation at this time given h/o SAH, falls, etc. reconsider risks/benefits periodically as outpt 10. T2DM - controlled. 11. CAD - the troponin at admission was likely due to myocardial demand ischemia in setting of acute renal failure. Follow. 12. h/o SAH - noted. CT head today w/o ICH. 13. h/o intra-cerebral aneurysm s/p coil - noted. 14. chronic diastolic CHF - compensated by way of exam and radiographically. 15. leukocytosis - resolved WITHOUT antibiotic therapy. Blood/urine cx's neg; cxr neg for pneumonia suspect due to seizure activity at presentation anticipate SNF placement once able to be arranged
[2017-05-14 20:07] VITALS: BP 124/65; PULSE 65; TEMP 36.8; O2SAT 97
[2017-05-15] VITALS (9 sets, daily range): BP systolic 129–230; BP diastolic 53–86; PULSE 62–91; TEMP 36.2–37.2; O2SAT 95–98
[2017-05-15] MEDS ORDERED: NURSING VERBAL MED ORDER ONE ×2 (01:15→01:30)
[2017-05-15] MEDS: SODIUM CHLOR 0.45% + 20MEQ KCL 1,000 ML IV SCH ×2 (02:11→15:46)
[2017-05-15] MEDS: HydrALAZINE HCL 20 MG/ML VIAL IV. PRN ×2 (04:06→21:06)
[2017-05-15] MEDS: ALBUTEROL HFA 8 GM INHALER INH SCH ×5 (04:06→22:10)
[2017-05-15 05:46] LABS: HEMATOCRIT 41.6 % (42-52); HEMOGLOBIN 13.4 g/dL (14.0-18.0); MEAN CELL VOLUME 99.5 fL (80-100); MEAN CORPUSCULAR HEMOGLOBIN 32.1 pg (25-34); MEAN CORPUSCULAR HGB CONC 32.2 g/dl (32-36); MEAN PLATELET VOLUME 10.6 fL (7.4-10.4); PLATELET COUNT 272 K/uL (130-400); RED CELL DISTRIBUTION WIDTH CV 15.8 % (11.5-14.5); RED CELL DISTRIBUTION WIDTH SD 57.1 fL (36.4-46.3); WHITE BLOOD COUNT 9.14 K/uL (4.8-10.8)
[2017-05-15] MEDS: METOPROLOL TARTRATE 50 MG TAB PO SCH ×3 (07:43→22:10)
[2017-05-15] MEDS: DILTIAZEM HCL 120 MG CAPCR PO SCH (07:44)
[2017-05-15] MEDS: ISOSORBIDE MONONITRATE 60 MG TABCR PO SCH (07:45)
[2017-05-15] MEDS: INSULIN ASPART 100 UNITS/ML 3 ML PEN SC SCH ×4 (07:53→21:00)
[2017-05-15] MEDS: TAMSULOSIN HCL 0.4 MG CAP PO SCH (08:02)
[2017-05-15] MEDS: POLYETHYLENE (MIRALAX) 17 GM PACK PO SCH ×2 (08:02→22:10)
[2017-05-15] MEDS: LEVETIRACETAM ORAL SOLN 100MG/ML PO SCH ×2 (08:03→22:36)
[2017-05-15] MEDS: NYSTATIN SUSP 500,000 U/5 ML UDC PO SCH ×4 (08:04→22:10)
[2017-05-15] MEDS: HEPARIN SOD 5000 UNIT/0.5 ML CARP SQ SCH ×2 (08:09→21:08)
--- NOTE | 2017-05-15 12:00 | Progress Note ---
Subjective Date of Service: May 15, 2017. Subjective pt was sleeping did awaken denied need for any issues attended, does not appear in distress Problem List Medical Problems: (1) Acute on chronic renal failure Status: Acute (2) Altered mental status Status: Acute (3) Bacteremia Status: Acute (4) CHF (congestive heart failure) Status: Acute (5) Confusion Status: Acute (6) Cough Status: Acute (7) DKA (diabetic ketoacidoses) Status: Acute (8) Generalized weakness Status: Acute (9) Hyperglycemia Status: Acute (10) Influenza Status: Acute (11) Seizure Status: Acute Review of Systems Constitutional: + problem reported (his fatigue and mental status changes prevent full ROS) Objective Vital Signs Date Time Temp Pulse Resp B/P (MAP) Pulse Ox O2 Delivery O2 Flow Rate FiO2 05/15/17 07:33 36.2 82 20 170/64 (99) 98 Room Air 05/15/17 06:00 91 129/53 (78) 05/15/17 04:00 Room Air 05/15/17 03:55 36.8 62 22 230/86 (134) 97 Room Air 05/15/17 00:19 36.6 67 20 198/85 (122) 98 Room Air 05/15/17 00:00 Room Air 05/14/17 20:07 36.8 65 18 124/65 (84) 97 Room Air 05/14/17 20:04 Room Air 05/14/17 16:00 Room Air 05/14/17 12:00 Room Air 05/14/17 11:28 36.5 64 18 144/65 (91) 97 05/14/17 09:00 57 154/57 (89) Physical Exam General Appearance: no apparent distress, + thin Eyes: PERRL, EOMI Respiratory/Chest: chest non-tender, lungs clear, normal breath sounds Cardiovascular: regular rate, rhythm, + systolic murmur Abdomen: normal bowel sounds, non tender, soft Extremities: no pedal edema, no calf tenderness Neurologic/Psychiatric: alert, + disoriented Skin: normal color, warm/dry Laboratory Results Last 24 Hours Test 05/14/17 11:32 05/14/17 16:17 05/14/17 20:33 05/15/17 05:15 Bedside Glucose 166 mg/dl 168 mg/dl 164 mg/dl White Blood Count 9.14 K/uL Red Blood Count 4.18 M/uL Hemoglobin 13.4 g/dL Hematocrit 41.6 % Mean Corpuscular Volume 99.5 fL Mean Corpuscular Hemoglobin 32.1 pg Mean Corpuscular Hemoglobin Concent 32.2 g/dl RDW Standard Deviation 57.1 fL RDW Coefficient of Variation 15.8 % Platelet Count 272 K/uL Mean Platelet Volume 10.6 fL Test 05/15/17 07:17 Bedside Glucose 140 mg/dl Assessment and Plan 86 M w seizure at admission with concern for ongoing seizures - on top of baseline age related memory changes seizures-no further tonic clonic seizures. a few staring spells concerning for seizure activity- keppra increased to 750mg bid 05/12 - will hold keppra at this level, short lived episodes are tolerated encephalopathy - presumably metabolic from seizures and hospital environment acidosis - resolved. HTN/CAD/ AFIB - controlled isosorbide, metoprolol diltiazem. no systemic anticoagulation at this time given h/o SAH, falls, etc. reconsider risks/ benefits periodically as outpt. the troponin at admission was likely due to myocardial demand ischemia in setting of acute renal failure. chronic diastolic CHF - compensated acute renal failure in setting of CKD stage 4 - creatinine improved and now baseline. FEN - since still eating poorly, maybe due to functional decline dysphagia - appreciate speech consultation. Modified diet ordered (nectar thick liquids with pureed). DVT proph - heparin BID. T2DM - controlled. h/o SAH h/o intra-cerebral aneurysm s/p coil. CT head w/o ICH. leukocytosis suspect due to seizure activity at presentation anticipate SNF placement once able to be arranged
[2017-05-15] MEDS: LEVETIRACETAM IV 750 MG in DEXTROSE 5% 100ML 100 ML IV PRN (22:42)
[2017-05-16 00:23] VITALS: BP 134/62; PULSE 69; TEMP 37; O2SAT 99
[2017-05-16] MEDS: ALBUTEROL HFA 8 GM INHALER INH SCH ×6 (04:51→19:57)
[2017-05-16] MEDS: SODIUM CHLOR 0.45% + 20MEQ KCL 1,000 ML IV SCH (05:04)
[2017-05-16] MEDS: INSULIN ASPART 100 UNITS/ML 3 ML PEN SC SCH ×4 (07:57→20:54)
[2017-05-16 08:08] VITALS: BP 155/56; PULSE 76; TEMP 36.9; O2SAT 95
[2017-05-16] MEDS: LEVETIRACETAM IV 750 MG in DEXTROSE 5% 100ML 100 ML IV PRN ×2 (08:51→20:48)
[2017-05-16] MEDS: HEPARIN SOD 5000 UNIT/0.5 ML CARP SQ SCH ×2 (08:52→19:58)
[2017-05-16] MEDS: TAMSULOSIN HCL 0.4 MG CAP PO SCH (09:39)
[2017-05-16 09:40] VITALS: BP 145/56; PULSE 62
[2017-05-16] MEDS: METOPROLOL TARTRATE 50 MG TAB PO SCH ×2 (09:40→19:57)
[2017-05-16] MEDS: ISOSORBIDE MONONITRATE 60 MG TABCR PO SCH (09:40)
[2017-05-16] MEDS: NYSTATIN SUSP 500,000 U/5 ML UDC PO SCH ×4 (09:40→19:58)
[2017-05-16] MEDS: POLYETHYLENE (MIRALAX) 17 GM PACK PO SCH ×2 (09:40→19:58)
[2017-05-16] MEDS: LEVETIRACETAM ORAL SOLN 100MG/ML PO SCH ×2 (09:40→19:57)
[2017-05-16] MEDS: DILTIAZEM HCL 120 MG CAPCR PO SCH (09:41)
[2017-05-16 11:02] VITALS: BP 137/59; PULSE 69; TEMP 37.1; O2SAT 97
--- NOTE | 2017-05-16 14:07 | Progress Note ---
Subjective Date of Service: May 16, 2017. Subjective pt is able to be awakened but remains sleepy, has not had ua since 05/12, will attempt cath urine. no other focal signs Problem List Medical Problems: (1) Acute on chronic renal failure Status: Acute (2) Altered mental status Status: Acute (3) Bacteremia Status: Acute (4) CHF (congestive heart failure) Status: Acute (5) Confusion Status: Acute (6) Cough Status: Acute (7) DKA (diabetic ketoacidoses) Status: Acute (8) Generalized weakness Status: Acute (9) Hyperglycemia Status: Acute (10) Influenza Status: Acute (11) Seizure Status: Acute Review of Systems Constitutional: + weakness, + fatigue, + problem reported (cannot provide reliable ros ) Objective Vital Signs Date Time Temp Pulse Resp B/P (MAP) Pulse Ox O2 Delivery O2 Flow Rate FiO2 05/16/17 12:00 Room Air 05/16/17 11:02 37.1 69 20 137/59 (85) 97 Room Air 05/16/17 09:40 62 145/56 (85) 05/16/17 08:08 36.9 76 20 155/56 (89) 95 Room Air 05/16/17 08:00 Room Air 05/16/17 04:00 Room Air 05/16/17 00:23 37.0 69 18 134/62 (86) 99 Room Air 05/16/17 00:00 Room Air 05/15/17 22:29 138/61 (86) 05/15/17 21:06 184/67 (106) 05/15/17 20:02 36.7 68 16 162/61 (94) 95 Room Air 05/15/17 20:02 37.2 71 18 192/71 (111) 96 Room Air 05/15/17 20:00 Room Air 05/15/17 16:00 Room Air 05/15/17 14:50 36.7 68 16 162/61 (94) 95 Room Air Physical Exam General Appearance: WD/WN, + mild distress Respiratory/Chest: chest non-tender, lungs clear, normal breath sounds Cardiovascular: regular rate, rhythm, + systolic murmur Abdomen: normal bowel sounds, soft Extremities: no pedal edema, no calf tenderness Neurologic/Psychiatric: + depressed affect, + disoriented Laboratory Results Last 24 Hours Test 05/15/17 16:50 05/16/17 07:00 05/16/17 11:15 Bedside Glucose 149 mg/dl 108 mg/dl 115 mg/dl Assessment and Plan 86 M w seizure at admission with concern for ongoing seizures - on top of baseline age related memory changes seizures-no further tonic clonic seizures. keppra increased to 750mg bid -, short lived episodes are tolerated concern if keppra may be accumulating and may consider modest dose reduction if not other causes are found for lethargy encephalopathy - presumably metabolic from seizures and hospital environment, repeat ua at this point, may send out keppra but will not be returned for a week acidosis - resolved. HTN/CAD/ AFIB - controlled isosorbide, metoprolol diltiazem. no systemic anticoagulation at this time given h/o SAH, falls, etc. the troponin at admission was likely due to myocardial demand ischemia in setting of acute renal failure. chronic diastolic CHF - compensated acute renal failure in setting of CKD stage 4 - creatinine baseline. FEN - since still eating poorly, maybe due to functional decline. lethargy also impacts oral intake dysphagia - appreciate speech consultation. Modified diet ordered (nectar thick liquids with pureed). DVT proph - heparin BID. T2DM - controlled. h/o SAH h/o intra-cerebral aneurysm s/p coil. CT head w/o ICH. leukocytosis initally due to seizure activity at presentation anticipate SNF placement once able to be arranged
[2017-05-16 15:53] VITALS: BP 161/72; PULSE 84; TEMP 36.8; O2SAT 99
[2017-05-16 20:23] VITALS: BP 148/75; PULSE 89; TEMP 36.4; O2SAT 98
[2017-05-17] VITALS (11 sets, daily range): BP systolic 108–205; BP diastolic 53–95; PULSE 65–102; TEMP 36.3–37.1; O2SAT 95–98
[2017-05-17] MEDS: ALBUTEROL HFA 8 GM INHALER INH SCH ×7 (04:35→23:32)
[2017-05-17] MEDS: INSULIN ASPART 100 UNITS/ML 3 ML PEN SC SCH ×4 (06:30→20:45)
[2017-05-17] MEDS: DILTIAZEM HCL 120 MG CAPCR PO SCH (09:00)
[2017-05-17] MEDS: ISOSORBIDE MONONITRATE 60 MG TABCR PO SCH (09:00)
[2017-05-17] MEDS: LEVETIRACETAM ORAL SOLN 100MG/ML PO SCH ×2 (09:00→20:50)
[2017-05-17] MEDS: NYSTATIN SUSP 500,000 U/5 ML UDC PO SCH ×4 (09:00→20:48)
[2017-05-17] MEDS: POLYETHYLENE (MIRALAX) 17 GM PACK PO SCH ×2 (09:00→20:46)
[2017-05-17] MEDS: TAMSULOSIN HCL 0.4 MG CAP PO SCH (09:00)
[2017-05-17] MEDS: METOPROLOL TARTRATE 50 MG TAB PO SCH ×2 (09:00→20:50)
[2017-05-17] MEDS: HEPARIN SOD 5000 UNIT/0.5 ML CARP SQ SCH ×2 (09:38→20:52)
[2017-05-17] MEDS: LEVETIRACETAM IV 750 MG in DEXTROSE 5% 100ML 100 ML IV PRN (09:59)
--- NOTE | 2017-05-17 11:15 | Progress Note ---
Subjective Date of Service: May 17, 2017. Subjective Pt evaluation today including: conversation w/ patient Pt states that he is having back pain today. He states that he has back pain at baseline, but does not take anything for this at home. Pt denies fever, SOB , chest pain, abd pain, n/v/c/d, LE pain or swelling. He reports that he took some PO breakfast this AM, but his tray appears untouched and nursing states he did not eat anything. Nursing reports that they have not been able to get any PO medications reliably. 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 Problem List Medical Problems: (1) Acute on chronic renal failure Status: Acute (2) Altered mental status Status: Acute (3) Bacteremia Status: Acute (4) CHF (congestive heart failure) Status: Acute (5) Confusion Status: Acute (6) Cough Status: Acute (7) DKA (diabetic ketoacidoses) Status: Acute (8) Generalized weakness Status: Acute (9) Hyperglycemia Status: Acute (10) Influenza Status: Acute (11) Seizure Status: Acute Review of Systems All Other Systems: Reviewed and Negative Objective Vital Signs Date Time Temp Pulse Resp B/P (MAP) Pulse Ox O2 Delivery O2 Flow Rate FiO2 05/17/17 08:00 97 Room Air 05/17/17 07:59 37.1 76 18 171/95 (120) 97 05/17/17 05:16 169/60 (96) 05/17/17 05:08 36.7 102 22 187/66 (106) 95 Room Air 05/17/17 04:00 Room Air 05/17/17 00:09 36.8 89 16 202/64 (110) 98 Room Air 05/17/17 00:00 Room Air 05/16/17 20:23 36.4 89 18 148/75 (99) 98 Room Air 05/16/17 20:12 Room Air 05/16/17 16:00 Room Air 05/16/17 15:53 36.8 84 16 161/72 (101) 99 Room Air 05/16/17 12:00 Room Air Physical Exam General Appearance: WD/WN, no apparent distress Eyes: + pertinent finding (eyes open to voice, however pt does not appear to moves eyes in further attempt to make eye contact) Respiratory/Chest: normal breath sounds, no respiratory distress Cardiovascular: regular rate, rhythm, no edema Abdomen: non tender, soft Extremities: non-tender, no pedal edema Neurologic/Psychiatric: alert, + pertinent finding (answering questions with short sentences but difficult to understand, opens eyes to name but no other eye contact) Skin: normal color, warm/dry Laboratory Results Last 24 Hours Test 05/16/17 11:15 05/16/17 16:31 05/16/17 20:53 05/17/17 07:39 Bedside Glucose 115 mg/dl 113 mg/dl 117 mg/dl 115 mg/dl Assessment and Plan 86 M w seizure at admission with concern for ongoing seizures - on top of baseline age related memory changes seizures-no further tonic clonic seizures. keppra increased to 750mg bid -, short lived episodes are tolerated concern keppra may be accumulating and may consider modest dose reduction if not other causes are found for lethargy encephalopathy - presumably metabolic from seizures and hospital environment, repeat ua neg x2 with neg cx x2, repeat cx is pending CBC, PRP, Mg, keppra levels pending Will discuss with neuro once able to discuss with son if other labs are neg keppra is a reference lab, sent 05/17 MRA noted for L ICA stenosis--severe Will need f/u with vasc surg once more acute issues stabilized acidosis - resolved. HTN/CAD/ AFIB - controlled isosorbide, metoprolol diltiazem. no systemic anticoagulation at this time given h/o SAH, falls, etc. Trop on admission likely due to myocardial demand ischemia in setting of acute renal failure. chronic diastolic CHF - compensated acute renal failure in setting of CKD stage 4 - creatinine baseline. FEN - since still eating poorly, maybe due to functional decline. lethargy also impacts oral intake dysphagia - appreciate speech consultation. Modified diet ordered (nectar thick liquids with pureed). DVT proph - heparin BID. T2DM - controlled. h/o SAH h/o intra-cerebral aneurysm s/p coil. CT head w/o ICH. leukocytosis initially due to seizure activity at presentation anticipate SNF placement once able to be arranged Attempted to contact Jose amanda to determine pt's current baseline since admission-LMOM
[2017-05-17] MEDS: HydrALAZINE HCL 20 MG/ML VIAL IV. PRN (11:30)
[2017-05-17 12:04] LABS: HEMATOCRIT 45.9 % (42-52); MEAN CELL VOLUME 98.9 fL (80-100); MEAN CORPUSCULAR HEMOGLOBIN 32.3 pg (25-34); MEAN CORPUSCULAR HGB CONC 32.7 g/dl (32-36); MEAN PLATELET VOLUME 10.8 fL (7.4-10.4); PLATELET COUNT 286 K/uL (130-400); RED CELL DISTRIBUTION WIDTH CV 15.1 % (11.5-14.5); RED CELL DISTRIBUTION WIDTH SD 54.4 fL (36.4-46.3); WHITE BLOOD COUNT 8.25 K/uL (4.8-10.8)
[2017-05-17 12:45] LABS: CALCIUM 8.2 mg/dl (8.5-10.1); CREATININE 1.6 mg/dl (0.60-1.40); POTASSIUM 4.8 mmol/L (3.5-5.1)
[2017-05-17] MEDS ORDERED: LEVETIRACETAM IV 500 MG in DEXTROSE 5% 100ML 100 ML IV PRN (15:15)
[2017-05-17] MEDS ORDERED: MAGNESIUM SULFATE 1GM / D5W 1 GM in PREMIXED IN D5W 100 ML IV ONE (15:15)
[2017-05-18] VITALS (7 sets, daily range): BP systolic 126–195; BP diastolic 45–75; PULSE 57–73; TEMP 36.5–36.8; O2SAT 92–98
[2017-05-18] MEDS: ALBUTEROL HFA 8 GM INHALER INH SCH ×5 (05:24→20:00)
[2017-05-18] MEDS: METOPROLOL TARTRATE 50 MG TAB PO SCH ×2 (08:04→21:02)
[2017-05-18] MEDS: NYSTATIN SUSP 500,000 U/5 ML UDC PO SCH ×4 (08:04→21:01)
[2017-05-18] MEDS: INSULIN ASPART 100 UNITS/ML 3 ML PEN SC SCH ×4 (08:42→21:00)
[2017-05-18] MEDS: HEPARIN SOD 5000 UNIT/0.5 ML CARP SQ SCH ×2 (08:42→21:05)
[2017-05-18] MEDS: LEVETIRACETAM ORAL SOLN 100MG/ML PO SCH ×2 (08:44→21:00)
[2017-05-18] MEDS: POLYETHYLENE (MIRALAX) 17 GM PACK PO SCH ×2 (08:50→21:01)
[2017-05-18] MEDS: TAMSULOSIN HCL 0.4 MG CAP PO SCH (08:54)
[2017-05-18] MEDS: DILTIAZEM HCL 120 MG CAPCR PO SCH (08:54)
[2017-05-18] MEDS: ISOSORBIDE MONONITRATE 60 MG TABCR PO SCH (08:59)
--- NOTE | 2017-05-18 13:41 | DIAGNOSTIC IMAGING REPORT ---
VIDEO SWALLOW CLINICAL HISTORY: 86 years-old Male with r/o aspiration; please schedule per order. Cough with concern for aspiration TECHNIQUE: Video fluoroscopic evaluation of swallowing was performed in the AP and lateral projections by the speech pathology staff. The patient is fed nectar-thick and thin liquid barium, a barium coated wafer, and barium pudding. FLUOROSCOPY TIME: 2.2 minutes. COMPARISON STUDY: Chest radiograph 05/12/2017. FINDINGS: Aspiration was noted with thin liquids. Moderate amount of oral retention of the thick liquids is noted without aspiration or penetration. Oral retention is also noted with pudding consistency without aspiration or penetration. IMPRESSION: 1. Aspiration with thin liquids. 2. Please see the speech pathologist report for detailed findings and recommendations. Electronically signed by: Franky Yip M.D. 05/18/2017 1:40 PM Dictated Date/Time: 05/18/2017 1:38 PM
--- NOTE | 2017-05-18 16:35 | Progress Note ---
Subjective Date of Service: May 18, 2017. Subjective pt is much more awake today than the weekend still needing updates in OT to eval for rehab, I am concerned that he may not tolerate the rigors of rehab, will see what OT evaluation reveals Problem List Medical Problems: (1) Acute on chronic renal failure Status: Acute (2) Altered mental status Status: Acute (3) Bacteremia Status: Acute (4) CHF (congestive heart failure) Status: Acute (5) Confusion Status: Acute (6) Cough Status: Acute (7) DKA (diabetic ketoacidoses) Status: Acute (8) Generalized weakness Status: Acute (9) Hyperglycemia Status: Acute (10) Influenza Status: Acute (11) Seizure Status: Acute Review of Systems Constitutional: + weakness, + fatigue Respiratory: No cough, No shortness of breath, No dyspnea on exertion Cardiac: No chest pain, No edema Abdomen: No pain, No nausea Musculoskeletal: + joint pain, No muscle pain Neurologic: + memory loss, + weakness Objective Vital Signs Date Time Temp Pulse Resp B/P (MAP) Pulse Ox O2 Delivery O2 Flow Rate FiO2 05/18/17 16:00 Room Air 05/18/17 15:12 36.8 62 18 157/67 (97) 96 Room Air 05/18/17 12:30 Room Air 05/18/17 11:36 36.8 66 16 126/62 (83) 98 Room Air 05/18/17 08:00 Room Air 05/18/17 07:35 36.5 73 18 191/45 (93) 97 Room Air 05/18/17 04:00 Room Air 05/18/17 03:57 36.6 73 18 195/66 (109) 92 Room Air 05/18/17 00:17 36.7 64 18 157/75 (102) 98 Room Air 05/18/17 00:00 Room Air 05/17/17 20:23 36.3 90 24 154/53 (86) 96 Room Air 05/17/17 20:00 97 Room Air Physical Exam General Appearance: WD/WN, + mild distress Eyes: PERRL, EOMI Respiratory/Chest: chest non-tender, lungs clear, normal breath sounds Cardiovascular: regular rate, rhythm, + systolic murmur Abdomen: normal bowel sounds, non tender, soft Neurologic/Psychiatric: alert, + depressed affect, + disoriented Laboratory Results Last 24 Hours Test 05/17/17 20:41 05/18/17 05:51 05/18/17 07:19 05/18/17 11:28 Bedside Glucose 136 mg/dl 146 mg/dl 173 mg/dl Magnesium Level 1.8 mg/dl Assessment and Plan 86 M w seizure at admission with concern for ongoing seizures - on top of baseline age related memory changes seizures-no further tonic clonic seizures. keppra increased to 750mg bid -, short lived episodes are tolerated concern if keppra , level pending as is send out test, encephalopathy - presumably metabolic from seizures and hospital environment, repeat ua at this point,repeat ua shows no uti acidosis - resolved. HTN/CAD/ AFIB - BP still very elevated at times, isosorbide, adjusting [id number], diltiazem increased 05/18. no systemic anticoagulation at this time given h/o SAH, falls, etc. the troponin at admission was likely due to myocardial demand ischemia in setting of acute renal failure. chronic diastolic CHF - compensated acute renal failure in setting of CKD stage 4 - creatinine baseline. dysphagia - appreciate speech consultation. Modified diet ordered (nectar thick liquids with pureed) post discharge speech follow up DVT proph - heparin BID. T2DM - controlled. h/o SAH h/o intra-cerebral aneurysm s/p coil. CT head w/o ICH. leukocytosis initally due to seizure activity at presentation anticipate SNF placement once able to be arranged
[2017-05-19] VITALS (11 sets, daily range): BP systolic 128–184; BP diastolic 55–74; PULSE 52–69; TEMP 36.3–36.8; O2SAT 93–100
[2017-05-19] MEDS: ALBUTEROL HFA 8 GM INHALER INH SCH ×7 (04:00→23:27)
[2017-05-19] MEDS: INSULIN ASPART 100 UNITS/ML 3 ML PEN SC SCH ×4 (06:30→20:46)
[2017-05-19 08:24] LABS: BASO % 0.1 %; BASO ABS # 0.01 K/uL (0-0.2); EOS % 0.6 %; EOS ABS # 0.05 K/uL (0-0.5); HEMATOCRIT 41.5 % (42-52); HEMOGLOBIN 13.2 g/dL (14.0-18.0); IG# 0.02 K/uL (0.00-0.02); LYMPH % 9.2 %; LYMPH ABS # 0.75 K/uL (1.2-3.4); MEAN CELL VOLUME 98.6 fL (80-100); MEAN CORPUSCULAR HEMOGLOBIN 31.4 pg (25-34); MEAN CORPUSCULAR HGB CONC 31.8 g/dl (32-36); MONO % 7.3 %; MONO ABS # 0.59 K/uL (0.11-0.59); NEUT % 82.6 %; NEUT ABS # 6.71 K/uL (1.4-6.5); PLATELET COUNT 264 K/uL (130-400); RED CELL DISTRIBUTION WIDTH CV 15.3 % (11.5-14.5); RED CELL DISTRIBUTION WIDTH SD 54.8 fL (36.4-46.3); WHITE BLOOD COUNT 8.13 K/uL (4.8-10.8)
[2017-05-19] MEDS: METOPROLOL TARTRATE 50 MG TAB PO SCH ×2 (08:41→20:37)
[2017-05-19] MEDS: NYSTATIN SUSP 500,000 U/5 ML UDC PO SCH ×4 (08:41→20:38)
[2017-05-19] MEDS: DILTIAZEM HCL 180 MG CAPCR PO SCH (08:41)
[2017-05-19] MEDS: TAMSULOSIN HCL 0.4 MG CAP PO SCH (08:41)
[2017-05-19] MEDS: POLYETHYLENE (MIRALAX) 17 GM PACK PO SCH ×2 (08:41→20:37)
[2017-05-19] MEDS: ISOSORBIDE MONONITRATE 60 MG TABCR PO SCH (08:41)
[2017-05-19] MEDS: LEVETIRACETAM ORAL SOLN 100MG/ML PO SCH (08:48)
[2017-05-19] MEDS: HydrALAZINE HCL 20 MG/ML VIAL IV. PRN (08:49)
[2017-05-19 08:51] LABS: CALCIUM 8.1 mg/dl (8.5-10.1); CREATININE 1.56 mg/dl (0.60-1.40); POTASSIUM 4.5 mmol/L (3.5-5.1)
[2017-05-19] MEDS: HEPARIN SOD 5000 UNIT/0.5 ML CARP SQ SCH ×2 (08:53→20:45)
[2017-05-19] MEDS ORDERED: LEVETIRACETAM IV 250 MG in DEXTROSE 5% 100ML 100 ML IV PRN (17:00)
--- NOTE | 2017-05-19 17:00 | Progress Note ---
Subjective Date of Service: May 19, 2017. Subjective this pt is somewhat more alert but is still quiet and sleepy. the pt is accompanied by his son who is feeding him. The pt states he has pain all over. he cannot be more specific. Problem List Medical Problems: (1) Acute on chronic renal failure Status: Acute (2) Altered mental status Status: Acute (3) Bacteremia Status: Acute (4) CHF (congestive heart failure) Status: Acute (5) Confusion Status: Acute (6) Cough Status: Acute (7) DKA (diabetic ketoacidoses) Status: Acute (8) Generalized weakness Status: Acute (9) Hyperglycemia Status: Acute (10) Influenza Status: Acute (11) Seizure Status: Acute Review of Systems Constitutional: No fever, No chills, No weakness, No fatigue ( ) Respiratory: No cough, No sputum, No wheezing Cardiac: No chest pain, No orthopnea, No PND Abdomen: No pain, No nausea, No vomiting Neurologic: No memory loss, No paralysis Psychiatric: No depression symptoms, No anhedonism Objective Vital Signs Date Time Temp Pulse Resp B/P (MAP) Pulse Ox O2 Delivery O2 Flow Rate FiO2 05/19/17 15:09 36.3 60 18 166/74 (104) 98 Room Air 05/19/17 12:17 36.3 59 16 148/55 (86) 100 Room Air 05/19/17 12:00 Room Air 05/19/17 10:27 58 128/58 (81) 05/19/17 08:00 Room Air 05/19/17 07:16 36.3 54 17 184/61 (102) 96 Room Air 05/19/17 04:20 36.8 52 18 146/65 (92) 94 Room Air 05/19/17 04:00 96 Room Air 05/19/17 00:00 96 Room Air 05/18/17 22:55 36.6 58 18 149/71 (97) 96 Room Air 05/18/17 20:00 Room Air 05/18/17 19:33 36.6 57 18 145/75 (98) 93 Room Air Physical Exam General Appearance: WD/WN, + mild distress Eyes: normal inspection, sclerae normal Neck: supple, no JVD Respiratory/Chest: chest non-tender, lungs clear, normal breath sounds Cardiovascular: regular rate, rhythm, no murmur Abdomen: normal bowel sounds, non tender, soft Extremities: no pedal edema, no calf tenderness Neurologic/Psychiatric: alert, oriented x 3 Skin: normal color, warm/dry, no rash Laboratory Results Last 24 Hours Test 05/18/17 20:10 05/19/17 07:41 05/19/17 08:04 05/19/17 11:32 Bedside Glucose 157 mg/dl 132 mg/dl 161 mg/dl White Blood Count 8.13 K/uL Red Blood Count 4.21 M/uL Hemoglobin 13.2 g/dL Hematocrit 41.5 % Mean Corpuscular Volume 98.6 fL Mean Corpuscular Hemoglobin 31.4 pg Mean Corpuscular Hemoglobin Concent 31.8 g/dl Platelet Count 264 K/uL Mean Platelet Volume 11.0 fL Neutrophils (%) (Auto) 82.6 % Lymphocytes (%) (Auto) 9.2 % Monocytes (%) (Auto) 7.3 % Eosinophils (%) (Auto) 0.6 % Basophils (%) (Auto) 0.1 % Neutrophils # (Auto) 6.71 K/uL Lymphocytes # (Auto) 0.75 K/uL Monocytes # (Auto) 0.59 K/uL Eosinophils # (Auto) 0.05 K/uL Basophils # (Auto) 0.01 K/uL RDW Standard Deviation 54.8 fL RDW Coefficient of Variation 15.3 % Immature Granulocyte % (Auto) 0.2 % Immature Granulocyte # (Auto) 0.02 K/uL Sodium Level 144 mmol/L Potassium Level 4.5 mmol/L Chloride Level 115 mmol/L Carbon Dioxide Level 20 mmol/L Anion Gap 9.0 mmol/L Blood Urea Nitrogen 29 mg/dl Creatinine 1.56 mg/dl Est Creatinine Clear Calc Drug Dose 28.0 ml/min Estimated GFR () 45.6 Estimated GFR (Non- 39.4 BUN/Creatinine Ratio 18.7 Random Glucose 153 mg/dl Calcium Level 8.1 mg/dl Test 05/19/17 16:22 Bedside Glucose 136 mg/dl Assessment and Plan 86 M w seizure at admission with concern for ongoing seizures - on top of baseline age related memory changes and encephalopathy seizures-no further tonic clonic seizures. keppra level are higher than expected for dosing will reduce keppra dosing and ask for some neurology input, wonder if keppra is making pt sleepy and lethargic encephalopathy - , repeat ua shows no uti, wonder if toxic from keppra acidosis - resolved. HTN/CAD/ AFIB - BP still not controlled but better after changes, isosorbide , adjusting [id number], diltiazem increased 05/18. no systemic anticoagulation at this time given h/o SAH, falls, etc. the troponin at admission was likely due to myocardial demand ischemia in setting of acute renal failure. chronic diastolic CHF - remains compensated acute renal failure in setting of CKD stage 4 - creatinine remains at baseline. dysphagia - appreciate speech consultation. tolerating Modified diet ordered ( nectar thick liquids with pureed) post discharge speech follow up DVT proph - heparin BID. T2DM -remains controlled. h/o SAH h/o intra-cerebral aneurysm s/p coil. CT head w/o ICH. leukocytosis initally due to seizure activity at presentation anticipate SNF placement once able to be arranged
[2017-05-19] MEDS: LEVETIRACETAM SOLN 250 MG/2.5 ML UDP PO SCH (20:36)
[2017-05-19] MEDS ORDERED: FLUCONAZOLE / NSS 200 MG in PREMIXED NSS 100 ML IV ONE (23:30)
[2017-05-20] VITALS (7 sets, daily range): BP systolic 148–209; BP diastolic 56–92; PULSE 53–69; TEMP 36.4–36.8; O2SAT 95–98
[2017-05-20] MEDS: HydrALAZINE HCL 20 MG/ML VIAL IV. PRN (03:34)
[2017-05-20] MEDS: ALBUTEROL HFA 8 GM INHALER INH SCH ×6 (04:00→23:36)
[2017-05-20] MEDS: INSULIN ASPART 100 UNITS/ML 3 ML PEN SC SCH ×4 (08:04→20:33)
[2017-05-20] MEDS: POLYETHYLENE (MIRALAX) 17 GM PACK PO SCH ×2 (08:05→20:25)
[2017-05-20] MEDS: DILTIAZEM HCL 180 MG CAPCR PO SCH (08:06)
[2017-05-20] MEDS: ISOSORBIDE MONONITRATE 60 MG TABCR PO SCH (08:06)
[2017-05-20] MEDS: LEVETIRACETAM SOLN 250 MG/2.5 ML UDP PO SCH ×2 (08:07→20:25)
[2017-05-20] MEDS: METOPROLOL TARTRATE 50 MG TAB PO SCH ×2 (08:07→20:25)
[2017-05-20] MEDS: NYSTATIN SUSP 500,000 U/5 ML UDC PO SCH ×4 (08:08→20:25)
[2017-05-20] MEDS: BOOST VANILLA PUDDING CUP PO SCH ×3 (08:08→16:56)
[2017-05-20] MEDS: TAMSULOSIN HCL 0.4 MG CAP PO SCH (08:09)
[2017-05-20] MEDS: HEPARIN SOD 5000 UNIT/0.5 ML CARP SQ SCH (08:10)
[2017-05-20] MEDS: HydrALAZINE 10 MG TAB PO SCH ×2 (16:55→20:26)
--- NOTE | 2017-05-20 19:25 | Progress Note ---
Subjective Date of Service: May 20, 2017. Subjective Pt evaluation today including: conversation w/ patient (minimal ), physical exam, chart review, lab review, conversation w/ [employer] consultant (neurology by phone) Pain: denies any area of pain PO Intake: 100% of breakfast Voiding: incontinence staff report he ate 100% of breakfast, then went back to sleep he thinks he is at home in [place] can't tell me the year or month we are in during the exam he was falling asleep easily no obvious seizure activity staff report similar behavior with sleeping long periods of time no fever Problem List Medical Problems: (1) Acute on chronic renal failure Status: Acute (2) Altered mental status Status: Acute (3) Bacteremia Status: Acute (4) CHF (congestive heart failure) Status: Acute (5) Confusion Status: Acute (6) Cough Status: Acute (7) DKA (diabetic ketoacidoses) Status: Acute (8) Generalized weakness Status: Acute (9) Hyperglycemia Status: Acute (10) Influenza Status: Acute (11) Seizure Status: Acute Review of Systems Respiratory: No shortness of breath Cardiac: No chest pain Abdomen: No pain Objective Vital Signs Date Time Temp Pulse Resp B/P (MAP) Pulse Ox O2 Delivery O2 Flow Rate FiO2 05/20/17 15:54 Room Air 05/20/17 14:58 36.4 54 18 185/71 (109) 97 05/20/17 12:00 Room Air 05/20/17 11:59 36.4 53 18 157/56 (89) 98 Room Air 05/20/17 08:00 Room Air 05/20/17 07:37 36.8 65 18 150/76 (100) 96 Room Air 05/20/17 05:45 175/62 (99) 05/20/17 04:09 36.8 69 18 209/68 (115) 97 Room Air 05/20/17 04:05 Room Air 05/20/17 00:10 Room Air 05/19/17 23:11 36.6 59 18 168/60 (96) 93 Room Air 05/19/17 20:00 98 Room Air 05/19/17 19:37 36.4 69 18 179/64 (102) 98 Room Air Physical Exam General Appearance: no apparent distress, + thin ENT: + pertinent finding (MM dry) Neck: no JVD Respiratory/Chest: lungs clear, no respiratory distress, no accessory muscle use Cardiovascular: regular rate, rhythm, no gallop, no murmur Abdomen: normal bowel sounds, non tender, soft, no organomegaly Extremities: no pedal edema Neurologic/Psychiatric: + pertinent finding (very sleepy; strength 5/5 x 4 exts ; no facial droop) Laboratory Results Last 24 Hours Test 05/19/17 20:06 05/20/17 06:59 05/20/17 11:30 05/20/17 16:39 Bedside Glucose 120 mg/dl 134 mg/dl 132 mg/dl 132 mg/dl Assessment and Plan 86yo male - 1. seizure at admission with concern for recurrent seizures - s/p IV keppra following admission. Had prolonged post-ictal state/encephalopathy following his first suspected seizure. Then, mid last week, had multiple episodes of eye deviation/staring concerning for brief seizures. At that time his keppra was increased to 750mg BID. EEG w/o seizure focus, however. During the last few days he has had significant lethargy/altered MS - keppra toxicity was suspected and the dose was lowered. Despite such he continues to be sleepy. Spoke with Dr. Fall who will see him in the AM for additional recommendations. Consider repeat MRI brain, repeat EEG, LP, etc. 2. encephalopathy - presumably metabolic from #1 above. Ammonia, TSH, B12, VBG, MRI -- all normal/negative. No evidence of any infectious process. Check vitamin B1, lyme's, sed rate, RPR to be complete. See #1 for additional information. 3. acidosis - resolved. Uncertain cause. 4. HTN - still uncontrolled despite imdur, flomax, cardizem and metoprolol. Added low-dose hydralazine. Consider renal artery dopplers to exclude RODERICK. 5. acute renal failure in setting of CKD stage 4 - creatinine improved and now at baseline. 6. FEN - BMP stable, eating well despite #1, #2. 7. dysphagia - appreciate speech consultation. Modified diet (nectar thick liquids with pureed). 8. DVT proph - heparin BID. 9. PAF - no systemic anticoagulation at this time given h/o SAH, falls, etc. 10. T2DM - controlled. 11. CAD - the troponin at admission was likely due to myocardial demand ischemia in setting of acute renal failure. Follow. 12. h/o SAH - noted. CT head and MRI brain w/o ICH. 13. h/o intra-cerebral aneurysm s/p coil - noted. 14. chronic diastolic CHF - compensated. dispo = SNF placement, but patient's mental status not at baseline and he is not appropriate for d/c at this time Continued [facility] stay due to: other (ongoing encephalopathy) [facility] planning[facility]
[2017-05-20] MEDS ORDERED: FLUCONAZOLE / NSS 200 MG in PREMIXED NSS 100 ML IV SCH (23:00)
[2017-05-21] VITALS (7 sets, daily range): BP systolic 111–187; BP diastolic 52–68; PULSE 52–70; TEMP 36.2–36.7; O2SAT 95–97
[2017-05-21] MEDS: ALBUTEROL HFA 8 GM INHALER INH SCH ×5 (03:33→20:56)
[2017-05-21] MEDS: HydrALAZINE HCL 20 MG/ML VIAL IV. PRN (03:41)
[2017-05-21 05:43] LABS: HEMATOCRIT 43.2 % (42-52); HEMOGLOBIN 13.6 g/dL (14.0-18.0); MEAN CELL VOLUME 99.3 fL (80-100); MEAN CORPUSCULAR HEMOGLOBIN 31.3 pg (25-34); MEAN CORPUSCULAR HGB CONC 31.5 g/dl (32-36); MEAN PLATELET VOLUME 10.9 fL (7.4-10.4); PLATELET COUNT 262 K/uL (130-400); RED CELL DISTRIBUTION WIDTH CV 15.3 % (11.5-14.5); RED CELL DISTRIBUTION WIDTH SD 55.8 fL (36.4-46.3); WHITE BLOOD COUNT 7.85 K/uL (4.8-10.8)
[2017-05-21 06:22] LABS: CREATININE 1.54 mg/dl (0.60-1.40); POTASSIUM 4.2 mmol/L (3.5-5.1)
[2017-05-21] MEDS: HydrALAZINE 10 MG TAB PO SCH ×3 (07:56→20:54)
[2017-05-21] MEDS: ISOSORBIDE MONONITRATE 60 MG TABCR PO SCH (07:57)
[2017-05-21] MEDS: NYSTATIN SUSP 500,000 U/5 ML UDC PO SCH ×4 (07:57→20:53)
[2017-05-21] MEDS: DILTIAZEM HCL 180 MG CAPCR PO SCH (07:57)
[2017-05-21] MEDS: METOPROLOL TARTRATE 50 MG TAB PO SCH ×2 (07:57→20:55)
[2017-05-21] MEDS: TAMSULOSIN HCL 0.4 MG CAP PO SCH (07:57)
[2017-05-21] MEDS: LEVETIRACETAM SOLN 250 MG/2.5 ML UDP PO SCH (07:58)
[2017-05-21] MEDS: BOOST VANILLA PUDDING CUP PO SCH ×3 (08:00→17:00)
[2017-05-21] MEDS: INSULIN ASPART 100 UNITS/ML 3 ML PEN SC SCH ×4 (08:06→20:54)
--- NOTE | 2017-05-21 10:10 | Neurology Progress Notes ---
Neurology Progress Note Date of Service May 21, 2017. Subjective Follow-up for encephalopathy The patient is an 86-year-old male who presented to the [facility] on May 08 with confusion and possible seizures. He been observed to exhibit involuntary arm movements as if he was reaching for things with some associated stiffness and flexor posturing of the upper limbs. A possible tonic-clonic seizure was observed in the emergency department as well. On May 12 he apparently had an episode of left gaze preference in the context of lethargy which has been waxing and waning throughout his hospitalization. The event was potentially concerning for focal seizures and his dosage of Keppra was increased at that time. Unfortunately, the patient has continued to exhibit confusion and it was felt that his anticonvulsant may be contributing to the situation. The Keppra was subsequently reduced to 250 mg twice daily several days ago. He continues to exhibit episodic confusion. I discussed his case with Dr. Melton last night. Recently, the patient has been observed to awaken fairly easily. He has been able to eat his meals without assistance. He did exhibit some disorientation last night. Currently, the patient is sitting up in bed comfortably, he is in no acute distress. He does not have any specific complaints at this time. He has just eaten breakfast. See examination below for further details. Electroencephalogram completed May 11 revealed generalized slowing suggestive of a moderate encephalopathy. No epileptiform abnormalities were observed. A brain MRI completed May 08 revealed a moderate degree of periventricular and subcortical chronic small vessel ischemic disease as well as a few old lacunar infarcts, a chronic right frontal lobe infarct, and generalized atrophy. I reviewed the images as well as the radiologist's interpretation of this test. Objective Date Time Temp Pulse Resp B/P (MAP) Pulse Ox O2 Delivery O2 Flow Rate FiO2 05/21/17 08:00 Room Air 05/21/17 07:55 36.4 62 18 148/52 (84) 97 Room Air 05/21/17 06:03 52 18 145/67 (93) 97 Room Air 05/21/17 04:15 Room Air 05/21/17 03:34 54 18 187/68 (107) 95 Room Air 05/21/17 00:34 54 171/58 (95) 05/21/17 00:15 Room Air 05/20/17 23:35 36.6 55 17 179/65 (103) 95 Room Air 05/20/17 20:00 Room Air 05/20/17 19:23 36.4 59 18 148/92 (110) 97 Room Air 05/20/17 15:54 Room Air 05/20/17 14:58 36.4 54 18 185/71 (109) 97 05/20/17 12:00 Room Air 05/20/17 11:59 36.4 53 18 157/56 (89) 98 Room Air Last 24 Hours Test 05/20/17 11:30 05/20/17 16:39 05/20/17 20:15 05/21/17 05:33 Bedside Glucose 132 mg/dl 132 mg/dl 190 mg/dl White Blood Count 7.85 K/uL Red Blood Count 4.35 M/uL Hemoglobin 13.6 g/dL Hematocrit 43.2 % Mean Corpuscular Volume 99.3 fL Mean Corpuscular Hemoglobin 31.3 pg Mean Corpuscular Hemoglobin Concent 31.5 g/dl RDW Standard Deviation 55.8 fL RDW Coefficient of Variation 15.3 % Platelet Count 262 K/uL Mean Platelet Volume 10.9 fL Erythrocyte Sedimentation Rate 4 mm/hr Sodium Level 144 mmol/L Potassium Level 4.2 mmol/L Chloride Level 114 mmol/L Carbon Dioxide Level 23 mmol/L Anion Gap 7.0 mmol/L Blood Urea Nitrogen 30 mg/dl Creatinine 1.54 mg/dl Est Creatinine Clear Calc Drug Dose 27.8 ml/min Estimated GFR () 46.3 Estimated GFR (Non- 40.0 BUN/Creatinine Ratio 19.5 Random Glucose 154 mg/dl Calcium Level 8.0 mg/dl Lyme Disease IgG Antibody NEG Lyme Disease IgM Antibody NEG Test 05/21/17 07:45 Bedside Glucose 132 mg/dl Exam: The patient is a well-developed elderly male. He is sitting up comfortably in bed and has just eaten breakfast. He is not agitated. The patient is alert and oriented to person, place, day of the week, month, hospital, and year. He exhibits normal attention and concentration as well as a normal spontaneous speech pattern. Vocabulary comprehension normal. Visual mathew full to confrontation. Visual acuity normal. Peoples equal round reactive to light and accommodation. Eye movements normal. There is no facial droop. Hearing intact to finger rub bilaterally. Palate elevates to midline. Shoulder shrug strength intact bilaterally. Tongue protrudes to midline. There is no pronator drift. There is no dysmetria or ataxia with finger to nose bilaterally. There is a mild bilateral upper extremity action tremor. Muscle tone normal. No abnormal posturing of the limbs. Current Inpatient Medications Medications (Trade) Dose Ordered Sig/Joselito Route Start Time Stop Time Status Last Admin Dose Admin Ondansetron HCl (Zofran Inj) 4 mg Q6H PRN IV 05/08/17 07:30 06/07/17 07:29 Nitroglycerin (Nitrostat Tab) 0.4 mg UD PRN SL 05/08/17 07:30 06/07/17 07:29 Lorazepam (Ativan Inj) 1 mg ONE PRN IV 05/08/17 07:30 06/07/17 07:29 Albuterol (Ventolin Hfa Inhaler) 2 puffs Q4 INH 05/08/17 08:00 06/07/17 07:59 05/21/17 07:59 2 PUFFS Glucose (Glucose 40% Gel) 15-30 GRAMS 15 GRAMS... UD PRN PO 05/08/17 10:00 06/07/17 09:59 Glucose (Glucose Chew Tab) 4-8 Tablets 4 Tabl... UD PRN PO 05/08/17 10:00 06/07/17 09:59 Dextrose (Dextrose 50% 50ML Syringe) 25-50ML OF 50% DW IV FOR... UD PRN IV 05/08/17 10:00 06/07/17 09:59 Glucagon (Glucagon Inj) 1 mg UD PRN SQ 05/08/17 10:00 06/07/17 09:59 Heparin Sodium (Porcine) (Heparin Sq 5000 Unit/0.5ml) 5,000 unit Q12 SQ 05/08/17 21:00 06/07/17 20:59 Future Hold 05/20/17 08:10 5,000 UNIT Insulin Aspart (novoLOG ASPART) SLIDING SCALE If C... ACHS SC 05/11/17 06:30 06/10/17 06:29 05/21/17 08:06 6 UNITS Tamsulosin HCl (Flomax Cap) 0.4 mg QAM PO 05/12/17 09:00 06/11/17 08:59 05/21/17 07:57 0.4 MG Isosorbide Mononitrate (Imdur Ext Rel Tab) 60 mg QAM PO 05/12/17 09:00 06/11/17 08:59 05/21/17 07:57 60 MG Polyethylene (Miralax Powder Packet) 17 gm BID PO 05/11/17 21:00 06/10/17 20:59 05/20/17 20:25 17 GM Nystatin (Mycostatin Susp) 5 ml QID PO 05/13/17 21:00 05/23/17 20:59 05/21/17 07:57 5 ML Hydralazine HCl (HydrALAZINE INJ) 10 mg Q6H PRN IV. 05/15/17 02:00 06/14/17 01:59 05/21/17 03:41 10 MG Metoprolol Tartrate (Lopressor Tab) 100 mg BID PO 05/16/17 09:00 06/10/17 20:59 05/21/17 07:57 100 MG Diltiazem HCl (Cardizem Cd Cap) 180 mg QAM PO 05/19/17 09:00 06/10/17 12:14 05/21/17 07:57 180 MG Levetiracetam 250 mg/Dextrose 102.5 ml @ 420 mls/hr PRN PRN IV 05/19/17 17:00 06/16/17 15:14 Levetiracetam (Keppra Soln) 250 mg BID PO 05/19/17 21:00 06/11/17 20:59 05/21/17 07:58 250 MG Enteral Nutritional Formula (Boost Pudding) 1 cup TIDM PO 05/20/17 08:00 06/19/17 07:59 05/20/17 16:56 1 CUP Hydralazine HCl (Apresoline Tab) 10 mg TID PO 05/20/17 16:30 06/19/17 16:29 05/21/17 07:56 10 MG Impression This is an 86-year-old male who presented to the emergency department on May 08 with confusion and abnormal movements/behavior potentially concerning for seizure activity. Epileptiform abnormalities were not observed on EEG. A brain MRI was negative for acute process although did reveal rather significant, chronic, cerebrovascular disease, evidence of old stroke, and generalized atrophy. This patient has exhibited some fluctuation in his mental status throughout his hospitalization. Currently, however, appears to be appropriate and does not seem to be very confused or encephalopathic. I suspect this patient has a mild to perhaps moderate dementia at baseline and he has been experiencing some episodic delirium in the context of his prolonged hospitalization. Furthermore, I'm unable to exclude the possibility that the Keppra has been having a negative effect on his cognition and behavior. Plan Discontinue Keppra I would recommend Dilantin 100 mg twice a day as an alternative anticonvulsant at this time. His phenytoin level need to be checked in 5 days Please contact me if I may be of further assistance
[2017-05-21] MEDS: POLYETHYLENE (MIRALAX) 17 GM PACK PO SCH ×2 (13:13→20:53)
[2017-05-21] MEDS: PHENYTOIN SODIUM ER 100 MG CAP PO SCH (20:55)
--- NOTE | 2017-05-21 21:27 | Progress Note ---
Subjective Date of Service: May 21, 2017. Subjective Pt evaluation today including: conversation w/ patient, conversation w/ family (son by phone), physical exam, chart review, lab review, review of inpatient medication list Pain: low back PO Intake: improved per staff Voiding: incontinence patient able to feed himself breakfast today also knew he was in the hospital and that it was 2017 despite being better oriented he fell asleep 2-3x's during the visit no obvious seizure activity still requiring considerable assistance to get out of bed Problem List Medical Problems: (1) Acute on chronic renal failure Status: Acute (2) Altered mental status Status: Acute (3) Bacteremia Status: Acute (4) CHF (congestive heart failure) Status: Acute (5) Confusion Status: Acute (6) Cough Status: Acute (7) DKA (diabetic ketoacidoses) Status: Acute (8) Generalized weakness Status: Acute (9) Hyperglycemia Status: Acute (10) Influenza Status: Acute (11) Seizure Status: Acute Review of Systems Constitutional: No fever Respiratory: No cough, No shortness of breath Cardiac: No chest pain Abdomen: No pain Objective Vital Signs Date Time Temp Pulse Resp B/P (MAP) Pulse Ox O2 Delivery O2 Flow Rate FiO2 05/21/17 19:52 36.7 67 16 159/64 (95) 96 Room Air 05/21/17 16:01 Room Air 05/21/17 15:25 36.2 63 20 138/63 (88) 96 05/21/17 12:15 Room Air 05/21/17 11:55 36.3 70 18 111/55 (73) 97 Room Air 05/21/17 08:00 Room Air 05/21/17 07:55 36.4 62 18 148/52 (84) 97 Room Air 05/21/17 06:03 52 18 145/67 (93) 97 Room Air 05/21/17 04:15 Room Air 05/21/17 03:34 54 18 187/68 (107) 95 Room Air 05/21/17 00:34 54 171/58 (95) 05/21/17 00:15 Room Air 05/20/17 23:35 36.6 55 17 179/65 (103) 95 Room Air Physical Exam General Appearance: no apparent distress, + pertinent finding (groggy/tired/ lethargic at times) ENT: pharynx normal Neck: no JVD Respiratory/Chest: lungs clear, no respiratory distress, no accessory muscle use Cardiovascular: no gallop, + systolic murmur (1/6 PIERCE LSB), + pertinent finding (irregular (extra beats)) Abdomen: normal bowel sounds, non tender, soft, no organomegaly Extremities: no pedal edema Neurologic/Psychiatric: no motor/sensory deficits Laboratory Results Last 24 Hours Test 05/21/17 05:33 05/21/17 07:45 05/21/17 11:28 05/21/17 16:07 White Blood Count 7.85 K/uL Red Blood Count 4.35 M/uL Hemoglobin 13.6 g/dL Hematocrit 43.2 % Mean Corpuscular Volume 99.3 fL Mean Corpuscular Hemoglobin 31.3 pg Mean Corpuscular Hemoglobin Concent 31.5 g/dl RDW Standard Deviation 55.8 fL RDW Coefficient of Variation 15.3 % Platelet Count 262 K/uL Mean Platelet Volume 10.9 fL Erythrocyte Sedimentation Rate 4 mm/hr Sodium Level 144 mmol/L Potassium Level 4.2 mmol/L Chloride Level 114 mmol/L Carbon Dioxide Level 23 mmol/L Anion Gap 7.0 mmol/L Blood Urea Nitrogen 30 mg/dl Creatinine 1.54 mg/dl Est Creatinine Clear Calc Drug Dose 27.8 ml/min Estimated GFR () 46.3 Estimated GFR (Non- 40.0 BUN/Creatinine Ratio 19.5 Random Glucose 154 mg/dl Calcium Level 8.0 mg/dl Lyme Disease IgG Antibody NEG Lyme Disease IgM Antibody NEG Bedside Glucose 132 mg/dl 138 mg/dl 83 mg/dl Test 05/21/17 20:33 Bedside Glucose 152 mg/dl Assessment and Plan 86yo male - 1. seizure at admission with concern for recurrent seizures - s/p IV keppra following admission. Had prolonged post-ictal state/encephalopathy following his first suspected seizure. Then, mid last week, had multiple episodes of eye deviation/staring concerning for brief seizures. At that time his keppra was increased to 750mg BID. EEG w/o seizure focus, however. During the last few days he has had significant lethargy/altered MS - keppra toxicity was suspected and the dose was lowered. Dr. Fall re-evaluated the patient today - believes keppra could be contributing to current mental status & lethargy. Recommends d/c of keppra; changing to dilantin. Follow. 2. encephalopathy - presumably metabolic from #1 above and/or toxic from keppra. Ammonia, TSH, B12, VBG, MRI -- all normal/negative. Lyme's negative. ESR 4. RPR pending. Vitamin B1 pending. No evidence of any infectious process. 3. acidosis - resolved. 4. HTN - control improving with imdur, flomax, cardizem, metoprolol and hydralazine. 5. 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 6. FEN - BMP stable, eating well despite #1, #2. 7. dysphagia - modified diet (nectar thick liquids with pureed). 8. DVT proph - heparin BID. Will resume tonight since no procedures (LP, etc) are planned. 9. PAF - no systemic anticoagulation at this time given h/o SAH, falls, etc. 10. T2DM - controlled. 11. CAD - the troponin at admission was likely due to myocardial demand ischemia in setting of acute renal failure. Follow. 12. h/o SAH - noted. CT head and MRI brain w/o ICH. 13. h/o intra-cerebral aneurysm s/p coil - noted. 14. chronic diastolic CHF - compensated. dispo = SNF placement, but patient's mental status not at baseline and he is not appropriate for d/c at this time spoke with son, gave broad update he feels that his father is gradually improving but understands that he remains intermittently lethargic, [facility] [place] but will be back on Wednesday cautiously optimistic mental status will improve this weekend Continued [facility] stay due to: other (ongoing encephalopathy) Discharge planning: intermediate facility
[2017-05-22 00:04] VITALS: BP 172/70; PULSE 61; TEMP 36.8; O2SAT 98
[2017-05-22] MEDS: ALBUTEROL HFA 8 GM INHALER INH SCH ×6 (00:08→19:54)
[2017-05-22] MEDS: POLYETHYLENE (MIRALAX) 17 GM PACK PO SCH ×2 (07:46→19:55)
[2017-05-22] MEDS: NYSTATIN SUSP 500,000 U/5 ML UDC PO SCH ×4 (07:46→19:54)
[2017-05-22] MEDS: ISOSORBIDE MONONITRATE 60 MG TABCR PO SCH (07:47)
[2017-05-22] MEDS: TAMSULOSIN HCL 0.4 MG CAP PO SCH (07:47)
[2017-05-22] MEDS: METOPROLOL TARTRATE 50 MG TAB PO SCH (07:48)
[2017-05-22] MEDS: PHENYTOIN SODIUM ER 100 MG CAP PO SCH ×2 (07:48→19:55)
[2017-05-22] MEDS: HydrALAZINE 10 MG TAB PO SCH ×2 (07:49→12:56)
[2017-05-22] MEDS: DILTIAZEM HCL 180 MG CAPCR PO SCH (07:49)
[2017-05-22] MEDS: INSULIN ASPART 100 UNITS/ML 3 ML PEN SC SCH ×4 (08:09→21:00)
[2017-05-22] MEDS: HEPARIN SOD 5000 UNIT/0.5 ML CARP SQ SCH ×2 (08:10→21:09)
[2017-05-22 08:23] VITALS: BP 169/50; PULSE 91; TEMP 36.5; O2SAT 94
[2017-05-22 11:15] VITALS: BP 122/63; PULSE 59; TEMP 36.5; O2SAT 97
[2017-05-22] MEDS: SENNA 8.6 MG TAB PO SCH (12:52)
[2017-05-22] MEDS: BOOST VANILLA PUDDING CUP PO SCH ×3 (12:56→16:27)
[2017-05-22 15:07] LABS: CALCIUM 7.6 mg/dl (8.5-10.1); CREATININE 2.01 mg/dl (0.60-1.40); POTASSIUM 4.4 mmol/L (3.5-5.1)
[2017-05-22] MEDS ORDERED: MAGNESIUM SULFATE 1GM / D5W 1 GM in PREMIXED IN D5W 100 ML IV ONE (15:30)
[2017-05-22 16:00] VITALS: BP 127/55; PULSE 62; TEMP 36.1; O2SAT 97
[2017-05-22] MEDS: SODIUM CHLORIDE 0.9% 1000ML 1,000 ML IV SCH (16:26)
--- NOTE | 2017-05-22 17:25 | DIAGNOSTIC IMAGING REPORT ---
BRAIN WITHOUT CONTRAST HISTORY: 86 years-old Male ongoing delirium, h/o strokes; eval for acute stroke acute strokelike symptoms with delirium COMPARISON: CT head 05/12/2017, brain MR of 05/08/2017 TECHNIQUE: Multiplanar multisequence MRI the brain was obtained without contrast. FINDINGS: Large field view scout sniper localizer images demonstrate no acute abnormality. There are several scattered punctate foci of restricted diffusion involving the left parietal lobe measuring 2 to 6 mm nicely seen on images 18 through 22 of series 4. No significant increased signal on the T2/FLAIR images within this distribution. Findings suggest acute infarct. Midline structures including the corpus callosum, brainstem, optic chiasm and pineal glands are unremarkable in the sagittal T1 sequence which is mildly motion degraded. Sella is partially empty. Degenerative changes are seen within the imaged cervical spine. Coronal T2 FLAIR images are also mildly motion degraded. There is no acute intracranial hemorrhage, midline shift, abnormal extra-axial collections, hydrocephalus or intracranial mass identified. Moderate chronic microvascular ischemic changes and moderate brain atrophy appears unchanged from comparison. There is no evidence of mesial temporal sclerosis or seizure focus. The major flow voids at the level the skull base are patent. This appears symmetric. Small bilateral mastoid effusions. Mild mucosal thickening of the ethmoid air cells and left frontal sinus. Scalp and soft tissues are unremarkable. IMPRESSION: 1. Moderately motion degraded exam. 2. Several punctate foci of restricted diffusion involving the left parietal lobe measuring 3 to 6 mm are compatible with small acute infarctions. No significant edema or mass effect. 3. Atrophy with chronic microvascular ischemic changes. The above report was generated using voice recognition software. It may contain grammatical, syntax or spelling errors. Electronically signed by: Franky Yip M.D. 05/22/2017 5:23 PM Dictated Date/Time: 05/22/2017 5:14 PM
[2017-05-22] MEDS ORDERED: ASPIRIN 81 MG ECTAB PO STA (19:16)
[2017-05-22 19:24] VITALS: BP 132/60; PULSE 55; TEMP 36.4; O2SAT 96
--- NOTE | 2017-05-22 19:26 | Progress Note ---
Subjective Date of Service: May 22, 2017. Subjective Pt evaluation today including: physical exam, chart review, lab review, review of studies (MRI brain), conversation w/ clinical services consultant (neurology), review of inpatient medication list PO Intake: fair/poor Voiding: incontinence, voiding difficulty this AM the patient was awake during my visit but when I arrived he was altered his tongue was hanging out of his mouth/deviated, his speech was dysarthric, and he was confused & disoriented he could not tell me where he was or why he was here he could not remember me from yesterday's visit staff reported to me that he was markedly different than yesterday which I agreed with Problem List Medical Problems: (1) Acute on chronic renal failure Status: Acute (2) Altered mental status Status: Acute (3) Bacteremia Status: Acute (4) CHF (congestive heart failure) Status: Acute (5) Confusion Status: Acute (6) Cough Status: Acute (7) DKA (diabetic ketoacidoses) Status: Acute (8) Generalized weakness Status: Acute (9) Hyperglycemia Status: Acute (10) Influenza Status: Acute (11) Seizure Status: Acute Review of Systems unable to obtain ROS due to altered mental status Objective Vital Signs Date Time Temp Pulse Resp B/P (MAP) Pulse Ox O2 Delivery O2 Flow Rate FiO2 05/22/17 16:31 Room Air 05/22/17 16:00 36.1 62 18 127/55 (79) 97 Room Air 05/22/17 12:57 Room Air 05/22/17 11:15 36.5 59 18 122/63 (82) 97 05/22/17 08:23 36.5 91 18 169/50 (89) 94 05/22/17 08:00 Room Air 05/22/17 04:00 Room Air 05/22/17 00:04 36.8 61 18 172/70 (104) 98 Room Air 05/22/17 00:00 Room Air 05/21/17 20:00 Room Air 05/21/17 19:52 36.7 67 16 159/64 (95) 96 Room Air Physical Exam General Appearance: no apparent distress, + pertinent finding (looks much worse today) ENT: + pertinent finding (MM very dry, tongue hanging out of mouth) Neck: no JVD Respiratory/Chest: lungs clear, no respiratory distress, no accessory muscle use Cardiovascular: regular rate, rhythm, no gallop, no murmur, + extra beats Abdomen: normal bowel sounds, non tender, soft, no organomegaly Extremities: no pedal edema Neurologic/Psychiatric: no motor/sensory deficits, alert, + disoriented, + pertinent finding (no facial droop ) Laboratory Results Last 24 Hours Test 05/21/17 20:33 05/22/17 07:42 05/22/17 11:34 05/22/17 14:14 Bedside Glucose 152 mg/dl 167 mg/dl 161 mg/dl Sodium Level 143 mmol/L Potassium Level 4.4 mmol/L Chloride Level 113 mmol/L Carbon Dioxide Level 24 mmol/L Anion Gap 6.0 mmol/L Blood Urea Nitrogen 34 mg/dl Creatinine 2.01 mg/dl Est Creatinine Clear Calc Drug Dose 21.9 ml/min Estimated GFR () 33.6 Estimated GFR (Non- 29.0 BUN/Creatinine Ratio 17.0 Random Glucose 193 mg/dl Calcium Level 7.6 mg/dl Magnesium Level 1.6 mg/dl Test 05/22/17 16:40 Bedside Glucose 129 mg/dl Assessment and Plan 86yo male - 1. seizure at admission with concern for recurrent seizures - initially on keppra; due to concern of toxicity/sedation from such he was changed to dilantin on 05/21/17 by neurology. dilantin level in 5 days. 2. encephalopathy - thought to be metabolic and/or toxic (seizures, keppra, etc ). today I believe it is due to acute strokes (see below). Ammonia, TSH, B12, VBG, lyme's, ESR-- all normal/negative. RPR pending. Vitamin B1 pending. No evidence of any infectious process. 3. acute left-sided parietal lobe strokes - echo w/o source of embolus earlier this stay. Carotid duplex 03/2017 with 50% narrowing of left ICA. will check MRA neck tomorrow AM. apparently had ? of paroxysmal a. fib earlier this stay; if that was the case then anticoagulation would be indicated for him. however, he is high risk for anticoagulation given his frequent falls, h/o ICH, etc. this would need to be discussed in detail with his son. MRA brain done this admission was stable. he had NOT been on his asa/plavix last few days; will restart these until anticoagulation issue is settled. appreciate neurology help. 4. HTN - remains on imdur, flomax, cardizem, metoprolol and hydralazine. Hold hydralazine; allow permissive HTN in setting of #3. 5. 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 restart NS hydration. 6. FEN - appears dehydrated today; restart NS hydration; BMP am. modified diet due to dysphagia. 7. dysphagia - modified diet (nectar thick liquids with pureed). 8. DVT proph - heparin BID. 9. PAF - see above. 10. T2DM - controlled. 11. CAD - the troponin at admission was likely due to myocardial demand ischemia in setting of acute renal failure. Follow. 12. h/o SAH - noted. MRI brain w/o such today. 13. h/o intra-cerebral aneurysm s/p coil - noted. 14. chronic diastolic CHF - remains compensated. dispo = SNF placement patient continues to do poorly on grand scale will update son tonight Continued [facility] stay due to: multiple IV medications needed, other (ongoing encephalopathy, strokes) Discharge planning: halfway facility
[2017-05-22] MEDS ORDERED: CLOPIDOGREL BISULFATE 75 MG TAB PO ONE (19:30)
[2017-05-22 23:00] VITALS: BP 148/61; PULSE 58; TEMP 36.4; O2SAT 96
[2017-05-23] VITALS (7 sets, daily range): BP systolic 142–178; BP diastolic 50–82; PULSE 54–72; TEMP 35.6–36.7; O2SAT 93–98
[2017-05-23 02:53] LABS: RAPID PLASMA REAGIN NONREACTIVE (NONREACT)
[2017-05-23] MEDS: ALBUTEROL HFA 8 GM INHALER INH SCH ×6 (04:00→20:09)
[2017-05-23] MEDS: SODIUM CHLORIDE 0.9% 1000ML 1,000 ML IV SCH ×2 (06:44→18:14)
[2017-05-23 08:33] LABS: CALCIUM 7.9 mg/dl (8.5-10.1); CREATININE 1.56 mg/dl (0.60-1.40); POTASSIUM 4.2 mmol/L (3.5-5.1)
[2017-05-23] MEDS: HEPARIN SOD 5000 UNIT/0.5 ML CARP SQ SCH ×2 (09:02→21:13)
[2017-05-23] MEDS: INSULIN ASPART 100 UNITS/ML 3 ML PEN SC SCH ×4 (09:03→21:12)
[2017-05-23] MEDS: CLOPIDOGREL BISULFATE 75 MG TAB PO SCH (09:04)
[2017-05-23] MEDS: SENNA 8.6 MG TAB PO SCH (09:04)
[2017-05-23] MEDS: PHENYTOIN SODIUM ER 100 MG CAP PO SCH ×2 (09:04→20:10)
[2017-05-23] MEDS: ISOSORBIDE MONONITRATE 60 MG TABCR PO SCH (09:04)
[2017-05-23] MEDS: ASPIRIN 81 MG ECTAB PO SCH (09:05)
[2017-05-23] MEDS: DILTIAZEM HCL 180 MG CAPCR PO SCH (09:05)
[2017-05-23] MEDS: TAMSULOSIN HCL 0.4 MG CAP PO SCH (09:05)
[2017-05-23] MEDS: POLYETHYLENE (MIRALAX) 17 GM PACK PO SCH ×2 (09:05→20:11)
[2017-05-23] MEDS: NYSTATIN SUSP 500,000 U/5 ML UDC PO SCH ×3 (09:05→16:54)
[2017-05-23] MEDS: BOOST VANILLA PUDDING CUP PO SCH ×3 (09:06→16:54)
--- NOTE | 2017-05-23 19:55 | Progress Note ---
Subjective Date of Service: May 23, 2017. Subjective Pt evaluation today including: conversation w/ patient, physical exam, chart review, lab review, review of inpatient medication list Pain: nothing voiced during 2 visits PO Intake: fair Voiding: incontinence tele - NSR w/ PACs 2 visits to the pt's room today -- first was this AM -- he was quite lethargic, but able to answer where he was ("[place]"), the year ("2016"), and that I was a doctor with that said he quickly fell asleep during our conversation 2nd visit was after an unwitnessed fall late in the afternoon patient was found on the floor in the middle of his room with feces around him during the 2nd visit he was back in the bed (after he had been cleaned up by staff) he said "Hey, I'm looking for my urinal" I gave him such, he tried to void, but couldn't he denied complaints of pain in any location during this 2nd visit but, like earlier in the day, he quickly fell back asleep Problem List Medical Problems: (1) Acute on chronic renal failure Status: Acute (2) Altered mental status Status: Acute (3) Bacteremia Status: Acute (4) CHF (congestive heart failure) Status: Acute (5) Confusion Status: Acute (6) Cough Status: Acute (7) DKA (diabetic ketoacidoses) Status: Acute (8) Generalized weakness Status: Acute (9) Hyperglycemia Status: Acute (10) Influenza Status: Acute (11) Seizure Status: Acute Review of Systems unable to obtain reliable ROS Objective Vital Signs Date Time Temp Pulse Resp B/P (MAP) Pulse Ox O2 Delivery O2 Flow Rate FiO2 05/23/17 18:58 36.3 59 18 171/61 (97) 97 Room Air 05/23/17 18:09 35.6 66 16 178/65 (102) 98 05/23/17 16:00 Room Air 05/23/17 15:35 36.5 55 20 142/50 (80) 96 Room Air 05/23/17 12:55 Room Air 05/23/17 12:08 36.5 57 16 156/71 (99) 96 Room Air 05/23/17 08:55 Room Air 05/23/17 08:01 36.4 72 16 177/72 (107) 95 Room Air 05/23/17 04:10 36.4 54 18 150/59 (89) 93 Room Air 05/23/17 04:00 Room Air 05/23/17 00:00 Room Air 05/22/17 23:00 36.4 58 20 148/61 (90) 96 Room Air 05/22/17 20:00 Room Air Physical Exam General Appearance: no apparent distress, + cachetic, + thin ENT: + pertinent finding (MM dry) Neck: no JVD Respiratory/Chest: lungs clear, no respiratory distress, no accessory muscle use Cardiovascular: regular rate, rhythm, no gallop, + extra beats Abdomen: normal bowel sounds, non tender, soft, no organomegaly Extremities: no pedal edema Neurologic/Psychiatric: + pertinent finding (lethargic) Comments: during 2nd visit today I performed a musculoskeletal exam - I was able to passively place both hips through range of motion WITHOUT any pain he had NO pain with compression of the c-spine, t-spine, or l-spine spinous processes shoulders, elbows, wrists, knees, ankles, or upper/lower ext long bones w/o signs of injury no large ulcers or lacerations either Laboratory Results Last 24 Hours Test 05/22/17 20:12 05/23/17 07:35 05/23/17 07:45 05/23/17 11:32 Bedside Glucose 159 mg/dl 131 mg/dl 182 mg/dl Sodium Level 145 mmol/L Potassium Level 4.2 mmol/L Chloride Level 115 mmol/L Carbon Dioxide Level 22 mmol/L Anion Gap 9.0 mmol/L Blood Urea Nitrogen 29 mg/dl Creatinine 1.56 mg/dl Est Creatinine Clear Calc Drug Dose 27.9 ml/min Estimated GFR () 45.6 Estimated GFR (Non- 39.4 BUN/Creatinine Ratio 18.8 Random Glucose 152 mg/dl Calcium Level 7.9 mg/dl Magnesium Level 1.8 mg/dl Test 05/23/17 16:12 Bedside Glucose 152 mg/dl Assessment and Plan 86yo male - 1. seizure at admission with concern for recurrent seizures - initially on keppra; due to concern of toxicity/sedation from such he was changed to dilantin on 05/21/17 by neurology. dilantin level on Wednesday AM needed. 2. encephalopathy - ongoing. He has brief periods of awakefulness (he can eat, etc) -- then quickly falls back asleep. His orientation waxes/wanes and has been doing so the last 2 weeks. thought to be metabolic and/or toxic (seizures, keppra, acute stroke, etc). Ammonia, RPR, TSH, B12, VBG, lyme's, ESR-- all normal/negative. Vitamin B1 pending. No evidence of any infectious process. Dr. Fall feels he likely has underlying dementia given the number of strokes on MRI and atrophy -- I agree w/ that assessment. It could take several weeks for his mental status to return to normal. 3. acute left-sided parietal lobe strokes - echo w/o source of embolus earlier this stay. Carotid duplex 03/2017 with 50% narrowing of left ICA. apparently had ? of paroxysmal a. fib earlier this stay; if that was the case then anticoagulation would be indicated for him. however, he is high risk for anticoagulation given his frequent falls, h/o ICH, etc. this would need to be discussed in detail with his son. and he had another fall today. MRA brain done this admission was stable. cont asa/plavix for secondary stroke prevention. in light of active falls and advanced age and poor prognosis I am not certain I would add coumadin/anticoagulation. 4. HTN - remains on imdur, flomax, cardizem, metoprolol. Allow permissiveness in BP due to acute stroke. 5. 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 6. FEN - stop fluids due to CHF history; diet as tolerated; lytes stable. 7. dysphagia - modified diet (nectar thick liquids with pureed). 8. DVT proph - heparin BID. 9. PAF - see above. 10. T2DM - controlled. 11. CAD - the troponin at admission was likely due to myocardial demand ischemia in setting of acute renal failure. Follow. 12. h/o SAH - noted. MRI brain x 2 this admission without ICH. 13. h/o intra-cerebral aneurysm s/p coil - noted. 14. chronic diastolic CHF - remains compensated. 15. s/p fall - fortunately he has no signs of injury or fracture on exam. Fall precautions. May need 1 on 1. dispo = SNF placement...with palliative care/hospice if he fails to improve? patient continues to do poorly on grand scale son updated 05/22/17 he currently is in [place] but plans to arrive back to [place] early tomorrow afternoon will discuss possible hospice then Continued [facility] stay due to: multiple IV medications needed, other (ongoing encephalopathy, strokes) Discharge planning: prison facility
[2017-05-24] MEDS: ALBUTEROL HFA 8 GM INHALER INH SCH ×7 (04:00→23:42)
[2017-05-24 04:18] VITALS: BP 184/66; PULSE 64; TEMP 36.7; O2SAT 96
[2017-05-24 06:03] LABS: CALCIUM 7.6 mg/dl (8.5-10.1); CREATININE 1.39 mg/dl (0.60-1.40); POTASSIUM 4.2 mmol/L (3.5-5.1)
[2017-05-24] MEDS: DILTIAZEM HCL 180 MG CAPCR PO SCH (07:46)
[2017-05-24] MEDS: PHENYTOIN SODIUM ER 100 MG CAP PO SCH ×2 (07:46→20:07)
[2017-05-24] MEDS: SENNA 8.6 MG TAB PO SCH (07:46)
[2017-05-24 07:47] VITALS: BP 213/63; PULSE 113; TEMP 36.4; O2SAT 99
[2017-05-24] MEDS: BOOST VANILLA PUDDING CUP PO SCH ×3 (07:47→17:07)
[2017-05-24] MEDS: CLOPIDOGREL BISULFATE 75 MG TAB PO SCH (07:47)
[2017-05-24] MEDS: POLYETHYLENE (MIRALAX) 17 GM PACK PO SCH ×2 (07:47→20:07)
[2017-05-24] MEDS: ASPIRIN 81 MG ECTAB PO SCH (07:47)
[2017-05-24] MEDS: ISOSORBIDE MONONITRATE 60 MG TABCR PO SCH (07:47)
[2017-05-24] MEDS: TAMSULOSIN HCL 0.4 MG CAP PO SCH (07:47)
[2017-05-24] MEDS: HEPARIN SOD 5000 UNIT/0.5 ML CARP SQ SCH ×2 (07:54→20:08)
[2017-05-24] MEDS: INSULIN ASPART 100 UNITS/ML 3 ML PEN SC SCH ×4 (08:31→20:16)
[2017-05-24 11:52] VITALS: BP 190/81; PULSE 79; TEMP 36.8; O2SAT 98
[2017-05-24] MEDS: HydrALAZINE 10 MG TAB PO SCH ×2 (11:55→20:07)
[2017-05-24 15:05] VITALS: BP 162/60; PULSE 94; TEMP 36.8; O2SAT 99
[2017-05-24 16:01] VITALS: O2SAT 99
--- NOTE | 2017-05-24 22:18 | Progress Note ---
Subjective Date of Service: May 24, 2017. Subjective Pt evaluation today including: conversation w/ patient, conversation w/ family (son, daughter in law at bedside), physical exam, chart review, lab review, conversation w/ behavioral consultant (Dr. Delvalle by phone) Pain: low back PO Intake: eating well when he is awake Voiding: incontinence 2 visits to see the patient today this AM he was sleeping upon arrival I woke him up and he knew he was at [facility] and that it was 2016 but could not tell me anything else (although he did recall his visiting him) he quickly feel asleep during my morning visit unable to obtain a reliable ROS due to sleepiness 2nd visit was later in the day when his son arrived during that visit he again was quite sleepy, drifting in and out of sleep Problem List Medical Problems: (1) Acute on chronic renal failure Status: Acute (2) Altered mental status Status: Acute (3) Bacteremia Status: Acute (4) CHF (congestive heart failure) Status: Acute (5) Confusion Status: Acute (6) Cough Status: Acute (7) DKA (diabetic ketoacidoses) Status: Acute (8) Generalized weakness Status: Acute (9) Hyperglycemia Status: Acute (10) Influenza Status: Acute (11) Seizure Status: Acute Objective Vital Signs Date Time Temp Pulse Resp B/P (MAP) Pulse Ox O2 Delivery O2 Flow Rate FiO2 05/24/17 16:01 99 Room Air 05/24/17 15:05 36.8 94 20 162/60 (94) 99 Room Air 05/24/17 12:00 Room Air 05/24/17 11:52 36.8 79 20 190/81 (117) 98 Room Air 05/24/17 08:00 Room Air 05/24/17 07:47 36.4 113 20 213/63 (113) 99 Room Air 05/24/17 04:18 36.7 64 20 184/66 (105) 96 Room Air 05/24/17 04:00 Room Air 05/24/17 00:00 Room Air 05/23/17 23:53 36.7 61 16 171/82 (111) 96 Room Air Physical Exam General Appearance: no apparent distress, + thin ENT: + pertinent finding (MM mildly dry) Neck: no JVD Respiratory/Chest: lungs clear, no respiratory distress, no accessory muscle use Cardiovascular: regular rate, rhythm, no gallop, no murmur, + extra beats Abdomen: normal bowel sounds, non tender, soft, no organomegaly Extremities: no pedal edema Neurologic/Psychiatric: no motor/sensory deficits, + pertinent finding (speech slightly slurry at times but otherwise clear) Skin: no rash Laboratory Results Last 24 Hours Test 05/24/17 05:26 05/24/17 07:43 05/24/17 11:52 05/24/17 20:16 Sodium Level 143 mmol/L Potassium Level 4.2 mmol/L Chloride Level 116 mmol/L Carbon Dioxide Level 22 mmol/L Anion Gap 5.0 mmol/L Blood Urea Nitrogen 24 mg/dl Creatinine 1.39 mg/dl Est Creatinine Clear Calc Drug Dose 31.4 ml/min Estimated GFR () 52.4 Estimated GFR (Non- 45.2 BUN/Creatinine Ratio 17.0 Random Glucose 168 mg/dl Calcium Level 7.6 mg/dl Bedside Glucose 141 mg/dl 232 mg/dl 111 mg/dl Assessment and Plan 86yo male - 1. seizure at admission with concern for recurrent seizures throughout this stay- initially on keppra; due to concern of toxicity/sedation from such he was changed to dilantin on 05/21/17 by neurology. dilantin level in the AM. no obvious seizure activity in the last 2-3 days. 2. encephalopathy - ongoing. He has brief periods of awakefulness (he can eat, etc) -- then quickly falls back asleep. His orientation waxes/wanes and has been doing so the last 2 weeks. thought to be metabolic and/or toxic (seizures, keppra, acute stroke, etc). Ammonia, RPR, TSH, B12, VBG, lyme's, ESR-- all normal/negative. Vitamin B1 pending. No evidence of any infectious process. Dr. Fall feels he likely has underlying dementia given the number of strokes on MRI as well as atrophy -- I agree w/ that assessment. It could take several weeks for his mental status to return to normal. very lengthy discussion today held with son about pt's poor progress during this stay. he voices understanding and agrees he has done poorly. he continues to confirm that his father is DNR. I suggested we transition him to [facility] and if no significant progress over the next 1-2 weeks then start palliative care. son seemed agreeable to this plan. 3. acute left-sided parietal lobe strokes - echo w/o source of embolus earlier this stay. Carotid duplex 03/2017 with 50% narrowing of left ICA. apparently had ? of paroxysmal a. fib earlier this stay; if that was the case then anticoagulation would be indicated for him. however, he is high risk for anticoagulation given his frequent falls, h/o ICH, etc. I discussed this today with his son & Dr. Delvalle. Both Dr. Delvalle and myself feel he is a very poor candidate for anticoagulation and would not recommend such at this time (numerous falls including one yesterday, h/o ICH, etc). cont asa/plavix for secondary stroke prevention. 4. HTN - remains on imdur, flomax, cardizem, hydralazine. Can resume metoprolol. 5. 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 6. FEN - lytes stable, diet as tolerated. 7. dysphagia - modified diet (nectar thick liquids with pureed). 8. DVT proph - heparin BID. 9. PAF - see above. 10. T2DM - controlled. 11. CAD - the troponin at admission was likely due to myocardial demand ischemia. No chest pain during this admission. 12. h/o SAH - noted. MRI brain x 2 this admission without ICH. 13. h/o intra-cerebral aneurysm s/p coil - noted. 14. chronic diastolic CHF - remains compensated. 15. s/p fall 05/23/17 - fortunately he had no signs of injury or fracture on exam. Continues to not complain of any significant musculoskeletal injury. Low back pain is chronic. Fall precautions. dispo = SNF placement at [facility] with possible bridge to palliative care in the next 1-2 weeks if he continues to do poorly DNR consider formal palliative care consult Continued [facility] stay due to: home environment unsafe for pt, other (ongoing encephalopathy, strokes) Discharge planning: snf facility
[2017-05-24] MEDS: HydrALAZINE HCL 20 MG/ML VIAL IV. PRN (23:46)
[2017-05-24 23:51] VITALS: BP 196/77; PULSE 72; TEMP 36.5; O2SAT 96
[2017-05-25] VITALS (8 sets, daily range): BP systolic 129–197; BP diastolic 55–86; PULSE 74–86; TEMP 36.7–36.8; O2SAT 95–98
[2017-05-25] MEDS: ALBUTEROL HFA 8 GM INHALER INH SCH ×5 (04:31→21:14)
[2017-05-25 07:12] LABS: HEMATOCRIT 36.4 % (42-52); HEMOGLOBIN 11.8 g/dL (14.0-18.0); MEAN CELL VOLUME 98.1 fL (80-100); MEAN CORPUSCULAR HEMOGLOBIN 31.8 pg (25-34); MEAN CORPUSCULAR HGB CONC 32.4 g/dl (32-36); MEAN PLATELET VOLUME 11.4 fL (7.4-10.4); PLATELET COUNT 234 K/uL (130-400); RED CELL DISTRIBUTION WIDTH CV 15.3 % (11.5-14.5); RED CELL DISTRIBUTION WIDTH SD 54.8 fL (36.4-46.3); WHITE BLOOD COUNT 7.84 K/uL (4.8-10.8)
[2017-05-25 07:49] LABS: CALCIUM 7.8 mg/dl (8.5-10.1); CREATININE 1.36 mg/dl (0.60-1.40); POTASSIUM 3.9 mmol/L (3.5-5.1)
[2017-05-25] MEDS: CLOPIDOGREL BISULFATE 75 MG TAB PO SCH (07:57)
[2017-05-25] MEDS: ASPIRIN 81 MG ECTAB PO SCH (07:57)
[2017-05-25] MEDS: ISOSORBIDE MONONITRATE 60 MG TABCR PO SCH (07:57)
[2017-05-25] MEDS: HydrALAZINE 10 MG TAB PO SCH ×3 (07:58→21:12)
[2017-05-25] MEDS: PHENYTOIN SODIUM ER 100 MG CAP PO SCH ×2 (07:58→21:12)
[2017-05-25] MEDS: TAMSULOSIN HCL 0.4 MG CAP PO SCH (07:58)
[2017-05-25] MEDS: DILTIAZEM HCL 180 MG CAPCR PO SCH (07:59)
[2017-05-25] MEDS: BOOST VANILLA PUDDING CUP PO SCH ×3 (08:00→17:00)
[2017-05-25] MEDS: INSULIN ASPART 100 UNITS/ML 3 ML PEN SC SCH ×4 (08:16→21:00)
[2017-05-25] MEDS: METOPROLOL TARTRATE 50 MG TAB PO SCH ×2 (08:16→21:13)
[2017-05-25] MEDS: SENNA 8.6 MG TAB PO SCH (09:00)
[2017-05-25] MEDS: POLYETHYLENE (MIRALAX) 17 GM PACK PO SCH ×2 (09:00→21:13)
[2017-05-25] MEDS: HEPARIN SOD 5000 UNIT/0.5 ML CARP SQ SCH ×2 (09:25→21:20)
[2017-05-25] MEDS ORDERED: SODIUM CHLORIDE 0.9% 1000ML 1,000 ML IV SCH (15:30)
--- NOTE | 2017-05-25 17:08 | Progress Note ---
Subjective Date of Service: May 25, 2017. Subjective pt is much more awake and alert today, does have some clinical changes of dehydration, but is able to take po fairly well, Dr Delvalle recommends some IVf and reassesment prior to sending to snf Problem List Medical Problems: (1) Acute on chronic renal failure Status: Acute (2) Altered mental status Status: Acute (3) Bacteremia Status: Acute (4) CHF (congestive heart failure) Status: Acute (5) Confusion Status: Acute (6) Cough Status: Acute (7) DKA (diabetic ketoacidoses) Status: Acute (8) Generalized weakness Status: Acute (9) Hyperglycemia Status: Acute (10) Influenza Status: Acute (11) Seizure Status: Acute Review of Systems Constitutional: + weakness, + fatigue, No fever, No chills Respiratory: No cough, No shortness of breath Cardiac: No chest pain, No orthopnea, No edema Abdomen: No pain, No nausea, No vomiting, No diarrhea Male : No dysuria, No urinary frequency Objective Vital Signs Date Time Temp Pulse Resp B/P (MAP) Pulse Ox O2 Delivery O2 Flow Rate FiO2 05/25/17 15:51 36.7 79 16 184/67 (106) 98 Room Air 05/25/17 14:00 74 16 141/62 (88) 95 Room Air 05/25/17 09:24 86 96 05/25/17 09:14 86 18 129/55 (79) 96 Room Air 05/25/17 08:00 97 Room Air 05/25/17 07:30 36.8 84 18 197/84 (121) 97 Room Air 05/25/17 04:00 166/86 (112) 05/25/17 00:00 Room Air 05/24/17 23:51 36.5 72 16 196/77 (116) 96 Room Air Physical Exam General Appearance: + mild distress, + thin Eyes: PERRL, EOMI Respiratory/Chest: chest non-tender, lungs clear, normal breath sounds Cardiovascular: + systolic murmur, + irregularly irregular Abdomen: normal bowel sounds, non tender, soft Extremities: no pedal edema, no calf tenderness Neurologic/Psychiatric: alert, + depressed affect, + disoriented Laboratory Results Last 24 Hours Test 05/24/17 20:16 05/25/17 06:34 05/25/17 07:16 05/25/17 11:40 Bedside Glucose 111 mg/dl 157 mg/dl 168 mg/dl White Blood Count 7.84 K/uL Red Blood Count 3.71 M/uL Hemoglobin 11.8 g/dL Hematocrit 36.4 % Mean Corpuscular Volume 98.1 fL Mean Corpuscular Hemoglobin 31.8 pg Mean Corpuscular Hemoglobin Concent 32.4 g/dl RDW Standard Deviation 54.8 fL RDW Coefficient of Variation 15.3 % Platelet Count 234 K/uL Mean Platelet Volume 11.4 fL Sodium Level 144 mmol/L Potassium Level 3.9 mmol/L Chloride Level 112 mmol/L Carbon Dioxide Level 25 mmol/L Anion Gap 7.0 mmol/L Blood Urea Nitrogen 19 mg/dl Creatinine 1.36 mg/dl Est Creatinine Clear Calc Drug Dose 32.3 ml/min Estimated GFR () 53.8 Estimated GFR (Non- 46.5 BUN/Creatinine Ratio 14.0 Random Glucose 144 mg/dl Calcium Level 7.8 mg/dl Phenytoin (Dilantin) Level 6.5 mcg/mL Assessment and Plan 86 M w seizure at admission with concern for ongoing seizures - on top of baseline age related memory changes and encephalopathy seizure at admission with concern for recurrent seizures throughout this stay- initially on keppra; due to concern of toxicity/sedation from such he was changed to dilantin on 05/21/17 by neurology. dilantin level slightly low 05/25, will look toward neurology for recommendation for final med dosing and schedule no obvious seizure activity recently encephalopathy waxes/wanes and thought to be metabolic and/or toxic (seizures, keppra, acute stroke, etc). Seems somewhat improved 05/25. Dr. 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 Carotid duplex 03/2017 with 50% narrowing of left ICA. history of paroxysmal a. 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 HTN - imdur, flomax, cardizem, hydralazine, resume metoprolol. Chronic diastolic heart failure compensated acute renal failure in setting of CKD stage 4 - JOHN resolved. dysphagia - modified diet (nectar thick liquids with pureed). DVT proph - heparin BID. T2DM - controlled monitoring with SSI chronic diastolic CHF - remains compensated. dispo SNF placement at [facility] with possible transition to palliative care in the next 1-2 weeks if he declines DNR Continued [facility] stay due to: home environment unsafe for pt, other (ongoing encephalopathy, strokes) Discharge planning: custodial facility
[2017-05-26 00:01] VITALS: BP 185/74; PULSE 58; TEMP 36.5; O2SAT 95
[2017-05-26] MEDS: ALBUTEROL HFA 8 GM INHALER INH SCH ×5 (00:31→16:20)
[2017-05-26] MEDS: HydrALAZINE HCL 20 MG/ML VIAL IV. PRN (00:32)
[2017-05-26] MEDS: INSULIN ASPART 100 UNITS/ML 3 ML PEN SC SCH ×2 (06:30→12:20)
[2017-05-26 07:25] VITALS: BP 210/79; PULSE 70; TEMP 36.3; O2SAT 93
[2017-05-26] MEDS: METOPROLOL TARTRATE 50 MG TAB PO SCH (07:41)
[2017-05-26] MEDS: DILTIAZEM HCL 180 MG CAPCR PO SCH (07:41)
[2017-05-26] MEDS: ISOSORBIDE MONONITRATE 60 MG TABCR PO SCH (07:41)
[2017-05-26] MEDS: CLOPIDOGREL BISULFATE 75 MG TAB PO SCH (07:41)
[2017-05-26] MEDS: ASPIRIN 81 MG ECTAB PO SCH (07:41)
[2017-05-26] MEDS: SENNA 8.6 MG TAB PO SCH (07:41)
[2017-05-26] MEDS: TAMSULOSIN HCL 0.4 MG CAP PO SCH (07:41)
[2017-05-26] MEDS: HydrALAZINE 10 MG TAB PO SCH ×2 (07:42→12:14)
[2017-05-26] MEDS: PHENYTOIN SODIUM ER 100 MG CAP PO SCH (07:42)
[2017-05-26] MEDS: POLYETHYLENE (MIRALAX) 17 GM PACK PO SCH (07:42)
[2017-05-26] MEDS: HEPARIN SOD 5000 UNIT/0.5 ML CARP SQ SCH (07:46)
[2017-05-26] MEDS: BOOST VANILLA PUDDING CUP PO SCH ×2 (08:00→12:00)
--- NOTE | 2017-05-26 08:22 | Neurology Progress Notes ---
Neurology Progress Note Date of Service May 26, 2017. Subjective Patient has no complaint of pain or headache. He does have a little dizziness which she says is chronic, but he has no new weakness or numbness. According to nursing staff he has had no seizures. His most recent Dilantin level, May 25, was 6.5. This was on 100 mg twice daily. Nursing reports that he has less confused than he was previously. Objective Date Time Temp Pulse Resp B/P (MAP) Pulse Ox O2 Delivery O2 Flow Rate FiO2 05/26/17 08:04 Room Air 05/26/17 07:25 36.3 70 18 210/79 (122) 93 Room Air 05/26/17 00:01 36.5 58 16 185/74 (111) 95 05/26/17 00:00 Room Air 05/25/17 16:02 98 Room Air 05/25/17 15:51 36.7 79 16 184/67 (106) 98 Room Air 05/25/17 14:00 74 16 141/62 (88) 95 Room Air 05/25/17 09:24 86 96 05/25/17 09:14 86 18 129/55 (79) 96 Room Air Last 24 Hours Test 05/25/17 11:40 05/25/17 16:50 05/25/17 21:00 05/26/17 07:51 Bedside Glucose 168 mg/dl 122 mg/dl 94 mg/dl 136 mg/dl Exam: He is awake and alert. Speech is without obvious a aphasia or dysarthria. He is slow and his thought processes and movements however. He has some ptosis on the right and extraocular eye muscles are intact without nystagmus. There is no facial droop. Tongue is midline. He has no drift with outstretched arms. Strength is symmetrical in the limbs and he has no tremor or ataxia. Current Inpatient Medications Medications (Trade) Dose Ordered Sig/Joselito Route Start Time Stop Time Status Last Admin Dose Admin Ondansetron HCl (Zofran Inj) 4 mg Q6H PRN IV 05/08/17 07:30 06/07/17 07:29 Nitroglycerin (Nitrostat Tab) 0.4 mg UD PRN SL 05/08/17 07:30 06/07/17 07:29 Lorazepam (Ativan Inj) 1 mg ONE PRN IV 05/08/17 07:30 06/07/17 07:29 Albuterol (Ventolin Hfa Inhaler) 2 puffs Q4 INH 05/08/17 08:00 06/07/17 07:59 05/26/17 07:41 2 PUFFS Glucose (Glucose 40% Gel) 15-30 GRAMS 15 GRAMS... UD PRN PO 05/08/17 10:00 06/07/17 09:59 Glucose (Glucose Chew Tab) 4-8 Tablets 4 Tabl... UD PRN PO 05/08/17 10:00 06/07/17 09:59 Dextrose (Dextrose 50% 50ML Syringe) 25-50ML OF 50% DW IV FOR... UD PRN IV 05/08/17 10:00 06/07/17 09:59 Glucagon (Glucagon Inj) 1 mg UD PRN SQ 05/08/17 10:00 06/07/17 09:59 Heparin Sodium (Porcine) (Heparin Sq 5000 Unit/0.5ml) 5,000 unit Q12 SQ 05/08/17 21:00 06/07/17 20:59 Future hold 05/26/17 07:46 5,000 UNIT Insulin Aspart (novoLOG ASPART) SLIDING SCALE If C... ACHS SC 05/11/17 06:30 06/10/17 06:29 05/25/17 17:49 6 UNITS Tamsulosin HCl (Flomax Cap) 0.4 mg QAM PO 05/12/17 09:00 06/11/17 08:59 05/26/17 07:41 0.4 MG Isosorbide Mononitrate (Imdur Ext Rel Tab) 60 mg QAM PO 05/12/17 09:00 06/11/17 08:59 05/26/17 07:41 60 MG Polyethylene (Miralax Powder Packet) 17 gm BID PO 05/11/17 21:00 06/10/17 20:59 05/26/17 07:42 17 GM Hydralazine HCl (HydrALAZINE INJ) 10 mg Q6H PRN IV. 05/15/17 02:00 06/14/17 01:59 05/26/17 00:32 10 MG Metoprolol Tartrate (Lopressor Tab) 100 mg BID PO 05/16/17 09:00 06/10/17 20:59 Future hold 05/26/17 07:41 100 MG Diltiazem HCl (Cardizem Cd Cap) 180 mg QAM PO 05/19/17 09:00 06/10/17 12:14 05/26/17 07:41 180 MG Enteral Nutritional Formula (Boost Pudding) 1 cup TIDM PO 05/20/17 08:00 06/19/17 07:59 05/24/17 17:07 1 CUP Hydralazine HCl (Apresoline Tab) 10 mg TID PO 05/20/17 16:30 06/19/17 16:29 Future hold 05/26/17 07:42 10 MG Phenytoin Sodium (Dilantin Er Cap) 100 mg BID PO 05/21/17 21:00 06/20/17 20:59 05/26/17 07:42 100 MG Senna (Senokot Tab) 17.2 mg QAM PO 05/22/17 09:00 06/21/17 08:59 05/26/17 07:41 17.2 MG Aspirin (Ecotrin Tab) 81 mg QAM PO 05/23/17 09:00 06/22/17 08:59 05/26/17 07:41 81 MG Clopidogrel Bisulfate (plAVix TAB) 75 mg QAM PO 05/23/17 09:00 06/22/17 08:59 05/26/17 07:41 75 MG Impression 1. Seizure disorder. He is improved on low-dose Dilantin compared to Keppra. Keppra has been discontinued. His Dilantin level is low at 6.5 on the current dose of 100 mg twice daily. MRI of the brain showed no acute stroke but did show significant old small vessel ischemic disease and atrophy. 2. Encephalopathy secondary to seizures. This is improved. 3. Underlying dementia, of mixed origin, mostly vascular with aging components. Plan 1. Increase Dilantin to 100 mg 3 times daily. 2. Check a trough level in 1 week as an outpatient. The patient can be followed up by Dr. Babb as an outpatient. I spoke with Dr. Summers regarding the case.
[2017-05-26 11:14] VITALS: BP 193/78; PULSE 60
[2017-05-26] MEDS ORDERED: DLN100 PO (11:34)
[2017-05-26] MEDS ORDERED: SENN1TAB80 PO (11:34)
[2017-05-26] MEDS ORDERED: CRDCD180 PO (11:34)
[2017-05-26] MEDS ORDERED: NVLGIPEN SC ×2 (11:34→11:35)
[2017-05-26] MEDS ORDERED: METO50TA16 PO (11:34)
[2017-05-26] MEDS ORDERED: APR10 PO (11:34)
[2017-05-26] MEDS ORDERED: MRLP17 PO (11:34)
--- NOTE | 2017-05-26 11:39 | Discharge Instructions ---
Discharge Instructions Date of Service May 26, 2017. Admission Reason for Admission: Seizure Discharge Discharge Diagnosis / Problem: seizure disorder, htn, failure to thrive Discharge Goals Goal(s): Diagnostic testing, Therapeutic intervention Activity Recommendations Activity Level: Assistance Required Therapies: Physical Therapy, Occupational Therapy, Speech Therapy .86 M w seizure at admission with concern for ongoing seizures - on top of baseline age related memory changes and encephalopathy seizure at admission with concern for recurrent seizures throughout this stay- initially on keppra; due to concern of toxicity/sedation from such he was changed to Dilantin on 05/21/17 by neurology. dilantin level slightly low 05/25, neurology increased to TID, will need level monitored encephalopathy waxes/wanes and thought to be metabolic and/or toxic (seizures, keppra, acute stroke, etc). Dr. 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 Carotid duplex 03/2017 with 50% narrowing of left ICA. history of paroxysmal a. fib, but pt previously had a SAH with coiling of bleeding source, at that time deemed not a candidate for fpc anticoagulation cont asa/plavix for secondary stroke prevention. HTN - imdur, flomax, cardizem, hydralazine, resumed metoprolol. Chronic diastolic heart failure compensated acute renal failure in setting of CKD stage 4 - JOHN resolved. dysphagia - modified diet (nectar thick liquids with pureed). T2DM - controlled monitoring with SSI transition to po med if oral intake is more reliable dispo SNF placement at [facility] with possible transition to palliative care in the next 1-2 weeks if he declines DNR Additional Information Patient informed of condition: Yes Advance Directives: Yes DNR: Yes Level of Care: Skilled Communicable Disease: No Prognosis: Stable Pichardo Catheter: No Current Hospital Diet Patient's current hospital diet: Diabetes Type 2 Diet, AHA Diet (Heart Healthy) Discharge Diet Recommended Diet: Diabetes Type 2 Diet (, needs fed) Diet Texture: Pureed (blended smooth) Liquid Consistency: [place] Thick Pending Studies Studies pending at discharge: no Medical Emergencies . Who to Call and When: Medical Emergencies: If at any time you feel your situation is an emergency, please call 911 immediately. . Non-Emergent Contact Non-Emergency issues call your: Primary Care Provider Call Non-Emergent contact if: temperature is above 101, your pain is unusual for you . . "Provider Documentation" section prepared by Chandrakant Summers. . Core Measure Problem Core Measures: None
[2017-05-26 11:59] VITALS: BP 193/78; PULSE 60; TEMP 36.3; O2SAT 93
[2017-05-26 12:43] VITALS: BP 193/80; PULSE 72
[2017-05-26] MEDS ORDERED: PHENYTOIN SODIUM ER 100 MG CAP PO SCH (14:00)
--- NOTE | 2017-05-26 17:39 | Discharge Summary ---
Discharge Summary Date of Service May 26, 2017. Discharge Summary Admission Date: May 08, 2017 at 07:30 Discharge Date: May 26, 2017 Discharge Disposition: Home Principal Diagnosis: seizure, failure to thrive Immunizations: Have You Had Influenza Vaccine: Yes Influenza Vaccine Date: Mar 23, 2010 History of Tetanus Vaccine?: Unknown History of Pneumococcal: Yes Pneumococcal Date: Apr 23, 2008 History of Hepatitis B Vaccine: Unknown Medication Reconciliation New Medications: Diltiazem HCl (Diltiazem HCl ER) 180 Mg Capcr 180 MG PO QAM, #60 DOSE Hydralazine HCl (Hydralazine HCl) 10 Mg Tab 10 MG PO TID, #90 TAB Insulin Aspart (Novolog Flexpen) 100 Units/Ml Inj 0 UNITS SC ACHS, #1 PEN Metoprolol Tartrate (Lopressor) (Lopressor) 50 Mg Tab 100 MG PO BID, #60 TAB Phenytoin Sodium (Dilantin) 100 Mg Cap 100 MG PO TID, #90 CAP Polyethylene (Miralax) 17 Gm Pow 17 GM PO BID, #60 DOSE Sennosides (Senna Lax) 8.6 Mg Tab 17.2 MG PO QAM, #30 TAB Continued Medications: Albuterol Hfa (Ventolin Hfa) 200 Puffs/03783 Mcg Aers 1 PUFF INH Q4, #1 INHALER Aspirin (Aspirin Ec) 81 Mg Tab 81 MG PO DAILY Clopidogrel (Plavix) 75 Mg Tab 75 MG PO DAILY, TAB Docusate Sodium (Colace) 100 Mg Cap 1 CAP PO BID for 30 Days Isosorbide Mononitrate Ext Rel (Imdur Ext Rel) 60 Mg Ertab 60 MG PO QAM, TAB Nutritional Supplements (Boost) 1 Liq Liq 1 CAN PO DAILY for 30 Days Simvastatin (Zocor) 80 Mg Tab 80 MG PO QPM, TAB Tamsulosin Hcl (Flomax) 0.4 Mg Cap 0.4 MG PO HS, CAP Discontinued Medications: Diltiazem HCl (Diltiazem HCl ER) 120 Mg Caper 120 MG PO DAILY for 30 Days, #30 TAB Febuxostat (Uloric) 40 Mg Tab 40 MG PO DAILY for 90 Days Folic Acid (Folic Acid) 400 Mcg Tab 400 MCG PO DAILY Glipizide (Glipizide Er) 10 Mg Tab 10 MG PO BID for 90 Days, #180 TAB 3 Refills Discharge Exam Review of Systems: Constitutional: No fever, No chills Respiratory: No cough, No sputum Cardiovascular: No chest pain, No orthopnea Abdomen: No pain, No nausea Neurologic: No memory loss, No paralysis Psychiatric: No depression symptoms, No anhedonism Physical Exam: General Appearance: WD/WN, + mild distress Eyes: PERRL, EOMI Respiratory/Chest: chest non-tender, lungs clear Cardiovascular: regular rate, rhythm, no murmur Abdomen / GI: normal bowel sounds, non tender, soft Extremities: no pedal edema, normal range of motion Neurologic/Psychiatric: alert, + depressed affect, + disoriented Hospital Course 86 M w seizure at admission with concern for ongoing seizures - on top of baseline age related memory changes and encephalopathy seizure at admission with concern for recurrent seizures throughout this stay- initially on Keppra; due to concern of toxicity/sedation from such he was changed to Dilantin on 05/21/17 by neurology. Dilantin level slightly low 05/25, neurology did recommend increase dosing of Dilantin 100 tid no obvious seizure activity recently encephalopathy waxes/wanes and thought to be metabolic and/or toxic (seizures, keppra, acute stroke, etc). Seems somewhat improved after ivf, will continue to support at snf Dr. 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 Carotid duplex 03/2017 with 50% narrowing of left ICA. history of paroxysmal a. fib, but pt previously had a SAH with coiling of bleeding source, at that time deemed not a candidate for residential anticoagulation cont asa/plavix/zocor for secondary stroke prevention. HTN - imdur, flomax, cardizem, hydralazine, resume metoprolol. Chronic diastolic heart failure compensated acute renal failure in setting of CKD stage 4 - JOHN resolved. dysphagia - modified diet (nectar thick liquids with pureed). T2DM - controlled monitoring with SSI, if diet is consistent consider transition to po med dispo SNF placement at [facility] with possible transition to palliative care in the next 1-2 weeks if he declines DNR Total Time Spent: Greater than 30 minutes This includes examination of the patient, discharge planning, medication reconciliation, and communication with other providers. Discharge Instructions Please refer to the electronic Patient Visit Report (Discharge Instructions) for additional information.
== END 2017-05-26 16:45 | DRG 100 ==
LOC: EDBD 05:34 → C.EDB 05:35 → C.MED 07:30 → ENRESERV 07:44 → C.MED 18:36
PROVIDERS: ADMIT Family Medicine; ATTEND Internal Medicine
DX: G40.909 Epilepsy, unspecified, not intractable, without status epilepticus (principal); E11.00 Type 2 diabetes mellitus with hyperosmolarity without nonketotic hyperglycemic-hyperosmolar coma (NKHHC); G93.41 Metabolic encephalopathy; N18.4 Chronic kidney disease, stage 4 (severe); I24.8 Other forms of acute ischemic heart disease; I50.32 Chronic diastolic (congestive) heart failure; E87.2 Acidosis; N17.9 Acute kidney failure, unspecified; R41.82 Altered mental status, unspecified; Z83.3 Family history of diabetes mellitus; Z87.891 Personal history of nicotine dependence; Z79.82 Long term (current) use of aspirin; I10 Essential (primary) hypertension; Z95.820 Peripheral vascular angioplasty status with implants and grafts; D63.8 Anemia in other chronic diseases classified elsewhere; R00.0 Tachycardia, unspecified; I25.10 Atherosclerotic heart disease of native coronary artery without angina pectoris; N40.0 Benign prostatic hyperplasia without lower urinary tract symptoms; M10.9 Gout, unspecified; R13.10 Dysphagia, unspecified; E11.22 Type 2 diabetes mellitus with diabetic chronic kidney disease; I48.0 Paroxysmal atrial fibrillation; D72.829 Elevated white blood cell count, unspecified; R62.7 Adult failure to thrive